=== PATIENT | female | born 1945 | race Caucasian/White ===

== ENCOUNTER → 2023-05-16 | Outpatient (REF) | payer MEDICARE, OTHER, SELFPAY | LOC: DHSLP | PROVIDERS: ATTENDING PHYSICIAN Internal Medicine Cardiovascular Disease; FAMILY PHYSICIAN Family Medicine | DX: G47.10 Hypersomnia, unspecified (principal); R06.83 Snoring | CPT/HCPCS: 95800 ==

== ENCOUNTER 2024-02-17 08:15 | Inpatient (IN) | payer MEDICARE, OTHER, SELFPAY ==
[2024-02-17] VITALS (11 sets, daily range): BP systolic 89–136; BP diastolic 57–93; BMI 17.5
--- NOTE | 2024-02-17 08:33 | W.PN.CARDCBS ---
Addendum entered and electronically signed by Pedro Diaz MD 02/17/24 12:05:
78-year-old woman admitted for dofetilide loading. Now with persistent atrial fibrillation, history of PVI with flutter ablation and SVT ablation in 2017 with PVI in November 2022
PMH: Inflammatory colitis December 2023, and urinary retention, peripheral neuropathy, hypothyroidism, GERD, hyponatremia, giant cell arteritis
Allergies: Multaq
Outpatient meds: Actemra, diltiazem CD, vitamin D3, Eliquis 5 twice daily, metoprolol 50 every 8, Remeron, potassium, prednisone 60 mg a day, Protonix, levothyroxine, gabapentin, Pepcid
ECG: Atrial fibrillation, rapid ventricular response, QTc is 427, RSR prime, right axis
Pulse 112, BP pending, afebrile, sats 98, some temporal wasting, frail, head neck exam otherwise unremarkable lungs clear tachycardic rate and rhythm, no obvious murmurs JVD okay, no significant edema abdomen benign
Assessment:
Symptomatic PAF, now more persistent
history of SVT/afib/flutter ablation 08/2016, repeat PVI 12/10/22
Admission for tikosyn load
Chronic OAC with eliquis
Relative hypotension
3 week admission to [place] for inflammatory colitis 01/05-01/27/24 s/p flex sigmoidoscopy with biopsy 01/13/24
Urinary retention with soto in place last 5 weeks
GCA flare, on high doses of prednisone and gabapentin
Peripheral neuropathy
Hypothyroidism
GERD
History of pulmonary nodules
Hyponatremia
Vitamin D deficiency
Plan:
Dofetilide load with plan on cardioversion on February 18
Original Note:
Today's Communication / Plan
-
transfer to hospitalist service
initiate tikosyn 250mcg Q12H
follow QTc
continue toprol. holding OP digoxin and cardizem
continue eliquis
PT
Impression / Plan
-
Primary Technology Solutions Architect: Dr. Dawson
Primary EP: Dr. Llanes
Assessment:
Symptomatic PAF, now more persistent
history of SVT/afib/flutter ablation 08/2016, repeat PVI 12/10/22
Admission for tikosyn load
Chronic OAC with eliquis
Relative hypotension
3 week admission to [place] for inflammatory colitis 01/05-01/27/24 s/p flex sigmoidoscopy with biopsy 01/13/24
Urinary retention with soto in place last 5 weeks
GCA flare, on high doses of prednisone and gabapentin
Peripheral neuropathy
Hypothyroidism
GERD
History of pulmonary nodules
Hyponatremia
Vitamin D deficiency
ECHO 12/2023 at [facility]: EF preserved
Plan:
-Patient presents for elective Tikosyn loading due to more recent persistent atrial fibrillation after an admission for inflammatory colitis 12/2023 at [facility].
-she reports diarrhea/abd pain largely improved however still at times requires medication for regulation of bowels
-Awaiting labs
-QTc stable. Is in A-fib with rapid response on arrival
-Will plan to initiate Tikosyn 250 mcg Q12H
-Held outpatient digoxin as of 02/14/2024 and held outpatient Cardizem as of 02/15/2024 as directed
-Called [facility] pharmacy and confirmed no missed doses of Eliquis over the last month. She did miss doses on 01/09 - 01/11 in preparation for her flex sig, however this was resumed as of 01/12 PM dose without missed doses since confirmed
by patient .
-continue OP toprol
-if remains in afib, will plan for CV 02/18
-She reportedly had echo during 12/2023 admission with preserved EF
-She has had a leg bag Soto for the last 5 weeks, and is asking about voiding trial
-Also on high doses of gabapentin and prednisone for a GCA flare and has been asking if these can be weaned
-Due to ongoing noncardiac issues, have asked hospitalist service to admit
-check TSH, patient's huband reports synthroid dosing recently adjusted as OP
-she is currently in [facility] for rehab. continue PT
-d/w nursing, hospitalist
Progress Note - Technology Solutions Architect
Subjective
Date of Service: February 17, 2024
Reports fatigue
Physical Exam
Physical Exam
GEN: No distress, awake, alert, oriented x3
HEENT: supple, anicteric, mmm, eomi
LUNGS: CTA B/L, no wheezes/rales
CV: Irreg irreg, S1/S2, no murmur
ABD: soft, BS+, NT/ND
EXT: No cyanosis, clubbing. 1+ edema of B/L LE
NEURO: Gross non-focal
SKIN: Warm, pink, dry. No rash
[2024-02-17 09:25] LABS: % Basophils 0.1 % (0-2); % Eosinophils 0.7 % (0-6); % Immature Granulocytes 1.1 % (0-0.5); % Lymphocytes 4.6 % (20.5-51.1); % Monocytes 6.9 % (1.7-9.3); % Neutrophils 86.6 % (42.2-75.2); Absolute Eosinophils 0.1 10^3/uL (0-0.7); Absolute Immature Granulocytes 0.2 10^3/uL (0-0.05); Absolute Lymphocytes 0.9 10^3/uL (1.2-3.4); Absolute Monocytes 1.3 10^3/uL (0.1-0.6); Absolute Neutrophils 16.7 10^3/uL (1.4-6.5); Hematocrit 33.4 % (37.0-47.0); Hemoglobin 10.6 g/dL (12.0-16.0); Mean Corp Hgb Conc. 31.7 g/dL (33.0-37.0); Mean Corpuscular Hgb 29.9 pg (27.0-31.0); Mean Corpuscular Volume 94.1 fL (81.0-99.0); Mean Platelet Volume 8.1 fL (7.4-10.4); Nucleated Red Blood Cells % 0 %; Platelet Count 501 10^3/uL (130-400); Red Blood Cell Count 3.55 10^6/uL (4.20-5.40); Red Cell Dist. Width 15.5 % (11.5-14.5); White Blood Cell Count 19.3 10^3/uL (4.8-10.8)
--- NOTE | 2024-02-17 09:54 | CM ---
Addendum entered by Cynthia Esposito 02/17/24 12:08:
Telephone call to [employer], ([phone]) to check if they have coverage for Dofetilide 250 mcg. Her co-pay would be $84.48 a month. She is in the coverage gap. If she uses a Good Rx. coupon at [facility] her co-pay would be $29.49 a month.
Original Note:
Reviewed chart. Met with and Mrs. Diaz to review discharge plans. She states prior to admission she resides with her spouse in a two story home with two steps to enter. She states she has a full flight of steps to get to bedroom/full
bathroom. She states she has a powder room on the first floor. She states prior to admission she was independent with ambulation and adls. She states she does not have any DME in the home. She states she has a prescription plan with [employer] and uses
[facility]. Will check with her prescription plan her co-pay for Dofetilide and check if her pharmacy has it in stock. She will need a three day script to go to [facility] for a supply of Dofetilide to go home with her. Medical work-up in
progress. The discharge plan is to return home with her spouse when medically stable.
[2024-02-17 10:05] LABS: ALT (SGPT) 49 U/L (0-35); AST (SGOT) 35 U/L (14-36); Alkaline Phosphatase 130 U/L (38-126); Blood Urea Nitrogen 55 mg/dl (7-17); Calcium 8.7 mg/dl (8.4-10.2); Carbon Dioxide 30 mmol/L (22-30); Chloride 96 mmol/L (98-107); Estimated Creatinine Clearance 66 ml/min; Glucose 90 mg/dl (70-99); Potassium 4.2 mmol/L (3.5-5.1); Sodium 137 mmol/L (135-145); Total Bilirubin 0.3 mg/dl (0.2-1.3); Total Protein 6.1 g/dl (6.3-8.2); eGFR > 60.00
--- NOTE | 2024-02-17 10:26 | W.CARD.TIKOS ---
Initiate Tikosyn
-
I verify that the patient has not taken any verapamil (Isoptin/Calan), ketoconazole (Nizoral), cimetidine (Tagamet), trimethoprim (Trimpex), trimethoprim/sulfamethoxazole (Bactrim), megesterol (Megace), prochlorperazine (Compazine),
hydrochlorothiazide (HCTZ), dolutegravir (Tivicay) or any Class I or Class III anti-arrhythmic within the last three days
AND
I verify that the patient has not taken amiodarone within the last THREE months, or that the patient's amiodarone plasma concentration is <0.3 mcg/mL.
Creatinine 0.4 mg/dL (0.6-1.0) L 02/17/24 09:06
Estimated Creat Clear 66 ml/min 02/17/24 09:06
Does patient have a Ventricular Conduction Abnormality: No
I have assessed the baseline QTc interval (using QT for heart rate less than 60 bpm) and deemed the patient is appropriate for Dofetilide therapy. I understand that Tikosyn is contraindicated if the QTc is >440msec (500msec in patients with
ventricular conduction abnormalities).
Baseline QTc (in msec): 427
QTc interval is greater than 440msec without conduction abnormality OR greater than 500msec with a conduction abnormality, but acceptable to proceed per Cardiology attending.
Ordering Physician: Pedro Diaz
[2024-02-17] MEDS: TIKOSYN 250 MCG PO ×2 (10:50→21:51)
[2024-02-17] MEDS: NEURONTIN 100 MG PO ×3 (11:22→21:54)
--- NOTE | 2024-02-17 11:23 | PTCARENOTE ---
Pt received as a direct admit for Tikosyn administration. Pt alert and oriented. Afib, rate in the 100's to 140's with ambulation. Pt ambulates to the bathroom with the walker with assist of 1. Gait slightly unsteady due to neuropathy of feet.
--- NOTE | 2024-02-17 13:50 | W.PN.UPDATE ---
Update Note
Progress Note Update
patient with HRs persistently in 120-140s on review of tele. will start IV cardizem gtt @5 and uptitrate as needed for improved HR control.
[2024-02-17] MEDS: CARDIZEM 125 IV (15:29)
--- NOTE | 2024-02-17 15:31 | CON.HOSP ---
Addendum entered and electronically signed by Kari Grace MD 02/17/24 19:38:
I personally performed a history and physical exam of the patient and discussed management with the resident. I reviewed the resident's note and agree with the documented findings and plan of care HPI/CC.
GENERAL: thin, frail appearing female in no apparent distress
HEENT: NC/AT
HEART: irreg irreg-- tachycardic
LUNGS : clear to auscultation bilaterally
ABDOM: soft, nontender, nondistended, + bowel sounds
EXT: no cyanosis, clubbing, or edema
NEUROLOGIC: grossly intact
: soto cath with clear urine
Persistent A-fib with RVR--allergic to Multaq (hives), cannot use amiodarone due to thyroid issues--admitted for Tikosyn loading--S/p cardiac ablation 2022--now also on cardizem drip- remains on eliquis without missed doses--apprec cards--Will
consider cardioversion in 2 days if no improvement
Hypothyroidism--TSH 13.7, Synthroid recently increased to 137 mcg 3 days ago so will not change dosing at this time--need to take levothyroxine alone in the AM on an empty stomach without other meds--if that fails, may need to consider BRAND
Synthroid-- pantoprazole can reduce absorption of Synthroid when taking together--recheck TSH and full TFTs in 4 weeks
Urinary retention--unclear cause--? oxycodone, constipation, hypothyroid---On Soto catheter for 5 weeks placed at [facility]--will not do voiding trial here, needs to go back to PCP or f/u with outpt urology--Starts Flomax 0.4 mg daily.
Giant cell arteritis--Continue high-dose corticosteroids--possibly related to thyroid issues and afib?--f/u with rheum as outpt for tapering of meds
Chronic constipation--could also be cause of urinary retention---cont bowel regimen--Hold with loose stool
Thrombocytosis---Due to inflammatory response--follow
Osteoporosis--Continue Prolia
GERD--Continue pantoprazole, usually given 1/2 hour prior to breakfast (take separate from synthroid)
DVT PPx=-Eliquis
CODE STATUS-full code
Thank you for allowing us to consult on your patient--will follow with you
Original Note:
Consultation
-
Date/Time Consultation Requested: 02/17/24 9:15
Date/Time Consultation Performed: 01/1924 15:30
Requesting Provider: Pedro Diaz MD
Performing Provider: Kari Grace MD
Reason for Consultation: Medical management
Family Physician
-
Family Physician: NO INTERVIEW UNKNOWN
Chief Complaint
-
Atrial fibrillation
History of Present Illness
78-year-old female with PMH of inflammatory colitis, urinary retention (on chronic Soto for 5 weeks), giant cell arteritis (on chronic steroid), peripheral neuropathy (with right foot drop), hypothyroidism, GERD, hyponatremia, paroxysmal
A-fib/A-flutter s/p PVI and concomitant A-flutter ablation 08/30/2016, subsequently underwent another ablation in 2022 who was admitted to the hospital for Tikosyn loading. Patient tried Multaq and was allergic with diffuse hives, amiodarone was not
prescribed due to her history of hypothyroidism. Patient reports that she is compliant with her Synthroid however she receives it with other medications including pantoprazole. Patient has been maintained on diltiazem and metoprolol with Eliquis.
Due to multiple medical problems, the hospitalist team has been consulted to manage chronic medical problems and to accept in our service.
Patient reports that she has been on Soto catheter for urinary retention for about 5 weeks and would like it removed during this admission. She however denies fever, chills, nausea, vomiting, chest pain, shortness of breath, nausea or vomiting.
Medical History
Past Medical History
Past Medical History: Reports Arrhythmia, GERD and Hypothyroidism
Past Surgical History: Reports None
Social History
Tobacco: Non-smoker
Alcohol: None
Drug: None
Personal:
Living: With Family
Employment: Retired
Family History
Family History: Other (Both parents of lung cancer from smoking)
Allergies / Home Medications
Allergies reflects when Allergies were last updated in [employer].
Home Medications with original date entered in [employer]
Allergy/Medication List:
Allergies
Multaq
Allergy/AdvReac Type Severity Reaction Status Date / Time
dronedarone [From [facility]] Allergy Rash Verified 12/10/22 16:06
Home Medications
apixaban 5 mg tablet (Eliquis) 5 mg PO BID 08/30/16
levothyroxine 100 mcg tablet 137 mcg PO DAILY 08/30/16
Actemra 1 dose IV Q4W 11/25/22
Calcium Citrate + D 1 cap PO DAILY 11/25/22
cholecalciferol (vitamin D3) 50 mcg (2,000 unit) capsule (Vitamin D3) 50 mcg PO DAILY 11/25/22
denosumab 60 mg/mL subcutaneous syringe (Prolia) 60 mg SC [id number] 11/25/22
famotidine 20 mg tablet (Pepcid) 20 mg PO QPM 11/25/22
metoprolol succinate 50 mg tablet,extended release 24 hr 50 mg PO Q8 11/25/22
prednisone 20 mg tablet 60 mg PO DAILY 11/25/22
potassium chloride 8 mEq tablet,extended release 8 meq PO DAILY 12/03/22
Cardizem Cd 120 mg PO DAILY 12/25/22
gabapentin 100 mg capsule 100 mg PO Q8H 02/17/24
gabapentin 300 mg capsule 300 mg PO HS 02/17/24
mirtazapine 15 mg tablet (Remeron) 7.5 mg PO HS 02/17/24
multivitamin,tx-minerals 1 tab PO DAILY 02/17/24
oxycodone 5 mg tablet 2.5 mg PO Q6H PRN pain 02/17/24
pantoprazole 40 mg tablet,delayed release (Protonix) 40 mg PO DAILY 02/17/24
sennosides 8.6 mg tablet (senna) 8.6 mg PO DAILY PRN constipation 02/17/24
urea 15 gram oral powder packet 1 packet PO BID 02/17/24
Review of Systems
-
History Source: Patient and Family
Constitutional: Denies Fever, Fatigue or Chills
EENT: Reports No Symptoms
Respiratory: Reports No Symptoms; Denies Cough
Cardiac: Reports No Symptoms; Denies Chest Pain or Palpitations
Abdomen/GI: Reports No Symptoms; Denies Abdominal Pain, Nausea or Vomiting
Musculoskeletal: Reports No Symptoms
Skin: Reports No Symptoms
Physical Exam
Vital Signs
Vital Signs
Temp Pulse Resp BP Pulse Ox
97.6 F 136 16 111/79 96
02/17/24 12:38 02/17/24 12:07 02/17/24 12:38 02/17/24 12:07 02/17/24 12:38
Physical Exam
General: No Apparent Distress and Comfortable
Respiratory: Clear and Non Labored Respirations; Negative Wheezes or Rales
Cardiac: S1/S2 and Irregular Rhythm
GI: Soft, Non Tender, Non Distended and Normal Bowel Sounds
Musculoskeletal: No Clubbing and No Cyanosis
Skin: Warm and Dry
Neuro: Awake, Alert, AO x 3 and Other (Right foot drop)
Hematologic/Lymphatic: No Lymphadenopathy
Psych: Calm
Laboratory Results
-
Laboratory Results
02/17/24 09:06
02/17/24 09:06
Total Bilirubin 0.3 mg/dl (0.2-1.3) 02/17/24 09:06
AST 35 U/L (14-36) 02/17/24 09:06
ALT 49 U/L (0-35) H 02/17/24 09:06
Alkaline Phosphatase 130 U/L (38-126) H 02/17/24 09:06
Data Reviewed
-
Lab Data: Labs Reviewed and Discussed with Physician
Old Records: Reviewed
Impression / Plan
-
IMPRESSION: 78-year-old female with PMH of paroxysmal A-fib (now persistent), A-flutter s/p multiple ablations 2016, and 2022�who was admitted for Tikosyn loading due to persistent A-fib. Patient has tried Multaq which was discontinued due to
diffuse hives, amiodarone not an option due to her history of hypothyroidism. Hospitalist team was consulted to manage other chronic medical problems.
Assessment/plan:
#Persistent A-fib with RVR
-S/p cardiac ablation 2016, 2022.
-Tikosyn loading with persistent heart rates in 120s to 140s.
-Cardizem gtt @5 and uptitrate as needed per cardiology.
-Cardiology following.
-Will consider cardioversion in 2 days if no improvement.
#Hypothyroidism
-TSH 13.7, Synthroid recently increased to 137 mcg 3 days ago, patient compliant.
-May contribute to her A-fib.
-Patient not on any CYP induces, however pantoprazole can reduce absorption of Synthroid when taking together.
-Advised patient to take Synthroid on empty stomach, 30 minutes to 1 hour before other medications.
-Continue Synthroid at 137 mcg and recheck in 6 weeks.
#Urinary retention
-On Soto catheter for 5 weeks placed at [facility].
-Starts Flomax 0.4 mg daily.
-Will give referral to outpatient urology for further management.
#Giant cell arteritis
-Continue high-dose corticosteroids.
-Defer to outpatient rheumatology for management.
#Chronic constipation
-Start Senokot 8.6 mg p.o. HS, MiraLAX 17 mg PO daily, Colace 100 mg PO BID.
-Hold with loose stool
#Thrombocytosis
-Due to inflammatory response.
-Will continue to monitor.
#Osteoporosis
-Continue Prolia
#GERD
-Continue pantoprazole
DVT PPx-Eliquis
CODE STATUS-full code
[2024-02-17] MEDS: TOPROL XL 50 MG PO (16:06)
[2024-02-17] MEDS: COLACE 100 MG PO (20:02)
[2024-02-17] MEDS: SENOKOT-S 1 TABLET PO (20:02)
[2024-02-17] MEDS: ELIQUIS 5 MG PO (20:02)
[2024-02-17] MEDS: URE-NA 15 GRAMS PO (20:13)
[2024-02-17] MEDS: ROXICODONE 2.5 MG PO (21:52)
[2024-02-17] MEDS: NEURONTIN 300 MG PO (21:53)
[2024-02-17] MEDS: REMERON 7.5 MG PO (21:53)
[2024-02-17] MEDS: SENOKOT PO (22:22)
[2024-02-18] VITALS (12 sets, daily range): BP systolic 87–110; BP diastolic 53–74; PULSE 88; BMI 17.1
[2024-02-18] MEDS: TOPROL XL 50 MG PO ×4 (00:03→23:12)
--- NOTE | 2024-02-18 01:02 | PTCARENOTE ---
Assumed care of the pt @ 1900. AAOx3 Afib on the monitor Cardizem gtt @ 10mg/HR titrating for HR 80-100. 2nd dose Tikosyn given and 2 hour f/u EKG QTc 454. soto maintained for retention.
[2024-02-18] MEDS: CARDIZEM 125 IV ×2 (03:52→16:06)
[2024-02-18 04:47] LABS: Hematocrit 28.2 % (37.0-47.0); Hemoglobin 8.9 g/dL (12.0-16.0); Mean Corp Hgb Conc. 31.6 g/dL (33.0-37.0); Mean Corpuscular Hgb 29.1 pg (27.0-31.0); Mean Corpuscular Volume 92.2 fL (81.0-99.0); Mean Platelet Volume 8.2 fL (7.4-10.4); Platelet Count 428 10^3/uL (130-400); Red Blood Cell Count 3.06 10^6/uL (4.20-5.40); Red Cell Dist. Width 15.8 % (11.5-14.5); White Blood Cell Count 16.9 10^3/uL (4.8-10.8)
[2024-02-18 05:11] LABS: Blood Urea Nitrogen 34 mg/dl (7-17); Calcium 8.2 mg/dl (8.4-10.2); Carbon Dioxide 30 mmol/L (22-30); Chloride 95 mmol/L (98-107); Estimated Creatinine Clearance 66 ml/min; Glucose 77 mg/dl (70-99); Potassium 4.6 mmol/L (3.5-5.1); Sodium 135 mmol/L (135-145); eGFR > 60.00
[2024-02-18] MEDS: SYNTHROID 137 MCG PO (05:46)
--- NOTE | 2024-02-18 07:58 | W.PN.CARDCBS ---
Addendum entered and electronically signed by Lorenzo Llanes MD 02/18/24 08:32:
Patient seen and examined
Agree with JUSTIN Javier's note and assessment
Agree with JUSTIN Javier's plan
Telemetry with modestly improved heart rate control in the low 100s
Examination:
Appears in no distress
BMI as noted
Cor irregularly irregular no murmur
Lungs clear to auscultation bilaterally
Abdomen soft nontender positive bowel sounds
No extremity edema
Alert and orient x 3
Assessment:
Symptomatic PAF, now more persistent
history of SVT/afib/flutter ablation 08/2016, repeat PVI 12/10/22
Admission for tikosyn load
Chronic OAC with eliquis
Relative hypotension
3 week admission to [place] for inflammatory colitis 01/05-01/27/24 s/p flex sigmoidoscopy with biopsy 01/13/24
Urinary retention with soto in place last 5 weeks
GCA flare, on high doses of prednisone and gabapentin
Peripheral neuropathy
Hypothyroidism
GERD
History of pulmonary nodules
Hyponatremia
Vitamin D deficiency
ECHO 12/2023 at [facility]: EF preserved
Plan:
-remains in afib overnight however HRs improved on IV cardizem gtt @5 and increased dose po toprol 50mg Q8H, continue
-QTc stable by review of EKGs. continue tikosyn 250mcg Q12H
-OP digoxin and cardizem were discontinued prior to admission given initiation of dofetilide therapy
-plan for CV in AM if remains in afib
-continue eliquis, no missed doses in last month
-of note, hgb down to 8.9. hemetest stools. follow hgb
-TSH elevated at 13. check free T4. on synthroid as OP
-she reports she has good appetite however continues to lose weight. agree with dietary consult. noted hypoalbuminemia
-appreciate hospitalist assistance with multiple ongoing medical issues
-she was in [facility] for rehab prior to admission. continue PT
-d/w nursing, hospitalist
-Discussed with patient that we will have an office meeting discussed whether we continue current antiarrhythmic drug therapy if it is efficacious versus consideration of another ablation procedure although given her recent prolonged hospital stay I
would want her to try to rehabilitate and increase strength and nutrition prior to any considered procedure
Original Note:
Today's Communication / Plan
-
continue tikosyn
QTc stable
CV in AM
follow hgb. continue eliquis
mgmt of multiple ongoing medical issues per hospitalist
Impression / Plan
-
Primary Stenotype Operator: Dr. Dawson
Primary EP: Dr. Llanes
Assessment:
Symptomatic PAF, now more persistent
history of SVT/afib/flutter ablation 08/2016, repeat PVI 12/10/22
Admission for tikosyn load
Chronic OAC with eliquis
Relative hypotension
3 week admission to [place] for inflammatory colitis 01/05-01/27/24 s/p flex sigmoidoscopy with biopsy 01/13/24
Urinary retention with soto in place last 5 weeks
GCA flare, on high doses of prednisone and gabapentin
Peripheral neuropathy
Hypothyroidism
GERD
History of pulmonary nodules
Hyponatremia
Vitamin D deficiency
ECHO 12/2023 at [facility]: EF preserved
Plan:
-remains in afib overnight however HRs improved on IV cardizem gtt @5 and increased dose po toprol 50mg Q8H, continue
-QTc stable by review of EKGs. continue tikosyn 250mcg Q12H
-OP digoxin and cardizem on hold as per EP recs
-plan for CV in AM if remains in afib
-continue eliquis, no missed doses in last month
-of note, hgb down to 8.9. hemetest stools. follow hgb
-TSH elevated at 13. check free T4. on synthroid as OP
-she reports she has good appetite however continues to lose weight. agree with dietary consult. noted hypoalbuminemia
-appreciate hospitalist assistance with multiple ongoing medical issues
-she was in [facility] for rehab prior to admission. continue PT
-d/w nursing, hospitalist
Progress Note - Stenotype Operator
Subjective
Date of Service: February 18, 2024
no CP, SOB, palpitations.
Objective
Labs:
02/18/24 04:11
02/18/24 04:11
Labs
Hgb 8.9 g/dL (12.0-16.0) L 02/18/24 04:11
Hct 28.2 % (37.0-47.0) L 02/18/24 04:11
Plt Count 428 10^3/uL (130-400) H 02/18/24 04:11
Sodium 135 mmol/L (135-145) 02/18/24 04:11
Potassium 4.6 mmol/L (3.5-5.1) 02/18/24 04:11
BUN 34 mg/dl (7-17) H 02/18/24 04:11
Creatinine 0.5 mg/dL (0.6-1.0) L 02/18/24 04:11
Glucose 77 mg/dl (70-99) 02/18/24 04:11
Vital Signs and I&O:
Vital Signs
Temp Pulse Resp BP Pulse Ox
98.3 F 96 18 101/66 96
02/18/24 07:13 02/18/24 04:31 02/18/24 07:13 02/18/24 04:31 02/18/24 07:13
Vital Signs
Temp Pulse Resp BP Pulse Ox
98.3 F 96 18 101/66 96
02/18/24 07:13 02/18/24 04:31 02/18/24 07:13 02/18/24 04:31 02/18/24 07:13
Intake & Output
02/15/24 02/16/24 02/17/24 02/18/24
07:59 07:59 07:59 07:59
Intake Total 120 / 120
Output Total 2099 / 2099
Balance -1979 / -1979
Physical Exam
Physical Exam
GEN: No distress, awake, alert, oriented x3. frail appearing woman
HEENT: supple, anicteric, mmm, eomi
LUNGS: CTA B/L, no wheezes/rales
CV: Irreg irreg, S1/S2, no murmur
ABD: soft, BS+, NT/ND
EXT: No cyanosis, clubbing. trace edema of B/L LE
NEURO: Gross non-focal
SKIN: Warm, pink, dry. No rash
[2024-02-18] MEDS: FLOMAX 0.4 MG PO (08:06)
[2024-02-18] MEDS: ELIQUIS 5 MG PO ×2 (08:06→20:15)
[2024-02-18] MEDS: MIRALAX 17 GRAMS PO (08:06)
[2024-02-18] MEDS: KCL 10 MEQ PO (08:07)
[2024-02-18] MEDS: NEURONTIN 100 MG PO ×3 (08:07→22:17)
[2024-02-18] MEDS: THERAGRAN 1 TABLET PO (08:07)
[2024-02-18] MEDS: COLACE 100 MG PO ×2 (08:07→20:15)
[2024-02-18] MEDS: DELTASONE 60 MG PO (08:08)
[2024-02-18] MEDS: OSCAL 500 + D 500 MG PO (08:08)
[2024-02-18] MEDS: PROTONIX 40 MG PO (08:09)
--- NOTE | 2024-02-18 08:09 | W.PN.HOSP.TC ---
Addendum entered and electronically signed by Kari Grace MD 02/18/24 19:37:
I saw and evaluated the patient independently. I reviewed the resident�s note and agree with findings and plan as documented by Dr. Orr.
GENERAL: thin, frail appearing female in no apparent distress
HEENT: NC/AT
HEART: irreg irreg--rate improved
LUNGS : clear to auscultation bilaterally
ABDOM: soft, nontender, nondistended, + bowel sounds
EXT: no cyanosis, clubbing, or edema
NEUROLOGIC: grossly intact
: soto cath with clear urine
Persistent A-fib with RVR--allergic to Multaq (hives), cannot use amiodarone due to thyroid issues--admitted for Tikosyn loading--S/p cardiac ablation 2022--cont Tikosyn, cardizem, and eliquis --apprec cards--likely cardioversion tomorrow
Hypothyroidism--TSH 13.7, Synthroid recently increased to 137 mcg 3 days ago so will not change dosing at this time--need to take levothyroxine alone in the AM on an empty stomach without other meds--if that fails, may need to consider BRAND
Synthroid-- pantoprazole can reduce absorption of Synthroid when taking together--recheck TSH and full TFTs in 4 weeks
Urinary retention--unclear cause--? oxycodone, constipation, hypothyroid---Soto catheter for 5 weeks placed at [facility]--will not do voiding trial here, needs to go back to PCP or f/u with outpt urology--Starts Flomax 0.4 mg daily.
Giant cell arteritis--Continue high-dose corticosteroids--possibly related to thyroid issues and afib?--f/u with rheum as outpt for tapering of meds
Chronic constipation--could also be cause of urinary retention---cont bowel regimen--Hold with loose stool
Thrombocytosis---Due to inflammatory response--follow
Osteoporosis--Continue Prolia
GERD--Continue pantoprazole, usually given 1/2 hour prior to breakfast (take separate from synthroid)
DVT PPx=-Eliquis
CODE STATUS-full code
Original Note:
Today's Communication/Plan
-
Continue Tikosyn loading with Cardizem and Toprol
Monitor CBC
Bowel regimen for constipation
Continue Synthroid
Continue Eliquis
PT/OT
Assessment / Plan
Assessment / Plan
IMPRESSION: 78-year-old female with PMH of paroxysmal A-fib (now persistent), A-flutter s/p multiple ablations 2016, and 2022�who was admitted for Tikosyn loading due to persistent A-fib. Patient has tried Multaq which was discontinued due to
diffuse hives, amiodarone not an option due to her history of hypothyroidism. Hospitalist team was consulted to manage other chronic medical problems.
Assessment/plan:
#Persistent A-fib with RVR
-S/p cardiac ablation 2016, 2022. On chronic anticoagulation with Eliquis.
-Admitted for Tikosyn loading with persistent heart rates in the 140s, heart rate improving on Cardizem gtt @5 and Toprol now at 50 mg Q8H.
-QTc improved from previous, outpatient digoxin and Cardizem discontinued.
-Cardioversion in a.m. if she remains in A-fib per cardiology.
-PT/OT
#Hypothyroidism
-TSH 13.7, Synthroid recently increased to 137 mcg 3 days ago, patient compliant.
-May contribute to her A-fib.
-Patient not on any CYP induces, however pantoprazole can reduce absorption of Synthroid when taking together.
-Advised patient to take Synthroid on empty stomach, 30 minutes to 1 hour before other medications.
-Advised to discontinue outpatient pantoprazole.
-Continue Synthroid at 137 mcg and recheck in 6 weeks.
#Chronic anemia
-Most likely anemia of chronic disease, rule out GI bleed.
-Hemoccult test.
-Follow Hb with CBC.
#Urinary retention
-On Soto catheter for 5 weeks placed at [facility].
-Starts Flomax 0.4 mg daily.
-Will not do voiding trials here, follow-up with PCP or outpatient urology, information provided to patient and family at request.
#Giant cell arteritis
-Continue high-dose corticosteroids.
-Defer to outpatient rheumatology for tapering.
#Chronic constipation
-Start Senokot 8.6 mg p.o. HS, MiraLAX 17 mg PO daily, Colace 100 mg PO BID.
-Hold with loose stools.
#Thrombocytosis
-Due to inflammatory response.
-Will continue to monitor.
#Osteoporosis
-Continue Prolia
#GERD
-Continue pantoprazole
DVT PPx-Eliquis
CODE STATUS-full code
Anticipated Discharge: > 48 hours
Subjective/Interval History
-
Date of Service: February 18, 2024
Patient was seen and examined today in the room with at bedside. Reports that her heart rate is better today and she feels okay. She also reported that she wants her Soto pulled while in the hospital, however we have discussed that she
should follow-up with outpatient urology and PCP since her Soto is being managed outside the hospital. I provided her with contacts for [place] [facility] to call and see if she can get an early appointment. She denies chest pain, shortness of
breath, abdominal pain, fever or chills.
Objective Data
-
Labs:
Laboratory Results
02/18/24
04:11
WBC 16.9 H
Hgb 8.9 L
Hct 28.2 L
Plt Count 428 H
Sodium 135
Potassium 4.6
Chloride 95 L
Carbon Dioxide 30
BUN 34 H
Creatinine 0.5 L
Glucose 77
Calcium 8.2 L
Vital Signs:
Vital Signs
Temp Pulse Resp BP Pulse Ox
98.3 F 89 18 102/63 96
02/18/24 07:13 02/18/24 07:45 02/18/24 07:13 02/18/24 07:17 02/18/24 07:13
I&O
02/17/24 02/18/24 02/19/24
06:59 06:59 06:59
Intake Total 120 / 120
Output Total 2099
Balance -1979 / -1979
Review of Systems
-
History Source: Patient and Family
All other systems: Not reviewed unless documented
Constitutional: Reports No Symptoms; Denies Fever or Chills
EENT: Reports No Symptoms Reported
Respiratory: Reports No Symptoms; Denies Cough or Wheezing
Cardiac: Reports No Symptoms; Denies Chest Pain or Palpitations
Abdomen/GI: Reports No Symptoms; Denies Abdominal Pain, Nausea or Vomiting
Genitourinary: Reports Other (Soto); Denies Bleeding
Musculoskeletal: Reports No Symptoms; Denies Joint Swelling or Edema
Neuro: Reports Other (Right foot drop)
Physical Exam
-
General: No Apparent Distress and Comfortable; Negative Pain or Chills
HEENT: Normocephalic, Atraumatic and Moist Mucous Membranes
Respiratory: Clear to Auscultation; Negative Wheezes, Rhonchi or Crackles
Cardiac: S1/S2 and Irregular Rhythm; Negative Murmur, Rub or Gallop
GI: Soft, Nontender, Nondistended and Normal Bowel Sounds; Negative Organomegaly
Rectal: Deferred by Provider
Genito-urinary: Soto
Musculoskeletal: No Clubbing, No Cyanosis and No Edema
Skin: Warm; Negative Rash
Neuro: Awake and AO x 3
Psych: Calm
Data Reviewed
-
Labs: Labs Reviewed by me and Discussed with Physician
Old Records: Reviewed
[2024-02-18] MEDS: TIKOSYN 250 MCG PO ×2 (09:58→20:14)
[2024-02-18] MEDS: URE-NA 15 GRAMS PO ×2 (09:58→20:15)
--- NOTE | 2024-02-18 10:15 | PTCARENOTE ---
Assumed care of pt from night RN. Pt received awake and alert, Ox3. VSS, CM shows AF 90-100's. Tikosyn dose #3 given as per MAR, will do EKG at 1210. Cardizem infusing at 10 mg/hr through RFA. Chronic soto intact as per MD order, draining
clear yellow urine.
--- NOTE | 2024-02-18 12:15 | CM ---
Reviewed chart. Met with and Mrs. Diaz to review discharge plans. We reviewed co-pay with his insurance regarding her Dofetilide. Also reviewed [employer] Coupon and how to use it. Prior to admission Mrs. Diaz was at [facility] for rehab.
They are agreeable to returning to [facility] for continue SNF/Rehab. stay. Telephone call to [facility] admission to make the referral. [facility] states they can accept back tomorrow or Friday if medically stable. Medically work-up in
progress. The discharge plan is to return to [facility] SNF/Rehab. when medically stable.
--- NOTE | 2024-02-18 12:26 | PN.CDI ---
CDI
- -
CDI:
Physician Documentation Request
Admit Date: 02/17/24 08:15
Dear Cardiology,
Clinical Indicators:
Height: 5 ft 8 in
Weight: 112 lbs 6.9 oz
BMI: 17.1
02/16 Cardiology PN, 'some temporal wasting'
02/16 RD note, 'Underweight...11.6% BW loss over 2 months'
02/17 Cardiology PN, 'she reports she has good appetite however continues to lose weight. agree with dietary
consult. noted hypoalbuminemia'
If possible, please provide an associated diagnosis related to the abnormal BMI (< or = to 19), such as:
Underweight
Cachectic
Weight Loss only
Other
Use of terms such as suspected, likely, concern for, or probable (associated with a specific diagnosis that is being evaluated, monitored, or treated as if it exists) are acceptable and can be coded in the inpatient setting, when documented at the
time of discharge.
Thank you,
Lilia Velázquez RN BSN
CDI Specialist
available via tiger text
Please use your independent medical judgment in providing your response.
[2024-02-18 14:15] LABS: Free T4 2.19 ng/dl (0.78-2.19)
[2024-02-18] MEDS: NEURONTIN 300 MG PO (22:17)
[2024-02-18] MEDS: ROXICODONE 2.5 MG PO (22:17)
[2024-02-18] MEDS: SENOKOT 8.6 MG PO (22:17)
[2024-02-18] MEDS: REMERON 7.5 MG PO (22:22)
[2024-02-19 00:38] VITALS: BMI 17.1
--- NOTE | 2024-02-19 00:45 | PTCARENOTE ---
2300 Pt converted to NSR with HR 65. CVPA made aware. Cardizem gtt off.
[2024-02-19 04:22] VITALS: BP 107/64
[2024-02-19] MEDS: SYNTHROID 137 MCG PO (04:31)
[2024-02-19 04:36] VITALS: BMI 17.1
[2024-02-19 05:25] LABS: Hematocrit 25.6 % (37.0-47.0); Hemoglobin 8.2 g/dL (12.0-16.0); Mean Corpuscular Hgb 29.6 pg (27.0-31.0); Mean Corpuscular Volume 92.4 fL (81.0-99.0); Mean Platelet Volume 8.5 fL (7.4-10.4); Platelet Count 402 10^3/uL (130-400); Red Blood Cell Count 2.77 10^6/uL (4.20-5.40); Red Cell Dist. Width 15.9 % (11.5-14.5); White Blood Cell Count 14.3 10^3/uL (4.8-10.8)
[2024-02-19 05:50] LABS: Blood Urea Nitrogen 37 mg/dl (7-17); Calcium 8.4 mg/dl (8.4-10.2); Carbon Dioxide 30 mmol/L (22-30); Chloride 97 mmol/L (98-107); Estimated Creatinine Clearance 64 ml/min; Glucose 93 mg/dl (70-99); Potassium 4.4 mmol/L (3.5-5.1); Sodium 134 mmol/L (135-145); eGFR > 60.00
--- NOTE | 2024-02-19 07:08 | W.PN.HOSP.TC ---
Addendum entered and electronically signed by Kari Grace MD 02/19/24 12:54:
I saw and evaluated the patient independently. I reviewed the resident�s note and agree with findings and plan as documented by Dr. Orr.
GENERAL: thin, frail appearing female in no apparent distress
HEENT: NC/AT
HEART: irreg irreg--rate improved
LUNGS : clear to auscultation bilaterally
ABDOM: soft, nontender, nondistended, + bowel sounds
EXT: no cyanosis, clubbing, or edema
NEUROLOGIC: grossly intact
: soto cath with clear urine
thank you for allowing us to follow, no objection to d/c from Medicine standpoint
Persistent A-fib with RVR--allergic to Multaq (hives), cannot use amiodarone due to thyroid issues--admitted for Tikosyn loading, spontaneously converted to sinus rhythm, no need for cardioversion--S/p cardiac ablation 2022
anemia--likely of chronic disease--HGB 10 on admission--some component of dilution with cardizem drip, and blood draws--no signs of active bleeding--HGB 8.2 on d/c--recheck CBC in 1 week
Hypothyroidism--TSH 13.7, Synthroid recently increased to 137 mcg 3 days ago so will not change dosing at this time--need to take levothyroxine alone in the AM on an empty stomach without other meds--if that fails, may need to consider BRAND
Synthroid-- pantoprazole can reduce absorption of Synthroid when taken together--recheck TSH and full TFTs in 4 weeks
Urinary retention--unclear cause--? oxycodone, constipation, hypothyroid---Soto catheter for 5 weeks placed at [facility]--will not do voiding trial here, needs to go back to PCP or f/u with outpt urology--Started Flomax 0.4 mg daily--would
d/c on flomax
Giant cell arteritis--Continue high-dose corticosteroids--possibly related to thyroid issues and afib?--f/u with rheum as outpt for tapering of meds
Chronic constipation--could also be cause of urinary retention---cont bowel regimen--Hold with loose stool
Thrombocytosis---Due to inflammatory response--follow
Osteoporosis--Continue Prolia
GERD--pantoprazole, usually given 1/2 hour prior to breakfast (take separate from synthroid)--stopping at d/c, likely was given at [facility] for stress ulcer prophylaxis and discharged from there on it
DVT PPx--Eliquis
CODE STATUS-full code
Original Note:
Today's Communication/Plan
-
Continue Cardizem and Tikosyn
D/c pantoprazole on discharge
Assessment / Plan
Assessment / Plan
IMPRESSION: 78-year-old female with PMH of paroxysmal A-fib (now persistent), A-flutter s/p multiple ablations 2016, and 2022�who was admitted for Tikosyn loading due to persistent A-fib. Patient has tried Multaq which was discontinued due to
diffuse hives, amiodarone not an option due to her history of hypothyroidism. Hospitalist team was consulted to manage other chronic medical problems.
Assessment/plan:
#Persistent A-fib with RVR-s/p SVT/A-fib/flutter ablation 2016, repeat PVI 2022.
-Converted to sinus rhythm, QTc stable, heart rate improved on IV Cardizem gtt, Toprol 50 mg Q8H.
-PT/OT
#Hypothyroidism
-TSH 13.7, Synthroid recently increased to 137 mcg 3 days ago, patient compliant.
-Patient taking medications inappropriately with other medications that may impair absorption.
-Advised patient to take Synthroid on empty stomach, 30 minutes to 1 hour before other medications moving forward.
-Advised to discontinue outpatient pantoprazole.
-Continue Synthroid at 137 mcg and recheck in 6 weeks.
#Chronic anemia
-Most likely anemia of chronic disease, rule out GI bleed.
-Hemoccult test.
-Follow Hb with CBC.
#Urinary retention
-On Soto catheter for 5 weeks placed at [facility].
-Starts Flomax 0.4 mg daily.
-Will not do voiding trials here, follow-up with PCP or outpatient urology, information provided to patient and family at request.
#Giant cell arteritis
-Continue high-dose corticosteroids.
-Defer to outpatient rheumatology for tapering.
#Chronic constipation
-Start Senokot 8.6 mg p.o. HS, MiraLAX 17 mg PO daily, Colace 100 mg PO BID.
-Hold with loose stools.
#Thrombocytosis
-Due to inflammatory response.
-Will continue to monitor.
#Osteoporosis
-Continue Prolia
#GERD
-Continue pantoprazole
DVT PPx-Eliquis
CODE STATUS-full code
Anticipated Discharge: 24 - 48 hours
Subjective/Interval History
-
Date of Service: February 19, 2024
I saw and examined patient. Patient converted to sinus rhythm overnight. Reports no chest pain or shortness of breath, abdominal pain, nausea or vomiting.
Objective Data
-
Labs:
Laboratory Results
02/19/24
04:30
WBC 14.3 H
Hgb 8.2 L
Hct 25.6 L
Plt Count 402 H
Sodium 134 L
Potassium 4.4
Chloride 97 L
Carbon Dioxide 30
BUN 37 H
Creatinine 0.4 L
Glucose 93
Calcium 8.4
Vital Signs:
Vital Signs
Temp Pulse Resp BP Pulse Ox
98.0 F 73 17 107/64 97
02/19/24 04:21 02/19/24 04:22 02/19/24 04:21 02/19/24 04:22 02/19/24 04:21
I&O
02/18/24 02/19/24 02/20/24
06:59 06:59 06:59
Intake Total 120 / 120 360 / 360
Output Total 2099 1400 / 1400
Balance -1979 / -1039 / -1040
Review of Systems
-
History Source: Patient and Family
All other systems: Not reviewed unless documented
Constitutional: Reports No Symptoms; Denies Fever or Chills
EENT: Reports No Symptoms Reported
Respiratory: Reports No Symptoms; Denies Cough or Wheezing
Cardiac: Reports No Symptoms; Denies Chest Pain or Palpitations
Abdomen/GI: Reports No Symptoms; Denies Abdominal Pain, Nausea or Vomiting
Genitourinary: Reports Other (Soto); Denies Bleeding
Musculoskeletal: Reports No Symptoms; Denies Joint Swelling or Edema
Neuro: Reports Other (Right foot drop)
Physical Exam
-
General: No Apparent Distress and Comfortable; Negative Pain or Chills
HEENT: Normocephalic, Atraumatic and Moist Mucous Membranes
Respiratory: Clear to Auscultation; Negative Wheezes, Rhonchi or Crackles
Cardiac: S1/S2 and Irregular Rhythm; Negative Murmur, Rub or Gallop
GI: Soft, Nontender, Nondistended and Normal Bowel Sounds; Negative Organomegaly
Rectal: Deferred by Provider
Genito-urinary: Soto
Musculoskeletal: No Clubbing, No Cyanosis and No Edema
Skin: Warm; Negative Rash
Neuro: Awake and AO x 3
Psych: Calm
Data Reviewed
-
Labs: Labs Reviewed by me and Discussed with Physician
Old Records: Reviewed
--- NOTE | 2024-02-19 07:43 | W.PN.CARDCBS ---
Addendum entered and electronically signed by Anya Javier PA-C 02/19/24 15:16:
[id number]
Addendum entered and electronically signed by Anya Javier PA-C 02/19/24 10:08:
add to below: underweight with BMI of 17.1
Addendum entered and electronically signed by Lorenzo Llanes MD 02/19/24 08:23:
Patient seen and examined
Agree with JUSTIN Javier's note and assessment
Agree with JUSTIN Javier's plan
Converted to sinus rhythm after third dose of dofetilide with stable QTc interval
She feels well
Exam deferred and as per JUSTIN note
Alert and orient x 3
Nonfocal neurologically
No acute distress
Assessment:
Symptomatic PAF, now more persistent
history of SVT/afib/flutter ablation 08/2016, repeat PVI 12/10/22
Admission for tikosyn load
Chronic OAC with eliquis
Relative hypotension
3 week admission to [place] for inflammatory colitis 01/05-01/27/24 s/p flex sigmoidoscopy with biopsy 01/13/24
Urinary retention with soto in place last 5 weeks
GCA flare, on high doses of prednisone and gabapentin
Peripheral neuropathy
Hypothyroidism
GERD
History of pulmonary nodules
Hyponatremia
Vitamin D deficiency
[facility] EF [facility]
Plan:
-she converted to SR ~2200 last evening on review of tele. remains in SR at this time. CV cancelled
-stop IV cardizem gtt. will decrease toprol dose back to 50mg BID upon DC. stopped OP digoxin and cardizem prior to admission
-continue tikosyn 250mcg Q12H. QTc stable.
-continue eliquis
-of note, hgb down to 8.2. hemetest stools. follow hgb. check iron studies. d/w hospitalist 02/18
-TSH elevated at 13 with compensated free T4. on synthroid as OP
-she reports she has good appetite however continues to lose weight. dietary consult. noted hypoalbuminemia
-appreciate hospitalist assistance with multiple ongoing medical issues
-she was in [place] for rehab prior to admission. continue PT
-ok for DC to home today from cardiac standpoint. await work up of anemia
-OP cardiac follow up with Dr. Dawson arranged. I can see her back if she has any further arrhythmia.
-d/w nursing
Original Note:
Today's Communication / Plan
-
continue tikosyn
toprol 50mg BID upon DC. no digoxin or cardizem
continue eliquis, but follow hgb trends. hemetest stools and check iron studies. hospitalist to address
OP cardiac follow up arranged
hopefully for DC today
Impression / Plan
-
Primary [facility]: Dr. Dawson
Primary EP: Dr. Llanes
Assessment:
Symptomatic PAF, now more persistent
history of SVT/afib/flutter ablation 08/2016, repeat PVI 12/10/22
Admission for tikosyn load
Chronic OAC with eliquis
Relative hypotension
3 week admission to [place] for inflammatory colitis 01/05-01/27/24 s/p flex sigmoidoscopy with biopsy 01/13/24
Urinary retention with soto in place last 5 weeks
GCA flare, on high doses of prednisone and gabapentin
Peripheral neuropathy
Hypothyroidism
GERD
History of pulmonary nodules
Hyponatremia
Vitamin D deficiency
[facility]23 [facility]: EF preserved
Plan:
-she converted to SR ~2200 last evening on review of tele. remains in SR at this time. CV cancelled
-stop IV cardizem gtt. will decrease toprol dose back to 50mg BID upon DC. stopped OP digoxin and cardizem prior to admission
-continue tikosyn 250mcg Q12H. QTc stable.
-continue eliquis
-of note, hgb down to 8.2. hemetest stools. follow hgb. check iron studies. d/w hospitalist 02/18
-TSH elevated at 13 with compensated free T4. on synthroid as OP
-she reports she has good appetite however continues to lose weight. dietary consult. noted hypoalbuminemia
-appreciate hospitalist assistance with multiple ongoing medical issues
-she was in [place] for rehab prior to admission. continue PT
-ok for DC to home today from cardiac standpoint. await work up of anemia
-OP cardiac follow up with Dr. Saimr rubio
-d/w nursing
Progress Note - [facility]
Subjective
Date of Service: February 19, 2024
No complaints overnight. Was happy to know she was back in sinus rhythm
Objective
Labs:
02/19/24 04:30
02/19/24 04:30
Labs
Hgb 8.2 g/dL (12.0-16.0) L 02/19/24 04:30
Hct 25.6 % (37.0-47.0) L 02/19/24 04:30
Plt Count 402 10^3/uL (130-400) H 02/19/24 04:30
Sodium 134 mmol/L (135-145) L 02/19/24 04:30
Potassium 4.4 mmol/L (3.5-5.1) 02/19/24 04:30
BUN 37 mg/dl (7-17) H 02/19/24 04:30
Creatinine 0.4 mg/dL (0.6-1.0) L 02/19/24 04:30
Glucose 93 mg/dl (70-99) 02/19/24 04:30
Vital Signs and I&O:
Vital Signs
Temp Pulse Resp BP Pulse Ox
98.0 F 73 17 107/64 97
02/19/24 04:21 02/19/24 04:22 02/19/24 04:21 02/19/24 04:22 02/19/24 04:21
Vital Signs
Temp Pulse Resp BP Pulse Ox
98.0 F 73 17 107/64 97
02/19/24 04:21 02/19/24 04:22 02/19/24 04:21 02/19/24 04:22 02/19/24 04:21
Intake & Output
02/16/24 02/17/24 02/18/24 02/19/24
07:59 07:59 07:59 07:59
Intake Total 120 / 120 360 / 360
Output Total 2100 / 2100 1400 / 1400
Balance -1979 / -1979 -1040 / -1040
Physical Exam
Physical Exam
GEN: No distress, awake, alert, oriented x3. frail appearing woman
HEENT: supple, anicteric, mmm, eomi
LUNGS: CTA B/L, no wheezes/rales
CV: Reg, S1/S2, no murmur
ABD: soft, BS+, NT/ND
EXT: No cyanosis, clubbing. trace edema of B/L LE
NEURO: Gross non-focal
SKIN: Warm, pink, dry. No rash
[2024-02-19 08:05] VITALS: BP 108/70
[2024-02-19] MEDS: TIKOSYN 250 MCG PO (08:20)
[2024-02-19] MEDS: OSCAL 500 + D 500 MG PO (08:20)
[2024-02-19] MEDS: ELIQUIS 5 MG PO (08:20)
[2024-02-19] MEDS: DELTASONE 60 MG PO (08:20)
[2024-02-19] MEDS: TOPROL XL 50 MG PO ×2 (08:21→15:51)
[2024-02-19] MEDS: NEURONTIN 100 MG PO ×2 (08:21→15:51)
[2024-02-19] MEDS: PROTONIX 40 MG PO (08:21)
[2024-02-19] MEDS: KCL 10 MEQ PO (08:21)
[2024-02-19] MEDS: FLOMAX 0.4 MG PO (08:21)
[2024-02-19] MEDS: COLACE 100 MG PO (08:22)
[2024-02-19] MEDS: URE-NA 15 GRAMS PO (08:22)
[2024-02-19] MEDS: THERAGRAN 1 TABLET PO (08:22)
[2024-02-19] MEDS: MIRALAX 17 GRAMS PO (08:22)
[2024-02-19 09:10] LABS: Iron 41 ug/dl (37-170)
[2024-02-19 09:20] LABS: Percent Saturation 20 % (20-50); Total Iron Binding Capacity 204 ug/dl (265-497)
--- NOTE | 2024-02-19 09:46 | PTCARENOTE ---
Rec'd pt this shift awake and alert in bed. Pt NSR on monitor. Pt on RA, lungs clear. AM meds given. Pt with no complaints of SOB or pain. See worklist for VS/I and O and assessments.
--- NOTE | 2024-02-19 10:50 | W.DS.TRANS ---
DC Summary - Neuropsychiatrist
-
Discharge Instructions:
Sleep Apnea Risk Low
Discharge Diagnosis/Procedures atrial fibrillation, tikosyn load
Diet As tolerated
Activity As tolerated
Driving Restrictions No driving for 24 hours
Bathing Restrictions None
Blood Work CBC in 1 week
Instructions:
Stand-Alone Forms:
Changes to Home Medications: Yes
Discharge Medications:
DC Medications w/original date entered in [facility]
apixaban 5 mg tablet (Eliquis) 5 mg PO BID Blood Clot Prevention/Tx 08/30/16
levothyroxine 100 mcg tablet 137 mcg PO DAILY Thyroid 08/30/16
Actemra 1 dose IV Q4W Autoimmune Disorder 11/25/22
Calcium Citrate + D 1 cap PO DAILY Supplement 11/25/22
cholecalciferol (vitamin D3) 50 mcg (2,000 unit) capsule (Vitamin D3) 50 mcg PO DAILY Supplement 11/25/22
denosumab 60 mg/mL subcutaneous syringe (Prolia) 60 mg SC [id number] Autoimmune Disorder 11/25/22
famotidine 20 mg tablet (Pepcid) 20 mg PO QPM Gastrointestinal Issue 11/25/22
prednisone 20 mg tablet 60 mg PO DAILY Anti-Inflammatory 11/25/22
potassium chloride 8 mEq tablet,extended release 8 meq PO DAILY Supplement 12/03/22
gabapentin 100 mg capsule 100 mg PO Q8H Neurological Condition 02/17/24
gabapentin 300 mg capsule 300 mg PO HS Neurological Condition 02/17/24
mirtazapine 15 mg tablet (Remeron) 7.5 mg PO HS Neurological Condition 02/17/24
multivitamin,tx-minerals 1 tab PO DAILY Supplement 02/17/24
oxycodone 5 mg tablet 2.5 mg PO Q6H PRN pain 02/17/24
pantoprazole 40 mg tablet,delayed release (Protonix) 40 mg PO DAILY Gastrointestinal Issue 02/17/24
sennosides 8.6 mg tablet (senna) 8.6 mg PO DAILY PRN constipation 02/17/24
urea 15 gram oral powder packet 1 packet PO BID Supplement 02/17/24
dofetilide 250 mcg capsule 250 mcg PO Q12H #60 caps 02/19/24
metoprolol succinate 50 mg tablet,extended release 24 hr 50 mg PO BID Blood Pressure #0 tabs 02/19/24
tamsulosin 0.4 mg capsule 0.4 mg PO DAILY #30 caps 02/19/24
Home Medication Changes
tikosyn and flomax are new
Pending Results: No
--- NOTE | 2024-02-19 11:47 | PTCARENOTE ---
Report called to [facility], spoke with ESTUARDO Woody.
[2024-02-19 12:21] VITALS: BP 102/62
--- NOTE | 2024-02-19 12:29 | CM ---
Reviewed chart.. Met with MrMarco and Mrs. Diaz. She is ready for transfer to [facility] today. Telephone call to [facility] admissions to confirm ability to accept. [facility] Admission confirms ability to accept her today. The fax number is
([phone]) and report ([phone]). Mr. Diaz called [facility] for payment. Wheelchair arrangements made with [facility] for 4:30 p.m. Updated [facility] Admissions with transfer date and time. Medical work-up in progress. The
discharge plan is to go to [facility] when medically stable.
--- NOTE | 2024-02-19 15:20 | W.DS.TRANS ---
DC Summary - Pharmacy Manager
-
Discharge Instructions:
Sleep Apnea Risk Low
Discharge Diagnosis/Procedures atrial fibrillation, tikosyn load
Diet As tolerated
Activity As tolerated
Driving Restrictions No driving for 24 hours
Bathing Restrictions None
Blood Work CBC in 1 week
Instructions:
Stand-Alone Forms:
Changes to Home Medications: Yes
Discharge Medications:
DC Medications w/original date entered in [employer]
apixaban 5 mg tablet (Eliquis) 5 mg PO BID Blood Clot Prevention/Tx 08/30/16
levothyroxine 100 mcg tablet 137 mcg PO DAILY Thyroid 08/30/16
Actemra 1 dose IV Q4W Autoimmune Disorder 11/25/22
Calcium Citrate + D 1 cap PO DAILY Supplement 11/25/22
cholecalciferol (vitamin D3) 50 mcg (2,000 unit) capsule (Vitamin D3) 50 mcg PO DAILY Supplement 11/25/22
denosumab 60 mg/mL subcutaneous syringe (Prolia) 60 mg SC [id number] Autoimmune Disorder 11/25/22
famotidine 20 mg tablet (Pepcid) 20 mg PO QPM Gastrointestinal Issue 11/25/22
prednisone 20 mg tablet 60 mg PO DAILY Anti-Inflammatory 11/25/22
potassium chloride 8 mEq tablet,extended release 8 meq PO DAILY Supplement 12/03/22
gabapentin 100 mg capsule 100 mg PO Q8H Neurological Condition 02/17/24
gabapentin 300 mg capsule 300 mg PO HS Neurological Condition 02/17/24
mirtazapine 15 mg tablet (Remeron) 7.5 mg PO HS Neurological Condition 02/17/24
multivitamin,tx-minerals 1 tab PO DAILY Supplement 02/17/24
oxycodone 5 mg tablet 2.5 mg PO Q6H PRN pain 02/17/24
sennosides 8.6 mg tablet (senna) 8.6 mg PO DAILY PRN constipation 02/17/24
urea 15 gram oral powder packet 1 packet PO BID Supplement 02/17/24
docusate sodium 100 mg capsule 100 mg PO BID #1 cap 02/19/24
dofetilide 250 mcg capsule 250 mcg PO Q12H #60 caps 02/19/24
metoprolol succinate 50 mg tablet,extended release 24 hr 50 mg PO BID Blood Pressure #0 tabs 02/19/24
polyethylene glycol 3350 17 gram oral powder packet 17 g PO DAILY #1 ea 02/19/24
tamsulosin 0.4 mg capsule 0.4 mg PO DAILY #30 caps 02/19/24
Home Medication Changes
tikosyn, flomax, colace, miralax are new
protonix, digoxin, cardizem were stopped
Pending Results: No
[2024-02-19 15:49] VITALS: BP 107/66
--- NOTE | 2024-02-19 17:54 | PTCARENOTE ---
Pt discharged to [facility] rehab via wheelchair van at 1645.
[2024-02-20 03:41] LABS: Hepatitis C Antibody Negative (Negative)
== END 2024-02-19 16:53 | DRG 309 ==
LOC: IVU 08:15
PROVIDERS: Internal Medicine Cardiovascular Disease; Physician Assistant; Student in an Organized Health Care Education/Training Program; ADMITTING PHYSICIAN Internal Medicine Cardiovascular Disease; CONSULT PHYSICIAN Internal Medicine
PROC: 3E033RZ Introduction of Antiarrhythmic into Peripheral Vein, Percutaneous Approach (ICD-10-PCS; 2024-02-17)
DX: I48.19 Other persistent atrial fibrillation (principal); Z68.1 Body mass index [BMI] 19.9 or less, adult; D63.8 Anemia in other chronic diseases classified elsewhere; E03.9 Hypothyroidism, unspecified; R33.9 Retention of urine, unspecified; K59.09 Other constipation; M31.6 Other giant cell arteritis; D75.839 Thrombocytosis, unspecified; M81.0 Age-related osteoporosis without current pathological fracture; K21.9 Gastro-esophageal reflux disease without esophagitis; I48.92 Unspecified atrial flutter; G62.9 Polyneuropathy, unspecified; Z79.52 Long term (current) use of systemic steroids; Z79.899 Other long term (current) drug therapy; Z80.1 Family history of malignant neoplasm of trachea, bronchus and lung; R63.6 Underweight; Z79.01 Long term (current) use of anticoagulants
CPT/HCPCS: 80048; 80053; 82728; 83540; 83550; 83735; 84439; 84443; 85025; 85027; 86803; 93005; 97116; 97161

== ENCOUNTER 2024-02-22 13:24 | Inpatient (IN) | payer MEDICARE, OTHER, SELFPAY ==
[2024-02-22] VITALS (12 sets, daily range): BP systolic 84–105; BP diastolic 51–72
[2024-02-22 11:48] LABS: Hematocrit 32.7 % (37.0-47.0); Hemoglobin 10.2 g/dL (12.0-16.0); Mean Corp Hgb Conc. 31.2 g/dL (33.0-37.0); Mean Corpuscular Hgb 29.1 pg (27.0-31.0); Mean Corpuscular Volume 93.2 fL (81.0-99.0); Mean Platelet Volume 8.1 fL (7.4-10.4); Platelet Count 397 10^3/uL (130-400); Red Blood Cell Count 3.51 10^6/uL (4.20-5.40); White Blood Cell Count 20.5 10^3/uL (4.8-10.8)
[2024-02-22] MEDS: CARDIZEM 5 MG IV (11:59)
[2024-02-22] MEDS: CARDIZEM 125 IV (12:01)
--- NOTE | 2024-02-22 12:03 | ED.GENMED ---
History of Present Illness
General
Chief Complaint: Heart Rate Problem
Source: patient and records
Exam Limitations: none
Time Seen by Provider: 02/22/24 11:29
Nursing documentation reviewed up to this point in time: agreed with
History of Present Illness
History of Present Illness:
78-year-old female PAF recently admitted for Tikosyn loading converted after Cardizem sees [facility] cardiology Dr. Llanes is her floor care specialist, she has had an ablation previously does take blood thinners which she has been compliant with no
chest pain or shortness of breath she did feel some dizziness which she stood up after receiving holy communion today just the host not wine no fever or chills, no nausea vomiting
Past History
Past History
ED Past Medical History: Arrthythmia
Social History
Tobacco: Non-smoker
Alcohol: None
Drug: None
Personal:
Living: assisted living
Employment: Retired
Review of Systems
Review of Systems
All Other Systems: Not applicable
Constitutional: Denies fever or fatigue
Cardiac: Reports palpitations; Denies chest pain or diaphoresis
ABD/GI: Reports no symptoms
: Reports no symptoms
Neurological: Reports dizzy
Phy Exam
Physical Exam
Physical Exam:
Physical Exam
General: no apparent distress, not acutely ill
Neck: No jaundice
Heart: Tacycardic
Lungs: no acute respiratory distress. clear bilaterally
Abdomen: Not tender
Neuro: alert and oriented. no focal neurological deficits
Skin: no rash
Psychiatric: well kept. interactive and cooperative
Extremities: no edema.
Course
Orders/Labs/Results
Orders:
Orders
02/22/24 11:16
EKG [Electrocardiogram (*1)] Urgent
Reason for Study: Tachycardia
EKG- Treatment ONCE
02/22/24 11:34
Complete Blood Count/No Diff Urgent
Comprehensive Metabolic Panel Urgent
Magnesium Urgent
02/22/24 11:36
Diltiazem 125 mg/125 ml Nss [Cardizem] 125 mg in 125 ml IV NOW
Initial dose in mg/hr, then titrate:: 5
Titrate to keep:: Heart rate 80-100 bpm
Titrate by mg/hr:: 5 mg/hr
Frequency of titrations (minutes):: 15
Maximum dose in mg/hr:: 15
Diltiazem HCl [Cardizem] 5 mg IV NOW STA
02/22/24 12:15
0.9% Sodium Chloride 1000 ml [Nss] 1,000 ml IV 125 mls/hr
02/22/24 12:29
CR Chest Portable - 1 View Urgent
Comment:
Reason For Exam: hr 140
Reason Study Needs to be Portable: Patient Unstable
Abnormal Lab Results
02/22/24
11:34
WBC 20.5 H 10^3/uL
(4.8-10.8)
RBC 3.51 L 10^6/uL
(4.20-5.40)
Hgb 10.2 L D g/dL
(12.0-16.0)
Hct 32.7 L %
(37.0-47.0)
MCHC 31.2 L g/dL
(33.0-37.0)
RDW 16.0 H %
(11.5-14.5)
Chloride 97 L mmol/L
(98-107)
BUN 48 H mg/dl
(7-17)
Creatinine 0.5 L mg/dL
(0.6-1.0)
Glucose 125 H mg/dl
(70-99)
ALT 39 H U/L
(0-35)
Total Protein 5.7 L g/dl
(6.3-8.2)
Albumin 2.8 L g/dl
(3.5-5.0)
02/22/24 11:34
02/22/24 11:34
Vital Signs
Initial and Last Documented VS:
Initial Vital Signs
BP
102/70
02/22/24 11:16
Last Documented Vital Signs
Temp Pulse Resp BP Pulse Ox
98.2 F 126 15 96/63 100
02/22/24 11:18 02/22/24 12:15 02/22/24 12:15 02/22/24 12:00 02/22/24 12:15
MDM/Problems Addressed
Differential Diagnosis Includes:
A-fib dehydration and anemia
MDM/Problems Addressed:
Fast heart rate
Chronic conditions affecting care: Arrhythmia
Acute Exacerbation and/or Progression of Chronic Illness: Arrhythmia
*Radiology
Radiology exam reviewed: preliminary read by ED provider
*Pulse Oximetry
Patient hypoxic: no
*EKG
Interpreted by ED Provider?: Yes
Interpretation: abnormal
Comparison EKG: changes noted
Heart Rate: 136
Rate: tachycardiac
Rhythm: a-fib
Ischemia: non-specific ST changes
*Pipe Changer Interpretation
Rate: tachycardiac
Interpretation: abnormal
Heart Rate: 136
Rhythm: a-fib
*Critical Care Note
Total Time (30-74mins, 75-104mins- exclusive of procedures): 30
Update Note
Update Note:
Labs are noted we will start saline hydration unclear if this is infection versus reactive hemoglobin is up leans more towards dehydration as his BUN hold on antibiotics at this time chest x-ray is pending
ED Attending Note
-
Portions of this chart may have been created with voice recognition software.� Occasional wrong word or��sound alike� substitutions may have occurred due to the inherent limitations of voice recognition software.
Discharge Plan
Departure
Patient Disposition: Admit
Date of Disposition: 02/22/24
Time of Disposition: 12:37
Admit to: Telemetry
Presentation/result/management discussed w/ accepting MD/DO: Hospitalist
Patient with high blood pressure during this ER visit?: No
Condition: Fair
Covid-19: Not Applicable
Discharge Problem:
Atrial fibrillation with RVR
Prescriptions:
No Action
levothyroxine 100 MCG tablet
137 mcg PO DAILY
Eliquis 5 MG tablet
5 mg PO BID
Actemra
1 dose IV Q4W
prednisone 20 mg Tablet
60 mg PO DAILY
famotidine [Pepcid] 20 mg Tablet
20 mg PO QPM
cholecalciferol (vitamin D3) [Vitamin D3] 50 mcg (2,000 unit) Capsule
50 mcg PO DAILY
Prolia 60 mg/mL Syringe
60 mg SC [id number]
Calcium Citrate + D
1 cap PO DAILY
Rx Instructions:
650 mg calcium- D3- 1000
potassium chloride 8 mEq Tablet Extended Release
8 meq PO DAILY
gabapentin 100 mg Capsule
100 mg PO Q8H
gabapentin 300 mg Capsule
300 mg PO HS
mirtazapine [Remeron] 15 mg Tablet
7.5 mg PO HS
oxycodone 5 mg Tablet
2.5 mg PO Q6H PRN (Reason: pain)
sennosides [senna] 8.6 mg Tablet
8.6 mg PO DAILY PRN (Reason: constipation)
multivitamin,tx-minerals Tablet
1 tab PO DAILY
urea 15 gram Powder In Packet
1 packet PO BID
dofetilide 250 mcg Capsule
250 mcg PO Q12H Qty: 60 5RF
tamsulosin 0.4 mg Capsule
0.4 mg PO DAILY Qty: 30 0RF
metoprolol succinate 50 mg Tablet Extended Release 24 Hr
50 mg PO BID Qty: 0 0RF
polyethylene glycol 3350 17 gram Powder In Packet
17 g PO DAILY Qty: 1 0RF
docusate sodium 100 mg Capsule
100 mg PO BID Qty: 1 0RF
Referrals:
Isha Sanchez NP [Family Provider] -
Interventions
Interventions:
*Risk Screen - Suicide Last Done: 02/22/24 11:18
*General Assessment Last Done: 02/22/24 11:18
*Neglect/Abuse Screening Last Done: 02/22/24 11:18
*ED COVID-19 Vaccine History Last Done: 02/22/24 11:18
ED- Cardiac Assessment Last Done: 02/22/24 12:08
ED- Pulmonary Assessment Last Done: 02/22/24 12:08
Discharge Date and Time
Print Language: SYRIAC
[2024-02-22 12:07] LABS: ALT (SGPT) 39 U/L (0-35); AST (SGOT) 20 U/L (14-36); Albumin 2.8 g/dl (3.5-5.0); Alkaline Phosphatase 87 U/L (38-126); Blood Urea Nitrogen 48 mg/dl (7-17); Calcium 8.7 mg/dl (8.4-10.2); Carbon Dioxide 30 mmol/L (22-30); Chloride 97 mmol/L (98-107); Glucose 125 mg/dl (70-99); Magnesium 2.1 mg/dl (1.6-2.3); Potassium 4.1 mmol/L (3.5-5.1); Sodium 137 mmol/L (135-145); Total Bilirubin 0.4 mg/dl (0.2-1.3); Total Protein 5.7 g/dl (6.3-8.2); eGFR > 60.00
[2024-02-22] MEDS: NSS 1000 IV ×2 (12:42→20:07)
--- NOTE | 2024-02-22 12:43 | CON.CAR ---
Addendum entered and electronically signed by Linwood Mayes, DO 02/22/24 15:32:
.
Check EKG 2 hrs after Tikosyn dose.
Addendum entered and electronically signed by Linwood Mayes, DO 02/22/24 15:30:
.
Resumed Toprol XL at 25 mg twice daily, half outpatient dosing given patient's on IV Cardizem.
Initiated increase in Tikosyn to 500 mcg twice a day after discussion with EP.
Check EKG 1 hour after Tikosyn dosing
Original Note:
Consultation
Consultation Request
Date/Time Consultation Requested: February 22, 2024
Date/Time Consultation Performed: February 22, 2024
Requesting Provider: Dr. Mcdonough
Performing Provider: Dr Mayes
Reason for Consultation: AFib
Medical History
-
Chief Complaint: Fatigue, near syncope
History of Present Illness:
She was just discharged February 19, 2024 following admission for Tikosyn loading. She spontaneously converted on her own and was discharged on 250 mcg twice a day. Her Digoxin was stopped. She was discharged Feb 19 2024. She was about to get
physical therapy while at [facility]] for rehab and felt lightheaded and near syncopal and comes in in atrial fibrillation with rapid rapid ventricular response. She has a history of A-fib/flutter ablation August 2016 with repeat PVI November 2022.
She feels poorly in atrial fibrillation she states. During her recent hospitalization she was anemic with hemoglobin down to 8.2 felt to be delusional with anemia of chronic disease. TSH was elevated at 13 with compensated free T4. She remains on
Synthroid. She has continued to lose weight despite good appetite she states. Dietary has been consulted. She was noted to have some hypoalbuminemia. She was also started on Flomax and seen by urology for indwelling Soto. She was also
recommended follow-up with rheumatology for steroid weaning with recent giant cell arteritis flare.
Outpatient prize fighter: Dr. Dawson
Outpatient engineering department chair: Dr. Llanes
Past medical history:
Symptomatic AFib
Hx of SVT/afib/flutter ablation 08/2016, repeat PVI 12/10/22
Recent Admission for tikosyn load
Chronic OAC with eliquis
Hx Relative hypotension
3 week admission to [place] for inflammatory colitis 01/05-01/27/24 s/p flex sigmoidoscopy with biopsy 01/13/24
Urinary retention with soto in place last 5 weeks
GCA flare, on high doses of prednisone and gabapentin
Peripheral neuropathy
Hypothyroidism
GERD
History of pulmonary nodules
Hyponatremia
Vitamin D deficiency
Social History
Tobacco: Non-Smoker
Alcohol: None
Personal:
Living: Assisted Living
Family History
Family History: Reviewed & Not Pertinent
Allergies / Home Medications
Allergy/AdvReac Type Severity Reaction Status Date / Time
dronedarone [From Multaq] Allergy Rash Verified 02/22/24 11:24
Sulfa (Sulfonamide Allergy Rash Verified 02/22/24 11:24
Antibiotics)
�Medication �Instructions �Recorded �Confirmed �Type
apixaban 5 mg tablet (Eliquis) 5 mg PO BID Blood Clot 08/30/16 02/17/24 History
Prevention/Tx
levothyroxine 100 mcg tablet 137 mcg PO DAILY Thyroid 08/30/16 02/17/24 History
Actemra 1 dose IV Q4W Autoimmune Disorder 11/25/22 02/17/24 History
Calcium Citrate + D 1 cap PO DAILY Supplement 11/25/22 02/17/24 History
cholecalciferol (vitamin D3) 50 50 mcg PO DAILY Supplement 11/25/22 12/25/22 History
mcg (2,000 unit) capsule (Vitamin
D3)
denosumab 60 mg/mL subcutaneous 60 mg SC [id number] Autoimmune 11/25/22 02/17/24 History
syringe (Prolia) Disorder
famotidine 20 mg tablet (Pepcid) 20 mg PO QPM Gastrointestinal Issue 11/25/22 12/25/22 History
prednisone 20 mg tablet 60 mg PO DAILY Anti-Inflammatory 11/25/22 02/17/24 History
potassium chloride 8 mEq 8 meq PO DAILY Supplement 12/03/22 02/17/24 History
tablet,extended release
gabapentin 100 mg capsule 100 mg PO Q8H Neurological 02/17/24 02/17/24 History
Condition
gabapentin 300 mg capsule 300 mg PO HS Neurological Condition 02/17/24 02/17/24 History
mirtazapine 15 mg tablet (Remeron) 7.5 mg PO HS Neurological Condition 02/17/24 02/17/24 History
multivitamin,tx-minerals 1 tab PO DAILY Supplement 02/17/24 02/17/24 History
oxycodone 5 mg tablet 2.5 mg PO Q6H PRN pain 02/17/24 02/17/24 History
sennosides 8.6 mg tablet (senna) 8.6 mg PO DAILY PRN constipation 02/17/24 02/17/24 History
urea 15 gram oral powder packet 1 packet PO BID Supplement 02/17/24 02/17/24 History
docusate sodium 100 mg capsule 100 mg PO BID #1 cap 02/19/24 Rx
dofetilide 250 mcg capsule 250 mcg PO Q12H #60 caps 02/19/24 Rx
metoprolol succinate 50 mg 50 mg PO BID Blood Pressure #0 tabs 02/19/24 02/17/24 Rx
tablet,extended release 24 hr
polyethylene glycol 3350 17 gram 17 g PO DAILY #1 ea 02/19/24 Rx
oral powder packet
tamsulosin 0.4 mg capsule 0.4 mg PO DAILY #30 caps 02/19/24 Rx
Review of Systems
-
History Source: Patient
All other systems: Negative unless noted
Constitutional: Fatigue
Cardiac: Other (Near syncope)
Physical Exam
Vital Signs
Temp Pulse Resp BP Pulse Ox
98.2 F 126 15 96/63 100
02/22/24 11:18 02/22/24 12:15 02/22/24 12:15 02/22/24 12:00 02/22/24 12:15
Physical examination
General: No acute distress, AAOX3, frail appearing
Neck: Negative JVD
Heart: Irregular regular, Negative S3 positive S1/S2, Negative S4, No murmur
Lungs: CTA b/l, negative wheezes/rales/rhonchi
Abd: Positive BS, NT/ND, neg rebound/rigidity/guarding
Ext: Negative cyanosis/clubbing/edema
Neuro: nonfocal
Lab Results
02/22/24 11:34
02/22/24 11:34
Impression / Plan
-
Primary Fretted String Instrument Repairer: Dr. Dawson
Primary EP: Dr. Llanes
Impression:
Recurrent, symptomatic AFib
Hx of SVT/afib/flutter ablation 08/2016, repeat PVI 12/10/22
Recent Admission for tikosyn load, discharged February 19, 2024
Chronic OAC with eliquis
Hx Relative hypotension
3 week admission to [place] for inflammatory colitis 01/05-01/27/24 s/p flex sigmoidoscopy with biopsy 01/13/24
Urinary retention with soto in place last 5 weeks
GCA flare, on high doses of prednisone and gabapentin
Peripheral neuropathy
Hypothyroidism
GERD
History of pulmonary nodules
Hyponatremia
Vitamin D deficiency
ECHO 12/2023 at [facility]: EF preserved
Plan:
She returns in atrial fibrillation with biventricular response now on IV Cardizem through the emergency room.
Continue IV Cardizem and will begin to wean next 24 hrs. Resume beta-bari.
Remain off digoxin
Discussed with the EP, increase Tikosyn to 500 mcg every 12. Monitor QTc after doses.
Continue Eliquis
Hemoglobin improved from recent discharge. Continue to monitor H/H
Continue PT
Continue to maximize nutrition given continued weight loss. Consider dietary reconsult
Eventual discharge back to rehab at [facility]3].
Outpatient cardiology follow-up with Dr. Dawson.
Data Reviewed
-
EKG: Tracing Personally Visualized and interpreted
Labs: Labs Reviewed by me
Old Records: Reviewed
--- NOTE | 2024-02-22 12:56 | HPS.HSE ---
Addendum entered and electronically signed by Jerry Mcdonough MD 02/22/24 13:34:
Wear indwelling F cath since Urine retention
Draining clear light yellow urine
Original Note:
Family Physician
-
Family Physician: Isha Sanchez NP
Chief Complaint
-
[facility] for fast HR 170s and Low BP 104/64 and felt like passing out
History of Present Illness
78F Res of [facility] HX PAF recently admitted for Tikosyn loading converted after Cardizem sees [facility] for fast HR 170s and Low BP 104/64
- felt like passing out while sitting
- Dr. Llanes is her pre certification specialist-
- she has had an ablation previously does take Eliquis which she has been compliant
ROS:
- no chest pain or shortness of breath she did feel some dizziness which she stood up after receiving holy communion - today just the host not wine
- no fever or chills, no nausea vomiting
Medical History
Past Medical History
Past Medical History: Reports Arrhythmia (Perm AF), GERD, Hypothyroidism and Other (Urine retention ); Denies HTN (with relative hypotension )
Additional Past Medical History:
Anemia of chr dz
GCA
Chr constipation
Osteoporosis
Past Surgical History: Reports Cardiac (HX -S/p cardiac ablation 2016, 2022)
Social History
Tobacco: Non-smoker
Alcohol: None
Personal:
Living: Assisted Living ([facility])
Family History
Family History: Not pertinent
Allergies / Home Medications
Allergies reflects when Allergies were last updated in [facility].
Home Medications with original date entered in [facility]
Allergy/Medication List:
Allergies
Allergy/AdvReac Type Severity Reaction Status Date / Time
dronedarone [From Multaq] Allergy Rash Verified 02/22/24 11:24
Sulfa (Sulfonamide Allergy Rash Verified 02/22/24 11:24
Antibiotics)
Home Medications
apixaban 5 mg tablet (Eliquis) 5 mg PO BID Blood Clot Prevention/Tx 08/30/16
levothyroxine 100 mcg tablet 137 mcg PO DAILY Thyroid 08/30/16
Actemra 1 dose IV Q4W Autoimmune Disorder 11/25/22
Calcium Citrate + D 1 cap PO DAILY Supplement 11/25/22
cholecalciferol (vitamin D3) 50 mcg (2,000 unit) capsule (Vitamin D3) 50 mcg PO DAILY Supplement 11/25/22
denosumab 60 mg/mL subcutaneous syringe (Prolia) 60 mg SC [id number] Autoimmune Disorder 11/25/22
famotidine 20 mg tablet (Pepcid) 20 mg PO QPM Gastrointestinal Issue 11/25/22
prednisone 20 mg tablet 60 mg PO DAILY Anti-Inflammatory 11/25/22
potassium chloride 8 mEq tablet,extended release 8 meq PO DAILY Supplement 12/03/22
gabapentin 100 mg capsule 100 mg PO Q8H Neurological Condition 02/17/24
gabapentin 300 mg capsule 300 mg PO HS Neurological Condition 02/17/24
mirtazapine 15 mg tablet (Remeron) 7.5 mg PO HS Neurological Condition 02/17/24
multivitamin,tx-minerals 1 tab PO DAILY Supplement 02/17/24
oxycodone 5 mg tablet 2.5 mg PO Q6H PRN pain 02/17/24
sennosides 8.6 mg tablet (senna) 8.6 mg PO DAILY PRN constipation 02/17/24
urea 15 gram oral powder packet 1 packet PO BID Supplement 02/17/24
docusate sodium 100 mg capsule 100 mg PO BID #1 cap 02/19/24
dofetilide 250 mcg capsule 250 mcg PO Q12H #60 caps 02/19/24
metoprolol succinate 50 mg tablet,extended release 24 hr 50 mg PO BID Blood Pressure #0 tabs 02/19/24
polyethylene glycol 3350 17 gram oral powder packet 17 g PO DAILY #1 ea 02/19/24
tamsulosin 0.4 mg capsule 0.4 mg PO DAILY #30 caps 02/19/24
Review of Systems
-
Constitutional: Reports No Symptoms
EENT: Reports No Symptoms
Respiratory: Reports No Symptoms
Cardiac: Reports See HPI; Denies Chest Pain or Palpitations
Abdomen/GI: Reports No Symptoms
: Reports No Symptoms
Musculoskeletal: Reports No Symptoms
Skin: Reports No Symptoms
Neurological: Reports No Symptoms
Endocrine: Reports No Symptoms
Hematologic/Lymphatic: Reports No Symptoms
Psych: Reports No Symptoms
Physical Exam
Vital Signs
Vital Signs
Temp Pulse Resp BP Pulse Ox
98.2 F 126 15 96/63 100
02/22/24 11:18 02/22/24 12:15 02/22/24 12:15 02/22/24 12:00 02/22/24 12:15
Physical Exam
General: Well Developed, Well Nourished and No Apparent Distress
HEENT: NormoCephalic, Moist mucous membranes and Atraumatic
Respiratory: Clear
Cardiac: S1/S2, Irregular Rhythm, Tachycardia and Other (hypotensive ); No Murmur or Rub
GI: Soft, Non Tender, Non Distended and Normal Bowel Sounds; No Organomegaly
Rectal: Deferred by Provider
Musculoskeletal: No Clubbing, No Cyanosis and No Edema
Skin: No Rash
Neuro: Nonfocal/grossly intact
Laboratory Results
-
02/22/24 11:34
02/22/24 11:34
Laboratory Results
Total Bilirubin 0.4 mg/dl (0.2-1.3) 02/22/24 11:34
AST 20 U/L (14-36) 02/22/24 11:34
ALT 39 U/L (0-35) H 02/22/24 11:34
Alkaline Phosphatase 87 U/L (38-126) 02/22/24 11:34
Data Reviewed
-
Medical Tests (Nuc Med, Echo, EKG etc): Report Reviewed by me
Lab Data: Labs Reviewed by me
Old Records: Reviewed
Impression/Plan
-
Vital signs
02/22/24
11:16 02/22/24
11:18 02/22/24
12:00
Pulse 153 132
Blood pressure 102/70 96/63
Laboratory Tests
02/18/24 02/19/24 02/22/24
04:11 04:30 11:34
WBC 20.5 H
Hgb 8.9 L 8.2 L 10.2 L D
Chloride 97 L
BUN 48 H
Creatinine 0.5 L
eGFR > 60.00
Albumin 2.8 L
CXR pending
Last admission to [facility] service
DATE OF ADMISSION: 02/17/2024 -DATE OF DISCHARGE: 02/19/2024
DISCHARGE DIAGNOSES:
1. Presentation with symptomatic paroxysmal atrial fibrillation,
now more persistent.
2. History of supraventricular tachycardia/atrial
fibrillation/atrial flutter ablation 08/2016 with repeat pulmonary
vein isolation 12/10/2022.
3. Admission for Tikosyn loading with chemical conversion to sinus
rhythm 02/19/2024.
4. Chronic anticoagulation with Eliquis.
5. Relative hypotension.
ASSESSMENT & PLAN
Presyncope wih RVR of FAF
Fast AF
Hypotensive - acute on chronic
Persistent A-fib
HX allergic to Multaq (hives)
HX thyroid issues and avoiding Amiodarone
HX -S/p cardiac ablation 2022
- c/w Eliquis
- Agree with Diltiazem gtt
- Hold Metoprolol to give room for Diltiazem gtt
- Hold flomax for now
- [facility] card consulted
Anemia--likely of chronic disease
no signs of active bleeding
- f/u Hgb
HX Hypothyroidism- last TSH 13.7
- Synthroid recently increased to 137 mcg
- recheck TSH and full TFTs in 4 - 6 weeks
HX Urinary retention of unclear cause--? oxycodone, constipation, hypothyroid
- Hold Flomax fur to current low BP
HX Giant cell arteritis
- on high-dose corticosteroids
OP f/u with rheum for tapering of meds
Chronic constipation-
-cont bowel regimen--Hold with loose stool
Osteoporosis
-Continue Prolia
DVT PPx--Eliquis
DNR per advanced directives and confirmed by patient and at bed side
IMU
--- NOTE | 2024-02-22 14:43 | CM ---
Chart reviewed. Patient here for persistent a-fib. She currently is at [facility] for STR. She is 1 assist with walker or wheelchair. Prior going to STR, she was living with her . They live in a home. 1+1 steps to enter. She has
active PCP and pharmacy. She is a retired [employer]. No +SDOHs.
ANTICIPATED DISCHARGE DISP: Return to [facility] in [place] when medically cleared.
--- NOTE | 2024-02-22 15:49 | PTCARENOTE ---
Assumed care of pt upon tsf from ED. Pt was D/C'd 02/18 after successful Tikosyn load. Pt arrives in room awake and oriented x3. VSS, CM shows AF 100's, POX 100% on RA. Cardizem infusing at 10 mg/hr through Right wrist as per MAY. Chronic soto
noted as per last admit. She denies any pain or discomfort at this time, at bedside. Will monitor closely.
[2024-02-22] MEDS: NEURONTIN 100 MG PO ×2 (16:32→23:32)
[2024-02-22] MEDS: TIKOSYN 500 MCG PO (20:05)
[2024-02-22] MEDS: ELIQUIS 5 MG PO (20:06)
[2024-02-22] MEDS: SENOKOT-S 1 TABLET PO (20:13)
[2024-02-22] MEDS: TOPROL XL PO (20:27)
[2024-02-22] MEDS: REMERON 7.5 MG PO (22:16)
[2024-02-22] MEDS: NEURONTIN 300 MG PO (22:16)
[2024-02-22] MEDS: ROXICODONE 2.5 MG PO (22:16)
--- NOTE | 2024-02-22 23:44 | PTCARENOTE ---
Received patient at change of shift. Afib on the monitor, HR in the 110s. BP 94/64, pm Toprol held, HARDWARE DESIGN ENGINEER Florence Merritt made aware. PRN Senokot administer per pt request. IV fluids running per order, see MAY. Pt complains of 6/10 shooting pain in her
feet, PRN pain medication administered as per MAY. Chronic Shanks noted as per last admit. DNR bracelet in place. Call gonzalez within reach.
[2024-02-23] VITALS (8 sets, daily range): BP systolic 96–119; BP diastolic 72–84
[2024-02-23 04:23] LABS: Hematocrit 26.7 % (37.0-47.0); Hemoglobin 8.5 g/dL (12.0-16.0); Mean Corp Hgb Conc. 31.8 g/dL (33.0-37.0); Mean Corpuscular Hgb 29.2 pg (27.0-31.0); Mean Corpuscular Volume 91.8 fL (81.0-99.0); Mean Platelet Volume 8.7 fL (7.4-10.4); Platelet Count 368 10^3/uL (130-400); Red Blood Cell Count 2.91 10^6/uL (4.20-5.40); White Blood Cell Count 14.5 10^3/uL (4.8-10.8)
[2024-02-23] MEDS: NSS 1000 IV (04:31)
[2024-02-23 04:49] LABS: Blood Urea Nitrogen 24 mg/dl (7-17); Calcium 7.9 mg/dl (8.4-10.2); Carbon Dioxide 29 mmol/L (22-30); Chloride 104 mmol/L (98-107); Glucose 85 mg/dl (70-99); Potassium 4.4 mmol/L (3.5-5.1); Sodium 136 mmol/L (135-145); eGFR > 60.00
[2024-02-23] MEDS: SYNTHROID 137 MCG PO (06:15)
--- NOTE | 2024-02-23 08:00 | PTCARENOTE ---
resumed patient from prev RN. resting in bed at time ofassessment. AAOx3. AFIB on monitor. HR 100-140. RA. +bs tolerating diet. soto from prev facility draining clear yellow with sediment. pulses palpable. trace edema. will continue to monitor.
[2024-02-23] MEDS: DELTASONE 60 MG PO (08:47)
[2024-02-23] MEDS: ELIQUIS 5 MG PO ×2 (08:47→20:18)
[2024-02-23] MEDS: MIRALAX 17 GRAMS PO (08:47)
[2024-02-23] MEDS: TIKOSYN 500 MCG PO ×2 (08:47→20:19)
[2024-02-23] MEDS: NEURONTIN 100 MG PO ×3 (08:48→23:08)
[2024-02-23] MEDS: TOPROL XL 25 MG PO ×2 (08:48→11:47)
--- NOTE | 2024-02-23 08:56 | W.PN.HOSP.TC ---
Today's Communication/Plan
-
Continue current care
Stop IV fluids
Assessment / Plan
Assessment / Plan
Gen-AAOx3, NAD
HEENT-NC, AT, anicteric, clear oral mm
Neck-supple
CV-reg, no M, +S1/S2
Lungs-clear B/L
Abd-soft, NT, ND
Ext-no edema
Musculoskeletal-no cyanosis, clubbing
Skin-warm and dry
Neuro-grossly non-focal
Psych-calm, cooperative
Symptomatic rapid paroxysmal atrial fibrillation -presentation with lightheadedness. Hypotension, near syncope.
Tikosyn dose doubled to 500 mg twice daily by cardiology. Continue Eliquis. Blood pressure improved. Discontinue further IV fluids.
Heart rate remains fast. Metoprolol XL resumed at half of home dose, 25 mg twice daily. Can increase to 50 mg twice daily if okay with cardiology.
Hypothyroidism -continue levothyroxine.
Giant cell arteritis -continue prednisone.
Chronic urinary retention -continue Shanks.
Chronic normocytic anemia -hemoglobin at baseline. Likely chronic inflammatory anemia.
Osteoporosis
GERD
Ambulatory dysfunction -continue PT.
DNR
Dispo -back to SNF when medically stable.
Anticipated Discharge: > 48 hours
Subjective/Interval History
-
Date of Service: February 23, 2024
Patient seen and examined. Complaining of weakness.
Objective Data
-
Labs:
Laboratory Results
02/23/24
03:40
WBC 14.5 H
Hgb 8.5 L
Hct 26.7 L
Plt Count 368
Sodium 136
Potassium 4.4
Chloride 104
Carbon Dioxide 29
BUN 24 H
Creatinine 0.4 L
Glucose 85
Calcium 7.9 L
Vital Signs:
Vital Signs
Temp Pulse Resp BP Pulse Ox
98.2 F 130 18 119/80 99
02/23/24 03:31 02/23/24 08:48 02/23/24 03:31 02/23/24 08:48 02/23/24 08:25
I&O
02/22/24 02/23/24 02/24/24
06:59 06:59 06:59
Output Total 1200 / 1200
Balance -1200 / -1200
Review of Systems
-
History Source: Patient
All other systems: Reviewed and negative
--- NOTE | 2024-02-23 09:56 | W.PN.CARDCBS ---
Addendum entered and electronically signed by Linwood Mayes DO 02/23/24 12:50:
I saw and examined the patient.
The Communication Equipment Mechanic's note was reviewed and I agree with the note.
Comment:
Plan:
Increase metoprolol succinate 50 mg BID back to outpt dosing
Tolerating Tikosyn at 500 mcg BID.
Cont QTc monitoring
Cont Eliquis
Potential cv next 24 hrs prior to d/c on higher dose Tikosyn
Original Note:
Today's Communication / Plan
-
Increase metoprolol succinate to 50 mg twice daily�I ordered
Continue Tikosyn 500 mcg twice daily with monitoring of QTc
Cardioversion tomorrow if she does not chemically convert on Tikosyn
Continue Eliquis
I ordered EKG for today following this mornings dose of Tikosyn.
Impression / Plan
-
Primary Jewelry Manager: Dr. Dawson
Primary EP: Dr. Llanes
Impression:
Recurrent, symptomatic AFib, represented to ER 02/22/2024
Hx of SVT/afib/flutter ablation 08/2016, repeat PVI 12/10/22
Recent Admission for tikosyn load, discharged February 19, 2024 on Tikosyn 250 mcg BID
Chronic OAC with eliquis
Hx Relative hypotension
3 week admission to [facility] for inflammatory colitis 01/05-01/27/24 s/p flex sigmoidoscopy with biopsy 01/13/24
Urinary retention with soto in place last 5 weeks
GCA flare, on high doses of prednisone and gabapentin
Peripheral neuropathy
Hypothyroidism
GERD
History of pulmonary nodules
Hyponatremia
Vitamin D deficiency
ECHO 12/2023 at [facility]: EF preserved
Plan:
She returns to 02/22/2024 in atrial fibrillation with rapid ventricular response, started on IV Cardizem through the emergency room, now weaned off
Resume home dose beta-bari, will increase Metoprolol succ to 50 mg bid (had decreased to 25 mg bid on admission due to low BPs after starting cardizem gtt).
Remain off digoxin
creat 0.4 02/23/2024
Case was discussed with the EP 04/23/2023, increased Tikosyn to 500 mcg every 12 hr. Monitor QTc after doses - Has rec'd 2 doses, 02/22/2024 @ 2004 and 02/23/2024 @ 0847
QTc 02/22/2024 @ 8: QTc 468msec
Continue Eliquis
Hemoglobin 8.5 -down from 10.2 02/22/24 but in range from previous admission, Hgb 8.2 on 02/19/2024. Continue to monitor H/H
Continue PT
Continue to maximize nutrition given continued weight loss. Consider dietary reconsult
Eventual discharge back to rehab at [facility].
Outpatient cardiology follow-up with Dr. Dawson.
Progress Note - Jewelry Manager
Subjective
Date of Service: February 23, 2024
remains in afib, HRs 130s-140s.
feels ok, denies palps, LH, SOB
-s/p increasing Tikosyn to 500 mcg BID yesterday
Objective
Labs:
02/23/24 03:40
02/23/24 03:40
Labs
Hgb 8.5 g/dL (12.0-16.0) L 02/23/24 03:40
Hct 26.7 % (37.0-47.0) L 02/23/24 03:40
Plt Count 368 10^3/uL (130-400) 02/23/24 03:40
Sodium 136 mmol/L (135-145) 02/23/24 03:40
Potassium 4.4 mmol/L (3.5-5.1) 02/23/24 03:40
BUN 24 mg/dl (7-17) H 02/23/24 03:40
Creatinine 0.4 mg/dL (0.6-1.0) L 02/23/24 03:40
Glucose 85 mg/dl (70-99) 02/23/24 03:40
Vital Signs and I&O:
Vital Signs
Temp Pulse Resp BP Pulse Ox
98.2 F 130 18 119/80 99
02/23/24 08:20 02/23/24 08:48 02/23/24 08:20 02/23/24 08:48 02/23/24 08:25
Vital Signs
Temp Pulse Resp BP Pulse Ox
98.2 F 130 18 119/80 99
02/23/24 08:20 02/23/24 08:48 02/23/24 08:20 02/23/24 08:48 02/23/24 08:25
Intake & Output
02/21/24 02/22/24 02/23/24 02/24/24
06:59 06:59 06:59 06:59
Output Total 1200 / 1200
Balance -1200 / -1200
Physical Exam
Physical Exam
GEN: No distress, awake, Ox3
HEENT: supple, anicteric, mmm
LUNGS: CTA, no wheezes/rales
CV: Tachy, irreg, S1/S2, no murmur
ABD: soft, BS+, NT/ND
EXT: No edema
NEURO: Gross non-focal
SKIN: No rash
--- NOTE | 2024-02-23 13:25 | CM ---
spoke to pt in room, she is agreeable to returning to [facility] when medically stable. referral faxed, call placed to [facility]. possibly ready for dc fri.
[2024-02-23] MEDS: SENOKOT-S 1 TABLET PO ×2 (15:28→21:36)
--- NOTE | 2024-02-23 17:33 | W.PN.UPDATE ---
Update Note
Progress Note Update
Patient remains in atrial fibrillation with rapid ventricular response. Continues Tikosyn load of 500 mcg BID dosing. Scheduled for cardioversion in a.m. N.p.o. after midnight. Patient and aware.
[2024-02-23] MEDS: TOPROL XL 50 MG PO (20:26)
[2024-02-23] MEDS: NEURONTIN 300 MG PO (21:36)
[2024-02-23] MEDS: REMERON 7.5 MG PO (21:36)
[2024-02-23] MEDS: ROXICODONE 2.5 MG PO (23:08)
--- NOTE | 2024-02-23 23:47 | PTCARENOTE ---
Received patient at change of shift. Afib on the monitor, HR in the 110-120s. VSS. Shanks from previous facility in place. Patient verbalizes understanding of NPO at midnight. Pt complains of 6/10 pain in both feet, PRN pain medications administered
as per MAY. Call gonzalez within reach.
[2024-02-24 04:36] VITALS: BP 114/86
[2024-02-24] MEDS: SYNTHROID 137 MCG PO (06:03)
[2024-02-24 08:19] VITALS: BP 97/76
--- NOTE | 2024-02-24 09:00 | PTCARENOTE ---
sent via stretcher for cardioversion. VSS> remains AFIB. has been npo since midnight.
[2024-02-24] MEDS: TIKOSYN 500 MCG PO (10:02)
[2024-02-24] MEDS: MIRALAX 17 GRAMS PO (10:02)
[2024-02-24] MEDS: DELTASONE 60 MG PO (10:03)
[2024-02-24 10:04] VITALS: BP 110/75
[2024-02-24] MEDS: NEURONTIN 100 MG PO (10:04)
[2024-02-24] MEDS: ELIQUIS 5 MG PO (10:04)
[2024-02-24] MEDS: TOPROL XL 50 MG PO (10:05)
[2024-02-24] MEDS: SENOKOT-S 1 TABLET PO (10:09)
--- NOTE | 2024-02-24 10:27 | W.PN.HOSP.TC ---
Addendum entered and electronically signed by Jamey Graham DO 02/24/24 14:55:
Atrial flutter is a valid diagnosis.
Paroxysmal atrial fibrillation
Original Note:
Today's Communication/Plan
-
PT/OT
Assessment / Plan
Assessment / Plan
Gen-AAOx3, NAD
HEENT-NC, AT, anicteric, clear oral mm
Neck-supple
CV-reg, no M, +S1/S2
Lungs-clear B/L
Abd-soft, NT, ND
Ext-no edema
Musculoskeletal-no cyanosis, clubbing
Skin-warm and dry
Neuro-grossly non-focal
Psych-calm, cooperative
Symptomatic rapid paroxysmal atrial fibrillation -presentation with lightheadedness. Hypotension, near syncope.
Tikosyn dose doubled to 500 mg twice daily by cardiology. Metoprolol dose doubled to 50 mg twice daily. Continue Eliquis. Blood pressure improved.
Underwent successful cardioversion 02/23 to sinus rhythm. Feels better today.
Hypothyroidism -continue levothyroxine.
Giant cell arteritis -continue prednisone.
Chronic urinary retention -continue Shanks. Follow-up with urology after discharge.
Chronic normocytic anemia -hemoglobin at baseline. Likely chronic inflammatory anemia.
Osteoporosis
GERD
Ambulatory dysfunction -consult PT/OT.
DNR
Dispo -back to SNF when medically stable. Await cardiology input.
Anticipated Discharge: Within 24 hours
Subjective/Interval History
-
Date of Service: February 24, 2024
Patient seen and examined. Feels better. No complaints.
Objective Data
-
Vital Signs:
Vital Signs
Temp Pulse Resp BP Pulse Ox
97.8 F 96 16 110/75 99
02/24/24 08:16 02/24/24 10:05 02/24/24 08:16 02/24/24 10:05 02/24/24 08:16
I&O
02/23/24 02/24/24 02/25/24
06:59 06:59 06:59
Output Total 1200 / 1200 2200 / 2200
Balance -1200 / -1200 -2200 / -2200
Review of Systems
-
History Source: Patient
All other systems: Reviewed and negative
--- NOTE | 2024-02-24 11:20 | W.PN.CARDCBS ---
Addendum entered and electronically signed by Germania Ochoa MD 02/24/24 12:12:
I saw and examined the patient.
The Bag Worker's note was reviewed and I agree with the note.
Comment: She is a little nervous today and feels a little foggy after sedation for cardioversion. Rhythm is stable with sinus rhythm. QT interval stable. Discussed with patient at length.
Exam is stable.
Telemetry reviewed. EKG reviewed.
Stable from a cardiology point of view to be discharged to [facility] facility. Discussed with patient. Discussed with primary service. Discussed with nursing. Discussed with case management.
Original Note:
Today's Communication / Plan
-
tikosyn 500mcg Q12H
back in SR s/p CV 02/23
continue toprol 50mg BID
continue eliquis 5mg BID
ok for DC
OP cardiac follow up with Dr. Dawson arranged
Impression / Plan
-
Primary Trimming Caser: Dr. Dawson
Primary EP: Dr. Llanes
Impression:
Recurrent, symptomatic AFib, represented to ER 02/22/2024
Hx of SVT/afib/flutter ablation 08/2016, repeat PVI 12/10/22
Recent Admission for tikosyn load, discharged February 19, 2024 on Tikosyn 250 mcg BID
Chronic OAC with eliquis
Hx Relative hypotension
3 week admission to [place] for inflammatory colitis 01/05-01/27/24 s/p flex sigmoidoscopy with biopsy 01/13/24
Urinary retention with soto in place last 5 weeks
GCA flare, on high doses of prednisone and gabapentin
Peripheral neuropathy
Hypothyroidism
GERD
History of pulmonary nodules
Hyponatremia
Vitamin D deficiency
ECHO 12/2023 at [facility]: EF preserved
Plan:
-she had recent admission for PAF and was loaded with tikosyn 250mcg Q12H. presented back with recurrence of afib with RVR
-she has received 4 doses of tikosyn 500mcg Q12H with stable QTc by EKG
-s/p successful CV 02/24/24
-continue toprol 50mg BID
-remains off cardizem and digoxin (had been on prior to initial tikosyn admission)
-continue eliquis
-Continue PT
-Continue to maximize nutrition given continued weight loss.
-ok for discharge back to rehab at [facility].
-Outpatient cardiology follow-up with Dr. Dawson arranged
-d/w hospitalist via TT. d/w nursing
Progress Note - Trimming Caser
Subjective
Date of Service: February 24, 2024
no issues
Objective
Labs:
02/23/24 03:40
02/23/24 03:40
Labs
Hgb 8.5 g/dL (12.0-16.0) L 02/23/24 03:40
Hct 26.7 % (37.0-47.0) L 02/23/24 03:40
Plt Count 368 10^3/uL (130-400) 02/23/24 03:40
Sodium 136 mmol/L (135-145) 02/23/24 03:40
Potassium 4.4 mmol/L (3.5-5.1) 02/23/24 03:40
BUN 24 mg/dl (7-17) H 02/23/24 03:40
Creatinine 0.4 mg/dL (0.6-1.0) L 02/23/24 03:40
Glucose 85 mg/dl (70-99) 02/23/24 03:40
Vital Signs and I&O:
Vital Signs
Temp Pulse Resp BP Pulse Ox
97.8 F 87 16 110/75 99
02/24/24 08:16 02/24/24 10:45 02/24/24 08:16 02/24/24 10:05 02/24/24 08:16
Vital Signs
Temp Pulse Resp BP Pulse Ox
97.8 F 87 16 110/75 99
02/24/24 08:16 02/24/24 10:45 02/24/24 08:16 02/24/24 10:05 02/24/24 08:16
Intake & Output
02/22/24 02/23/24 02/24/24 02/25/24
07:59 07:59 07:59 07:59
Output Total 1200 / 1200 2200 / 2200
Balance -1200 / -1200 -2200 / -2200
Physical Exam
Physical Exam
GEN: No distress, awake, alert, oriented x3. cachectic. sitting in chair
HEENT: supple, anicteric, mmm, eomi
LUNGS: CTA B/L, no wheezes/rales
CV: Reg, S1/S2, no murmur
ABD: soft, BS+, NT/ND
EXT: No cyanosis, clubbing, edema
NEURO: Gross non-focal
SKIN: Warm, pink, dry. No rash
[2024-02-24 11:29] VITALS: BP 115/72
[2024-02-24 12:06] VITALS: BP 116/63
[2024-02-24 12:18] VITALS: BP 115/72; BP 116/63; PULSE 86; O2SAT 100
[2024-02-24] MEDS: TYLENOL 650 MG PO (12:39)
--- NOTE | 2024-02-24 14:15 | PN.CDI ---
CDI
- -
CDI:
Physician Documentation Request
Admit Date: 02/22/24 13:24
Dear Doctor Santos,
Patient presented to ED after feeling some dizziness.
Patient found to be in afib. Recent admission for Tikosyn loading.
H&P states ' past medical history Reports Arrhythmia (Perm AF)...' Further down in same note atrial fib is referred to as persistent.
Hospitalist H&P states 'paroxysmal atrial fibrillation'
In an attempt to clarify potentially conflicting documentation, please clarify they type of afib:
Paroxysmal atrial fibrillation - terminates spontaneously or with intervention within 7 days of onset
Persistent atrial fibrillation - episodes of continuous AF that last more than 7 days and do not self-terminate
Permanent atrial fibrillation - when a decision has been made to accept the presence of AF and there is no further attempt to restore or maintain sinus rhythm
Other - please specify
Use of terms such as suspected, likely, concern for, or probable (associated with a specific diagnosis that is being evaluated, monitored, or treated as if it exists) are acceptable and can be coded in the inpatient setting, when documented at the
time of discharge.
Thank you,
Alicia Oseguera RN, BSN
CDI Specialist
tiger text
Please use your independent medical judgment in providing your response.
--- NOTE | 2024-02-24 14:19 | PN.CDI ---
CDI
- -
CDI:
Physician Documentation Request
Admit Date: 02/22/24 13:24
Dear Doctor Santos,
The diagnosis of atrial flutter was included in the signed EKG from 02/22.
Please indicate in your progress notes if you are in agreement that the above diagnosis is valid for this patient:
____ - atrial flutter is a valid diagnosis (Please include it in your progress notes)
____ - atrial flutter is not a valid diagnosis for this patient
____ - Other
Use of terms such as suspected, likely, concern for, or probable are acceptable for a diagnosis that is being evaluated, monitored or treated as if it exists and can be coded in the inpatient setting, when documented at the time of discharge.
Thank you,
Alicia Oseguera RN, BSN
CDI Specialist
tiger text
Please use your independent medical judgment in providing your response.
--- NOTE | 2024-02-24 14:41 | W.DS.TRANS ---
DC Summary - Computer Bookkeeper
-
Discharge Instructions:
Discharge Diagnosis/Procedures Rapid atrial fibrillation
Diet Regular
Activity With assistance,As tolerated
Driving Restrictions No driving
Bathing Restrictions None
Instructions:
Stand-Alone Forms:
Changes to Home Medications: No
Discharge Medications:
DC Medications w/original date entered in [facility]
apixaban 5 mg tablet (Eliquis) 5 mg PO BID Blood Clot Prevention/Tx 08/30/16
Actemra 1 dose IV Q4W Autoimmune Disorder 11/25/22
calcium 600 mg (as carbonate)-vitamin D3 10 mcg (400 unit) tablet (Calcium 600 + D(3)) 1 tab PO DAILY Supplement ##0 11/25/22
cholecalciferol (vitamin D3) 50 mcg (2,000 unit) capsule (Vitamin D3) 50 mcg PO DAILY Supplement 11/25/22
denosumab 60 mg/mL subcutaneous syringe (Prolia) 60 mg SC [id number] Autoimmune Disorder 11/25/22
famotidine 20 mg tablet (Pepcid) 20 mg PO HSPRN PRN gerd 11/25/22
prednisone 20 mg tablet 60 mg PO DAILY Anti-Inflammatory 11/25/22
potassium chloride 8 mEq tablet,extended release 8 meq PO DAILY Supplement 12/03/22
gabapentin 100 mg capsule 100 mg PO Q8H Neurological Condition 02/17/24
gabapentin 300 mg capsule 300 mg PO HS Neurological Condition 02/17/24
sennosides 8.6 mg tablet (senna) 8.6 mg PO DAILYPRN PRN constipation 02/17/24
urea 15 gram oral powder packet 1 packet PO BID Supplement 02/17/24
polyethylene glycol 3350 17 gram oral powder packet 17 g PO DAILY #1 ea 02/19/24
tamsulosin 0.4 mg capsule 0.4 mg PO DAILY #30 caps 02/19/24
levothyroxine 137 mcg tablet 137 mcg PO DAILY Thyroid 02/22/24
mirtazapine 7.5 mg tablet 7.5 mg PO HS Mental Health/Anxiety 02/22/24
therapeutic multivitamin 1 tab PO DAILY Supplement 02/22/24
docusate sodium 100 mg capsule 100 mg PO BID Constipation 02/23/24
dofetilide 500 mcg capsule 500 mcg PO Q12H #0 caps 02/24/24
metoprolol succinate 50 mg tablet,extended release 24 hr 50 mg PO BID #0 tabs 02/24/24
oxycodone 5 mg tablet 2.5 mg (1/2 x 5 mg) PO Q6H PRN MOD -SEVERE pain #5 tabs 02/24/24
Home Medication Changes
Pending Results: No
--- NOTE | 2024-02-24 16:52 | CM ---
pt transfered back to [facility] via [facility].
== END 2024-02-24 15:35 | DRG 310 ==
LOC: IVU 13:24
PROVIDERS: Student in an Organized Health Care Education/Training Program; ADMITTING PHYSICIAN Internal Medicine; ATTENDING PHYSICIAN Hospitalist; CONSULT PHYSICIAN Nuclear Medicine Nuclear Cardiology; EMERGENCY PHYSICIAN Emergency Medicine; FAMILY PHYSICIAN Nurse Practitioner Family
PROC: 5A2204Z Restoration of Cardiac Rhythm, Single (ICD-10-PCS; 2024-02-24)
DX: I48.0 Paroxysmal atrial fibrillation (principal); I48.92 Unspecified atrial flutter; D63.8 Anemia in other chronic diseases classified elsewhere; E03.9 Hypothyroidism, unspecified; Z66 Do not resuscitate; E88.09 Other disorders of plasma-protein metabolism, not elsewhere classified; R33.8 Other retention of urine; G62.9 Polyneuropathy, unspecified; E55.9 Vitamin D deficiency, unspecified; I95.89 Other hypotension; K59.09 Other constipation; M81.0 Age-related osteoporosis without current pathological fracture; M31.6 Other giant cell arteritis; K21.9 Gastro-esophageal reflux disease without esophagitis; Z96.0 Presence of urogenital implants; Z88.2 Allergy status to sulfonamides; Z79.01 Long term (current) use of anticoagulants; Z79.890 Hormone replacement therapy; Z79.899 Other long term (current) drug therapy
CPT/HCPCS: 71045; 80048; 80053; 83735; 85027; 92960; 93005; 96374; 97163; 99291

== ENCOUNTER 2024-02-25 17:01 | Inpatient (IN) | payer MEDICARE, OTHER, SELFPAY ==
[2024-02-25] VITALS (20 sets, daily range): BP systolic 95–124; BP diastolic 50–87; BMI 18.0
[2024-02-25 11:34] LABS: % Basophils 0.2 % (0-2); % Eosinophils 0.3 % (0-6); % Lymphocytes 2.3 % (20.5-51.1); % Monocytes 5.7 % (1.7-9.3); % Neutrophils 90.5 % (42.2-75.2); Absolute Eosinophils 0.1 10^3/uL (0-0.7); Absolute Immature Granulocytes 0.2 10^3/uL (0-0.05); Absolute Lymphocytes 0.5 10^3/uL (1.2-3.4); Absolute Monocytes 1.2 10^3/uL (0.1-0.6); Absolute Neutrophils 19.6 10^3/uL (1.4-6.5); Hematocrit 32.9 % (37.0-47.0); Hemoglobin 10.3 g/dL (12.0-16.0); Mean Corp Hgb Conc. 31.3 g/dL (33.0-37.0); Mean Corpuscular Hgb 29.1 pg (27.0-31.0); Mean Corpuscular Volume 92.9 fL (81.0-99.0); Mean Platelet Volume 8.4 fL (7.4-10.4); Nucleated Red Blood Cells % 0 %; Platelet Count 379 10^3/uL (130-400); Red Blood Cell Count 3.54 10^6/uL (4.20-5.40); White Blood Cell Count 21.6 10^3/uL (4.8-10.8)
[2024-02-25 11:49] LABS: ALT (SGPT) 35 U/L (0-35); AST (SGOT) 29 U/L (14-36); Albumin 2.9 g/dl (3.5-5.0); Alkaline Phosphatase 72 U/L (38-126); Blood Urea Nitrogen 45 mg/dl (7-17); Calcium 8.9 mg/dl (8.4-10.2); Carbon Dioxide 26 mmol/L (22-30); Chloride 99 mmol/L (98-107); Glucose 133 mg/dl (70-99); Potassium 4.3 mmol/L (3.5-5.1); Sodium 135 mmol/L (135-145); Total Bilirubin 0.5 mg/dl (0.2-1.3); Total Protein 5.7 g/dl (6.3-8.2); eGFR > 60.00
[2024-02-25] MEDS: CARDIZEM 125 IV ×2 (12:08→22:06)
[2024-02-25] MEDS: CARDIZEM 5 MG IV (12:08)
--- NOTE | 2024-02-25 12:24 | ED.GENMED ---
History of Present Illness
General
Chief Complaint: Heart Rate Problem
Source: patient
Exam Limitations: none
Time Seen by Provider: 02/25/24 11:26
Nursing documentation reviewed up to this point in time: agreed with
History of Present Illness
History of Present Illness:
78-year-old female with a past medical history of hypertension, GCA, hyperlipidemia, diabetes, A-fib on Eliquis presents emergency department today with concerns of high heart rate. Patient comes from [facility] and they noted on her
routine vitals check that her heart rate was in the 140s. Patient states that she does not feel palpitations but states that the A-fib does make her fatigued and lightheaded. Patient denies any chest pain or shortness of breath. Patient denies
any syncopal episodes, lightheadedness. Of note, patient was just discharged from the hospital yesterday for persistent A-fib. She had a cardioversion yesterday and her cheeks and this was recently increased to 500. Her metoprolol dose was also
doubled during this admission. She has also had ablations in the past.
Past History
Past History
ED Past Medical History: Arrthythmia
Social History
Tobacco: Non-smoker
Alcohol: None
Drug: None
Personal:
Living: assisted living
Employment: Retired
Review of Systems
Review of Systems
All Other Systems: ROS reviewed and negative except as documented in HPI and ROS
Phy Exam
Physical Exam
Physical Exam:
General: Patient is well appearing and in no acute distress; non-toxic
Skin: Warm and dry, no rashes or lesions
Head: Normocephalic, atraumatic
Eyes: Sclera non-icteric. EOMs intact.
Cardiac: Regular rate and rhythm, no murmurs
Peripheral Vascular: No lower extremity swelling or edema
Pulm: Normal respiratory effort, no wheezes, rales, rhonchi
Abdomen: No abdominal tenderness
Musculoskeletal:
Neuro: CN II-XII intact, no focal neurologic deficits.
Psychiatric: Appropriate mood and affect.
Course
Orders/Labs/Results
Orders:
Orders
02/25/24 11:17
Electrocardiogram (*1) Urgent
Reason for Study: Tachycardia
EKG- Treatment ONCE
02/25/24 11:18
Complete Blood Count/With Diff Urgent
Comprehensive Metabolic Panel Urgent
Magnesium Urgent
02/25/24 11:59
Diltiazem HCl [Cardizem] 5 mg IV NOW STA
02/25/24 12:00
Diltiazem 125 mg/125 ml Nss [Cardizem] 125 mg in 125 ml IV PER PROTOCOL
Initial dose in mg/hr, then titrate:: 5
Titrate to keep:: Heart rate 80-100 bpm
Titrate by mg/hr:: 5 mg/hr
Frequency of titrations (minutes):: 15
Maximum dose in mg/hr:: 15
02/25/24 12:01
Add On- LAB Urgent
Tests Added?: magnesium
02/25/24 13:39
CARDIOLOGY CONSULT Urgent
Consulting Provider: Pedro Diaz
Was physician already notified: Yes
02/25/24 16:32
Admit/Transfer Patient As Directed
Co-Sign Provider:
Level of Care: Inpatient admission
Assign to:: IVU
Physician / Group: Jericho Foster
Diagnosis: recurrent afib/rvr, chronic urinary retention
Reason for Hospitalization: recurrent afib/rvr, chronic urinary retention
Expected length of stay greater than two midnights?: Yes
ELOS- Estimated Length of Stay in days: 2
I certify the patient meets the requirements for IP care: Yes
PRN Pain Medication Management As Directed
May give lesser potent ordered pain med per pt: Yes
preference::
Protocol:: Medication orders for pain may be administered in a
manner that supports deferring to patient preference
when the pt is:
- Requesting an ordered lesser potent pain medication.
Least to most potent pain medications are defined
as: acetaminophen < NSAID < tramadol < opioids
(morphine, oxycodone, hydromorphone).
- Requesting a lesser dose of the same medication IF
ORDERED.
- Requesting a less intrusive route of administration
if both routes are prescribed by the provider (PO <
IV).
02/25/24 16:35
Code Status As Directed
Resuscitation Status: Full Code
Abnormal Lab Results
02/25/24
11:18
WBC 21.6 H 10^3/uL
(4.8-10.8)
RBC 3.54 L 10^6/uL
(4.20-5.40)
Hgb 10.3 L D g/dL
(12.0-16.0)
Hct 32.9 L %
(37.0-47.0)
MCHC 31.3 L g/dL
(33.0-37.0)
RDW 16.0 H %
(11.5-14.5)
Abs Immat Gran (auto) 0.2 H 10^3/uL
(0-0.05)
Absolute Neuts (auto) 19.6 H 10^3/uL
(1.4-6.5)
Absolute Lymphs (auto) 0.5 L 10^3/uL
(1.2-3.4)
Absolute Monos (auto) 1.2 H 10^3/uL
(0.1-0.6)
Immature Gran % 1.0 H %
(0-0.5)
Neutrophils % 90.5 H %
(42.2-75.2)
Lymphocytes % 2.3 L %
(20.5-51.1)
BUN 45 H mg/dl
(7-17)
Creatinine 0.5 L mg/dL
(0.6-1.0)
Glucose 133 H mg/dl
(70-99)
Total Protein 5.7 L g/dl
(6.3-8.2)
Albumin 2.9 L g/dl
(3.5-5.0)
02/25/24 11:18
02/25/24 11:18
Vital Signs
Initial and Last Documented VS:
Initial Vital Signs
Temp Pulse Resp BP Pulse Ox
98.5 F 132 20 124/77 98
02/25/24 11:19 02/25/24 11:19 02/25/24 11:19 02/25/24 11:19 02/25/24 11:19
Last Documented Vital Signs
Temp Pulse Resp BP Pulse Ox
98.5 F 124 20 102/76 97
02/25/24 11:19 02/25/24 18:15 02/25/24 18:00 02/25/24 18:00 02/25/24 18:15
MDM/Problems Addressed
Differential Diagnosis Includes:
ddx include atrial fibrillation, sinus tachycardia, atrial flutter
MDM/Problems Addressed:
78-year-old female with a past medical history of hypertension, GCA, hyperlipidemia, diabetes, A-fib on Eliquis presents emergency department today with concerns of high heart rate. Patient comes from [facility] and they noted on her
routine vitals check that her heart rate was in the 140s. Patient has been hospitalized multiple times for A-fib within the past few months. She just was discharged from the hospital yesterday and had a cardioversion. Patient placed on diltiazem
drip and cardiology consulted. Patient saw patient and we will plan to admit to hospitalist for further care and medication management and optimization. Patient accepted by hospitalist for admission.
White blood cell count is elevated however patient is on chronic steroids for GCA. Do not suspect he infectious etiology.
*Critical Care Note
Total Time (30-74mins, 75-104mins- exclusive of procedures): Not Applicable
ED Attending Note
-
Portions of this chart may have been created with voice recognition software.� Occasional wrong word or��sound alike� substitutions may have occurred due to the inherent limitations of voice recognition software.
Discharge Plan
Departure
Patient Disposition: Admit
Date of Disposition: 02/25/24
Time of Disposition: 16:12
Admit to: Telemetry
Presentation/result/management discussed w/ accepting MD/DO: Hospitalist
Patient with high blood pressure during this ER visit?: No
Condition: Good
Discharge Problem:
Atrial fibrillation with RVR
Interventions
Interventions:
*Risk Screen - Suicide Last Done: 02/25/24 11:19
*General Assessment Last Done: 02/25/24 11:19
*Neglect/Abuse Screening Last Done: 02/25/24 11:19
*ED COVID-19 Vaccine History Last Done: 02/25/24 11:19
ED- Cardiac Assessment Last Done: 02/25/24 11:24
ED- Pulmonary Assessment Last Done: 02/25/24 11:24
[2024-02-25 12:27] LABS: Magnesium 1.8 mg/dl (1.6-2.3)
--- NOTE | 2024-02-25 14:28 | W.PN.CARDCBS ---
Addendum entered and electronically signed by Lorenzo Llanes MD 02/25/24 16:58:
Patient seen and examined
I had a long discussion with patient, , and son in the emergency department
Agree with JUSTIN Hernadez's notes and assessment
Agree with JUSTIN hernadez's plan
We discussed in the setting of GCA flare, daily prednisone of 60 mg until recently, prolonged hospitalization stay for many weeks, chronic Shanks for many weeks, deconditioning, leukocytosis and anemia that rhythm control at this time was likely a
losing lopez. She recently failed cardioversion onto 50 mcg twice daily dofetilide and 500 mcg twice daily dofetilide. We are also in some ways prisoner to onset of atrial fibrillation with modestly elevated rates and symptoms of fatigue which
she is then immediately sent to the emergency room from rehab. We discussed in broad terms acceptance of rate control at this time and also acceptance of periodic elevations in heart rate as well as some symptomatology including dyspnea on exertion
and fatigue. I also have communicated this with Dr. Dawson as well as I do not feel she would be safe for cardiac ablation at this time.
We discussed the plan of stopping dofetilide today. Continue metoprolol 50 mg twice daily, bridging with IV Cardizem in the short-term and we will add amiodarone 200 mg 3 times daily tomorrow as an adjunct rate control and could even consider
cardioversion in the next 3 to 4 weeks. If we cannot medically rate control her we could consider pacemaker and AVJ ablation although she is extremely cachectic and is on high-dose chronic steroid therapy including daily 60 mg daily which I do
believe would affect wound healing. We could consider a Micra implant although she again would be at higher risk for vascular complications and cardiac perforation given her steroid use and all this was discussed. Family and patient are in
agreement to switch to rate control and a toleration of some symptoms and we will have to adjust her heart rate parameters at the rehab so that she is not immediately sent back to the emergency room at the onset of an elevated heart rate above the
parameter. Ideally she would be on a discharge regimen of metoprolol 50 mg twice daily, amiodarone 200 mg twice daily for 1 month, and perhaps some low-dose Cardizem if she is able to tolerate from a blood pressure perspective. I also wonder in
the background if she is having some adrenal insufficiency given her chronic steroid use and modestly reduced blood pressures. I do not believe her elevated heart rates are a significant contributor to hypotension.
Exam:
Cachectic
Ecchymotic
Thin skin
JVP 6
Cor irregular irregular with a 2 out of 6 systolic ejection murmur
Lungs diminished but clear
Abdomen soft nontender
Trace extremity edema
Alert and x 3
Impression:
Presents 02/25/2024 with tachycardia and palpitations
Recurrent, symptomatic AFib w/ RVR
Recent Admission 02/17/2024 to 02/19/2024 for load of Tikosyn 250 mcg BID
Readmitted 02/22/2024 to 02/24/2024 with symptomatic Afib w/ RVR and increase in Tikosyn 500 mcg BID, s/p successful CV 02/24/2024
Readmitted with symptomatic Afib RVR 02/25/2024 despite max dose TikosynHx of SVT/afib/flutter ablation 08/2016, repeat PVI 12/10/22
Chronic OAC with eliquis
Hx of Relative hypotension
3 week admission to [facility] for inflammatory colitis 01/05-01/27/24 s/p flex sigmoidoscopy with biopsy 01/13/24
Urinary retention with indwelling Shanks since December 2023
Giant cell arteritis, on high doses of prednisone and gabapentin
Peripheral neuropathy
Hypothyroidism
GERD
History of pulmonary nodules
Hyponatremia
Vitamin D deficiency
ECHO 12/2023 at [facility]: EF preserved
Echo 05/17/2022: EF 60%, mild biatrial enlargement. Mild tricuspid regurgitation
Plan:
-[facility] after she was found to have tachycardia and elevated heart rates in the 140s on routine vital check. Patient was recently admitted 02/17/2024 to 02/19/2024 for Tikosyn load. Unfortunately she
was readmitted on 02/22/2024 with recurrent symptomatic atrial fibrillation with rapid ventricular response and Tikosyn dose was increased to 500 mcg bid. She underwent successful cardioversion on 02/24/2024 and was discharged back to [facility].
Unfortunately she was found to have elevated heart rates on routine vital check at [facility] rehab. EKG confirms that patient is back in atrial fibrillation with rapid ventricular response despite max dose Tikosyn.
-Unfortunately patient has failed rhythm control with max dose Tikosyn.
-After reviewing with EP will stop Tikosyn and switch to medical rate control. Start IV diltiazem gtt and uptitrate for heart rate control.
-After Tikosyn washout will start amiodarone 200 mg 3 times daily as long as QTc is stable in an effort for rate control and I would be okay with this starting on 02/26/2024. It is likely she will have a prolonged hospital stay to achieve good rate
control and I would also like her to see physical therapy and work on her strength while she is hospitalized
-Could consider repeating cardioversion once patient has been loaded with sufficiently amiodarone and this would be in 4 to 6 weeks
-Of note TSH 02/18/2024 pre amiodarone load 13.7 with free T4 2.19. Will need to be followed
-continue Toprol 50mg BID
-Previously patient was on Cardizem and digoxin which was discontinued with initiation of Tikosyn.
-continue Eliquis 5 mg twice daily; hemoglobin stable 10.3
-If unable to obtain adequate rate/rhythm control with amiodarone could consider eventual pacemaker implant and AV node ablation. However this does have increased risk given patient is on chronic high-dose steroids steroids and is not ideal
situation.
-Patient following closely with rheumatology for GCA. She has been maintained on prednisone 60 mg recently. However today instrumentation instructor, Dr. Harika Dominguez, was agreeable for patient to reduce prednisone to 40 mg. Discussed with patient
and family high-dose steroids likely contributing to poor heart rate control.
-Patient has had indwelling Shanks catheter since hospitalization in mid December at [facility]. Would consider urology consult to see if Shanks can be removed.
-Continue to maximize nutrition given continued weight loss, total protein 5.7, albumin 2.9
Original Note:
Today's Communication / Plan
-
Stop Tikosyn
If QTc stable start amiodarone 200 mg 3 times daily 02/26/2024
Reduce outpatient dosing of steroids to 40 mg per discussion with outpatient instrumentation instructor
Consider urology consultation for indwelling Shanks with hopes of removal
Continue Eliquis
Continue Toprol 50 mg twice daily for rate control
Impression / Plan
-
Primary Legal Activity Adjudicator: Dr. Dawson
Primary EP: Dr. Llanes
Impression:
Presents 02/25/2024 with tachycardia and palpitations
Recurrent, symptomatic AFib w/ RVR
Recent Admission 02/17/2024 to 02/19/2024 for load of Tikosyn 250 mcg BID
Readmitted 02/22/2024 to 02/24/2024 with symptomatic Afib w/ RVR and increase in Tikosyn 500 mcg BID, s/p successful CV 02/24/2024
Readmitted with symptomatic Afib RVR 02/25/2024 despite max dose Tikosyn
Hx of SVT/afib/flutter ablation 08/2016, repeat PVI 12/10/22
Chronic OAC with eliquis
Hx of Relative hypotension
3 week admission to [facility] for inflammatory colitis 01/05-01/27/24 s/p flex sigmoidoscopy with biopsy 01/13/24
Urinary retention with indwelling Shanks since December 2023
Giant cell arteritis, on high doses of prednisone and gabapentin
Peripheral neuropathy
Hypothyroidism
GERD
History of pulmonary nodules
Hyponatremia
Vitamin D deficiency
ECHO 12/2023 at [facility]: EF preserved
Echo 05/17/2022: EF 60%, mild biatrial enlargement. Mild tricuspid regurgitation
Plan:
-Patient [facility] after she was found to have tachycardia and elevated heart rates in the 140s on routine vital check. Patient was recently admitted 02/17/2024 to 02/19/2024 for Tikosyn load. Unfortunately she
was readmitted on 02/22/2024 with recurrent symptomatic atrial fibrillation with rapid ventricular response and Tikosyn dose was increased to 500 mcg bid. She underwent successful cardioversion on 02/24/2024 and was discharged back to [facility].
Unfortunately she was found to have elevated heart rates on routine vital check at [facility]. EKG confirms that patient is back in atrial fibrillation with rapid ventricular response despite max dose Tikosyn.
-Unfortunately patient has failed rhythm control with max dose Tikosyn.
-After reviewing with EP will stop Tikosyn and switch to medical rate control. Start IV diltiazem gtt and uptitrate for heart rate control.
-After Tikosyn washout will start amiodarone 200 mg 3 times daily as long as QTc is stable in an effort for rate control
-Could consider repeating cardioversion once patient has been loaded with sufficiently amiodarone
-Of note TSH 02/18/2024 pre amiodarone load 13.7 with free T4 2.19. Will need to be followed
-continue Toprol 50mg BID
-Previously patient was on Cardizem and digoxin which was discontinued with initiation of Tikosyn.
-continue Eliquis 5 mg twice daily; hemoglobin stable 10.3
-If unable to obtain adequate rate/rhythm control with amiodarone could consider eventual pacemaker implant and AV node ablation. However this does have increased risk given patient is on chronic high-dose steroids steroids and is not ideal
situation.
-Patient following closely with rheumatology for GCA. She has been maintained on prednisone 60 mg recently. However today instrumentation instructor, Dr. Harika Dominguez, was agreeable for patient to reduce prednisone to 40 mg. Discussed with patient
and family high-dose steroids likely contributing to poor heart rate control.
-Patient has had indwelling Shanks catheter since hospitalization in mid December at [facility]. Would consider urology consult to see if Shanks can be removed.
-Continue to maximize nutrition given continued weight loss, total protein 5.7, albumin 2.9
Progress Note - Legal Activity Adjudicator
Subjective
Date of Service: February 25, 2024
Patient seen and examined. Patient's and son at bedside. Patient reports she woke up feeling tired this morning but was unaware she was in A-fib. Her heart rates were noted to be high on routine vital checks and again when PT assessed
her. Currently patient denies chest pain, shortness of breath, dizziness.
Objective
Labs:
02/25/24 11:18
02/25/24 11:18
Labs
Hgb 10.3 g/dL (12.0-16.0) L D 02/25/24 11:18
Hct 32.9 % (37.0-47.0) L 02/25/24 11:18
Plt Count 379 10^3/uL (130-400) 02/25/24 11:18
Sodium 135 mmol/L (135-145) 02/25/24 11:18
Potassium 4.3 mmol/L (3.5-5.1) 02/25/24 11:18
BUN 45 mg/dl (7-17) H 02/25/24 11:18
Creatinine 0.5 mg/dL (0.6-1.0) L 02/25/24 11:18
Glucose 133 mg/dl (70-99) H 02/25/24 11:18
Vital Signs and I&O:
Vital Signs
Temp Pulse Resp BP Pulse Ox
98.5 F 118 14 99/74 96
02/25/24 11:19 02/25/24 14:00 02/25/24 14:00 02/25/24 14:00 02/25/24 14:00
Vital Signs
Temp Pulse Resp BP Pulse Ox
98.5 F 118 14 99/74 96
02/25/24 11:19 02/25/24 14:00 02/25/24 14:00 02/25/24 14:00 02/25/24 14:00
Physical Exam
Physical Exam
GEN: No distress, awake, Ox3
HEENT: supple, anicteric, mmm
LUNGS: CTA bilaterally, no wheezes/rales
CV: Irregularly irregular, tachycardic, S1/S2, 1/6 syst LSB, no murmur
ABD: soft, BS+, NT/ND
EXT: No edema, clubbing or cyanosis
NEURO: Gross non-focal
SKIN: No rash, warm, dry, pink
--- NOTE | 2024-02-25 17:04 | HPS.HSE ---
Family Physician
-
Family Physician: NOT KNOW UNKNOWN - PT DOES
Chief Complaint
-
dizziness
History of Present Illness
Patient is a 78-year-old female with past medical history of recurrent paroxysmal A-fib, hyponatremia, peripheral neuropathy, GERD, hypothyroidism, history of SVT/flutter, with ablation/PVI in the past, history of pulmonary nodule, urinary retention
with indwelling Soto catheter for last 6 weeks came to ER from rehab after having repeat episode of palpitations/dizziness. Patient was just discharged from hospitalization from 02/21-02/23 for A-fib management. Patient was started on Tikosyn and
underwent successful cardioversion on 02/23. Patient was in rehab when patient was noticed to having again very high rate in 140-150 range and patient was having apparently lethargy/lightheadedness from it. No reported chest pain/shortness of
breath/syncope.
Patient denies any other GI/ issues.
Of note patient have Soto catheter placed last month during one of the prolonged hospitalization and still has a Soto in. Patient interested in Soto removal.
Medical History
Past Medical History
Past Medical History: Reports Other
Additional Past Medical History:
recurrent paroxysmal A-fib, hyponatremia, peripheral neuropathy, GERD, hypothyroidism, history of SVT/flutter, with ablation/PVI in the past, history of pulmonary nodule, urinary retention with indwelling Soto catheter
Past Surgical History: Reports Other
Social History
Tobacco: Non-smoker
Alcohol: None
Personal:
Living: With Family
Family History
Family History: Not pertinent
Allergies / Home Medications
Allergies reflects when Allergies were last updated in [facility].
Home Medications with original date entered in [facility]
Allergy/Medication List:
Allergies
Allergy/AdvReac Type Severity Reaction Status Date / Time
dronedarone [From Multaq] Allergy Rash Verified 02/22/24 11:24
Sulfa (Sulfonamide Allergy Rash Verified 02/22/24 11:24
Antibiotics)
Home Medications
apixaban 5 mg tablet (Eliquis) 5 mg PO BID Blood Clot Prevention/Tx 08/30/16
Actemra 1 dose IV Q4W Autoimmune Disorder 11/25/22
calcium 600 mg (as carbonate)-vitamin D3 10 mcg (400 unit) tablet (Calcium 600 + D(3)) 1 tab PO DAILY Supplement ##0 11/25/22
cholecalciferol (vitamin D3) 50 mcg (2,000 unit) capsule (Vitamin D3) 50 mcg PO DAILY Supplement 11/25/22
denosumab 60 mg/mL subcutaneous syringe (Prolia) 60 mg SC [id number] osteoporosis 11/25/22
famotidine 20 mg tablet (Pepcid) 20 mg PO HSPRN PRN gerd 11/25/22
prednisone 20 mg tablet 60 mg PO DAILY Anti-Inflammatory 11/25/22
potassium chloride 8 mEq tablet,extended release 8 meq PO DAILY Supplement 12/03/22
sennosides 8.6 mg tablet (senna) 8.6 mg PO DAILYPRN PRN constipation 02/17/24
urea 15 gram oral powder packet 1 packet PO BID Supplement 02/17/24
levothyroxine 137 mcg tablet 137 mcg PO DAILY Thyroid 02/22/24
mirtazapine 7.5 mg tablet 7.5 mg PO HS depression/sleep 02/22/24
therapeutic multivitamin 1 tab PO DAILY Supplement 02/22/24
docusate sodium 100 mg capsule 100 mg PO BID Constipation 02/23/24
dofetilide 500 mcg capsule 500 mcg PO Q12H Arrhythmia 02/25/24
gabapentin 100 mg capsule 100 mg PO Q8H Pain 02/25/24
gabapentin 300 mg capsule 300 mg PO HS Pain 02/25/24
metoprolol tartrate 50 mg tablet 50 mg PO BID Heart Disease/BP 02/25/24
oxycodone 5 mg tablet 2.5 mg PO Q6H PRN moderate-severe pain 02/25/24
polyethylene glycol 3350 17 gram oral powder packet 17 g PO DAILY Constipation 02/25/24
tamsulosin 0.4 mg capsule 0.4 mg PO DAILY Urinary Issue 02/25/24
Review of Systems
-
A 12 point ROS was completed and negative except as noted: Yes
Physical Exam
Vital Signs
Vital Signs
Temp Pulse Resp BP Pulse Ox
98.5 F 123 15 107/80 97
02/25/24 11:19 02/25/24 15:45 02/25/24 14:30 02/25/24 15:30 02/25/24 15:45
Physical Exam
General: Well Developed, Well Nourished and No Apparent Distress
HEENT: NormoCephalic, Moist mucous membranes and Atraumatic
Respiratory: Clear
Cardiac: S1/S2, Regular Rhythm and Tachycardia; No Murmur or Rub
GI: Soft, Non Tender, Non Distended and Normal Bowel Sounds; No Organomegaly
Rectal: Deferred by Provider
Genito-urinary: Soto
Musculoskeletal: No Clubbing, No Cyanosis and No Edema
Skin: No Rash
Neuro: Nonfocal/grossly intact
Laboratory Results
-
02/25/24 11:18
02/25/24 11:18
Laboratory Results
Total Bilirubin 0.5 mg/dl (0.2-1.3) 02/25/24 11:18
AST 29 U/L (14-36) 02/25/24 11:18
ALT 35 U/L (0-35) 02/25/24 11:18
Alkaline Phosphatase 72 U/L (38-126) 02/25/24 11:18
Impression/Plan
-
1. Recurrent A-fib/RVR
History of PVI/ablation
history of SVT/flutter
-Patient have recurrent symptomatic atrial fibrillation/RVR
-Was just discharged yesterday after successful cardioversion and Tikosyn loading
-Sent back to ER for having dizziness/lightheadedness with heart rate in 140s in rehab today
-Patient has been started on Cardizem drip in ER, to be cannot
-Cardiology evaluated patient and ER and planning to start patient on amiodarone as well
-Maintain patient on home dose of Eliquis therapy
2. Subacute urinary retention
-Soto catheter placed approximately 6 weeks back
-Initially required from prolonged hospitalization
-Patient interested in Soto removal, will do voiding trial tomorrow
-I have discussed with patient/family that patient if fails voiding trial will require reinsertion of soto
3. Giant cell arteritis
Chronic leukocytosis
-Patient have persistent leukocytosis likely with need of steroid for GCA
-Initial GCA diagnosis due to jaw pain/thigh pain. [employer] and [employer]
-Dose of oral prednisone decreased to 40 mg daily per patient discussion with rheumatology
-Patient also on Actemra monthly infusion
4. h/o of Hyponatremia
-On urea pills, continue
-continue monitoring
Peripheral neuropathy
Chronic normocytic anemia
GERD
Hypothyroidism
History of pulmonary nodule
DVT PPX - eliquis
Full code
Total time spent : 77 mins
I personally saw and examined the patient.
I have reviewed all diagnostic interpretations and treatment plans as written.
Time includes patient management by me, time spent at the patients bedside, time to review lab and imaging results, discussing patient care, documentation in the medical record, and time spent with the family or caregiver and discussing care plan
with RN/Consultants.
[2024-02-25] MEDS: REMERON 7.5 MG PO (20:56)
[2024-02-25] MEDS: COLACE 100 MG PO (20:56)
[2024-02-25] MEDS: ELIQUIS 5 MG PO (20:56)
[2024-02-25] MEDS: NEURONTIN 100 MG PO (20:56)
[2024-02-25] MEDS: NEURONTIN 300 MG PO (21:01)
[2024-02-25] MEDS: URE-NA 15 GRAMS PO (21:02)
[2024-02-25] MEDS: TYLENOL 650 MG PO (22:04)
[2024-02-25] MEDS: ROXICODONE 2.5 MG PO (22:04)
[2024-02-26] VITALS (13 sets, daily range): BP systolic 87–122; BP diastolic 45–96
--- NOTE | 2024-02-26 00:03 | PTCARENOTE ---
Received patient from ED. Stable vitals. AAOx3. Cardizem infusing at 10ml/hr. On tele, Afib in 100-110s. 1assist with Rolling walker for ambulation. Patient has chronic Shanks cath. POC reviewed with patient and family.
[2024-02-26 04:11] LABS: Hematocrit 27.6 % (37.0-47.0); Hemoglobin 9.2 g/dL (12.0-16.0); Mean Corp Hgb Conc. 33.3 g/dL (33.0-37.0); Mean Corpuscular Hgb 29.9 pg (27.0-31.0); Mean Corpuscular Volume 89.6 fL (81.0-99.0); Mean Platelet Volume 8.5 fL (7.4-10.4); Platelet Count 346 10^3/uL (130-400); Red Blood Cell Count 3.08 10^6/uL (4.20-5.40); Red Cell Dist. Width 16.2 % (11.5-14.5); White Blood Cell Count 15.2 10^3/uL (4.8-10.8)
[2024-02-26 04:50] LABS: Blood Urea Nitrogen 41 mg/dl (7-17); Calcium 8.3 mg/dl (8.4-10.2); Carbon Dioxide 29 mmol/L (22-30); Chloride 100 mmol/L (98-107); Estimated Creatinine Clearance 64 ml/min; Glucose 76 mg/dl (70-99); Potassium 4.2 mmol/L (3.5-5.1); Sodium 136 mmol/L (135-145); eGFR > 60.00
[2024-02-26] MEDS: SYNTHROID 137 MCG PO (05:40)
--- NOTE | 2024-02-26 05:45 | PTCARENOTE ---
Patient refused to take Gabapentin 0600am dose now and would like to take with morning Meds.
[2024-02-26] MEDS: OSCAL 500 + D 500 MG PO (09:09)
[2024-02-26] MEDS: DELTASONE 40 MG PO (09:09)
[2024-02-26] MEDS: COLACE 100 MG PO ×2 (09:09→19:54)
[2024-02-26] MEDS: URE-NA 15 GRAMS PO ×2 (09:09→19:54)
[2024-02-26] MEDS: ELIQUIS 5 MG PO ×2 (09:09→19:54)
[2024-02-26] MEDS: FLUSH (NSS) 1 FLUSH IV (09:10)
[2024-02-26] MEDS: MIRALAX 17 GRAMS PO (09:10)
[2024-02-26] MEDS: NEURONTIN 100 MG PO ×3 (09:13→22:09)
[2024-02-26] MEDS: FLOMAX 0.4 MG PO (09:14)
--- NOTE | 2024-02-26 09:16 | PTCARENOTE ---
The patient is aaox3, vss, 98% on RA. Rapi Afib with a HR of 107 is noted on the monitor. No complaints of pain or SOB. Shanks draining clear yellow urine. Call gonzalez within reach.
--- NOTE | 2024-02-26 10:13 | PTCARENOTE ---
Increased the patient's Diltazem gtt to 15mg/hr for a HR of 130. The patient is asymptomatic.
--- NOTE | 2024-02-26 10:24 | PTCARENOTE ---
Removed the patient's Shanks catheter. Patient due to void by 1600.
[2024-02-26] MEDS: CARDIZEM 125 IV ×2 (10:36→18:07)
--- NOTE | 2024-02-26 12:33 | W.PN.CARDCBS ---
Today's Communication / Plan
-
Start amiodarone in a.m.
Continue IV diltiazem
IV digoxin x 2 doses, total 0.375 mg
Possible cardioversion Friday
Impression / Plan
-
Primary Radon Inspector: Dr. Dawson
Primary EP: Dr. Llanes
Impression:
Presents 02/25/2024 with tachycardia and palpitations
Recurrent, symptomatic AFib w/ RVR
Recent Admission 02/17/2024 to 02/19/2024 for load of Tikosyn 250 mcg BID
Readmitted 02/22/2024 to 02/24/2024 with symptomatic Afib w/ RVR and increase in Tikosyn 500 mcg BID, s/p successful CV 02/24/2024
Readmitted with symptomatic Afib RVR 02/25/2024 despite max dose Tikosyn
Hx of SVT/afib/flutter ablation 08/2016, repeat PVI 12/10/22
Chronic OAC with eliquis
Hx of Relative hypotension
3 week admission to [place] for inflammatory colitis 01/05-01/27/24 s/p flex sigmoidoscopy with biopsy 01/13/24
Urinary retention with indwelling Shanks since December 2023
Giant cell arteritis, on high doses of prednisone and gabapentin
Peripheral neuropathy
Hypothyroidism
GERD
History of pulmonary nodules
Hyponatremia
Vitamin D deficiency
ECHO 12/2023 at [facility]: EF preserved
Echo 05/17/2022: EF 60%, mild biatrial enlargement. Mild tricuspid regurgitation
Plan:
She remains in atrial fibrillation with a rapid ventricular response.
Dofetilide is now washing out. Last dose of dofetilide was 02/24 AM
Start amiodarone 200 mg 3 times daily tomorrow.
Continue IV diltiazem
IV digoxin x 2 doses today to assist in rate control, 0.25 mg and 0.125 mg
Cardioversion next week
Progress Note - Radon Inspector
Subjective
Date of Service: February 26, 2024:
She feels about the same, no major complaints but fatigue, malaise
Readmitted after breakthrough of atrial fibrillation on dofetilide 500 mcg twice daily, just started
PMH: Giant cell arteritis with flare, prednisone, nonspecific colitis, recurrent atrial fibrillation, history of PVI in 2016 and November 2022, urinary retention, peripheral neuropathy, hypothyroidism, GERD, history of pulmonary embolus, history of
hyponatremia
Allergies: Dronedarone, sulfa,
Current meds diltiazem IV, tamsulosin, apixaban 5 mg twice daily, gabapentin, Remeron, calcium, Colace, MiraLAX, levothyroxine 137 mcg, prednisone 40 mg a day, to start amiodarone
114/65, pulse 122, respirate 18, afebrile, frail, laying on her side in Laura chair, family at bedside, head neck exam unremarkable, lungs clear, tachycardic, abdomen benign, extremities without much edema
EKG yesterday atrial fibrillation, RSR prime, possible anteroseptal OK, nonspecific ST and T changes, QTc mildly prolonged
White count 15.2, hemoglobin 9.2, BUN/creatinine 41 and 0.4
Objective
Labs:
02/26/24 03:45
02/26/24 03:45
Labs
Hgb 9.2 g/dL (12.0-16.0) L 02/26/24 03:45
Hct 27.6 % (37.0-47.0) L 02/26/24 03:45
Plt Count 346 10^3/uL (130-400) 02/26/24 03:45
Sodium 136 mmol/L (135-145) 02/26/24 03:45
Potassium 4.2 mmol/L (3.5-5.1) 02/26/24 03:45
BUN 41 mg/dl (7-17) H 02/26/24 03:45
Creatinine 0.4 mg/dL (0.6-1.0) L 02/26/24 03:45
Glucose 76 mg/dl (70-99) 02/26/24 03:45
Vital Signs and I&O:
Vital Signs
Temp Pulse Resp BP Pulse Ox
37.2 C 122 18 114/65 98
02/26/24 07:40 02/26/24 10:16 02/26/24 07:40 02/26/24 10:16 02/26/24 07:40
Vital Signs
Temp Pulse Resp BP Pulse Ox
37.2 C 122 18 114/65 98
02/26/24 07:40 02/26/24 10:16 02/26/24 07:40 02/26/24 10:16 02/26/24 07:40
Intake & Output
02/24/24 02/25/24 02/26/24 02/27/24
07:59 07:59 07:59 07:59
Intake Total 480 / 480 360 / 360
Output Total 650 / 650 300 / 300
Balance -170 / -170 60 / 60
Physical Exam
Physical Exam
See above
--- NOTE | 2024-02-26 12:35 | W.PN.HOSP.TC ---
Today's Communication/Plan
-
see note
Assessment / Plan
Assessment / Plan
1. Recurrent A-fib/RVR
History of PVI/ablation
history of SVT/flutter
-Patient have recurrent symptomatic atrial fibrillation/RVR
-Was just discharged yesterday after successful cardioversion and Tikosyn loading
-Sent back to ER for having dizziness/lightheadedness with heart rate in 140s in rehab
-Patient has been started on Cardizem drip in ER,
-Cardiology evaluated patient and ER and planning to start patient on amiodarone as well after Tikosyn washout/QTc accpetable range
-Maintain patient on home dose of Eliquis therapy
2. Subacute urinary retention
-Soto catheter placed approximately 6 weeks back
-Initially required from prolonged hospitalization
-Soto to be removed and do voiding trial with bladder scan/straight cath
-If fails TOV, will need soto to be replaced, patient agreeable to this.
3. Giant cell arteritis
Chronic leukocytosis
-Patient have persistent leukocytosis likely with need of steroid for GCA
-Initial GCA diagnosis due to jaw pain/thigh pain. Clark Driver and delma Ag
-Dose of oral prednisone decreased to 40 mg daily per patient discussion with rheumatology
-Patient also on Actemra monthly infusion
4. h/o of Hyponatremia
-On urea pills, continue
-continue monitoring
5. Chronic normocytic anemia
-Hbg 9.2 today, monitor
-has been fluctuating between 8-10
Peripheral neuropathy
GERD
Hypothyroidism
History of pulmonary nodule
DVT PPX - eliquis
Full code
Anticipated Discharge: > 48 hours
Subjective/Interval History
-
Date of Service: February 26, 2024
no dizziness/palpitation overnight
afebrile
no other issues
Objective Data
-
Labs:
Laboratory Results
02/26/24
03:45
WBC 15.2 H
Hgb 9.2 L
Hct 27.6 L
Plt Count 346
Sodium 136
Potassium 4.2
Chloride 100
Carbon Dioxide 29
BUN 41 H
Creatinine 0.4 L
Glucose 76
Calcium 8.3 L
Vital Signs:
Vital Signs
Temp Pulse Resp BP Pulse Ox
98.9 F 122 18 114/65 98
02/26/24 07:40 02/26/24 10:16 02/26/24 07:40 02/26/24 10:16 02/26/24 07:40
I&O
02/25/24 02/26/24 02/27/24
06:59 06:59 06:59
Intake Total 480 / 480 360 / 360
Output Total 650 / 650 300 / 300
Balance -170 / -170 60 / 60
Review of Systems
-
Respiratory: Reports No Symptoms
Cardiac: Reports No Symptoms
Abdomen/GI: Reports No Symptoms
Physical Exam
-
General: No Apparent Distress and Comfortable
HEENT: Negative Oxygen
Respiratory: Clear to Auscultation
Cardiac: S1/S2 and Irregular Rhythm; Negative Murmur or Rub
GI: Soft, Nontender and Nondistended
Genito-urinary: Soto
Musculoskeletal: No Edema
Neuro: Awake, Alert, Oriented, No Motor Deficits and Nonfocal/Grossly Intact
Psych: Calm
[2024-02-26] MEDS: LANOXIN 250 MCG IV (13:29)
[2024-02-26] MEDS: TYLENOL 650 MG PO ×2 (14:19→22:10)
--- NOTE | 2024-02-26 15:05 | PTCARENOTE ---
The patient stated that she like to try and urinate. I asked her if she had the urge to go. She stated that she didn't but would like to try anyway. She did urinate however she missed the hat for measurement. She also had a BM.
--- NOTE | 2024-02-26 16:11 | PTCARENOTE ---
The patient complained of pain at her left forearm IV site were the diltiazem gtt was running. The site was red and warm to the touch. I removed the IV site and placed a #20 in her fight forearm. A warm compress was applied to her left forearm site.
Her diltiazem gtt continues to run at 15mg/hr. Her HR is 106.
--- NOTE | 2024-02-26 18:51 | PTCARENOTE ---
The patient voided 300ml of clear yellow urine.
[2024-02-26] MEDS: LANOXIN 125 MCG IV (19:54)
--- NOTE | 2024-02-26 20:00 | PTCARENOTE ---
Report received AT 1900 from ESTUARDO Jack. Walking rounds done. Pt sitting in chair, awake, alert, oriented x 4. at bedside. Speech clear. Pt on room air.Sats 97-98%. Pt in AF, rate 100-110's.Cardizem gtt at 15 mg/hr.Digoxin 125 mcg IV given
per order. Audible heart tones. Normotensive. SBP 90-100's.No c/o dizziness, lightheadedness. Cool compress applied to former L arm IV site. Belly soft, nontender.Normoactive bowwel sounds x 4.Pt reports BM today. Has yet to void.Ongoing plan of
care.
[2024-02-26] MEDS: SENOKOT-S 1 TABLET PO (20:01)
[2024-02-26] MEDS: NEURONTIN 300 MG PO (22:09)
[2024-02-26] MEDS: REMERON 7.5 MG PO (22:10)
[2024-02-26] MEDS: ROXICODONE 2.5 MG PO (22:11)
--- NOTE | 2024-02-26 22:15 | PTCARENOTE ---
Pt helped up to BR with 1 RN assist. Voided 200 mls clear, yellow urine. Pt helped back to bed. Tylenol 650 mg and Oxycodone 2.5 mg po for chronic shooting foot pain 07/08. Pt remains in AF. Cardizem gtt remains at 15 mg/hr.
[2024-02-27] VITALS (8 sets, daily range): BP systolic 100–133; BP diastolic 50–76; PULSE 114; O2SAT 97; BMI 18.4
[2024-02-27] MEDS: CARDIZEM 125 IV ×3 (03:06→22:09)
[2024-02-27 04:11] LABS: Hematocrit 28.9 % (37.0-47.0); Hemoglobin 9.3 g/dL (12.0-16.0); Mean Corp Hgb Conc. 32.2 g/dL (33.0-37.0); Mean Platelet Volume 8.3 fL (7.4-10.4); Platelet Count 340 10^3/uL (130-400); Red Blood Cell Count 3.21 10^6/uL (4.20-5.40); Red Cell Dist. Width 16.1 % (11.5-14.5); White Blood Cell Count 14.7 10^3/uL (4.8-10.8)
--- NOTE | 2024-02-27 04:18 | PTCARENOTE ---
VS done. Labs drawn and sent. Pt helped to BR with 1 RN assist and rolling walker. Voided 400 mls clear, yellow urine. Pt weighed on standing scale and helped back to bed. Remains in AF. When resting, rate 80's (68-80's when asleep). With activity,
rate up to 120 bpm. Denies dizziness, lightheadedness. Denies pain. Ongoing plan of care.
[2024-02-27 04:27] LABS: Blood Urea Nitrogen 40 mg/dl (7-17); Calcium 8.6 mg/dl (8.4-10.2); Carbon Dioxide 28 mmol/L (22-30); Chloride 102 mmol/L (98-107); Estimated Creatinine Clearance 65 ml/min; Glucose 106 mg/dl (70-99); Potassium 4.3 mmol/L (3.5-5.1); Sodium 139 mmol/L (135-145); eGFR > 60.00
[2024-02-27] MEDS: SYNTHROID 137 MCG PO (06:35)
--- NOTE | 2024-02-27 08:00 | PTCARENOTE ---
Assumed care of pt from prev RN. Pt resting in bed at time of assessment. AFIB HR 80-90s. Cardizem gtt currently at 15mg/hr. VSS. RA. drop foot noted to R foot. uses walker to and from bathroom. no light headedness or dizziness reported. will
continue to monitor.
[2024-02-27] MEDS: NEURONTIN 100 MG PO ×3 (09:03→22:01)
[2024-02-27] MEDS: FLOMAX 0.4 MG PO (09:12)
[2024-02-27] MEDS: URE-NA 15 GRAMS PO ×2 (09:12→19:45)
[2024-02-27] MEDS: OSCAL 500 + D 500 MG PO (09:12)
[2024-02-27] MEDS: MIRALAX 17 GRAMS PO (09:16)
[2024-02-27] MEDS: PACERONE 200 MG PO ×3 (09:16→22:01)
[2024-02-27] MEDS: ELIQUIS 5 MG PO ×2 (09:16→19:43)
[2024-02-27] MEDS: COLACE 100 MG PO ×2 (09:16→19:43)
[2024-02-27] MEDS: DELTASONE 40 MG PO (09:16)
--- NOTE | 2024-02-27 09:17 | W.PN.CARDCBS ---
Addendum entered and electronically signed by Lorenzo Llanes MD 02/27/24 10:02:
Patient seen and examined
Agree with JUSTIN Hernadez's note and assessment
Agree with JUSTIN Hernadez's plan
Exam:
As per JUSTIN Hernadez's note
Cor irregularly irregular
Appears in less distress today
Telemetry reviewed 80s to 90s
Alert and oriented x 3
Nonfocal neurologically
Impression:
Presents 02/25/2024 with tachycardia and palpitations
Recurrent, symptomatic AFib w/ RVR
Recent Admission 02/17/2024 to 02/19/2024 for load of Tikosyn 250 mcg BID
Readmitted 02/22/2024 to 02/24/2024 with symptomatic Afib w/ RVR and increase in Tikosyn 500 mcg BID, s/p successful CV 02/24/2024
Readmitted with symptomatic Afib RVR 02/25/2024 despite max dose TikosynHx of SVT/afib/flutter ablation 08/2016, repeat PVI 12/10/22
Chronic OAC with eliquis
Hx of Relative hypotension
3 week admission to [facility] for inflammatory colitis 01/05-01/27/24 s/p flex sigmoidoscopy with biopsy 01/13/24
Urinary retention with indwelling Shanks since December 2023
Giant cell arteritis, on high doses of prednisone and gabapentin
Peripheral neuropathy
Hypothyroidism
GERD
History of pulmonary nodules
Hyponatremia
Vitamin D deficiency
ECHO 12/2023 at [facility]: EF preserved
Echo 05/17/2022: EF 60%, mild biatrial enlargement. Mild tricuspid regurgitation
Plan:
She remains in atrial fibrillation. Patient has completed dofetilide washout (last dose 02/25/2024). She was provided 2 doses of IV digoxin 02/26/24 with improvement of heart rate. She continues on IV diltiazem drip @ 15.
Amiodarone started 200 mg 3 times daily 02/27/2024.
Will attempt to wean Cardizem drip over the next 24 hours and transition her to oral Cardizem with amiodarone on 02/27. Now off Toprol and we will try to add back 25 mg twice daily.
Continue to monitor QTc closely with daily EKGs
Of note TSH 02/18/2024 pre amiodarone load 13.7 with free T4 2.19. Will need to be followed. She is on Synthroid and that may need to be adjusted by her outpatient physicians
Eventual cardioversion but would like her adequately amiodarone loaded and would perform cardioversion after outpatient loading. EP recommending 4 weeks on amiodarone prior to proceeding with cardioversion
Continue Eliquis 5 mg twice daily; hemoglobin stable 9.3
Patient following closely with rheumatology for GCA. She has been maintained on prednisone 60 mg recently. However today geophysical drafter, Dr. Harika Dominguez, was agreeable for patient to reduce prednisone to 40 mg. Discussed with patient
and family high-dose steroids likely contributing to poor heart rate control.
Original Note:
Today's Communication / Plan
-
Start amiodarone 200 mg 3 times daily
Monitor QTc with daily EKGs
Continue Eliquis
Will attempt to wean off Cardizem drip and transition to oral Cardizem
Impression / Plan
-
Primary Commission Broker: Dr. Dawson
Primary EP: Dr. Llanes
Impression:
Presents 02/25/2024 with tachycardia and palpitations
Recurrent, symptomatic AFib w/ RVR
Recent Admission 02/17/2024 to 02/19/2024 for load of Tikosyn 250 mcg BID
Readmitted 02/22/2024 to 02/24/2024 with symptomatic Afib w/ RVR and increase in Tikosyn 500 mcg BID, s/p successful CV 02/24/2024
Readmitted with symptomatic Afib RVR 02/25/2024 despite max dose Tikosyn
Hx of SVT/afib/flutter ablation 08/2016, repeat PVI 12/10/22
Chronic OAC with eliquis
Hx of Relative hypotension
3 week admission to [facility] for inflammatory colitis 01/05-01/27/24 s/p flex sigmoidoscopy with biopsy 01/13/24
Urinary retention with indwelling Shanks since December 2023
Giant cell arteritis, on high doses of prednisone and gabapentin
Peripheral neuropathy
Hypothyroidism
GERD
History of pulmonary nodules
Hyponatremia
Vitamin D deficiency
ECHO 12/2023 at [facility]: EF preserved
Echo 05/17/2022: EF 60%, mild biatrial enlargement. Mild tricuspid regurgitation
Plan:
She remains in atrial fibrillation. Patient has completed dofetilide washout (last dose 02/25/2024). She was provided 2 doses of IV digoxin 02/26/24 with improvement of heart rate. She continues on IV diltiazem drip @ 15.
Amiodarone started 200 mg 3 times daily 02/27/2024.
Will attempt to wean Cardizem drip over the next 24 hours and transition her to oral Cardizem with amiodarone. Now off Toprol.
Continue to monitor QTc closely with daily EKGs
Of note TSH 02/18/2024 pre amiodarone load 13.7 with free T4 2.19. Will need to be followed
Eventual cardioversion. EP recommending 4 weeks on amiodarone prior to proceeding with cardioversion
Continue Eliquis 5 mg twice daily; hemoglobin stable 9.3
Patient following closely with rheumatology for GCA. She has been maintained on prednisone 60 mg recently. However today geophysical drafter, Dr. Harika Dominguez, was agreeable for patient to reduce prednisone to 40 mg. Discussed with patient
and family high-dose steroids likely contributing to poor heart rate control.
HPI:
[facility] she was found to have tachycardia and elevated heart rates in the 140s on routine vital check. Patient was recently admitted 02/17/2024 to 02/19/2024 for Tikosyn load. Unfortunately she
was readmitted on 02/22/2024 with recurrent symptomatic atrial fibrillation with rapid ventricular response and Tikosyn dose was increased to 500 mcg bid. She underwent successful cardioversion on 02/24/2024 and was discharged back to [facility].
Unfortunately she was found to have elevated heart rates on routine vital check at [facility] rehab. EKG confirms that patient is back in atrial fibrillation with rapid ventricular response despite max dose Tikosyn.
-Unfortunately patient has failed rhythm control with max dose Tikosyn.
Progress Note - Commission Broker
Subjective
Date of Service: February 27, 2024
Patient seen and examined. Patient sitting comfortably in bed eating breakfast. Patient currently denies chest pain, shortness of breath, dizziness, lightheadedness or palpitations
Objective
Labs:
02/27/24 03:56
02/27/24 03:56
Labs
Hgb 9.3 g/dL (12.0-16.0) L 02/27/24 03:56
Hct 28.9 % (37.0-47.0) L 02/27/24 03:56
Plt Count 340 10^3/uL (130-400) 02/27/24 03:56
Sodium 139 mmol/L (135-145) 02/27/24 03:56
Potassium 4.3 mmol/L (3.5-5.1) 02/27/24 03:56
BUN 40 mg/dl (7-17) H 02/27/24 03:56
Creatinine 0.5 mg/dL (0.6-1.0) L 02/27/24 03:56
Glucose 106 mg/dl (70-99) H 02/27/24 03:56
Vital Signs and I&O:
Vital Signs
Temp Pulse Resp BP Pulse Ox
97.9 F 81 16 102/50 97
02/27/24 03:34 02/27/24 09:00 02/27/24 03:34 02/27/24 03:34 02/27/24 05:44
Vital Signs
Temp Pulse Resp BP Pulse Ox
97.9 F 81 16 102/50 97
02/27/24 03:34 02/27/24 09:00 02/27/24 03:34 02/27/24 03:34 02/27/24 05:44
Intake & Output
02/25/24 02/26/24 02/27/24 02/28/24
06:59 06:59 06:59 06:59
Intake Total 480 / 480 495 / 495
Output Total 650 / 650 1200 / 1200
Balance -170 / -170 -705 / -705
Physical Exam
Physical Exam
GEN: No distress, awake, Ox3
HEENT: supple, anicteric, mmm
LUNGS: CTA bilaterally, no wheezes/rales
CV: Irregularly irregular, S1/S2, 2/6 syst murmur
ABD: soft, BS+, NT/ND
EXT: No edema, clubbing or cyanosis
NEURO: Gross non-focal
SKIN: No rash, warm, dry, pink
--- NOTE | 2024-02-27 11:16 | W.PN.HOSP.TC ---
Today's Communication/Plan
-
see note
Assessment / Plan
Assessment / Plan
1. Recurrent A-fib/RVR
History of PVI/ablation
history of SVT/flutter
-Patient have recurrent symptomatic atrial fibrillation/RVR
-Was just discharged yesterday after successful cardioversion and Tikosyn loading
-Sent back to ER for having dizziness/lightheadedness with heart rate in 140s in rehab
-Maintain patient on home dose of Eliquis therapy
-Cardiology planning to transition to oral Cardizem today
-Also planning to be started on oral amiodarone from tomorrow
2. Subacute urinary retention
-Shanks catheter placed approximately 6 weeks back
-Initially required from prolonged hospitalization
-Shanks catheter has been removed on 02/25.
-Continue monitoring for increased PVR
3. Giant cell arteritis
Chronic leukocytosis
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
-Patient have persistent leukocytosis likely with need of steroid for GCA
-Initial GCA diagnosis due to jaw pain/thigh pain. Fitting Room Associate and delma Ag
-Dose of oral prednisone decreased to 40 mg daily per patient discussion with rheumatology
-Patient also on Actemra monthly infusion
4. h/o of Hyponatremia
-On urea pills, continue
-continue monitoring
5. Chronic normocytic anemia
-Hbg 9.2 today, monitor
-has been fluctuating between 8-10
Underweight
Peripheral neuropathy
GERD
Hypothyroidism
History of pulmonary nodule
DVT PPX - eliquis
Full code
Anticipated Discharge: 24 - 48 hours
Subjective/Interval History
-
Date of Service: February 27, 2024
Able to void without any difficulty, continue bladder scanning
Denies of any episodes of lightheadedness/
Objective Data
-
Labs:
Laboratory Results
02/27/24
03:56
WBC 14.7 H
Hgb 9.3 L
Hct 28.9 L
Plt Count 340
Sodium 139
Potassium 4.3
Chloride 102
Carbon Dioxide 28
BUN 40 H
Creatinine 0.5 L
Glucose 106 H
Calcium 8.6
Vital Signs:
Vital Signs
Temp Pulse Resp BP Pulse Ox
98.0 F 81 16 102/50 96
02/27/24 08:00 02/27/24 09:00 02/27/24 03:34 02/27/24 03:34 02/27/24 08:00
I&O
02/26/24 02/27/24 02/28/24
06:59 06:59 06:59
Intake Total 480 / 480 495 / 495 255 / 255
Output Total 650 / 650 1200 / 1200
Balance -170 / -170 -705 / -705 255 / 255
Review of Systems
-
Respiratory: Reports No Symptoms
Cardiac: Reports No Symptoms
Abdomen/GI: Reports No Symptoms
Physical Exam
-
General: No Apparent Distress and Comfortable
HEENT: Negative Oxygen
Respiratory: Clear to Auscultation
Cardiac: S1/S2 and Irregular Rhythm; Negative Murmur or Rub
GI: Soft, Nontender and Nondistended
Genito-urinary: Shanks
Musculoskeletal: No Edema
Neuro: Awake, Alert, Oriented, No Motor Deficits and Nonfocal/Grossly Intact
Psych: Calm
[2024-02-27] MEDS: TOPROL XL PO ×2 (11:43→19:50)
[2024-02-27] MEDS: TYLENOL 650 MG PO ×2 (12:24→21:59)
--- NOTE | 2024-02-27 12:43 | PN.CDI ---
CDI
- -
CDI:
Physician Documentation Request
Admit Date: 02/25/24 17:01
Dear Doctor Critsian,
Please review the following and provide your response in the progress notes.
Clinical Indicators:
- 02/24 H&P 'Giant cell arteritis'
- 'Patient have persistent leukocytosis likely with need of steroid for GCA'
- 'Patient also on Actemra monthly infusion'
Laboratory Tests
02/25/24 02/26/24 02/27/24
11:18 03:45 03:56
WBC 21.6 H 15.2 H 14.7 H
Please clarify the diagnosis with the above findings
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
Not immunocompromised
Other
Use of terms such as suspected, likely, concern for, or probable (associated with a specific diagnosis that is being evaluated, monitored, or treated as if it exists) are acceptable and can be coded in the inpatient setting, when documented at the
time of discharge.
Thank you,
Kirt Ramirez RN
CDI Specialist
Please use your independent medical judgment in providing your response.
--- NOTE | 2024-02-27 12:52 | PN.CDI ---
CDI
- -
CDI:
Physician Documentation Request
Admit Date: 02/25/24 17:01
Dear Doctor Cristian,
Please review the following and provide your response in the progress notes.
Clinical Indicators:
Height: 5'6
Weight: 113lbs
BMI: 18.4
Other Clinical Notes: [id number] Programmer note 'She states that she lost 20 lbs over the past 3 months...15.1 BW loss'
If possible, please provide an associated diagnosis related to the abnormal BMI, such as:
Underweight
Cachctic
Other (please specify)
Use of terms such as suspected, likely, concern for, or probable (associated with a specific diagnosis that is being evaluated, monitored, or treated as if it exists) are acceptable and can be coded in the inpatient setting, when documented at the
time of discharge.
Thank you,
Kirt Ramirez RN
CDI Specialist
Please use your independent medical judgment in providing your response.
--- NOTE | 2024-02-27 13:05 | PTCARENOTE ---
Assumed care of pt at 1100. Pt sitting in chair. Cardizem gtt currently at 10mg/hr, new bag hung. BP low at 100/56, Toprol dose held. Pt given tylenol for tenderness in chest from 'ablation'. Pt instructed to ring for assistance.
--- NOTE | 2024-02-27 14:19 | PTCARENOTE ---
Pt voided 200ml in hat in bathroom. Bladder scanned for 284 ml post void.
--- NOTE | 2024-02-27 14:29 | CM ---
CM following for DC planning needs.
Pt. recently hospitalized at [facility], DC'ed to SNF on 02/23 @ [facility].
Pt. has had 2 hospitalizations in past month; 02/16-02/18 + 02/22-02/23. Prior to these hospitalizations, patient was residing w/ spouse in a private 2 story home. Functionally @ baseline, patient requires no assisted device to ambulate.
Patient has been at [facility] for short term rehab since 02/18. She reports that there is no discharge date at present and she expects to return. She informs me that she is privately paying for a bed hold.
Pt. has been ambulating @ rehab with use of a RW.
Plan to return to [facility] once medically stable.
I initiated referral back to [facility] today.
I attempted to place call to [facility] but no response. Will need to follow up on Friday, 03/01 to coordinate return, if medically stable.
[2024-02-27] MEDS: SENOKOT-S 1 TABLET PO (16:07)
--- NOTE | 2024-02-27 16:25 | PTCARENOTE ---
Pt heart rate steady in the 130's. Cardizem drip increased to 15mg/hr. Pt walked around room with and HR went to 160. Pt now in chair. BP 133/73. HR now 135.
[2024-02-27] MEDS: ROXICODONE 2.5 MG PO (22:00)
[2024-02-27] MEDS: REMERON 7.5 MG PO (22:01)
[2024-02-27] MEDS: NEURONTIN 300 MG PO (22:01)
--- NOTE | 2024-02-27 23:16 | PTCARENOTE ---
Pt received start of shift, HR afib. Cardizem infusing at 15mg/hr. Educated pt and on purpose of amiodarone. Pt and pt's very focused on pt's bowel movements. Discussed PRN meds to help facilitate BMs. PRN Tylenol and Diamond
administered for b/l feet pain - see MAY. Pt voided in bathroom, PVR 4mL on bladder scan. Pt denies any lightheadedness/dizziness.
[2024-02-28] VITALS (18 sets, daily range): BP systolic 91–134; BP diastolic 52–99
[2024-02-28] MEDS: SYNTHROID 137 MCG PO (05:27)
[2024-02-28 05:42] LABS: Hematocrit 27.4 % (37.0-47.0); Hemoglobin 8.8 g/dL (12.0-16.0); Mean Corp Hgb Conc. 32.1 g/dL (33.0-37.0); Mean Corpuscular Hgb 28.9 pg (27.0-31.0); Mean Corpuscular Volume 89.8 fL (81.0-99.0); Mean Platelet Volume 8.5 fL (7.4-10.4); Platelet Count 326 10^3/uL (130-400); Red Blood Cell Count 3.05 10^6/uL (4.20-5.40); Red Cell Dist. Width 16.1 % (11.5-14.5); White Blood Cell Count 11.7 10^3/uL (4.8-10.8)
[2024-02-28] MEDS: SENOKOT-S 1 TABLET PO ×2 (06:07→20:28)
[2024-02-28] MEDS: NEURONTIN 100 MG PO ×3 (06:07→22:04)
[2024-02-28] MEDS: CARDIZEM 125 IV (06:07)
[2024-02-28 06:11] LABS: Blood Urea Nitrogen 33 mg/dl (7-17); Calcium 8.4 mg/dl (8.4-10.2); Carbon Dioxide 29 mmol/L (22-30); Chloride 101 mmol/L (98-107); Estimated Creatinine Clearance 65 ml/min; Glucose 79 mg/dl (70-99); Potassium 4.2 mmol/L (3.5-5.1); Sodium 137 mmol/L (135-145); eGFR > 60.00
--- NOTE | 2024-02-28 08:00 | PTCARENOTE ---
Assumed care of pt from emergency department aide RN. AAOx3. Afib on traffic monitor specialist. HRs 70s-90s. Continues on Cardizem gtt at 10 mg/hr for goal HR 80-100. VSS. Plan to transition to oral Cardizem and wean of Cardizem gtt today. Pt resting in bed, call gonzalez in
reach. Assessment documented.
[2024-02-28] MEDS: MIRALAX 17 GRAMS PO (08:21)
[2024-02-28] MEDS: OSCAL 500 + D 500 MG PO (08:22)
[2024-02-28] MEDS: URE-NA 15 GRAMS PO ×2 (08:22→20:28)
[2024-02-28] MEDS: PACERONE 200 MG PO ×3 (08:22→22:05)
[2024-02-28] MEDS: COLACE 100 MG PO ×2 (08:22→19:34)
[2024-02-28] MEDS: FLOMAX 0.4 MG PO (08:22)
[2024-02-28] MEDS: ELIQUIS 5 MG PO ×2 (08:23→19:33)
[2024-02-28] MEDS: DELTASONE 40 MG PO (08:23)
--- NOTE | 2024-02-28 08:40 | W.PN.CARDCBS ---
Addendum entered and electronically signed by Elizabeth Lin DO 02/28/24 16:38:
I saw and examined the patient.
The Tank Washer's note was reviewed and I agree with the note.
Comment: Patient seen and examined�occasional palpitations but mostly feels better. No shortness of breath or chest pain.
GEN: No distress, awake, Ox3
HEENT: supple, anicteric, mmm
LUNGS: CTA bilaterally, no wheezes/rales
CV: Irregularly irregular, S1/S2, 2/6 syst murmur
ABD: soft, BS+, NT/ND
EXT: No edema
Plan:
She remains in atrial fibrillation With rapid rates
-Patient has completed dofetilide washout (last dose 02/25/2024). She was provided 2 doses of IV digoxin 02/26/24 with improvement of heart rate.
-Continue to wean off Cardizem drip currently on 5 mg/hr. Start oral Cardizem 120 mg and uptitrate as BP allows
-Amiodarone started 200 mg 3 times daily 02/27/2024.
-ECG 02/28/2024 atrial fibrillation with stable QTc of 438 ms
-Of note TSH 02/18/2024 pre amiodarone load 13.7 with free T4 2.19. Will need to be followed
-Eventual cardioversion. EP recommending 4 weeks on amiodarone prior to proceeding with cardioversion
-Continue Eliquis 5 mg twice daily; hemoglobin stable 8.8
Patient following closely with rheumatology for GCA. She has been maintained on prednisone 60 mg recently. However today trauma director, Dr. Harika Dominguez, was agreeable for patient to reduce prednisone to 40 mg. Discussed with patient
and family high-dose steroids likely contributing to poor heart rate control.
Original Note:
Today's Communication / Plan
-
Continue amiodarone load and Toprol
Wean off diltiazem drip
Transition to oral Cardizem
Continue to monitor on telemetry
Daily EKG for QTc monitor
Impression / Plan
-
Primary Housing Specialist: Dr. Dawson
Primary EP: Dr. Llanes
Impression:
Presents 02/25/2024 with tachycardia and palpitations
Recurrent, symptomatic AFib w/ RVR
Recent Admission 02/17/2024 to 02/19/2024 for load of Tikosyn 250 mcg BID
Readmitted 02/22/2024 to 02/24/2024 with symptomatic Afib w/ RVR and increase in Tikosyn 500 mcg BID, s/p successful CV 02/24/2024
Readmitted with symptomatic Afib RVR 02/25/2024 despite max dose Tikosyn
Hx of SVT/afib/flutter ablation 08/2016, repeat PVI 12/10/22
Chronic OAC with eliquis
Hx of Relative hypotension
3 week admission to [place] for inflammatory colitis 01/05-01/27/24 s/p flex sigmoidoscopy with biopsy 01/13/24
Urinary retention with indwelling Shanks since December 2023
Giant cell arteritis, on high doses of prednisone and gabapentin
Peripheral neuropathy
Hypothyroidism
GERD
History of pulmonary nodules
Hyponatremia
Vitamin D deficiency
ECHO 12/2023 at [facility]: EF preserved
Echo 05/17/2022: EF 60%, mild biatrial enlargement. Mild tricuspid regurgitation
Plan:
She remains in atrial fibrillation. Patient has completed dofetilide washout (last dose 02/25/2024). She was provided 2 doses of IV digoxin 02/26/24 with improvement of heart rate.
Continue to wean off Cardizem drip currently on 5 mg/hr. Start oral Cardizem 120 mg and uptitrate as BP allows
Amiodarone started 200 mg 3 times daily 02/27/2024.
Heart rates reasonably controlled at rest but still elevate with activity or when patient is ambulating
ECG 02/28/2024 atrial fibrillation with stable QTc of 438 ms
Of note TSH 02/18/2024 pre amiodarone load 13.7 with free T4 2.19. Will need to be followed
Eventual cardioversion. EP recommending 4 weeks on amiodarone prior to proceeding with cardioversion
Continue Eliquis 5 mg twice daily; hemoglobin stable 8.8
Patient following closely with rheumatology for GCA. She has been maintained on prednisone 60 mg recently. However today trauma director, Dr. Harika Dominguez, was agreeable for patient to reduce prednisone to 40 mg. Discussed with patient
and family high-dose steroids likely contributing to poor heart rate control.
HPI:
Patient presents 02/25/2024 from [facility] rehab facility after she was found to have tachycardia and elevated heart rates in the 140s on routine vital check. Patient was recently admitted 02/17/2024 to 02/19/2024 for Tikosyn load. Unfortunately she
was readmitted on 02/22/2024 with recurrent symptomatic atrial fibrillation with rapid ventricular response and Tikosyn dose was increased to 500 mcg bid. She underwent successful cardioversion on 02/24/2024 and was discharged back to [facility].
Unfortunately she was found to have [facility] confirms that patient is back in atrial fibrillation with rapid ventricular response despite max dose Tikosyn.
-Unfortunately patient has failed rhythm control with max dose Tikosyn.
Progress Note - Housing Specialist
Subjective
Date of Service: February 28, 2024
Patient seen and examined. Patient resting comfortably in bed. Patient reports occasional palpitations however denies chest pain, shortness of breath, dizziness or lightheadedness. Heart rates reasonably controlled at rest but still elevate with
activity or when patient is ambulating
Objective
Labs:
02/28/24 05:12
02/28/24 05:12
Labs
Hgb 8.8 g/dL (12.0-16.0) L 02/28/24 05:12
Hct 27.4 % (37.0-47.0) L 02/28/24 05:12
Plt Count 326 10^3/uL (130-400) 02/28/24 05:12
Sodium 137 mmol/L (135-145) 02/28/24 05:12
Potassium 4.2 mmol/L (3.5-5.1) 02/28/24 05:12
BUN 33 mg/dl (7-17) H 02/28/24 05:12
Creatinine 0.5 mg/dL (0.6-1.0) L 02/28/24 05:12
Glucose 79 mg/dl (70-99) 02/28/24 05:12
Vital Signs and I&O:
Vital Signs
Temp Pulse Resp BP Pulse Ox
97.4 F 86 16 101/57 97
02/28/24 07:47 02/28/24 08:22 02/28/24 07:47 02/28/24 08:22 02/28/24 07:47
Vital Signs
Temp Pulse Resp BP Pulse Ox
97.4 F 86 16 101/57 97
02/28/24 07:47 02/28/24 08:22 02/28/24 07:47 02/28/24 08:22 02/28/24 07:47
Intake & Output
02/26/24 02/27/24 02/28/24 02/29/24
06:59 06:59 06:59 06:59
Intake Total 480 / 480 495 / 495 855 / 855 135 / 135
Output Total 650 / 650 1200 / 1200 1850 / 1850
Balance -170 / -170 -705 / -705 -995 / -995 135 / 135
Physical Exam
Physical Exam
GEN: No distress, awake, Ox3
HEENT: supple, anicteric, mmm
LUNGS: CTA bilaterally, no wheezes/rales
CV: Irregularly irregular, S1/S2, 2/6 syst murmur
ABD: soft, BS+, NT/ND
EXT: No edema, clubbing or cyanosis
NEURO: Gross non-focal
SKIN: No rash, warm, dry, pink
[2024-02-28] MEDS: TOPROL XL 25 MG PO ×2 (09:08→19:33)
[2024-02-28] MEDS: CARDIZEM CD 120 MG PO (10:24)
--- NOTE | 2024-02-28 12:00 | PTCARENOTE ---
Cardizem gtt weaned off. Pt started on PO Cardizem 120mg daily. Pt remains in Afib with HRs 100s-120s at this time.
--- NOTE | 2024-02-28 13:52 | W.PN.HOSP.TC ---
Today's Communication/Plan
-
continue monitoring for signs of urinary retention
afib mx per cardio
Assessment / Plan
Assessment / Plan
1. Recurrent A-fib/RVR
History of PVI/ablation
history of SVT/flutter
-Patient have recurrent symptomatic atrial fibrillation/RVR
-Was just discharged yesterday after successful cardioversion and Tikosyn loading
-Sent back to ER for having dizziness/lightheadedness with heart rate in 140s in rehab
-Maintain patient on home dose of Eliquis therapy
-Cardiology managing beta-bari/amiodarone therapy. Being attempted to be weaned off of Cardizem drip
2. Subacute urinary retention
-Shanks catheter placed approximately 6 weeks back
-Initially required from prolonged hospitalization
-Shanks catheter has been removed on 02/25.
-Continue monitoring for increased PVR
3. Giant cell arteritis
Chronic leukocytosis
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
-Patient have persistent leukocytosis likely with need of steroid for GCA
-Initial GCA diagnosis due to jaw pain/thigh pain. [employer] and delma Ag
-Dose of oral prednisone decreased to 40 mg daily per patient discussion with rheumatology
-Patient also on Actemra monthly infusion
4. h/o of Hyponatremia
-On urea pills, continue
-continue monitoring
5. Chronic normocytic anemia
-Hbg 9.2 today, monitor
-has been fluctuating between 8-10
Underweight
Peripheral neuropathy
GERD
Hypothyroidism
History of pulmonary nodule
DVT PPX - eliquis
Full code
Anticipated Discharge: 24 - 48 hours
Subjective/Interval History
-
Date of Service: February 28, 2024
Denies chest pain/palpitation/dizziness
No other reported problems
Objective Data
-
Labs:
Laboratory Results
02/28/24
05:12
WBC 11.7 H
Hgb 8.8 L
Hct 27.4 L
Plt Count 326
Sodium 137
Potassium 4.2
Chloride 101
Carbon Dioxide 29
BUN 33 H
Creatinine 0.5 L
Glucose 79
Calcium 8.4
Vital Signs:
Vital Signs
Temp Pulse Resp BP Pulse Ox
97.9 F 107 18 117/71 100
02/28/24 11:39 02/28/24 10:24 02/28/24 11:39 02/28/24 10:24 02/28/24 11:39
I&O
02/27/24 02/28/24 02/29/24
06:59 06:59 06:59
Intake Total 495 / 495 855 / 855 385 / 385
Output Total 1200 / 1200 1850 / 1850 1000 / 1000
Balance -705 / -705 -995 / -995 -615 / -615
Review of Systems
-
Respiratory: Reports No Symptoms
Cardiac: Reports No Symptoms
Abdomen/GI: Reports No Symptoms
Physical Exam
-
General: No Apparent Distress and Comfortable
HEENT: Negative Oxygen
Respiratory: Clear to Auscultation
Cardiac: S1/S2 and Irregular Rhythm; Negative Murmur or Rub
GI: Soft, Nontender and Nondistended
Genito-urinary: Shanks
Musculoskeletal: No Edema
Neuro: Awake, Alert, Oriented, No Motor Deficits and Nonfocal/Grossly Intact
Psych: Calm
--- NOTE | 2024-02-28 18:20 | PTCARENOTE ---
Pt remians in Afib with HRs up to 130s at rest. Cardizem gtt restarted for goal HR 80-100bpm.
[2024-02-28] MEDS: REMERON 7.5 MG PO (22:03)
[2024-02-28] MEDS: ROXICODONE 2.5 MG PO (22:04)
[2024-02-28] MEDS: NEURONTIN 300 MG PO (22:04)
[2024-02-28] MEDS: TYLENOL 650 MG PO (22:05)
--- NOTE | 2024-02-28 23:30 | PTCARENOTE ---
Rec'd pt at change of shift. PT AAO*3, on TELE monitor in AFib (HR in the 110-120's). Pt reported mild feeling of pins and needles in lower extremities. Pain medication given as ordered. Pt on Cardizem gtt infusing at 10/mg per hour. Pt denies
any chest palpitations or discomfort. Pt ambulating to bathroom with staff assistance and rolling walker. Pt updated on plane of care. Pt resting with call gonzalez in reach.
[2024-02-29] VITALS (10 sets, daily range): BP systolic 94–119; BP diastolic 59–85; BMI 18.1
[2024-02-29 06:19] LABS: Blood Urea Nitrogen 40 mg/dl (7-17); Calcium 8.6 mg/dl (8.4-10.2); Carbon Dioxide 31 mmol/L (22-30); Chloride 100 mmol/L (98-107); Estimated Creatinine Clearance 65 ml/min; Glucose 79 mg/dl (70-99); Potassium 4.2 mmol/L (3.5-5.1); Sodium 135 mmol/L (135-145); eGFR > 60.00
[2024-02-29] MEDS: CARDIZEM 125 IV (06:42)
[2024-02-29] MEDS: SYNTHROID 137 MCG PO (06:43)
[2024-02-29] MEDS: CARDIZEM CD 120 MG PO (07:43)
[2024-02-29] MEDS: NEURONTIN 100 MG PO ×3 (07:43→22:34)
[2024-02-29] MEDS: FLOMAX 0.4 MG PO (07:43)
[2024-02-29] MEDS: TOPROL XL PO (07:44)
[2024-02-29] MEDS: OSCAL 500 + D 500 MG PO (07:44)
[2024-02-29] MEDS: PACERONE 200 MG PO ×3 (07:44→22:34)
[2024-02-29] MEDS: COLACE 100 MG PO ×2 (07:44→19:32)
[2024-02-29] MEDS: ELIQUIS 5 MG PO ×2 (07:44→19:32)
[2024-02-29] MEDS: URE-NA 15 GRAMS PO ×2 (07:45→19:33)
[2024-02-29] MEDS: MIRALAX 17 GRAMS PO (07:45)
[2024-02-29] MEDS: DELTASONE 40 MG PO (09:12)
--- NOTE | 2024-02-29 09:48 | PTCARENOTE ---
Cardizem gtt infusing at 5 ml/hr. Tele- afib. HR 80-100s. Assessment completed as documented. Pt has no complaints at this time. Currently in bed; call lisa w/in reach.
[2024-02-29] MEDS: TYLENOL 650 MG PO ×2 (11:09→22:38)
--- NOTE | 2024-02-29 11:11 | PTCARENOTE ---
Cardizem gtt d/c per order. See MAR.
--- NOTE | 2024-02-29 14:31 | W.PN.HOSP.TC ---
Today's Communication/Plan
-
rate control per cards
continue pt/ot
Assessment / Plan
Assessment / Plan
1. Recurrent A-fib/RVR
History of PVI/ablation
history of SVT/flutter
-Patient have recurrent symptomatic atrial fibrillation/RVR
-Was just discharged yesterday after successful cardioversion and Tikosyn loading
-Sent back to ER for having dizziness/lightheadedness with heart rate in 140s in rehab
-Maintain patient on home dose of Eliquis therapy
-Cardiology managing beta-bari/amiodarone therapy. Being attempted to be weaned off of Cardizem drip, getting increasing dose of oral cardizem
2. Subacute urinary retention - resolved
-Shanks catheter placed approximately 6 weeks back
-Initially required from prolonged hospitalization
-Shanks catheter has been removed on 02/25.
-Continue monitoring for increased PVR
3. Giant cell arteritis
Chronic leukocytosis
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
-Patient have persistent leukocytosis likely with need of steroid for GCA
-Initial GCA diagnosis due to jaw pain/thigh pain. Facility Planner and delma Ag
-Dose of oral prednisone decreased to 40 mg daily per patient discussion with rheumatology
-Patient also on Actemra monthly infusion
4. h/o of Hyponatremia
-On urea pills, continue
-continue monitoring
5. Chronic normocytic anemia
-Hbg 9.2 today, monitor
-has been fluctuating between 8-10
Underweight
Peripheral neuropathy
GERD
Hypothyroidism
History of pulmonary nodule
DVT PPX - eliquis
Full code
Anticipated Discharge: 24 - 48 hours
Subjective/Interval History
-
Date of Service: February 29, 2024
Denies of any problems
Continues to have some tachycardia with afib
Objective Data
-
Labs:
Laboratory Results
02/29/24
04:01
Sodium 135
Potassium 4.2
Chloride 100
Carbon Dioxide 31 H
BUN 40 H
Creatinine 0.5 L
Glucose 79
Calcium 8.6
Vital Signs:
Vital Signs
Temp Pulse Resp BP Pulse Ox
98.8 F 91 20 99/65 97
02/29/24 11:35 02/29/24 09:00 02/29/24 11:35 02/29/24 07:44 02/29/24 11:35
I&O
02/28/24 02/29/24 03/01/24
06:59 06:59 06:59
Intake Total 855 / 855 1105 / 1105 400 / 400
Output Total 1850 / 1850 2750 / 2750 300 / 300
Balance -995 / -995 -1645 / -1645 100 / 100
Review of Systems
-
Respiratory: Reports No Symptoms
Cardiac: Reports No Symptoms
Abdomen/GI: Reports No Symptoms
Physical Exam
-
General: No Apparent Distress and Comfortable
HEENT: Negative Oxygen
Respiratory: Clear to Auscultation
Cardiac: S1/S2 and Irregular Rhythm; Negative Murmur or Rub
GI: Soft, Nontender and Nondistended
Genito-urinary: Shanks
Musculoskeletal: No Edema
Neuro: Awake, Alert, Oriented, No Motor Deficits and Nonfocal/Grossly Intact
Psych: Calm
[2024-02-29] MEDS: NSS 500 IV (17:38)
[2024-02-29] MEDS: CARDIZEM 30 MG PO (18:16)
--- NOTE | 2024-02-29 18:20 | PTCARENOTE ---
Pt remains in afib. HR 120-140s at rest. BP 99/63. Asymptomatic. Elizabeth Lin MD made aware and orders placed. 500ml NSS bolus ordered and administered for soft BP. Repeat BP 119/84. PO Cardizem 30 mg ordered and administered. See MAY.
--- NOTE | 2024-02-29 18:39 | W.PN.CARDCBS ---
Today's Communication / Plan
-
Continue rate control efforts for permanent atrial fibrillation
Anticipate discharge in the next 24-48 hours
Impression / Plan
-
Primary Special Education Coordinator: Dr. Dawson
Primary EP: Dr. Llanes
Impression:
Presents 02/25/2024 with tachycardia and palpitations
Recurrent, symptomatic AFib w/ RVR
Recent Admission 02/17/2024 to 02/19/2024 for load of Tikosyn 250 mcg BID
Readmitted 02/22/2024 to 02/24/2024 with symptomatic Afib w/ RVR and increase in Tikosyn 500 mcg BID, s/p successful CV 02/24/2024
Readmitted with symptomatic Afib RVR 02/25/2024 despite max dose Tikosyn
Hx of SVT/afib/flutter ablation 08/2016, repeat PVI 12/10/22
Chronic OAC with eliquis
Hx of Relative hypotension
3 week admission to [place] for inflammatory colitis 01/05-01/27/24 s/p flex sigmoidoscopy with biopsy 01/13/24
Urinary retention with indwelling Shanks since December 2023
Giant cell arteritis, on high doses of prednisone and gabapentin
Peripheral neuropathy
Hypothyroidism
GERD
History of pulmonary nodules
Hyponatremia
Vitamin D deficiency
[facility]: EF preserved
Echo 05/17/2022: EF 60%, mild biatrial enlargement. Mild tricuspid regurgitation
Plan:
She remains in atrial fibrillation with better rate control today now off IV Cardizem
-Patient has completed dofetilide washout (last dose 02/25/2024). She was provided 2 doses of IV digoxin 02/26/24 with improvement of heart rate.
-Amiodarone started 200 mg TID 02/27/2024. QTc stable, 431ms on EKG February 29, 2024
-IV Cardizem drip discontinued and Cardizem CD 120 mg daily initiated
-Will continue to monitor heart rate trends; may need to adjust Cardizem dose however blood pressures are borderline
-Heart rates were mostly under 100 at rest however after ambulation to the restroom they were in the 1 teens but mostly under 120.
-May need to tolerate ambulatory tachycardia under 120 bpm if asymptomatic
-Of note TSH 02/18/2024 pre-amiodarone load 13.7 with free T4 2.19. Will need to be followed
-Patient is well-known to EP service, Dr. Llanes with plan for 4 weeks amiodarone prior to proceeding with repeat cardioversion
-Continue Eliquis 5 mg twice daily; hemoglobin stable 8.8
Patient following closely with rheumatology for GCA. She has been maintained on prednisone 60 mg recently. However today shake sawyer, Dr. Harika Dominguez, was agreeable for patient to reduce prednisone to 40 mg.
HPI:
Patient presents 02/25/2024 from [facility] rehab facility after she was found to have tachycardia and elevated heart rates in the 140s on routine vital check. Patient was recently admitted 02/17/2024 to 02/19/2024 for Tikosyn load. Unfortunately she
was readmitted on 02/22/2024 with recurrent symptomatic atrial fibrillation with rapid ventricular response and Tikosyn dose was increased to 500 mcg bid. She underwent successful cardioversion on 02/24/2024 and was discharged back to [facility].
Unfortunately [facility] to [facility] confirms that patient is back in atrial fibrillation with rapid ventricular response despite max dose Tikosyn.
-Unfortunately patient has failed rhythm control with max dose Tikosyn.
Progress Note - Special Education Coordinator
Subjective
Date of Service: February 29, 2024
Patient seen and examined sitting out of bed to chair. She states that she was tired today and has bed most of the morning in bed. Denies any specific complaints. Denies palpitations, dizziness or chest pain. No shortness of breath. Voiding
well.
Objective
Labs:
02/28/24 05:12
02/29/24 04:01
Labs
Hgb 8.8 g/dL (12.0-16.0) L 02/28/24 05:12
Hct 27.4 % (37.0-47.0) L 02/28/24 05:12
Plt Count 326 10^3/uL (130-400) 02/28/24 05:12
Sodium 135 mmol/L (135-145) 02/29/24 04:01
Potassium 4.2 mmol/L (3.5-5.1) 02/29/24 04:01
BUN 40 mg/dl (7-17) H 02/29/24 04:01
Creatinine 0.5 mg/dL (0.6-1.0) L 02/29/24 04:01
Glucose 79 mg/dl (70-99) 02/29/24 04:01
Vital Signs and I&O:
Vital Signs
Temp Pulse Resp BP Pulse Ox
98.6 F 128 20 119/84 96
02/29/24 15:33 02/29/24 18:16 02/29/24 15:33 02/29/24 18:16 02/29/24 15:33
Vital Signs
Temp Pulse Resp BP Pulse Ox
98.6 F 128 20 119/84 96
02/29/24 15:33 02/29/24 18:16 02/29/24 15:33 02/29/24 18:16 02/29/24 15:33
Intake & Output
02/27/24 02/28/24 02/29/24 03/01/24
06:59 06:59 06:59 06:59
Intake Total 495 / 495 855 / 855 1105 / 1105 800 / 800
Output Total 1200 / 1200 1850 / 1850 2750 / 2750 700 / 700
Balance -705 / -705 -995 / -995 -1645 / -1645 100 / 100
Physical Exam
Physical Exam
GEN: No distress, awake, Ox3
HEENT: supple, anicteric, mmm
LUNGS: CTA bilaterally, no wheezes/rales
CV: Irregularly irregular, S1/S2, 2/6 syst murmur
ABD: soft, BS+, NT/ND
EXT: No edema
[2024-02-29] MEDS: TOPROL XL 25 MG PO (19:32)
[2024-02-29] MEDS: SENOKOT-S 1 TABLET PO (19:32)
[2024-02-29] MEDS: NEURONTIN 300 MG PO (22:34)
[2024-02-29] MEDS: REMERON 7.5 MG PO (22:34)
[2024-02-29] MEDS: ROXICODONE 2.5 MG PO (22:38)
--- NOTE | 2024-02-29 23:46 | PTCARENOTE ---
Rec'd pt at change of shift. Pt AAO*3, VSS, and in Afib on TELE monitor (Hr in the 90-110's). Pt denies any pain or discomfort. Pt updated on plan of care and declines any questions or clarifications. Pt reported pain and pain medication given
per order. See flowchart and MAR for full assessment and patient care. Pt currently resting in bed with call gonzalez in reach. Plan of care ongoing.
[2024-03-01] VITALS (14 sets, daily range): BP systolic 87–130; BP diastolic 65–109; PULSE 127–145; O2SAT 97; BMI 17.9
[2024-03-01 06:07] LABS: Blood Urea Nitrogen 39 mg/dl (7-17); Calcium 8.7 mg/dl (8.4-10.2); Chloride 102 mmol/L (98-107); Estimated Creatinine Clearance 64 ml/min; Glucose 79 mg/dl (70-99); Potassium 4.3 mmol/L (3.5-5.1); Sodium 138 mmol/L (135-145); eGFR > 60.00
[2024-03-01 06:34] LABS: Carbon Dioxide 30 mmol/L (22-30)
[2024-03-01] MEDS: SYNTHROID 137 MCG PO (06:43)
[2024-03-01] MEDS: CARDIZEM CD 120 MG PO (09:08)
--- NOTE | 2024-03-01 09:08 | W.PN.CARDCBS ---
Today's Communication / Plan
-
She remains in atrial fibrillation with better rate control remains off IV Cardizem
Cont Amiodarone load, started 200 mg TID Feb 26. QTc stable.
- TSH 02/18/2024 pre-amiodarone load 13.7 with free T4 2.19; will need to be followed
Cont Cardizem CD 120 mg daily. Off IV Cardizem.
May need further titration of Cardizem pending HR response
Cont Eliquis, tolerating.
Patient is well-known to EP service, Dr. Llanes with plan for 4 weeks amiodarone prior to proceeding with repeat cardioversion
Patient following closely with rheumatology for GCA. She had been maintained on prednisone 60 mg recently. Assurance Services Manager Health Care, Dr. Harika Dominguez, was agreeable for patient to reduce prednisone to 40 mg.
Impression / Plan
-
Primary Data Specialist: Dr. Dawson
Primary EP: Dr. Llanes
Impression:
Presents 02/25/2024 with tachycardia and palpitations
Recurrent, symptomatic AFib w/ RVR
Recent Admission 02/17/2024 to 02/19/2024 for load of Tikosyn 250 mcg BID
Readmitted 02/22/2024 to 02/24/2024 with symptomatic Afib w/ RVR and increase in Tikosyn 500 mcg BID, s/p successful CV 02/24/2024
Readmitted with symptomatic Afib RVR 02/25/2024 despite max dose Tikosyn
Hx of SVT/afib/flutter ablation 08/2016, repeat PVI 12/10/22
Chronic OAC with eliquis
Hx of Relative hypotension
3 week admission to [place] for inflammatory colitis 01/05-01/27/24 s/p flex sigmoidoscopy with biopsy 01/13/24
Urinary retention with indwelling Shanks since December 2023
Giant cell arteritis, on high doses of prednisone and gabapentin
Peripheral neuropathy
Hypothyroidism
GERD
History of pulmonary nodules
Hyponatremia
Vitamin D deficiency
ECHO 12/2023 at [facility]: EF preserved
Echo 05/17/2022: EF 60%, mild biatrial enlargement. Mild tricuspid regurgitation
Plan:
-Patient has completed dofetilide washout (last dose 02/25/2024). She received 2 doses of IV Digoxin 02/26/24 with improvement of heart rate.
She remains in atrial fibrillation with better rate control remains off IV Cardizem
Cont Amiodarone load, started 200 mg TID Feb 26. QTc stable.
- TSH 02/18/2024 pre-amiodarone load 13.7 with free T4 2.19; will need to be followed
Cont Cardizem CD 120 mg daily. Off IV Cardizem.
May need further titration of Cardizem pending HR response
Cont Eliquis, tolerating.
Patient is well-known to EP service, Dr. Llanes with plan for 4 weeks amiodarone prior to proceeding with repeat cardioversion
Patient following closely with rheumatology for GCA. She had been maintained on prednisone 60 mg recently. Assurance Services Manager Health Care, Dr. Harika Dominguez, was agreeable for patient to reduce prednisone to 40 mg.
HPI:
Patient presents 02/25/2024 from [facility] rehab facility after she was found to have tachycardia and elevated heart rates in the 140s on routine vital check. Patient was recently admitted 02/17/2024 to 02/19/2024 for Tikosyn load. Unfortunately she
was readmitted on 02/22/2024 with recurrent symptomatic atrial fibrillation with rapid ventricular response and Tikosyn dose was increased to 500 mcg bid. She underwent successful cardioversion on 02/24/2024 and was discharged back to [facility]
Unfortunately she was found to have elevated heart rates on routine vital check at [facility] rehab. EKG confirms that patient is back in atrial fibrillation with rapid ventricular response despite max dose Tikosyn.
-Unfortunately patient has failed rhythm control with max dose Tikosyn.
Progress Note - Data Specialist
Subjective
Date of Service: March 01, 2024
Pt seen and examined. No complaints. No chest pain or shortness of breath.
Objective
Labs:
02/28/24 05:12
03/01/24 05:39
Labs
Hgb 8.8 g/dL (12.0-16.0) L 02/28/24 05:12
Hct 27.4 % (37.0-47.0) L 02/28/24 05:12
Plt Count 326 10^3/uL (130-400) 02/28/24 05:12
Sodium 138 mmol/L (135-145) 03/01/24 05:39
Potassium 4.3 mmol/L (3.5-5.1) 03/01/24 05:39
BUN 39 mg/dl (7-17) H 03/01/24 05:39
Creatinine 0.5 mg/dL (0.6-1.0) L 03/01/24 05:39
Glucose 79 mg/dl (70-99) 03/01/24 05:39
Vital Signs and I&O:
Vital Signs
Temp Pulse Resp BP Pulse Ox
97.7 F 102 20 109/86 98
03/01/24 07:26 03/01/24 05:34 03/01/24 07:26 03/01/24 05:34 03/01/24 07:26
Vital Signs
Temp Pulse Resp BP Pulse Ox
97.7 F 102 20 109/86 98
03/01/24 07:26 03/01/24 05:34 03/01/24 07:26 03/01/24 05:34 03/01/24 07:26
Intake & Output
02/28/24 02/29/24 03/01/24 03/02/24
06:59 06:59 06:59 06:59
Intake Total 855 / 855 1105 / 1105 1520 / 1520
Output Total 1850 / 1850 2750 / 2750 2300 / 2300
Balance -995 / -995 -1645 / -1645 -780 / -780
Physical Exam
Physical Exam
General: No acute distress, AAOX3
Neck: Negative JVD
Heart: Irregularly irregular, Negative S3 positive S1/S2, Negative S4, No murmur
Lungs: CTA b/l, negative wheezes/rales/rhonchi
Abd: Positive BS, NT/ND, neg rebound/rigidity/guarding
Ext: Negative cyanosis/clubbing/edema
Neuro: nonfocal
[2024-03-01] MEDS: TOPROL XL 25 MG PO ×2 (09:09→21:06)
[2024-03-01] MEDS: ELIQUIS 5 MG PO ×2 (09:10→20:00)
[2024-03-01] MEDS: FLOMAX 0.4 MG PO (09:10)
[2024-03-01] MEDS: PACERONE 200 MG PO ×3 (09:10→22:18)
[2024-03-01] MEDS: OSCAL 500 + D 500 MG PO (09:10)
[2024-03-01] MEDS: COLACE 100 MG PO ×2 (09:10→20:03)
[2024-03-01] MEDS: NEURONTIN 100 MG PO ×3 (09:11→22:18)
[2024-03-01] MEDS: DELTASONE 40 MG PO (09:11)
[2024-03-01] MEDS: MIRALAX 17 GRAMS PO (09:12)
[2024-03-01] MEDS: URE-NA 15 GRAMS PO ×2 (09:12→20:04)
--- NOTE | 2024-03-01 17:29 | W.PN.HOSP.TC ---
Addendum entered and electronically signed by Mahamed Foster MD 03/02/24 14:42:
reccurent afib with rvr
-amio tid
-bb
-ccb
-ac
-stop dofetilide as on halfway high dose predisone
-monitor on tele
-cards following
-pt to assess
GCA on pred taper follows with Rheum at [facility]
Chronic hyponatremia
-continue Urea tabs
Original Note:
Today's Communication/Plan
-
Continue Amio 200 3 times daily, continue Toprol 25 twice daily, continue Cardizem 120 p.o.
Continue telemonitoring
Assessment / Plan
Assessment / Plan
78-year-old female with past medical history of paroxysmal A-fib s/p ablation in 2017 on Eliquis, who presented on 02/24 with lightheadedness, increased heart rate and fatigue. She is from [facility] rehab and was found to have heart rate in the 140s.
She was discharged the day before current admission after successful cardioversion. Also, her Tikosyn and metoprolol were doubled in previous admission (500 BID and 50 BID, respectively).
# Recurrent A-fib with RVR
-Appreciate cardiology-given her history of GCA on prednisone, prolonged hospitalization in the previous month, and persistent anemia/leukocytosis, rate control is preferred over rhythm control. Also, cardiac ablation or cardioversion is not safe
at this time.
-Tikosyn stopped on 02/24 and bridged with Cardizem drip
-Started amiodarone 200 TID on 02/26
-Was able to wean off Cardizem drip on 02/28 and switch to oral Cardizem 120 daily
-Continue Toprol 25 twice daily
-Continue Eliquis 5 twice daily
#Urinary retention
-Resolved
-Shanks catheter placed approximately 6 weeks back d/t prolonged hospitalization
-Was removed here on 02/25
-Bladder scans PRN for any retention
# Giant cell arteritis/ Leukocytosis in the setting of GCA
-Export Freight Specialist is Dr. Harika Dominguez at [facility]
-Dose of oral prednisone decreased from 60 to 40 mg daily per rheumatology
-Actemra monthly infusion as OP
# Hx of Hyponatremia
-Cont urea pills
-Check daily BMP
# Chronic normocytic anemia
-Stable, at baseline
-Continue to monitor H&H
-Transfuse if needed to keep hemoglobin more than 7
# GERD
-famotidine
#Hypothyroidism
- Cont home levothyroxine
#DVT prophylaxis
-Eliquis
CODE STATUS: Full code
Anticipated Discharge: 24 - 48 hours
Subjective/Interval History
-
Date of Service: March 01, 2024
Patient denies chest pain, shortness of breath. Patient denies feeling strong or rapid heartbeats. Was able to tolerate breakfast and has good appetite. Denies any lightheadedness/dizziness.
Objective Data
-
Labs:
Laboratory Results
03/01/24
05:39
Sodium 138
Potassium 4.3
Chloride 102
Carbon Dioxide 30
BUN 39 H
Creatinine 0.5 L
Glucose 79
Calcium 8.7
Vital Signs:
Vital Signs
Temp Pulse Resp BP Pulse Ox
98 F 124 20 103/73 97
03/01/24 15:27 03/01/24 16:18 03/01/24 15:27 03/01/24 16:18 03/01/24 15:27
I&O
02/29/24 03/01/24 03/02/24
06:59 06:59 06:59
Intake Total 1105 / 1105 1520 / 1520 960 / 960
Output Total 2750 / 2750 2300 / 2300 925 / 925
Balance -1645 / -1645 -780 / -780 35 / 35
Review of Systems
-
History Source: Patient
All other systems: Reviewed and negative
Physical Exam
-
General: Well Developed and No Apparent Distress
HEENT: Normocephalic, Moist Mucous Membranes and Anicteric
Respiratory: Clear to Auscultation
Cardiac: Irregular Rhythm, Murmur (2/6 systolic murmur) and Tachycardic
GI: Soft, Nontender, Nondistended and Normal Bowel Sounds
Musculoskeletal: No Clubbing, No Cyanosis and Other (Trace bilateral edema)
Skin: Warm and Dry
Neuro: Awake, Alert, Oriented and AO x 3
Psych: Calm
--- NOTE | 2024-03-01 17:42 | CM ---
dc plans remain to go to [facility] rehab when medically stable.
--- NOTE | 2024-03-01 20:15 | PTCARENOTE ---
Rec'd pt at change of shift PT AAO*3, in Afib on TELE monitor (with HR in the 110's), and VSS. Pt denies any pain or discomfort. Pt updated on plan of care and denies any questions or concern. Pt currently resting in bed with call gonzalez in reach.
See flowchart and MAR for full patient care record.
[2024-03-01] MEDS: REMERON 7.5 MG PO (22:17)
[2024-03-01] MEDS: NEURONTIN 300 MG PO (22:18)
[2024-03-01] MEDS: TYLENOL 650 MG PO (22:18)
[2024-03-01] MEDS: ROXICODONE 2.5 MG PO (22:19)
--- NOTE | 2024-03-01 23:45 | PTCARENOTE ---
Pt complained of numbness and tingling in feet. Pt requested PRN pain medication and rated pain at a 7/10. Pain medication given and patient now resting in bed with call gonzalez in reach. TELE monitoring continues. Pt sitting in bed with call gonzalez
in reach.
[2024-03-02] VITALS (10 sets, daily range): BP systolic 86–113; BP diastolic 61–82; PULSE 97–110; O2SAT 99; BMI 18.0
[2024-03-02 04:41] LABS: Hematocrit 28.7 % (37.0-47.0); Hemoglobin 9.4 g/dL (12.0-16.0); Mean Corp Hgb Conc. 32.8 g/dL (33.0-37.0); Mean Corpuscular Hgb 29.2 pg (27.0-31.0); Mean Corpuscular Volume 89.1 fL (81.0-99.0); Mean Platelet Volume 8.4 fL (7.4-10.4); Platelet Count 302 10^3/uL (130-400); Red Blood Cell Count 3.22 10^6/uL (4.20-5.40); Red Cell Dist. Width 16.4 % (11.5-14.5); White Blood Cell Count 12.4 10^3/uL (4.8-10.8)
[2024-03-02 05:05] LABS: Blood Urea Nitrogen 45 mg/dl (7-17); Calcium 8.8 mg/dl (8.4-10.2); Carbon Dioxide 30 mmol/L (22-30); Chloride 101 mmol/L (98-107); Estimated Creatinine Clearance 64 ml/min; Glucose 83 mg/dl (70-99); Potassium 4.1 mmol/L (3.5-5.1); Sodium 136 mmol/L (135-145); eGFR > 60.00
[2024-03-02] MEDS: SYNTHROID 137 MCG PO (06:31)
--- NOTE | 2024-03-02 08:14 | W.PN.CARDCBS ---
Today's Communication / Plan
-
She remains in atrial fibrillation with better rate control on oral Cardizem
Cont Amiodarone load, started 200 mg TID Feb 26. QTc stable.
- TSH 02/18/2024 pre-amiodarone load 13.7 with free T4 2.19; will need to be followed
Cont Cardizem CD 120 mg daily.
May need further titration of Cardizem pending HR response to PT.
If stable HR response to PT, potential for d/c next 24 hrs.
Cont Eliquis which she is tolerating.
Patient is well-known to EP service, Dr. Llanes with plan for 4 weeks amiodarone prior to proceeding with repeat cardioversion
Will arrange outpt cardiac follow up.
Impression / Plan
-
.
Primary Aircraft Steel Fabricator: Dr. Dawson
Primary EP: Dr. Llanes
Impression:
Presents 02/25/2024 with tachycardia and palpitations
Recurrent, symptomatic AFib w/ RVR
Recent Admission 02/17/2024 to 02/19/2024 for load of Tikosyn 250 mcg BID
Readmitted 02/22/2024 to 02/24/2024 with symptomatic Afib w/ RVR and increase in Tikosyn 500 mcg BID, s/p successful CV 02/24/2024
Readmitted with symptomatic Afib RVR 02/25/2024 despite max dose Tikosyn
Hx of SVT/afib/flutter ablation 08/2016, repeat PVI 12/10/22
Chronic OAC with eliquis
Hx of Relative hypotension
3 week admission to [place] for inflammatory colitis 01/05-01/27/24 s/p flex sigmoidoscopy with biopsy 01/13/24
Urinary retention with indwelling Shanks since December 2023
Giant cell arteritis, on high doses of prednisone and gabapentin
Peripheral neuropathy
Hypothyroidism
GERD
History of pulmonary nodules
Hyponatremia
Vitamin D deficiency
ECHO 12/2023 at [facility]: EF preserved
Echo 05/17/2022: EF 60%, mild biatrial enlargement. Mild tricuspid regurgitation
Plan:
-Patient has completed dofetilide washout (last dose 02/25/2024). She received 2 doses of IV Digoxin 02/26/24 with improvement of heart rate.
She remains in atrial fibrillation with better rate control on oral Cardizem
Cont Amiodarone load, started 200 mg TID Feb 26. QTc stable.
- TSH 02/18/2024 pre-amiodarone load 13.7 with free T4 2.19; will need to be followed
Cont Cardizem CD 120 mg daily.
May need further titration of Cardizem pending HR response to PT.
If stable HR response to PT, potential for d/c next 24 hrs.
Cont Eliquis which she is tolerating.
Patient is well-known to EP service, Dr. Llanes with plan for 4 weeks amiodarone prior to proceeding with repeat cardioversion
Patient following closely with rheumatology for GCA. She had been maintained on prednisone 60 mg recently. Imagery Intelligence, Dr. Harika Dominguez, was agreeable for patient to reduce prednisone to 40 mg.
Will arrange outpt cardiac follow up.
HPI:
Patient presents 02/25/2024 from [facility] rehab facility after she was found to have tachycardia and elevated heart rates in the 140s on routine vital check. Patient was recently admitted 02/17/2024 to 02/19/2024 for Tikosyn load. Unfortunately she
was readmitted on 02/22/2024 with recurrent symptomatic atrial fibrillation with rapid ventricular response and Tikosyn dose was increased to 500 mcg bid. She underwent successful cardioversion on 02/24/2024 and was discharged back to [facility].
Unfortunately she was found to have elevated heart rates [facility]. EKG confirms that patient is back in atrial fibrillation with rapid ventricular response despite max dose Tikosyn.
-Unfortunately patient has failed rhythm control with max dose Tikosyn.
Progress Note - Aircraft Steel Fabricator
Subjective
Date of Service: March 02, 2024
Pt seen and examined. No cp or dyspnea.
Objective
Labs:
03/02/24 03:49
03/02/24 03:49
Labs
Hgb 9.4 g/dL (12.0-16.0) L 03/02/24 03:49
Hct 28.7 % (37.0-47.0) L 03/02/24 03:49
Plt Count 302 10^3/uL (130-400) 03/02/24 03:49
Sodium 136 mmol/L (135-145) 03/02/24 03:49
Potassium 4.1 mmol/L (3.5-5.1) 03/02/24 03:49
BUN 45 mg/dl (7-17) H 03/02/24 03:49
Creatinine 0.6 mg/dL (0.6-1.0) 03/02/24 03:49
Glucose 83 mg/dl (70-99) 03/02/24 03:49
Vital Signs and I&O:
Vital Signs
Temp Pulse Resp BP Pulse Ox
97.7 F 102 16 113/82 96
03/02/24 03:42 03/02/24 03:42 03/02/24 03:42 03/02/24 03:42 03/02/24 03:42
Vital Signs
Temp Pulse Resp BP Pulse Ox
97.7 F 102 16 113/82 96
03/02/24 03:42 03/02/24 03:42 03/02/24 03:42 03/02/24 03:42 03/02/24 03:42
Intake & Output
02/29/24 03/01/24 03/02/24 03/03/24
06:59 06:59 06:59 06:59
Intake Total 1105 / 1105 1520 / 1520 1440 / 1440
Output Total 2750 / 2750 2300 / 2300 2625 / 2625
Balance -1645 / -1645 -780 / -780 -1185 / -1185
Physical Exam
Physical Exam
General: No acute distress, AAOX3
Neck: Negative JVD
Heart: Irregularly iregular, Negative S3 positive S1/S2, Negative S4, No murmur
Lungs: CTA b/l, negative wheezes/rales/rhonchi
Abd: Positive BS, NT/ND, neg rebound/rigidity/guarding
Ext: Negative cyanosis/clubbing/edema
Neuro: nonfocal
[2024-03-02] MEDS: COLACE 100 MG PO ×2 (08:54→19:51)
[2024-03-02] MEDS: NEURONTIN 100 MG PO ×3 (08:54→22:11)
[2024-03-02] MEDS: FLOMAX 0.4 MG PO (08:55)
[2024-03-02] MEDS: CARDIZEM CD 120 MG PO (08:55)
[2024-03-02] MEDS: PACERONE 200 MG PO ×3 (08:56→22:12)
[2024-03-02] MEDS: ELIQUIS 5 MG PO ×2 (08:56→19:51)
[2024-03-02] MEDS: TOPROL XL 25 MG PO (08:56)
[2024-03-02] MEDS: OSCAL 500 + D 500 MG PO (08:56)
[2024-03-02] MEDS: MIRALAX 17 GRAMS PO (08:57)
[2024-03-02] MEDS: URE-NA 15 GRAMS PO ×2 (08:57→19:51)
[2024-03-02] MEDS: DELTASONE 40 MG PO (08:57)
--- NOTE | 2024-03-02 09:14 | PTCARENOTE ---
Assumed care of pt from night RN. Pt received awake and alert, Ox3. VSs, CM shows AF 90's, POX 98% on RA. Pt denies any pain or discomfort, vdg qs, ambulating in room with walker.
[2024-03-02 12:26] LABS: Glucose - Point of Care 132 mg/dl (70-99)
--- NOTE | 2024-03-02 12:46 | W.PN.HOSP.TC ---
Addendum entered and electronically signed by Mahamed Foster MD 03/02/24 14:42:
reccurent afib with rvr
-amio tid
-bb
-ccb
-ac
-stop dofetilide as on penitentiary high dose predisone
-monitor on tele
-cards following
-pt to assess
GCA on pred taper follows with Rheum at [facility]
Chronic hyponatremia
-continue Urea tabs
Original Note:
Today's Communication/Plan
-
Continue Toprol 25 twice daily, Amio 200 3 times daily and Cardizem 120
Continue Eliquis
PT OT
Assessment / Plan
Assessment / Plan
78-year-old female with past medical history of paroxysmal A-fib s/p ablation in 2017 on Eliquis, who presented on 02/24 with lightheadedness, increased heart rate and fatigue. [facility] is [facility] and was found to have heart rate in the 140s.
She was discharged the day before current admission after successful cardioversion. Also, her Tikosyn and metoprolol were doubled in previous admission (500 BID and 50 BID, respectively).
# Recurrent A-fib with RVR
-Appreciate cardiology-given her history of GCA on prednisone, prolonged hospitalization in the previous month, and persistent anemia/leukocytosis, rate control is preferred over rhythm control. Also, cardiac ablation or cardioversion is not safe
at this time.
-Tikosyn stopped on 02/24 and bridged with Cardizem drip
-Started amiodarone 200 TID on 02/26-continue current dose
-Was able to wean off Cardizem drip on 02/28 and switch to oral Cardizem 120 daily-continue Cardizem 120 p.o.
-Continue Toprol 25 twice daily
-Continue Eliquis 5 twice daily
#Urinary retention
-Resolved
-Shanks catheter placed approximately 6 weeks back d/t prolonged hospitalization
-Was removed here on 02/25
-Bladder scans PRN for any retention
-Continue Flomax
# Giant cell arteritis/ Leukocytosis in the setting of GCA
-Computer Systems Security Analyst is Dr. Harika Dominguez at [facility]
-Dose of oral prednisone decreased from 60 to 40 mg daily per rheumatology
-Actemra monthly infusion as OP
# Hx of Hyponatremia
-Cont urea pills
-Check daily BMP
# Chronic normocytic anemia
-Stable, at baseline
-Continue to monitor H&H
-Transfuse if needed to keep hemoglobin more than 7
# GERD
-famotidine
#Hypothyroidism
- Cont home levothyroxine
#DVT prophylaxis
-Eliquis
CODE STATUS: Full code
Anticipated Discharge: 24 - 48 hours
Subjective/Interval History
-
Date of Service: March 02, 2024
Patient denies chest pain/feeling palpitations. Does not report any shortness of breath. Denies urinary retention and is able to go to the bathroom frequently to urinate.
Objective Data
-
Labs:
Laboratory Results
03/02/24
03:49
WBC 12.4 H
Hgb 9.4 L
Hct 28.7 L
Plt Count 302
Sodium 136
Potassium 4.1
Chloride 101
Carbon Dioxide 30
BUN 45 H
Creatinine 0.6
Glucose 83
Calcium 8.8
Vital Signs:
Vital Signs
Temp Pulse Resp BP Pulse Ox
97.6 F 98 18 94/72 98
03/02/24 11:49 03/02/24 12:00 03/02/24 11:49 03/02/24 11:50 03/02/24 11:49
I&O
12/02/24 12/03/24 12/04/24
06:59 06:59 06:59
Intake Total 1520 / 1520 1440 / 1440
Output Total 2300 / 2300 2625 / 2625
Balance -780 / -780 -1185 / -1185
Review of Systems
-
History Source: Patient
All other systems: Reviewed and negative
Physical Exam
-
General: Well Developed and No Apparent Distress
HEENT: Normocephalic, Moist Mucous Membranes and Anicteric
Respiratory: Clear to Auscultation
Cardiac: Irregular Rhythm, Murmur (2/6 systolic murmur) and Tachycardic
GI: Soft, Nontender, Nondistended and Normal Bowel Sounds
Musculoskeletal: No Clubbing, No Cyanosis and Other (Trace bilateral edema)
Skin: Warm and Dry
Neuro: Awake, Alert, Oriented and AO x 3
Psych: Calm
[2024-03-02] MEDS: TOPROL XL PO (19:51)
[2024-03-02] MEDS: ROXICODONE 2.5 MG PO (22:10)
[2024-03-02] MEDS: NEURONTIN 300 MG PO (22:11)
[2024-03-02] MEDS: REMERON 7.5 MG PO (22:12)
[2024-03-02] MEDS: TYLENOL 650 MG PO (22:12)
--- NOTE | 2024-03-02 23:48 | PTCARENOTE ---
Received patient at change of shift. Afib on the monitor, HR in the 100s. VSS. Pt complains of 4/10 pain in both feet, PRN pain medication administered as per MAY. Call gonzalez within reach.
[2024-03-03 04:41] VITALS: BP 104/63
[2024-03-03] MEDS: SYNTHROID 137 MCG PO (05:08)
[2024-03-03 05:17] VITALS: BMI 17.7
[2024-03-03 05:44] LABS: Hematocrit 28.9 % (37.0-47.0); Hemoglobin 9.6 g/dL (12.0-16.0); Mean Corp Hgb Conc. 33.2 g/dL (33.0-37.0); Mean Corpuscular Hgb 29.9 pg (27.0-31.0); Platelet Count 301 10^3/uL (130-400); Red Blood Cell Count 3.21 10^6/uL (4.20-5.40); Red Cell Dist. Width 16.7 % (11.5-14.5); White Blood Cell Count 11.9 10^3/uL (4.8-10.8)
[2024-03-03 06:14] LABS: Blood Urea Nitrogen 42 mg/dl (7-17); Calcium 8.6 mg/dl (8.4-10.2); Carbon Dioxide 31 mmol/L (22-30); Chloride 101 mmol/L (98-107); Estimated Creatinine Clearance 63 ml/min; Glucose 72 mg/dl (70-99); Potassium 4.1 mmol/L (3.5-5.1); Sodium 139 mmol/L (135-145); eGFR > 60.00
--- NOTE | 2024-03-03 08:35 | W.PN.CARDCBS ---
Addendum entered and electronically signed by Clarence Franklin MD 03/03/24 10:07:
I saw and examined the patient.
The SCRIPT WORKER or PA's note was reviewed and I agree with the note.
Comment: General: Well developed, well nourished in NAD.
Neck: Supple, no JVD, HJR, carotids +2 B/L, no bruits bilaterally.
Heart: Non displaced PMI, irregular, no murmurs, No S3, S4, no rubs.
Lungs: Clear to auscultation bilaterally, no wheeze, rhonchi, rubs bilaterally,
normal expiratory phase.
Extremities: No clubbing, cyanosis or edema bilaterally.
Neuro: Grossly nonfocal, awake, alert and oriented x3.
Remains in A-fib with reasonable rate control. Stable cardiology status for discharge to rehab. Could consider cardioversion as an outpatient if remains in A-fib.
Original Note:
Today's Communication / Plan
-
eliquis 5mg BID
amiodarone 200mg BID
toprol 25mg BID
cardizem cd 180mg daily
consider repeat CV at OP follow up if remains in afib
will arrange OP cardiac follow up
ok for DC to SNF today from cardiac standpoint
Impression / Plan
-
.
Primary Sales Representatives: Dr. Dawson
Primary EP: Dr. Llanes
Impression:
Presents 02/25/2024 with tachycardia and palpitations
Recurrent, symptomatic AFib w/ RVR
Recent Admission 02/17/2024 to 02/19/2024 for load of Tikosyn 250 mcg BID
Readmitted 02/22/2024 to 02/24/2024 with symptomatic Afib w/ RVR and increase in Tikosyn 500 mcg BID, s/p successful CV 02/24/2024
Readmitted with symptomatic Afib RVR 02/25/2024 despite max dose Tikosyn
Hx of SVT/afib/flutter ablation 08/2016, repeat PVI 12/10/22
Chronic OAC with eliquis
Hx of Relative hypotension
3 week admission to [place] for inflammatory colitis 01/05-01/27/24 s/p flex sigmoidoscopy with biopsy 01/13/24
Urinary retention with indwelling Shanks since December 2023
Giant cell arteritis, on high doses of prednisone and gabapentin
Peripheral neuropathy
Hypothyroidism
GERD
History of pulmonary nodules
Hyponatremia
Vitamin D deficiency
ECHO 12/2023 at [facility]: EF preserved
Echo 05/17/2022: EF 60%, mild biatrial enlargement. Mild tricuspid regurgitation
Plan:
-She has had several recent admissions to [facility] for atrial fibrillation control. She was initiated on Tikosyn, then returned with recurrence and dose was uptitrated. Then returned with recurrence and Tikosyn was washed out and she
was started on amiodarone.
-She has received greater than 3 g load of amiodarone this admission. Currently on 200 mg 3 times daily. Would plan for discharge on Amio 200 mg twice daily for 4 weeks then can decrease to 200 mg daily (will review with EP prior to DC)
-She can be considered for outpatient cardioversion if remains in A-fib at follow-up
-TSH 01/2024 pre amiodarone load was 13.7 with free T4 compensated at 2.19. Will need to be followed as an outpatient
-Continues on Toprol 25 mg twice daily. Cardizem CD was uptitrated to 180 mg daily this admission. Heart rates presently well-controlled. Her heart rate will increase with ambulation/activity. Unless heart rates are elevated and sustained, she
is okay to continue to work with physical therapy at rehab.
-continue eliquis 5mg BID
-Patient following closely with rheumatology for GCA. She had been maintained on prednisone 60 mg recently. Wood Tile Installation Helper, Dr. Harika Dominguez, was agreeable for patient to reduce prednisone to 40 mg.
-OP cardiac follow up arranged
-ok for DC today from cardiac standpoint
HPI:
[facility] after she was found to have tachycardia and elevated heart rates in the 140s on routine vital check. Patient was recently admitted 02/17/2024 to 02/19/2024 for Tikosyn load. Unfortunately she
was readmitted on 02/22/2024 with recurrent symptomatic atrial fibrillation with rapid ventricular response and Tikosyn dose was increased to 500 mcg bid. She underwent successful cardioversion on 02/24/2024 and was discharged back to [facility].
Unfortunately she was found to have elevated heart rates on routine vital check at [facility]. EKG confirms that patient is back in atrial fibrillation with rapid ventricular response despite max dose Tikosyn.
-Unfortunately patient has failed rhythm control with max dose Tikosyn.
Progress Note - Sales Representatives
Subjective
Date of Service: March 03, 2024
Feeling well. No issues overnight
Objective
Labs:
03/03/24 04:49
03/03/24 04:49
Labs
Hgb 9.6 g/dL (12.0-16.0) L 03/03/24 04:49
Hct 28.9 % (37.0-47.0) L 03/03/24 04:49
Plt Count 301 10^3/uL (130-400) 03/03/24 04:49
Sodium 139 mmol/L (135-145) 03/03/24 04:49
Potassium 4.1 mmol/L (3.5-5.1) 03/03/24 04:49
BUN 42 mg/dl (7-17) H 03/03/24 04:49
Creatinine 0.6 mg/dL (0.6-1.0) 03/03/24 04:49
Glucose 72 mg/dl (70-99) 03/03/24 04:49
Vital Signs and I&O:
Vital Signs
Temp Pulse Resp BP Pulse Ox
98.3 F 106 18 104/63 96
03/03/24 04:30 03/03/24 05:00 03/03/24 04:30 03/03/24 04:41 03/03/24 04:30
Vital Signs
Temp Pulse Resp BP Pulse Ox
98.3 F 106 18 104/63 96
03/03/24 04:30 03/03/24 05:00 03/03/24 04:30 03/03/24 04:41 03/03/24 04:30
Intake & Output
03/01/24 03/02/24 03/03/24 03/04/24
07:59 07:59 07:59 07:59
Intake Total 1520 / 1520 1440 / 1440 880 / 880
Output Total 2300 / 2300 2625 / 2625 2410 / 2410
Balance -780 / -780 -1185 / -1185 -1530 / -1530
Physical Exam
Physical Exam
GEN: No distress, awake, alert, oriented x3
HEENT: supple, anicteric, mmm, eomi
LUNGS: CTA B/L, no wheezes
CV: Irreg, S1/S2, no murmur
ABD: soft, BS+, NT/ND
EXT: No cyanosis, clubbing, edema
NEURO: Gross non-focal
SKIN: Warm, pink, dry. No rash
[2024-03-03 08:52] VITALS: BP 106/84
[2024-03-03] MEDS: PACERONE 200 MG PO (08:52)
[2024-03-03] MEDS: URE-NA 15 GRAMS PO (08:53)
[2024-03-03] MEDS: COLACE 100 MG PO (08:53)
[2024-03-03] MEDS: DELTASONE 40 MG PO (08:53)
[2024-03-03] MEDS: TOPROL XL PO (08:53)
[2024-03-03] MEDS: MIRALAX 17 GRAMS PO (08:53)
[2024-03-03] MEDS: CARDIZEM CD 180 MG PO (08:53)
[2024-03-03] MEDS: OSCAL 500 + D 500 MG PO (08:53)
[2024-03-03] MEDS: FLOMAX 0.4 MG PO (08:53)
[2024-03-03] MEDS: NEURONTIN 100 MG PO (08:54)
[2024-03-03] MEDS: ELIQUIS 5 MG PO (08:59)
[2024-03-03 10:45] VITALS: BP 120/71
--- NOTE | 2024-03-03 12:17 | W.PN.HOSP.TC ---
Today's Communication/Plan
-
Discharge
Assessment / Plan
Assessment / Plan
78-year-old female with past medical history of paroxysmal A-fib s/p ablation in 2017 on Eliquis, who presented on 02/24 with lightheadedness, increased heart rate and fatigue. [facility] and was found to have heart rate in the 140s.
She was discharged the day before current admission after successful cardioversion. Also, her Tikosyn and metoprolol were doubled in previous admission (500 BID and 50 BID, respectively).
# Recurrent A-fib with RVR
-Appreciate cardiology-given her history of GCA on prednisone, prolonged hospitalization in the previous month, and persistent anemia/leukocytosis, rate control is preferred over rhythm control. Also, cardiac ablation or cardioversion is not safe
at this time.
-Tikosyn stopped on 02/24 and bridged with Cardizem drip
-Started amiodarone 200 TID on 02/26-to be discharged on 200 BID for 4 weeks per cardiology, then 200 daily
-Was able to wean off Cardizem drip on 02/28 and switch to oral Cardizem 120 daily-discharge with Cardizem 180 po.
-Continue Toprol 25 twice daily
-Continue Eliquis 5 twice daily
#Urinary retention
-Resolved
-Shanks catheter placed approximately 6 weeks back d/t prolonged hospitalization
-Was removed here on 02/25
-Bladder scans PRN for any retention
-Continue Flomax
# Giant cell arteritis/ Leukocytosis in the setting of GCA
-College Intern is Dr. Harika Dominguez at [facility]- advised to follow-up after discharge
-Dose of oral prednisone decreased from 60 to 40 mg daily per rheumatology
-Actemra monthly infusion as OP
# Hx of Hyponatremia
-Cont urea pills
-Check daily BMP
# Chronic normocytic anemia
-Stable, at baseline
-Continue to monitor H&H
-Transfuse if needed to keep hemoglobin more than 7
# GERD
-famotidine
#Hypothyroidism
- Cont home levothyroxine
#DVT prophylaxis
-Eliquis
CODE STATUS: Full code
Anticipated Discharge: Today
Subjective/Interval History
-
Date of Service: March 03, 2024
Patient had pain in his feet overnight which responded to Tylenol. Mentions it was her usual neuropathy pain. Denies chest pain, sensing palpitations, shortness of breath.
Objective Data
-
Labs:
Laboratory Results
03/03/24
04:49
WBC 11.9 H
Hgb 9.6 L
Hct 28.9 L
Plt Count 301
Sodium 139
Potassium 4.1
Chloride 101
Carbon Dioxide 31 H
BUN 42 H
Creatinine 0.6
Glucose 72
Calcium 8.6
Vital Signs:
Vital Signs
Temp Pulse Resp BP Pulse Ox
97.8 F 111 18 120/71 98
03/03/24 10:47 03/03/24 12:00 03/03/24 10:47 03/03/24 10:45 03/03/24 10:47
I&O
03/02/24 03/03/24 03/04/24
06:59 06:59 06:59
Intake Total 1440 / 1440 880 / 880
Output Total 2625 / 2625 2410 / 2410
Balance -1185 / -1185 -1530 / -1530
Review of Systems
-
History Source: Patient
All other systems: Reviewed and negative
Physical Exam
-
General: Well Developed and No Apparent Distress
HEENT: Normocephalic, Moist Mucous Membranes and Anicteric
Respiratory: Clear to Auscultation
Cardiac: Irregular Rhythm, Murmur (2/6 systolic murmur) and Tachycardic
GI: Soft, Nontender, Nondistended and Normal Bowel Sounds
Musculoskeletal: No Clubbing, No Cyanosis and Other (Trace bilateral edema)
Skin: Warm and Dry
Neuro: Awake, Alert, Oriented and AO x 3
Psych: Calm
--- NOTE | 2024-03-03 13:02 | PTCARENOTE ---
[facility]
--- NOTE | 2024-03-03 13:43 | W.DCSUMMARY ---
Discharge Summary
Discharge Data
Date of Admission: 02/25/24
Date of Discharge: 03/03/24
-
Pending Results: No
Hospital Course
Patient is a 78-year-old female with past medical history of paroxysmal A-fib s/p ablation in 2017 on Eliquis, chronic hyponatremia, giant cell arthritis, peripheral neuropathy, GERD, hypothyroidism, history of SVT/flutter, chronic indwelling
catheter d/t retention who presented on 02/24 to ED with lightheadedness, increased heart rate and fatigue. She came from [facility] and was found to have heart rate in the 140-150s. She was discharged from the day before current admission
after successful cardioversion and adjustment of Tikosyn and metoprolol dosage (500 BID and 50 BID, respectively). Patient was admitted to IVU for management of recurrent atrial fibrillation. Per cardiology, given her history of GCA on prednisone,
prolonged hospitalization in the past month, and persistent anemia/leukocytosis, rate control was preferred over rhythm control at this time. Also, cardiac ablation or cardioversion were deemed to not be safe at this time per cardiology. Patient's
Tikosyn was stopped on admission (02/24) and was bridged with Cardizem drip. Metoprolol 25 BID and Eliquis 5 were continued during stay. Amiodarone 200 TID was started on 02/26 and Cardizem drip was switched to oral Cardizem 120mg/d on 02/28.
Also, per discussion with Dr. Justino Dominguez, patient's blood donor recruiter supervisor, prednisone dose was decreased from 60 to 40 daily. Patient was maintained on urea pills for hyponatremia and home levothyroxine for management of hypothyroidism. Indwelling Shanks
catheter was successfully removed on 02/25 w/o any evidence of subsequent retention. PT OT visited patient daily.
Today patient remains in A-fib but with reasonable rate control. Patient is medically stable for discharge to SNF. instructions regarding change of medications were given. Patient was advised to stop taking Tikosyn and to take metoprolol 25 twice
daily, amiodarone 200 twice daily for 4 weeks and daily thereafter, as well as Cardizem 180. Patient was advised to follow-up with blood donor recruiter supervisor and PCP within 2 weeks. Also, patient has been given an appointment to follow-up with EP plant clerk
(Dr. Llanes) in 4 weeks for possible cardioversion/ablation.
Discharge Plan
-
Patient Disposition: Prison/SNF
Discharge Diagnosis/Procedures: Atrial fibrillation
Condition: Good
Diet: Regular
Activity: As tolerated
Driving Restrictions: As prior to admission
Bathing Restrictions: None
Activity Restrictions/Additional Instructions:
Unless heart rate is sustained greater than 160 bpm, patient okay to work with physical therapy at rehab.
Instructions: Atrial Fibrillation (DC), Medicines for atrial fibrillation
Referrals:
[facility] Long-Term facility [Other]
Lorenzo Llanes MD [Active] - 05/25/24 10:00 am (You have an EP follow-up appointment at the [place] office. Please call with questions)
Eliseo Dawson MD [Active] - 03/25/24 8:40 am
UNKNOWN - PT DOES,NOT KNOW [Family Provider] -
Additional Discharge Medication Instructions: STOP tikosyn as you are now on amiodarone! continue amiodarone 200mg twice daily for 4 weeks then decrease to 200mg daily!
Follow up with your primary care in 2 weeks.
Follow up with your blood donor recruiter supervisor within 2 weeks.
Prescriptions:
New
diltiazem HCl 180 mg Capsule,Extended Release 24hr
180 mg PO DAILY Qty: 30 0RF
prednisone 20 mg Tablet
40 mg PO DAILY Qty: 30 0RF
metoprolol succinate 25 mg Tablet Extended Release 24 Hr
25 mg PO BID Qty: 60 0RF
amiodarone 200 mg tablet
200 mg PO BID 60 Days Qty: 90 0RF
Rx Instructions:
Take 200mg twice daily until 03/31/24, then
take 200mg once a day.
Continued
Eliquis 5 MG tablet
5 mg PO BID
Actemra
1 dose IV Q4W
famotidine [Pepcid] 20 mg Tablet
20 mg PO HSPRN PRN (Reason: gerd)
calcium carbonate-vitamin D3 [Calcium 600 + D(3)] 600 mg-10 mcg (400 unit) Tablet
1 tab PO DAILY Qty: 0
cholecalciferol (vitamin D3) [Vitamin D3] 50 mcg (2,000 unit) Capsule
50 mcg PO DAILY
Prolia 60 mg/mL Syringe
60 mg SC [id number]
sennosides [senna] 8.6 mg Tablet
8.6 mg PO DAILYPRN PRN (Reason: constipation)
urea 15 gram Powder In Packet
1 packet PO BID
levothyroxine 137 mcg Tablet
137 mcg PO DAILY
therapeutic multivitamin Tablet
1 tab PO DAILY
mirtazapine 7.5 mg Tablet
7.5 mg PO HS
docusate sodium 100 mg capsule
100 mg PO BID
gabapentin 300 mg capsule
300 mg PO HS
gabapentin 100 mg capsule
100 mg PO Q8H
polyethylene glycol 3350 17 gram powder in packet
17 g PO DAILY
tamsulosin 0.4 mg capsule
0.4 mg PO DAILY
oxycodone 5 mg tablet
2.5 mg PO Q6H PRN (Reason: moderate-severe pain )
Rx Instructions:
02/25/24: filled #5 tablets/2 day supply on 02/24/24 - [facility] Rx
Discontinued
prednisone 20 mg Tablet
60 mg PO DAILY
potassium chloride 8 mEq Tablet Extended Release
8 meq PO DAILY
dofetilide 500 mcg capsule
500 mcg PO Q12H
metoprolol succinate 50 mg Tablet Extended Release 24 Hr
50 mg PO BID
Discharge Orders:
Discharge Patient (As Directed); Ordered 03/03/24
Ordered By: Becca Stephen
Care Plan Goals
Care Plan Goals:
Problem: Readiness for enhanced knowledge related to diagnosis and treatment plan
Goal: Understand your diagnosis and treatment plan needs, including medications if applicable.
Instructions: Know your diagnosis, underlying causes and treatment plan options, including medications if applicable. Consult with your health care team to learn about your diagnosis and treatment plan, including medications if applicable.
Discharge Date and Time
Discharge Date/Time: 03/03/24 13:15
Print Language: LAO
--- NOTE | 2024-03-03 15:21 | CM ---
CM following for DC planning needs.
Pt. medically stable for DC today per MD.
Call to admissions @ [facility]/ Kari Hernandez. Bed available for re-admission today. Sent updated clinical info. as requested.
Plan: Transfer to [facility] via wheelchair van. (Spouse agreeable to pay cost of wheelchair van; provided number for payment).
== END 2024-03-03 13:15 | DRG 309 ==
LOC: IVU 17:01
PROVIDERS: Student in an Organized Health Care Education/Training Program; ADMITTING PHYSICIAN Hospitalist; ATTENDING PHYSICIAN Hospitalist; EMERGENCY PHYSICIAN Emergency Medicine
DX: I48.0 Paroxysmal atrial fibrillation (principal); D84.821 Immunodeficiency due to drugs; E87.1 Hypo-osmolality and hyponatremia; Z68.1 Body mass index [BMI] 19.9 or less, adult; I10 Essential (primary) hypertension; K21.9 Gastro-esophageal reflux disease without esophagitis; R33.8 Other retention of urine; D64.9 Anemia, unspecified; G62.9 Polyneuropathy, unspecified; E03.9 Hypothyroidism, unspecified; M31.6 Other giant cell arteritis; T38.0X5A Adverse effect of glucocorticoids and synthetic analogues, initial encounter; E78.5 Hyperlipidemia, unspecified; R63.6 Underweight; Z88.2 Allergy status to sulfonamides; Z79.01 Long term (current) use of anticoagulants; Z79.890 Hormone replacement therapy; Z79.899 Other long term (current) drug therapy; Z79.69 Long term (current) use of other immunomodulators and immunosuppressants
CPT/HCPCS: 80048; 80053; 82962; 83735; 85025; 85027; 93005; 96374; 96375; 97110; 97116; 97163; 97530; 99285; J1160

== ENCOUNTER 2024-04-10 10:31 | Emergency (ER) | payer MEDICARE, OTHER, SELFPAY ==
[2024-04-10 10:50] VITALS: BP 117/60
--- NOTE | 2024-04-10 10:53 | ED.GENMED ---
ED Provider Triage
-
Patient seen by provider in Triage?: Seen in Triage
Attestation: A medical screening examination has been initiated by a qualified medical provider. Based on the assessment performed at this time, it has been determined that an emergent medical condition may exist and the patient has been informed
that further medical evaluation and possible additional diagnostic testing may be needed.
HPI: 78-year-old female presenting to the ER for evaluation of 3 weeks of cough, initially on Tessalon Perles but states not having any improvement. Notes the cough has been worsening and now more productive of a yellowish phlegm. Patient has not
had any fevers. who is also with the patient has had a similar cough. They did test for COVID yesterday which was negative. Patient does have a pulse ox currently of around 89 to 94% on room air. COVID, flu and chest x-ray ordered.
Patient is otherwise in no acute respiratory distress.
GENERAL: Alert , in no apparent distress
EYE: No visual abnormalities.
NECK: Trachea midline
ENT: No visible abnormalities.
LUNGS: No acute respiratory distress
NEUROLOGICAL: Alert and oriented
SKIN: Skin intact. No visible changes.
MUSCULOSKELETAL: Moving extremities normally
PSYCH: Normal and appropriate interaction.
This is a medical evaluation conducted in person to initiate diagnostic evaluation and provide initial therapeutics. Please see further documentation by the treating clinician.
History of Present Illness
General
Chief Complaint: Cough
Source: patient
Time Seen by Provider: 04/10/24 13:55
History of Present Illness
History of Present Illness:
78-year-old female with past medical history of atrial fibrillation presenting to the emergency department for evaluation of cough that has been ongoing for 2 to 3 weeks, gradually worse and accompanied by some mild shortness of breath and coughing
spell this morning prompting her to come to the ER for further evaluation. Primary care initially put the patient on Tessalon Perles but she has not had much relief. is home sick with similar upper respiratory like symptoms however not as
severe. No documented fevers. No known history of lung pathology. Denies smoking. No recent travel. No lower extremity edema.
Past History
Past History
ED Past Medical History: Arrthythmia and Hypothyroidism
ED Past Surgical History: Other
Social History
Tobacco: Non-smoker
Alcohol: None
Drug: None
Personal:
Living: assisted living
Employment: Retired
Review of Systems
Review of Systems
All Other Systems: ROS reviewed and negative except as documented in HPI and ROS
Phy Exam
Physical Exam
Physical Exam:
GENERAL: Alert , in no apparent distress
EYE: conjunctiva clear
NECK: Supple
ENT: o/p clr, mmm.
CARDIAC: Regular rate and rhythm
LUNGS: Mildly diminished right upper lung posterior lung field, no acute respiratory distress, no wheezes/rales/rhonchi
NEUROLOGICAL: Alert and oriented
SKIN: Warm and dry, skin intact.
MUSCULOSKELETAL: well perfused.
PSYCH: Normal and appropriate interaction.
Scores
Heart Failure Risk
Heart Failure Risk Score: Not Applicable
Heart Score for Chest Pain Patients
STEMI patient?: Not applicable
Withdrawal Assessment of Alcohol
Withdrawal Assessment Completed?: Not applicable
Course
Orders/Labs/Results
Orders:
Orders
04/10/24 10:52
CR Chest - 2 Views Urgent
Comment:
Reason For Exam: cough x 3 weeks
04/10/24 11:01
COVID-19 Antigen Urgent
Source: Nasal Swab
Influenza A+B Rapid Molecular Urgent
LEONOR Source: Nasal Swab
Specimen Description:
Vital Signs
Initial and Last Documented VS:
Initial Vital Signs
Temp Pulse Resp BP Pulse Ox
98.5 F 79 16 117/60 94
04/10/24 10:50 04/10/24 10:50 04/10/24 10:50 04/10/24 10:50 04/10/24 10:50
Last Documented Vital Signs
Temp Pulse Resp BP Pulse Ox
98.5 F 75 20 110/64 95
04/10/24 10:50 04/10/24 13:34 04/10/24 13:34 04/10/24 13:34 04/10/24 13:34
MDM/Problems Addressed
Differential Diagnosis Includes:
COVID, flu, pneumonia, other viral etiology, PE considered however patient is on Eliquis daily and reports good compliance with this making this diagnosis much less likely
MDM/Problems Addressed:
78-year-old female presenting to the ER for evaluation of persisting cough without any fever, over the last 24 hours has gotten a little more short of breath with an increased cough despite medications. She is afebrile in no acute respiratory
distress. COVID, flu and chest x-ray ordered. Chest x-ray does show right upper lung opacity suspicious for pneumonia. Given the longstanding symptoms combined with continued cough we will cover for pneumonia with doxycycline and Omnicef.
Inhaler ordered for symptomatic relief. Encourage patient to follow-up with primary care provider. Aware of return precautions to the ER
*Radiology
Radiology exam reviewed: preliminary read by ED provider (Right upper lobe pneumonia)
*Pulse Oximetry
Patient hypoxic: no
*Critical Care Note
Total Time (30-74mins, 75-104mins- exclusive of procedures): Not Applicable
ED Attending Note
-
Portions of this chart may have been created with voice recognition software.� Occasional wrong word or��sound alike� substitutions may have occurred due to the inherent limitations of voice recognition software.
Discharge Plan
Departure
Patient Disposition: Home (Routine Discharge)
Date of Disposition: 04/10/24
Time of Disposition: 13:56
Patient with high blood pressure during this ER visit?: No
Discharge Problem:
Pneumonia
Instructions: Pneumonia, Adult (DC)
Prescriptions:
New
cefdinir 300 mg capsule
300 mg PO BID 7 Days Qty: 14 0RF
doxycycline hyclate 100 mg tablet
100 mg PO BID 7 Days Qty: 14 0RF
albuterol sulfate 90 mcg/actuation HFA aerosol inhaler
2 puff inhalation Q6H PRN (Reason: shortness of breath or wheezing) Qty: 6.7 0RF
No Action
Eliquis 5 MG tablet
5 mg PO BID
Actemra
1 dose IV Q4W
famotidine [Pepcid] 20 mg Tablet
20 mg PO HSPRN PRN (Reason: gerd)
calcium carbonate-vitamin D3 [Calcium 600 + D(3)] 600 mg-10 mcg (400 unit) Tablet
1 tab PO DAILY Qty: 0
cholecalciferol (vitamin D3) [Vitamin D3] 50 mcg (2,000 unit) Capsule
50 mcg PO DAILY
Prolia 60 mg/mL Syringe
60 mg SC [id number]
sennosides [senna] 8.6 mg Tablet
8.6 mg PO DAILYPRN PRN (Reason: constipation)
urea 15 gram Powder In Packet
1 packet PO BID
levothyroxine 137 mcg Tablet
137 mcg PO DAILY
therapeutic multivitamin Tablet
1 tab PO DAILY
mirtazapine 7.5 mg Tablet
7.5 mg PO HS
docusate sodium 100 mg capsule
100 mg PO BID
gabapentin 300 mg capsule
300 mg PO HS
gabapentin 100 mg capsule
100 mg PO Q8H
polyethylene glycol 3350 17 gram powder in packet
17 g PO DAILY
tamsulosin 0.4 mg capsule
0.4 mg PO DAILY
oxycodone 5 mg tablet
2.5 mg PO Q6H PRN (Reason: moderate-severe pain )
Rx Instructions:
02/25/24: filled #5 tablets/2 day supply on 02/24/24 - [facility] Rx
diltiazem HCl 180 mg Capsule,Extended Release 24hr
180 mg PO DAILY Qty: 30 0RF
prednisone 20 mg Tablet
40 mg PO DAILY Qty: 30 0RF
metoprolol succinate 25 mg Tablet Extended Release 24 Hr
25 mg PO BID Qty: 60 0RF
amiodarone 200 mg tablet
200 mg PO BID 60 Days Qty: 90 0RF
Rx Instructions:
Take 200mg twice daily until 03/31/24, then
take 200mg once a day.
Interventions
Interventions:
*Risk Screen - Suicide Last Done: 04/10/24 10:50
*Neglect/Abuse Screening Last Done: 04/10/24 10:50
*Nursing Disposition Last Done: 04/10/24 14:18
Discharge Date and Time
Discharge Date/Time: 04/10/24 14:19
Print Language: WOLOF
[2024-04-10 11:53] LABS: COVID-19 Antigen Negative (Negative)
[2024-04-10 13:34] VITALS: BP 110/64
== END 2024-04-10 14:19 | disposition home or self-care (01) ==
LOC: EMR 10:31
PROVIDERS: Physician Assistant Medical; EMERGENCY PHYSICIAN Emergency Medicine
DX: J18.9 Pneumonia, unspecified organism (principal); Z11.52 Encounter for screening for COVID-19; E03.9 Hypothyroidism, unspecified; I48.91 Unspecified atrial fibrillation; Z88.2 Allergy status to sulfonamides; Z88.8 Allergy status to other drugs, medicaments and biological substances; Z79.01 Long term (current) use of anticoagulants
CPT/HCPCS: 99283; 71046; 87502; 87811

== ENCOUNTER 2024-04-14 12:06 | Inpatient (IN) | payer MEDICARE, OTHER, SELFPAY ==
[2024-04-14] VITALS (20 sets, daily range): BP systolic 101–140; BP diastolic 52–79; BMI 19.1
--- NOTE | 2024-04-14 06:56 | ED.GENMED ---
History of Present Illness
General
Chief Complaint: Breathing Problem
Time Seen by Provider: 04/14/24 06:50
History of Present Illness
History of Present Illness:
TIME OF INITIAL ENCOUNTER: 7 AM
HPI: The patient was seen here 4 days ago. At that time she complained of persistent cough and some more shortness of breath. She was placed on doxycycline and cefdinir for suspicion of pneumonia and was also placed on an inhaler. Over the last
couple of days her symptoms worsened and now she was found to have sats of 70%'s at home and came in here for reevaluation.
EXAM:
GENERAL: Well appearing in no significant distress
HEENT: Moist oral mucosa
CARDIOVASCULAR: No murmurs, normal heart rate, regular rhythm, No chest wall tenderness
PULMONARY: No respiratory distress, breath sounds are slightly diminished with wheeze more so on the right side, but is found to have a room air sats of 84%
ABDOMEN: Soft with no peritoneal signs, no tenderness
NEUROLOGIC: Good strength all extremities, no coordination deficits, foot drop brace noted at the right ankle
PSYCHIATRIC: Appropriate mental status, normal insight and judgement
EXTREMITIES: Nontender, no edema, moves all extremities equally
SKIN: No rash, no lesions
NUMBER AND COMPLEXITY OF PROBLEMS ADDRESSED AT THE ENCOUNTER
� Chronic conditions affecting care: A-fib on Eliquis, chronic hyponatremia, giant cell arteritis, chronic indwelling catheter due to retention
� Acute Exacerbation and/or Progression of Chronic Illness: This is an acute problem
� Differential Diagnosis includes: Pneumonia worsening, bronchitis, doubt PE as patient is already anticoagulated on Eliquis, pneumothorax unlikely, low suspicion for ACS
AMOUNT AND/OR COMPLEXITY OF DATA TO BE REVIEWED AND ANALYZED
� I performed an independent evaluation of and my interpretation is:
EKG: Sinus 88, baseline artifact
CT:
X-rays: I personally reviewed chest x-ray which does show some small densities more prominent than 4 days ago
Laboratory Studies: White count 12.6�slightly higher than prior, hemoglobin normal, chemistries relatively unremarkable, BNP 630
Other:
� Review of other/old records: I reviewed records, the patient was here with A-fib and RVR 1 month ago
� Clinical information was obtained by an independent historian: I spoke to at bedside
� Prescriptions/Medications Considered but not given: See below
� Further testing considered but not performed:
RISK OF COMPLICATIONS AND/OR MORBIDITY OR MORTALITY OF PATIENT MANAGEMENT
� Social determinants of health affecting care: Lives at home
� Discussion with other providers: Hospitalist for admission
� Escalation of care including admission/observation vs risk of discharge considered: The patient is hypoxic and does have some wheeze�will give DuoNeb. The patient is more hypoxic than last visit with room air sats now at 84%.
She was placed on nasal cannula oxygen with improvement of sats. Chest x-ray now shows addition of right lower lobe pneumonia�will plan admission to the hospital. Placed on Rocephin. Considered azithromycin however the patient is on amiodarone
and already has a slightly prolonged QTc.
ANY OTHER UPDATES:
Past History
Past History
ED Past Medical History: Arrthythmia and Hypothyroidism
ED Past Surgical History: Other
Social History
Tobacco: Non-smoker
Alcohol: None
Drug: None
Personal:
Living: assisted living
Employment: Retired
Phy Exam
Physical Exam
Physical Exam:
See HPI
Scores
Heart Failure Risk
Heart Failure Risk Score: Not Applicable
Course
Orders/Labs/Results
Orders:
Orders
04/14/24 06:35
ECG [Electrocardiogram (*1)] Urgent
Reason for Study: Shortness of Breath
04/14/24 06:36
EKG- Treatment ONCE
04/14/24 06:50
CR Chest Portable - 1 View Urgent
Comment:
Reason For Exam: hypoxia
Reason Study Needs to be Portable: Patient Unstable
04/14/24 07:08
Ipratropium/Albuterol Sulfate [Duoneb] 3 ml INH R NOW STA
04/14/24 07:10
CMP [Comprehensive Metabolic Panel] Urgent
Complete Blood Count/With Diff Urgent
Pro-BNP [NT-proBNP] Urgent
Ipratropium/Albuterol Sulfate [Duoneb] 3 ml INH R NOW STA
04/14/24 09:06
CefTRIAXone [Rocephin] 1,000 mg IV NOW STA
Abnormal Lab Results
04/14/24
07:10
WBC 12.6 H 10^3/uL
(4.8-10.8)
RBC 4.00 L 10^6/uL
(4.20-5.40)
Hct 35.4 L %
(37.0-47.0)
RDW 18.5 H %
(11.5-14.5)
Abs Immat Gran (auto) 0.1 H 10^3/uL
(0-0.05)
Absolute Neuts (auto) 10.7 H 10^3/uL
(1.4-6.5)
Absolute Lymphs (auto) 0.6 L 10^3/uL
(1.2-3.4)
Absolute Monos (auto) 1.0 H 10^3/uL
(0.1-0.6)
Immature Gran % 1.0 H %
(0-0.5)
Neutrophils % 85.3 H %
(42.2-75.2)
Lymphocytes % 4.9 L %
(20.5-51.1)
Sodium 130 L mmol/L
(135-145)
Chloride 93 L mmol/L
(98-107)
Total Protein 6.1 L g/dl
(6.3-8.2)
Albumin 3.3 L g/dl
(3.5-5.0)
04/14/24 07:10
04/14/24 07:10
Vital Signs
Initial and Last Documented VS:
Initial Vital Signs
Temp Pulse Resp BP Pulse Ox
36.9 C 92 26 130/76 84
04/14/24 06:30 04/14/24 06:30 04/14/24 06:30 04/14/24 06:30 04/14/24 06:30
Last Documented Vital Signs
Temp Pulse Resp BP Pulse Ox
36.9 C 87 20 133/72 97
04/14/24 07:24 04/14/24 08:45 04/14/24 07:24 04/14/24 08:00 04/14/24 08:45
*Critical Care Note
Total Time (30-74mins, 75-104mins- exclusive of procedures): Not Applicable
ED Attending Note
-
Portions of this chart may have been created with voice recognition software.� Occasional wrong word or��sound alike� substitutions may have occurred due to the inherent limitations of voice recognition software.
Discharge Plan
Departure
Patient Disposition: Admit
Date of Disposition: 04/14/24
Time of Disposition: 09:03
Presentation/result/management discussed w/ accepting MD/DO: Hospitalist
Patient with high blood pressure during this ER visit?: Yes
Discharge Problem:
Pneumonia
Prescriptions:
No Action
Eliquis 5 MG tablet
5 mg PO BID
calcium carbonate-vitamin D3 [Calcium 600 + D(3)] 600 mg-10 mcg (400 unit) Tablet
1 tab PO DAILY Qty: 0
cholecalciferol (vitamin D3) [Vitamin D3] 50 mcg (2,000 unit) Capsule
50 mcg PO DAILY
Actemra 80 mg/4 mL (20 mg/mL) Solution
240 mg IV Q4W Qty: 0
Prolia 60 mg/mL Syringe
60 mg SC [id number]
urea 15 gram Powder In Packet
1 packet PO MOWEFR
therapeutic multivitamin Tablet
1 tab PO DAILY
docusate sodium 100 mg capsule
100 mg PO QPM
polyethylene glycol 3350 17 gram powder in packet
17 g PO DAILY
diltiazem HCl 180 mg Capsule,Extended Release 24hr
180 mg PO DAILY Qty: 30 0RF
prednisone 20 mg Tablet
40 mg PO DAILY Qty: 30 0RF
metoprolol succinate 25 mg Tablet Extended Release 24 Hr
25 mg PO BID Qty: 60 0RF
cefdinir 300 mg capsule
300 mg PO BID 7 Days Qty: 14 0RF
doxycycline hyclate 100 mg tablet
100 mg PO BID 7 Days Qty: 14 0RF
nystatin 100,000 unit/mL Suspension
5 ml PO Q6H
amiodarone 200 mg tablet
200 mg PO DAILY
albuterol sulfate 90 mcg/actuation HFA aerosol inhaler
2 puff inhalation R Q6HPRN PRN (Reason: shortness of breath or wheezing)
levothyroxine [Synthroid] 150 mcg Tablet
150 mcg PO DAILY@0600
Rx Instructions:
BRAND NAME ONLY
Referrals:
Brady Doyle MD [Family Provider] -
Interventions
Interventions:
*Risk Screen - Suicide Last Done: 04/14/24 06:29
*General Assessment Last Done: 04/14/24 07:24
*Neglect/Abuse Screening Last Done: 04/14/24 06:29
ED- Fall Risk Assessment Last Done: 04/14/24 07:24
*ED COVID-19 Vaccine History Last Done: 04/14/24 07:24
ED- Cardiac Assessment Last Done: 04/14/24 07:24
ED- Pulmonary Assessment Last Done: 04/14/24 07:24
Discharge Date and Time
Print Language: CROATIAN
--- NOTE | 2024-04-14 07:30 | EDRN ---
the pt was received from triage via w/c, the pt was in the 80's on RA, this RN placed the pt on 3L NC and Sp02 came up to 98%, the pt has c/o SOB, no c/o chest pain, PIV placed and labs obtained and sent, will continue to monitor the pt closely
[2024-04-14 07:32] LABS: % Basophils 0.3 % (0-2); % Eosinophils 0.6 % (0-6); % Lymphocytes 4.9 % (20.5-51.1); % Monocytes 7.9 % (1.7-9.3); % Neutrophils 85.3 % (42.2-75.2); Absolute Eosinophils 0.1 10^3/uL (0-0.7); Absolute Immature Granulocytes 0.1 10^3/uL (0-0.05); Absolute Lymphocytes 0.6 10^3/uL (1.2-3.4); Absolute Neutrophils 10.7 10^3/uL (1.4-6.5); Hematocrit 35.4 % (37.0-47.0); Mean Corp Hgb Conc. 33.9 g/dL (33.0-37.0); Mean Corpuscular Volume 88.5 fL (81.0-99.0); Mean Platelet Volume 8.6 fL (7.4-10.4); Nucleated Red Blood Cells % 0 %; Platelet Count 222 10^3/uL (130-400); Red Cell Dist. Width 18.5 % (11.5-14.5); White Blood Cell Count 12.6 10^3/uL (4.8-10.8)
[2024-04-14 07:46] LABS: ALT (SGPT) 21 U/L (0-35); AST (SGOT) 30 U/L (14-36); Albumin 3.3 g/dl (3.5-5.0); Alkaline Phosphatase 63 U/L (38-126); Blood Urea Nitrogen 10 mg/dl (7-17); Calcium 8.9 mg/dl (8.4-10.2); Carbon Dioxide 28 mmol/L (22-30); Chloride 93 mmol/L (98-107); Estimated Creatinine Clearance 67 ml/min; Glucose 99 mg/dl (70-99); Potassium 3.9 mmol/L (3.5-5.1); Sodium 130 mmol/L (135-145); Total Bilirubin 0.8 mg/dl (0.2-1.3); Total Protein 6.1 g/dl (6.3-8.2); eGFR > 60.00
[2024-04-14 07:53] LABS: NT-proBNP 630 pg/ml
[2024-04-14] MEDS: DUONEB 3 ML INH ×4 (08:14→19:12)
--- NOTE | 2024-04-14 08:15 | EDRN ---
breathing treatment administered to the pt, this RN titrated the pts 02 from 3L to 2L NC and the pts Sp02 remains at 97%, awaiting for Dr. Martínez to come to the pts bedside to update the pt and the pts on the pts plan of care, will
continue to monitor the pt closely
--- NOTE | 2024-04-14 09:00 | EDRN ---
the pts Sp02 dipped to 91% on 2L NC, this RN notified the provider and this RN titrated the pts 02 back up to 3L NC and sp02 came up to 96%, will continue to monitor the pt closely
--- NOTE | 2024-04-14 09:07 | EDRN ---
Dr. Martínez currently at the pts bedside updating the pt and the pts on admission and plan of care
[2024-04-14] MEDS: ROCEPHIN 1000 MG IV (09:32)
--- NOTE | 2024-04-14 11:25 | EDRN ---
Dr. Lorenzana currently at the pts bedside
--- NOTE | 2024-04-14 12:12 | EDRN ---
the pt is resting in stretcher in the lowest position, side rails up x2, call gonzalez within reach, HOB elevated, VS WNL, the pt is currently still on 3L NC, Sp02 remains 94-98%, the pt stated that she was hungry and this RN processed the pts diet
order and provided the pt with her room phone and a menu, labs and swabs obtained and sent, will continue to monitor the pt closely
[2024-04-14 12:26] LABS: COVID-19 Antigen Negative (Negative)
[2024-04-14 12:29] LABS: Lactic Acid 1.5 mmol/L (0.7-2.0)
[2024-04-14 12:47] LABS: Procalcitonin 0.16 ng/ml (0.0-0.25)
--- NOTE | 2024-04-14 13:35 | EDRN ---
this RN processed the pts orders and this RN notified pharmacy
[2024-04-14] MEDS: DUONEB INH (13:54)
--- NOTE | 2024-04-14 13:55 | EDRN ---
urine collected and sent
--- NOTE | 2024-04-14 14:34 | HPS.HSE ---
Family Physician
-
Family Physician: Brady Doyle
Chief Complaint
-
Shortness of breath, hypoxia
History of Present Illness
78-year-old female with past medical history of recurrent paroxysmal A-fib, hyponatremia on urea, peripheral neuropathy, GERD, hypothyroidism, history of SVT/flutter, with ablation/PVI in the past, history of pulmonary nodule now presents for
persistent cough, shortness of breath and notable hypoxia. Patient was seen in the ED 4 days ago and found to have mild right upper lobe pneumonia. Was discharged at that time with cefdinir and doxycycline. Patient symptoms initially got better
and then eventually got worse, notable oxygen saturations in the high 80s. Patient had persistent cough and hypoxia prompting hospital evaluation. O2 improved greatly with 3 L of oxygen saturating 98%. Respirate noted to be 20, blood pressure
131/70, pulse 92 max. White count persistently elevated at 12.6, hemoglobin 12 although baseline approximately 9, suspect hemoconcentration, sodium 130. SARS-CoV-2, flu, Legionella and strep pneumo negative. Imaging revealing of mild right upper
lobe and new mild right lower lobe pneumonia. No history of aspiration. Stable bilateral upper lobe pulmonary fibrosis.
Medical History
Past Medical History
Past Medical History: Reports Other
Additional Past Medical History:
recurrent paroxysmal A-fib, hyponatremia, peripheral neuropathy, GERD, hypothyroidism, history of SVT/flutter, with ablation/PVI in the past, history of pulmonary nodule, urinary retention with indwelling Shanks catheter
Past Surgical History: Reports Other
Social History
Tobacco: Non-smoker
Alcohol: None
Personal:
Living: With Family
Family History
Family History: Not pertinent
Allergies / Home Medications
Allergies reflects when Allergies were last updated in [employer].
Home Medications with original date entered in [employer]
Allergy/Medication List:
Allergies
Allergy/AdvReac Type Severity Reaction Status Date / Time
dronedarone [From Multaq] Allergy Rash Verified 04/14/24 06:31
Sulfa (Sulfonamide Allergy Rash Verified 04/14/24 06:31
Antibiotics)
Home Medications
apixaban 5 mg tablet (Eliquis) 5 mg PO BID Blood Clot Prevention/Tx 08/30/16
calcium 600 mg (as carbonate)-vitamin D3 10 mcg (400 unit) tablet (Calcium 600 + D(3)) 1 tab PO DAILY Supplement ##0 11/25/22
cholecalciferol (vitamin D3) 50 mcg (2,000 unit) capsule (Vitamin D3) 50 mcg PO DAILY Supplement 11/25/22
denosumab 60 mg/mL subcutaneous syringe (Prolia) 60 mg SC [id number] osteoporosis 11/25/22
tocilizumab 80 mg/4 mL (20 mg/mL) intravenous solution (Actemra) 240 mg IV Q4W Autoimmune Disorder ##0 11/25/22
urea 15 gram oral powder packet 1 packet PO MOWEFR Supplement 02/17/24
therapeutic multivitamin 1 tab PO DAILY Supplement 02/22/24
docusate sodium 100 mg capsule 100 mg PO QPM Constipation 02/23/24
polyethylene glycol 3350 17 gram oral powder packet 17 g PO DAILY Constipation 02/25/24
diltiazem HCl 180 mg capsule,extended release 24 hr 180 mg PO DAILY #30 caps 03/03/24
metoprolol succinate 25 mg tablet,extended release 24 hr 25 mg PO BID #60 tabs 03/03/24
prednisone 20 mg tablet 40 mg (2 x 20 mg) PO DAILY #30 tabs 03/03/24
cefdinir 300 mg capsule 300 mg PO BID 7 days #14 caps 04/10/24
doxycycline hyclate 100 mg tablet 100 mg PO BID 7 days #14 tabs 04/10/24
albuterol sulfate 90 mcg/actuation aerosol inhaler 2 puff inhalation R Q6HPRN PRN shortness of breath or wheezing 04/14/24
amiodarone 200 mg tablet 200 mg PO DAILY Arrhythmia 04/14/24
levothyroxine 150 mcg tablet (Synthroid) 150 mcg PO DAILY@0600 04/14/24
nystatin 100,000 unit/mL oral suspension 5 ml PO Q6H 04/14/24
Review of Systems
-
History Source: Patient
A 12 point ROS was completed and negative except as noted: Yes
Physical Exam
Vital Signs
Vital Signs
Temp Pulse Resp BP Pulse Ox
98.1 F 87 20 110/67 94
04/14/24 12:08 04/14/24 12:08 04/14/24 12:08 04/14/24 12:08 04/14/24 12:08
Physical Exam
General: Well Developed
HEENT: NormoCephalic
Respiratory: Other (breath sounds are slightly diminished with wheeze more so on the right side)
Cardiac: S1/S2 and Regular Rhythm
GI: Soft and Non Tender
Musculoskeletal: No Clubbing
Skin: Warm
Neuro: Awake, Alert, Oriented and AO x 3
Hematologic/Lymphatic: No Lymphadenopathy
Psych: Calm
Laboratory Results
-
04/14/24 07:10
04/14/24 07:10
Laboratory Results
Lactic Acid 1.5 mmol/L (0.7-2.0) 04/14/24 12:00
Total Bilirubin 0.8 mg/dl (0.2-1.3) 04/14/24 07:10
AST 30 U/L (14-36) 04/14/24 07:10
ALT 21 U/L (0-35) 04/14/24 07:10
Alkaline Phosphatase 63 U/L (38-126) 04/14/24 07:10
Data Reviewed
-
Diagnostic Radiology: Image Personally Visualized and interpreted and Report Reviewed by me
Lab Data: Labs Reviewed by me
Impression/Plan
-
IMPRESSION:
78-year-old female with past medical history of recurrent paroxysmal A-fib, hyponatremia on urea, peripheral neuropathy, GERD, hypothyroidism, history of SVT/flutter, with ablation/PVI in the past, history of pulmonary nodule now presents for
persistent cough, shortness of breath and notable hypoxia admitted for sepsis secondary to pneumonia.
PLAN:
#Acute hypoxic respiratory failure
� Secondary to pneumonia
� MRSA, flu, COVID, Legionella, strep pneumo negative
� Continue ceftriaxone, azithromycin, follow sputum cultures if expectorating
� Wean O2 as tolerated
� Incentive spirometry, Acapella
#Sepsis
� Secondary pneumonia
� See plan above for antibiotics
� Follow-up cultures
#Hyponatremia
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
� Continue urea
� Has history of chronic hyponatremia
� Free water restriction
#Atrial fibrillation
� Continue amiodarone, Toprol
� Continue Eliquis
#Giant cell arteritis
#Chronic leukocytosis
� Continue steroid dosing, currently on this dosing for over 1 month
#Chronic normocytic anemia
-Monitor hemoglobin
� No obvious acute blood loss anemia
# GERD
-famotidine
#Hypothyroidism
- Cont home levothyroxine
#DVT prophylaxis
-Eliquis
[2024-04-14] MEDS: URE-NA PO (16:12)
--- NOTE | 2024-04-14 16:22 | EDRN ---
this RN called the receiving unit and notified them that paper report was going to be tubed up
[2024-04-14] MEDS: MYCOSTATIN ORAL SUSPENSION PO ×2 (18:35→23:58)
[2024-04-14] MEDS: COLACE PO (18:35)
[2024-04-14] MEDS: ZITHROMAX INFUSION 250 IV (18:39)
[2024-04-14] MEDS: URE-NA 15 GRAMS PO (18:39)
[2024-04-14] MEDS: TOPROL XL 25 MG PO (19:56)
[2024-04-14] MEDS: ELIQUIS 5 MG PO (19:56)
[2024-04-15] VITALS (8 sets, daily range): BP systolic 96–158; BP diastolic 58–84; PULSE 87; O2SAT 94–95
[2024-04-15] MEDS: DUONEB 3 ML INH ×5 (01:31→19:40)
[2024-04-15] MEDS: SYNTHROID 150 MCG PO (06:18)
[2024-04-15] MEDS: MYCOSTATIN ORAL SUSPENSION PO ×4 (06:23→23:36)
[2024-04-15 06:44] LABS: Hematocrit 30.6 % (37.0-47.0); Hemoglobin 10.7 g/dL (12.0-16.0); Mean Corpuscular Hgb 30.7 pg (27.0-31.0); Mean Corpuscular Volume 87.7 fL (81.0-99.0); Mean Platelet Volume 8.4 fL (7.4-10.4); Platelet Count 212 10^3/uL (130-400); Red Blood Cell Count 3.49 10^6/uL (4.20-5.40); Red Cell Dist. Width 18.4 % (11.5-14.5); White Blood Cell Count 12.6 10^3/uL (4.8-10.8)
[2024-04-15 07:51] LABS: ALT (SGPT) 17 U/L (0-35); AST (SGOT) 27 U/L (14-36); Albumin 2.9 g/dl (3.5-5.0); Alkaline Phosphatase 59 U/L (38-126); Blood Urea Nitrogen 16 mg/dl (7-17); Calcium 8.3 mg/dl (8.4-10.2); Carbon Dioxide 29 mmol/L (22-30); Chloride 95 mmol/L (98-107); Estimated Creatinine Clearance 67 ml/min; Glucose 104 mg/dl (70-99); Potassium 3.8 mmol/L (3.5-5.1); Sodium 131 mmol/L (135-145); Total Bilirubin 0.8 mg/dl (0.2-1.3); Total Protein 5.5 g/dl (6.3-8.2); eGFR > 60.00
[2024-04-15] MEDS: CARDIZEM CD 180 MG PO (08:02)
[2024-04-15] MEDS: MIRALAX 17 GRAMS PO (08:03)
[2024-04-15] MEDS: TOPROL XL 25 MG PO ×2 (08:03→20:51)
[2024-04-15] MEDS: ELIQUIS 5 MG PO ×2 (08:03→20:52)
[2024-04-15] MEDS: THERAGRAN 1 TABLET PO (08:03)
[2024-04-15] MEDS: OSCAL 500 + D 500 MG PO (08:03)
[2024-04-15] MEDS: DELTASONE PO (08:03)
[2024-04-15] MEDS: PACERONE 200 MG PO (08:03)
[2024-04-15] MEDS: VITAMIN D3 (cholecalciferol) 50 MCG PO (08:03)
[2024-04-15] MEDS: DELTASONE 20 MG PO (08:29)
[2024-04-15] MEDS: STERILE WATER FOR INJECTION 10 ML IV (09:55)
[2024-04-15] MEDS: ROCEPHIN 1000 MG IV (09:55)
--- NOTE | 2024-04-15 12:33 | CM ---
Cm met with patient in room. Patient confirmed demographics. patient lives in a two story home. Patient has a history of [facility] and patient stated that she would be agreeable to referral. Patient has been to [facility] and would
be agreeable to return if needed on discharge. Patient uses a rolling walker and relies on a stair lift to negotiate stairs. Patient preference would be return home with home care, but she understands she may needs skilled. Patient is active with
her PCP. Patient uses [facility] for medication services.
--- NOTE | 2024-04-15 13:31 | W.PN.HOSP.TC ---
Today's Communication/Plan
-
Continue antibiotics
Wean O2
Incentive spirometry, Acapella
Assessment / Plan
Assessment / Plan
Physical Exam
General: Well Developed
HEENT: NormoCephalic
Respiratory: Other (breath sounds are slightly diminished with wheeze more so on the right side)
Cardiac: S1/S2 and Regular Rhythm
GI: Soft and Non Tender
Musculoskeletal: No Clubbing
Skin: Warm
Neuro: Awake, Alert, Oriented and AO x 3
Hematologic/Lymphatic: No Lymphadenopathy
Psych: Calm
78-year-old female with past medical history of recurrent paroxysmal A-fib, hyponatremia on urea, peripheral neuropathy, GERD, hypothyroidism, history of SVT/flutter, with ablation/PVI in the past, history of pulmonary nodule now presents for
persistent cough, shortness of breath and notable hypoxia admitted for sepsis secondary to pneumonia.
PLAN:
#Acute hypoxic respiratory failure
� Secondary to pneumonia
� MRSA, flu, COVID, Legionella, strep pneumo negative
� Continue ceftriaxone, azithromycin, follow sputum cultures if expectorating
� Wean O2 as tolerated
� Incentive spirometry, Acapella
#Sepsis
� Secondary pneumonia
� See plan above for antibiotics
� Follow-up cultures
#Hyponatremia
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
� Continue urea
� Has history of chronic hyponatremia
� Free water restriction
#Atrial fibrillation
� Continue amiodarone, Toprol
� Continue Eliquis
#Giant cell arteritis
#Chronic leukocytosis
� Continue steroid dosing, currently on this dosing for over 1 month
#Chronic normocytic anemia
-Monitor hemoglobin
� No obvious acute blood loss anemia
# GERD
-famotidine
#Hypothyroidism
- Cont home levothyroxine
#DVT prophylaxis
-Eliquis
Anticipated Discharge: 24 - 48 hours
Subjective/Interval History
-
Date of Service: April 15, 2024
requiring 4L o2 today
Objective Data
-
Labs:
Laboratory Results
04/15/24
06:28
WBC 12.6 H
Hgb 10.7 L
Hct 30.6 L
Plt Count 212
Sodium 131 L
Potassium 3.8
Chloride 95 L
Carbon Dioxide 29
BUN 16
Creatinine 0.5 L
Glucose 104 H
Calcium 8.3 L
Total Bilirubin 0.8
AST 27
ALT 17
Alkaline Phosphatase 59
Vital Signs:
Vital Signs
Temp Pulse Resp BP Pulse Ox
98.6 F 90 22 116/60 92
04/15/24 11:20 04/15/24 11:51 04/15/24 11:51 04/15/24 11:20 04/15/24 11:51
Review of Systems
-
History Source: Patient
All other systems: Not reviewed unless documented
Physical Exam
-
General: Well Developed and No Apparent Distress
HEENT: Normocephalic, Moist Mucous Membranes and Anicteric
Respiratory: Clear to Auscultation
Cardiac: Irregular Rhythm, Murmur (2/6 systolic murmur) and Tachycardic
GI: Soft, Nontender, Nondistended and Normal Bowel Sounds
Musculoskeletal: No Clubbing and No Cyanosis
Skin: Warm and Dry
Neuro: Awake, Alert, Oriented and AO x 3
Psych: Calm
Data Reviewed
-
Diagnostic Radiology: Image personally visualized and interpreted and Report Reviewed by me
Labs: Labs Reviewed by me
Old Records: Reviewed
[2024-04-15] MEDS: ZITHROMAX INFUSION 250 IV (16:07)
[2024-04-15] MEDS: COLACE PO (16:51)
[2024-04-15] MEDS: REMERON 7.5 MG PO (20:53)
[2024-04-15] MEDS: TYLENOL 650 MG PO (23:55)
[2024-04-16] VITALS (8 sets, daily range): BP systolic 98–141; BP diastolic 51–74
--- NOTE | 2024-04-16 00:25 | PTCARENOTE ---
Updated OMARI Chaudhry with temp- 100.9/ oxygen to 6L from 4 sat- 91-94. Patient is sleeping with no complaints. Tylenol given for temp.
[2024-04-16] MEDS: SYNTHROID 150 MCG PO (04:08)
[2024-04-16] MEDS: MYCOSTATIN ORAL SUSPENSION PO ×4 (04:13→21:35)
[2024-04-16] MEDS: DUONEB 3 ML INH ×4 (07:09→19:31)
[2024-04-16 08:08] LABS: Hematocrit 33.2 % (37.0-47.0); Hemoglobin 11.4 g/dL (12.0-16.0); Mean Corp Hgb Conc. 34.3 g/dL (33.0-37.0); Mean Corpuscular Hgb 30.6 pg (27.0-31.0); Mean Corpuscular Volume 89.2 fL (81.0-99.0); Mean Platelet Volume 8.4 fL (7.4-10.4); Platelet Count 225 10^3/uL (130-400); Red Blood Cell Count 3.72 10^6/uL (4.20-5.40); Red Cell Dist. Width 18.4 % (11.5-14.5); White Blood Cell Count 13.4 10^3/uL (4.8-10.8)
[2024-04-16 08:45] LABS: ALT (SGPT) 18 U/L (0-35); AST (SGOT) 40 U/L (14-36); Albumin 2.9 g/dl (3.5-5.0); Alkaline Phosphatase 80 U/L (38-126); Blood Urea Nitrogen 8 mg/dl (7-17); Calcium 8.5 mg/dl (8.4-10.2); Carbon Dioxide 29 mmol/L (22-30); Chloride 96 mmol/L (98-107); Estimated Creatinine Clearance 67 ml/min; Glucose 105 mg/dl (70-99); Potassium 3.9 mmol/L (3.5-5.1); Sodium 132 mmol/L (135-145); Total Bilirubin 0.9 mg/dl (0.2-1.3); Total Protein 5.6 g/dl (6.3-8.2); eGFR > 60.00
--- NOTE | 2024-04-16 08:50 | PTCARENOTE ---
Received pt anxious and tachypneic, sating 80% on 5L, placed on 100% NRB lowly improved to 94%, eventually transitioned to 12L midflow. RT previously at bedside to give DuoNeb treatment. LS w/ scattered rhonchi. Dr Lorenzana and RT notified. Chest CT
and new ABX ordered. BCx sent.
[2024-04-16] MEDS: DELTASONE PO (08:56)
[2024-04-16] MEDS: ELIQUIS 5 MG PO ×2 (08:56→20:16)
[2024-04-16] MEDS: PACERONE 200 MG PO (08:56)
[2024-04-16] MEDS: TOPROL XL 25 MG PO ×2 (08:57→20:16)
[2024-04-16] MEDS: CARDIZEM CD 180 MG PO (08:57)
[2024-04-16] MEDS: TYLENOL 650 MG PO (09:01)
[2024-04-16] MEDS: THERAGRAN 1 TABLET PO (10:07)
[2024-04-16] MEDS: DELTASONE 40 MG PO (10:07)
[2024-04-16] MEDS: OSCAL 500 + D 500 MG PO (10:07)
[2024-04-16] MEDS: VITAMIN D3 (cholecalciferol) 50 MCG PO (10:07)
[2024-04-16] MEDS: MAXIPIME 2000 MG IV ×2 (10:11→17:31)
[2024-04-16] MEDS: MIRALAX PO (10:11)
[2024-04-16] MEDS: STERILE WATER FOR INJECTION 10 ML IV ×2 (10:11→17:31)
[2024-04-16] MEDS: STERILE WATER FOR INJECTION IV (10:18)
[2024-04-16] MEDS: URE-NA PO (10:19)
--- NOTE | 2024-04-16 11:00 | PTCARENOTE ---
CT completed. Dr Lorenzana at bedside to assess pt. On 12L Midflow RR 20-30, dyspneic w/ any activity or coughing, desats to 85-88%. Purewick placed. Plan to move to IMU, respite coordinator aware. Continuos pulse ox maintained at bedside. 91-94% at
rest on 12L midflow.
--- NOTE | 2024-04-16 13:39 | PTCARENOTE ---
at bedside. Plan of care updated. VSS. Maintained on Midflow 12L sating 91-94% w/ continuous pulse ox. RR 26. Pt comfortable at rest.
--- NOTE | 2024-04-16 13:41 | W.PN.HOSP.TC ---
Today's Communication/Plan
-
Upgrade to IMU
Pulmonary, cardiology consulted
Start Solu-Medrol
Serum eosinophils, ESR, CRP, ILSA levels
Stop amiodarone in the interim
Assessment / Plan
Assessment / Plan
Physical Exam
General: Well Developed
HEENT: NormoCephalic
Respiratory: Other (breath sounds are slightly diminished with wheeze more so on the right side)
Cardiac: S1/S2 and Regular Rhythm
GI: Soft and Non Tender
Musculoskeletal: No Clubbing
Skin: Warm
Neuro: Awake, Alert, Oriented and AO x 3
Hematologic/Lymphatic: No Lymphadenopathy
Psych: Calm
78-year-old female with past medical history of recurrent paroxysmal A-fib, hyponatremia on urea, peripheral neuropathy, GERD, hypothyroidism, history of SVT/flutter, with ablation/PVI in the past, history of pulmonary nodule now presents for
persistent cough, shortness of breath and notable hypoxia admitted for sepsis secondary to pneumonia.
PLAN:
#Acute hypoxic respiratory failure
� Secondary to atypical pneumonia although after imaging +/- hypersensitivity pneumonitis, diffuse alveolar damage
� MRSA, flu, COVID, Legionella, strep pneumo negative
� Advance to cefepime, continue azithromycin
� Wean O2 as tolerated, goal O2 greater than 92%
� Stop prednisone, advance to Solu-Medrol 60 mg every 6 hours
� Stop amiodarone, consult cardiology
� Follow-up ESR, CRP, ILSA levels, serum eosinophils
� Incentive spirometry, Acapella
�Pulmonary consulted
#Sepsis
� Secondary pneumonia
� See plan above for antibiotics
� Follow-up cultures
#Hyponatremia
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
� Continue urea
� Has history of chronic hyponatremia
� Free water restriction
#Atrial fibrillation
� Continue Toprol
� Continue Eliquis
� Stop amiodarone, follow cardiology recommendations
#Giant cell arteritis
#Chronic leukocytosis
� Continue steroid dosing, currently on this dosing for over 1 month
#Chronic normocytic anemia
-Monitor hemoglobin
� No obvious acute blood loss anemia
# GERD
-famotidine
#Hypothyroidism
- Cont home levothyroxine
#DVT prophylaxis
-Eliquis
Total time spent on today's encounter was 53 minutes which included time spent in counseling the patient/family regarding diagnosis and treatment plan as listed above, goals of care, and symptom management. Case was discussed with nursing staff,
specialists, and care coordinators/case management. All labs and imaging personally reviewed by me. Remainder the time spent in detailed review of previous records, lab data, imaging, and other medical provider documentation.
Anticipated Discharge: > 48 hours
Subjective/Interval History
-
Date of Service: April 16, 2024
requiring midflow
Objective Data
-
Labs:
Laboratory Results
04/16/24
07:48
WBC 13.4 H
Hgb 11.4 L
Hct 33.2 L
Plt Count 225
Sodium 132 L
Potassium 3.9
Chloride 96 L
Carbon Dioxide 29
BUN 8
Creatinine 0.5 L
Glucose 105 H
Calcium 8.5
Total Bilirubin 0.9
AST 40 H
ALT 18
Alkaline Phosphatase 80
Vital Signs:
Vital Signs
Temp Pulse Resp BP Pulse Ox
98.1 F 86 24 98/58 92
04/16/24 11:10 04/16/24 11:44 04/16/24 11:44 04/16/24 11:10 04/16/24 11:44
I&O
04/15/24 04/16/24 04/17/24
06:59 06:59 06:59
Intake Total 720 / 920 200 / 200
Balance 720 / 920 200 / 200
Review of Systems
-
History Source: Patient
All other systems: Not reviewed unless documented
Physical Exam
-
General: Well Developed and No Apparent Distress
HEENT: Normocephalic, Moist Mucous Membranes and Anicteric
Respiratory: Rhonchi (expiratory)
Cardiac: Irregular Rhythm, Murmur (2/6 systolic murmur) and Tachycardic
GI: Soft, Nontender, Nondistended and Normal Bowel Sounds
Musculoskeletal: No Clubbing and No Cyanosis
Skin: Warm and Dry
Neuro: Awake, Alert, Oriented and AO x 3
Psych: Calm
Data Reviewed
-
CT Scan: Image personally visualized and interpreted and Report Reviewed by me
Labs: Labs Reviewed by me
[2024-04-16] MEDS: URE-NA 15 GRAMS PO (14:38)
[2024-04-16 15:15] LABS: % Basophils 0.2 % (0-2); % Eosinophils 1.1 % (0-6); % Immature Granulocytes 0.9 % (0-0.5); % Lymphocytes 4.5 % (20.5-51.1); % Neutrophils 90.3 % (42.2-75.2); Absolute Eosinophils 0.2 10^3/uL (0-0.7); Absolute Immature Granulocytes 0.1 10^3/uL (0-0.05); Absolute Lymphocytes 0.6 10^3/uL (1.2-3.4); Absolute Monocytes 0.4 10^3/uL (0.1-0.6); Absolute Neutrophils 12.3 10^3/uL (1.4-6.5); Nucleated Red Blood Cells % 0 %
[2024-04-16 15:25] LABS: Erythrocyte Sed Rate 80 mm/hour (0-20)
--- NOTE | 2024-04-16 15:34 | CON.CAR ---
Addendum entered and electronically signed by Senthil Brantley MD 04/16/24 17:17:
I saw and examined the patient.
The Senior [address] Office Assistant's note was reviewed and I agree with the note.
Comment: Briefly, 78-year-old woman past medical history of persistent atrial fibrillation with prior ablation as well as breakthrough on Tikosyn who presents with cough and dyspnea found to be hypoxic requiring 12 L of supplemental oxygen. Chest
x-ray and CT chest suggestive of multifocal pneumonia. With concern for amiodarone lung toxicity cardiology has been consulted.
Discussed with patient and at bedside, they tell me that since starting amiodarone she has done very well from a cardiac standpoint and has not had any recurrence of her atrial fibrillation
Unfortunately, with suggestion of possible lung toxicity plan to hold amiodarone for now
Monitor on telemetry
If atrial fibrillation recurs repeat ablation is likely next best option as discussed with electrophysiologists
Continue Eliquis for cardioembolic prophylaxis
Rest per Anya Javier
Original Note:
Consultation
Consultation Request
Date/Time Consultation Performed: 04/16/24
Requesting Provider: Dr. Lorenzana
Performing Provider: Anya Javier PA-C for Dr. Brantley
Reason for Consultation: SOB
Medical History
-
Chief Complaint: cough, SOB
History of Present Illness:
Patient is a 78-year-old female with past medical history of symptomatic paroxysmal atrial fibrillation. She was initially admitted 02/16 - 02/19/2024 and started on Tikosyn 250 mcg every 12 hours. She then recurred shortly thereafter and
presented back to [facility] 02/21 her Tikosyn was uptitrated to 500 mcg every 12 hours however she continued to have breakthrough and Tikosyn was stopped and after washout was started on amiodarone therapy. This has been successful for
patient and maintaining sinus rhythm. She reports she has had no feelings of palpitations. Recently she states she developed cough. She was seen in the ER 04/10/2024 and diagnosed with pneumonia and started on treatment. She reports her symptoms
persisted with worsening cough and shortness of breath and she returned to the ER on 04/14/2024. COVID, flu, Legionella negative. Currently requiring 12 L mid flow oxygen. She underwent chest CT today which showed extensive diffuse bilateral
pulmonary parenchymal groundglass opacities and there is concern for Amio pulmonary toxicity therefore her amiodarone has been stopped. Pulmonary to evaluate patient. Cardiology consulted for assistance with A-fib management in the setting of
this. She is in sinus rhythm at this time.
Past medical history:
Paroxysmal afib
Hx of SVT/afib/flutter ablation 08/2016
repeat PVI 12/10/22
breakthrough on tikosyn
amiodarone therapy started 02/2024
Chronic OAC with eliquis
Hx Relative hypotension
3 week admission to [place] for inflammatory colitis 01/05-01/27/24 s/p flex sigmoidoscopy with biopsy 01/13/24
Hx urinary retention
GCA
Peripheral neuropathy
Hypothyroidism
GERD
History of pulmonary nodules
Hyponatremia
Vitamin D deficiency
Past Medical History
Past Medical History: Other (in HPI)
Social History
Tobacco: Non-Smoker
Alcohol: None
Personal:
Living: Assisted Living
Family History
Family History: Reviewed & Not Pertinent
Allergies / Home Medications
Allergy/AdvReac Type Severity Reaction Status Date / Time
dronedarone [From Multaq] Allergy Rash Verified 04/14/24 06:31
Sulfa (Sulfonamide Allergy Rash Verified 04/14/24 06:31
Antibiotics)
�Medication �Instructions �Recorded �Confirmed �Type
apixaban 5 mg tablet (Eliquis) 5 mg PO BID Blood Clot 08/30/16 04/14/24 History
Prevention/Tx
calcium 600 mg (as 1 tab PO DAILY Supplement ##0 11/25/22 04/14/24 History
carbonate)-vitamin D3 10 mcg (400
unit) tablet (Calcium 600 + D(3))
cholecalciferol (vitamin D3) 50 50 mcg PO DAILY Supplement 11/25/22 04/14/24 History
mcg (2,000 unit) capsule (Vitamin
D3)
denosumab 60 mg/mL subcutaneous 60 mg SC [id number] osteoporosis 11/25/22 04/14/24 History
syringe (Prolia)
tocilizumab 80 mg/4 mL (20 mg/mL) 240 mg IV Q4W Autoimmune Disorder 11/25/22 04/14/24 History
intravenous solution (Actemra) ##0
urea 15 gram oral powder packet 1 packet PO MOWEFR Supplement 02/17/24 04/14/24 History
therapeutic multivitamin 1 tab PO DAILY Supplement 02/22/24 04/14/24 History
docusate sodium 100 mg capsule 100 mg PO QPM Constipation 02/23/24 04/14/24 History
polyethylene glycol 3350 17 gram 17 g PO DAILY Constipation 02/25/24 04/14/24 History
oral powder packet
diltiazem HCl 180 mg 180 mg PO DAILY #30 caps 03/03/24 04/14/24 Rx
capsule,extended release 24 hr
metoprolol succinate 25 mg 25 mg PO BID #60 tabs 03/03/24 04/14/24 Rx
tablet,extended release 24 hr
prednisone 20 mg tablet 40 mg (2 x 20 mg) PO DAILY #30 tabs 03/03/24 04/14/24 Rx
cefdinir 300 mg capsule 300 mg PO BID 7 days #14 caps 04/10/24 04/14/24 Rx
doxycycline hyclate 100 mg tablet 100 mg PO BID 7 days #14 tabs 04/10/24 04/14/24 Rx
albuterol sulfate 90 mcg/actuation 2 puff inhalation R Q6HPRN PRN 04/14/24 04/14/24 History
aerosol inhaler shortness of breath or wheezing
amiodarone 200 mg tablet 200 mg PO DAILY Arrhythmia 04/14/24 04/14/24 History
levothyroxine 150 mcg tablet 150 mcg PO DAILY@0600 04/14/24 04/14/24 History
(Synthroid)
nystatin 100,000 unit/mL oral 5 ml PO Q6H 04/14/24 04/14/24 History
suspension
mirtazapine 15 mg tablet (Remeron) 7.5 mg PO HS PRN insomnia 04/15/24 04/15/24 History
Review of Systems
-
History Source: Patient and Family
All other systems: Negative unless noted
Physical Exam
Vital Signs
Temp Pulse Resp BP Pulse Ox
98.1 F 82 18 98/58 93
04/16/24 11:10 04/16/24 15:31 04/16/24 15:31 04/16/24 11:10 04/16/24 15:31
Lab Results
04/16/24 07:48
04/16/24 07:48
Efj-[id number] Pept 630 pg/ml 04/14/24 07:10
Physical Exam
General: No Apparent Distress, Comfortable and Other (on midflow O2. frail appearing)
HEENT: Normocephalic, Anicteric and Moist Mucous Membranes
Respiratory: Rhonchi
Cardiac: S1/S2 and Regular Rhythm
GI: Soft, Non Tender, Non Distended and Normal Bowel Sounds
Musculoskeletal: No Clubbing, No Cyanosis and No Edema
Skin: Warm and Dry
Neuro: AO x 3
Impression / Plan
-
Primary Oil Recovery Operator: Dr. Dawson
Primary EP: Dr. Llanes
Assessment:
Presentation with cough, SOB
Acute hypoxic respiratory failure
Concern for PNA
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
Hyponatremia
Paroxysmal afib
Hx of SVT/afib/flutter ablation 08/2016
repeat PVI 12/10/22
breakthrough on tikosyn
amiodarone therapy started 02/2024
Chronic OAC with eliquis
Hx Relative hypotension
3 week admission to [place] for inflammatory colitis 01/05-01/27/24 s/p flex sigmoidoscopy with biopsy 01/13/24
Hx urinary retention
GCA
Peripheral neuropathy
Hypothyroidism
GERD
History of pulmonary nodules
Hyponatremia
Vitamin D deficiency
Echo 05/17/2022: EF 60%, mild biatrial enlargement. Mild tricuspid regurgitation
Plan:
-Patient with history of symptomatic paroxysmal atrial fibrillation, maintaining sinus rhythm on amiodarone presented to [facility] with cough and shortness of breath and is being treated for pneumonia. Chest CT obtained today shows
evidence of diffuse groundglass opacities and is currently requiring 12 L mid flow oxygen and there is concern for amiodarone pulmonary toxicity.
-Amiodarone has been stopped. Appreciate pulmonary input
-wean supp O2 as able
-Continue rate control with Toprol and Cardizem. Blood pressure currently prohibits uptitration
-d/w EP. Could consider for sotalol after washout. Could also consider for repeat ablation
-Discussed with patient and at bedside. They are disappointed, but understand
-d/w nursing
Data Reviewed
-
EKG: Tracing Personally Visualized and interpreted
CT Scan: Report Reviewed by me
Medical Tests (Nuc Med, Echo etc): Report Reviewed by me
Labs: Labs Reviewed by me
Old Records: Reviewed
[2024-04-16] MEDS: ZITHROMAX INFUSION 250 IV (15:49)
[2024-04-16] MEDS: SOLU-MEDROL PF 60 MG IV ×2 (15:49→21:27)
--- NOTE | 2024-04-16 16:50 | CON.PUL ---
Consultation
Consultation Request
Date/Time Consultation Requested: 04/16/2024 - 1449
Date/Time Consultation Performed: 04/16/2024 - 1600
Requesting Provider: Dr. Lorenzana
Performing Provider: Dr. Gomes
Reason for Consultation: SOB/Hypoxia
Medical History
-
Chief Complaint: SOB
History of Present Illness:
78-year-old F with PMHx of giant cell arteritis on chronic prednisone at 20 mg daily, recurrent A-fib on amiodarone and Eliquis, hyponatremia, peripheral neuropathy, GERD, history of SVT, pulmonary nodule and chronic Shanks due to urinary retention
who presents with shortness of breath and low oxygen at home and with SpO2 in the 80s. She was recently in the ER on 04/10/2024 with a dry cough that started 2 weeks prior and said her oxygen was 89% at home. CXR on 04/10/2024 showed diffuse
opacification concerning for groundglass opacification with a hazy RLL opacification and biapical scarring. Of note she did have a preablation CT chest in July 2016 which showed biapical scarring with diffuse subpleural reticular opacities (worse in
upper lung foreman) with a rounded opacity in the superior right lower lobe, atelectasis in the posterior right middle lobe and a 5 mm nodule in the right lower lobe. Repeat CXR 04/14/2024 showed diffuse patchy groundglass opacification. CT chest on
04/16/2024 showed a 5.7 cm long pneumatosis in the right lung apex with extensive diffuse bilateral patchy and confluent groundglass opacities with bronchial wall thickening and traction bronchiectasis in the posterior upper lobes and mild hilar
adenopathy. Per the , she was sick in December with dehydration, diarrhea and told that she has colitis. She has a history of A-fib from 2017 and had required cardioversion. Also history of ablation. Patient says she has been on amiodarone
for about 6 weeks. Initially in the ER she was afebrile, hemodynamically stable but saturating 84% on room air which increased to 98% with 3 L/min. She was initially started on her home dose of prednisone and given antibiotics due to possible
atypical pneumonia. Infectious workup was negative. She continued to have worsening hypoxia, and amiodarone was stopped and steroids were raised to Solu-Medrol 60 mg IV q6hr, and she was transferred to the IMU for further care. Pulmonary service
now consulted for additional management/recommendations.
When I saw the patient she was in bed with her , Liborio, at bedside. She currently feels good but still short of breath and denies cough. Heart rate 86, saturating 93% on 10 L/min via mid flow nasal cannula, and BP 119/68. She currently
denies chest pain, COWART, abdominal pain, nausea, fevers or chills.
PMHx: History of giant cell arteritis on chronic prednisone (20 mg daily) recurrent A-fib on amiodarone + Eliquis, hyponatremia, peripheral neuropathy, GERD, hypothyroidism, history of SVT/flutter, history of ablation/PVI, pulmonary nodule, urinary
retention with Shanks catheter
PSHx: PVI cryoablation (August 2016), PVI (2022), cataract surgery
Past Medical History
Past Medical History: Other (Above as per HPI)
Past Surgical History: Other (Above as per HPI)
Social History
Tobacco: Non-smoker
Alcohol: None
Drug: None
Personal:
Living: With Family
Family History
Family History: Reviewed & Not Pertinent
Allergies / Home Medications
Allergies
Allergy/AdvReac Type Severity Reaction Status Date / Time
dronedarone [From Multaq] Allergy Rash Verified 04/14/24 06:31
Sulfa (Sulfonamide Allergy Rash Verified 04/14/24 06:31
Antibiotics)
Home Medications
�Medication �Instructions �Recorded �Confirmed �Last Taken �Type
apixaban 5 mg tablet (Eliquis) 5 mg PO BID Blood Clot 08/30/16 04/14/24 04/14/24 History
Prevention/Tx
calcium 600 mg (as 1 tab PO DAILY Supplement ##0 11/25/22 04/14/24 02/25/24 History
carbonate)-vitamin D3 10 mcg (400
unit) tablet (Calcium 600 + D(3))
cholecalciferol (vitamin D3) 50 50 mcg PO DAILY Supplement 11/25/22 04/14/24 02/25/24 History
mcg (2,000 unit) capsule (Vitamin
D3)
denosumab 60 mg/mL subcutaneous 60 mg SC [id number] osteoporosis 11/25/22 04/14/24 11/26/23 History
syringe (Prolia)
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
intravenous solution (Actemra) ##0 ~03/15/24
urea 15 gram oral powder packet 1 packet PO MOWEFR Supplement 02/17/24 04/14/24 04/12/24 History
therapeutic multivitamin 1 tab PO DAILY Supplement 02/22/24 04/14/24 02/25/24 History
docusate sodium 100 mg capsule 100 mg PO QPM Constipation 02/23/24 04/14/24 02/25/24 History
polyethylene glycol 3350 17 gram 17 g PO DAILY Constipation 02/25/24 04/14/24 02/25/24 History
oral powder packet
diltiazem HCl 180 mg 180 mg PO DAILY #30 caps 03/03/24 04/14/24 04/14/24 Rx
capsule,extended release 24 hr
metoprolol succinate 25 mg 25 mg PO BID #60 tabs 03/03/24 04/14/24 04/14/24 Rx
tablet,extended release 24 hr
prednisone 20 mg tablet 40 mg (2 x 20 mg) PO DAILY #30 tabs 03/03/24 04/14/24 04/14/24 Rx
cefdinir 300 mg capsule 300 mg PO BID 7 days #14 caps 04/10/24 04/14/24 04/14/24 Rx
doxycycline hyclate 100 mg tablet 100 mg PO BID 7 days #14 tabs 04/10/24 04/14/24 04/14/24 Rx
albuterol sulfate 90 mcg/actuation 2 puff inhalation R Q6HPRN PRN 04/14/24 04/14/24 Unknown History
aerosol inhaler shortness of breath or wheezing
amiodarone 200 mg tablet 200 mg PO DAILY Arrhythmia 04/14/24 04/14/24 04/14/24 History
levothyroxine 150 mcg tablet 150 mcg PO DAILY@0600 04/14/24 04/14/24 04/14/24 History
(Synthroid)
nystatin 100,000 unit/mL oral 5 ml PO Q6H 04/14/24 04/14/24 04/13/24 History
suspension
mirtazapine 15 mg tablet (Remeron) 7.5 mg PO HS PRN insomnia 04/15/24 04/15/24 Unknown History
Review of Systems
-
History Source: Patient
All other systems: Negative unless noted
Vitals / Labs / Diagnostic Testing
Vital Signs
Temp Pulse Resp BP Pulse Ox
97.6 F 86 34 120/69 94
04/16/24 23:44 04/16/24 22:00 04/16/24 22:00 04/16/24 22:00 04/16/24 22:33
Lab Data
04/16/24 07:48
04/16/24 07:48
Microbiology
04/14/24 21:21 Blood/Venous Blood Culture - Preliminary
No Growth in 48 hours- Final report to follow
04/14/24 11:59 Sputum Respiratory Culture - Final
Usual Respiratory Opal
04/14/24 11:59 Sputum Gram Stain - Final
04/14/24 11:59 Sputum Gram Stain - Preliminary
04/14/24 12:00 Urine Legionella Urinary Antigen - Final
Negative for Legionella pneumophila Serogroup 1 antigen.
A negative result does not rule out the possiblity of
Legionella infection due to other serogroups or species of
Legionella. Clinical correlation is recommended.
04/14/24 12:00 Urine Streptococcus pneumoniae Antigen (M - Final
Negative for Streptococcus pneumoniae antigen.
A negative result does not exclude infection with
Streptococcus pneumoniae. Clinical correlation is
recommended.
04/14/24 11:59 Nose Nasal Screen MRSA (PCR) - Final
MRSA not detected - performed by PCR methodology.
04/14/24 11:59 Nasal Swab Influenza Types A & B (LENI) - Final
Negative for Influenza A & B, NAAT
Negative results must be combined with clinical observations
and patient history.
Nucleic Acid Amplification test (NAAT)performed on the
[employer]gent[employer] platform.
Diagnostic Testing:
Physical Exam
-
HEENT: Normocephalic and Anicteric
Cardiovascular: S1/S2, Rub (negative) and Peripheral Edema (negative)
Respiratory: Wheeze (negative), Rales (Bilateral), Rhonchi (negative) and Non-Labored Respirations
GI: Soft, Non Distended, Non Tender and Normal Bowel Sounds
Neurology: AO x 3 and Tremors (negative)
Skin: Warm and Dry
General: Respiratory Distress (negative), Comfortable, Chills (negative) and Sweats (negative)
Assessment
-
Assessment: 78-year-old F with PMHx of giant cell arteritis on chronic prednisone at 20 mg daily, recurrent A-fib on amiodarone and Eliquis, hyponatremia, peripheral neuropathy, GERD, history of SVT, pulmonary nodule and chronic Shanks due to
urinary retention who presents with shortness of breath and low oxygen at home and with SpO2 in the 80s. She was recently in the ER on 04/10/2024 with a dry cough that started 2 weeks prior and said her oxygen was 89% at home. CXR on 04/10/2024
showed diffuse opacification concerning for groundglass opacification with a hazy RLL opacification and biapical scarring. Of note she did have a preablation CT chest in July 2016 which showed biapical scarring with diffuse subpleural reticular
opacities (worse in upper lung foreman) with a rounded opacity in the superior right lower lobe, atelectasis in the posterior right middle lobe and a 5 mm nodule in the right lower lobe. Repeat CXR 04/14/2024 showed diffuse patchy groundglass
opacification. CT chest on 04/16/2024 showed a 5.7 cm long pneumatosis in the right lung apex with extensive diffuse bilateral patchy and confluent groundglass opacities with bronchial wall thickening and traction bronchiectasis in the posterior
upper lobes and mild hilar adenopathy. Per the , she was sick in December with dehydration, diarrhea and told that she has colitis. She has a history of A-fib from 2016 and had required cardioversion. Also history of ablation. Patient says
she has been on amiodarone for about 6 weeks. Initially in the ER she was afebrile, hemodynamically stable but saturating 84% on room air which increased to 98% with 3 L/min. She was initially started on her home dose of prednisone and given
antibiotics due to possible atypical pneumonia. Infectious workup was negative. She continued to have worsening hypoxia, and amiodarone was stopped and steroids were raised to Solu-Medrol 60 mg IV q6hr, and she was transferred to the IMU for
further care. Pulmonary service now consulted for additional management/recommendations.
Chronic conditions [employer]: History of giant cell arteritis on chronic prednisone (20 mg daily) recurrent A-fib on amiodarone + Eliquis, hyponatremia, peripheral neuropathy, GERD, hypothyroidism, history of SVT/flutter, history of ablation/PVI,
pulmonary nodule, urinary retention with Shanks catheter
Impression:
#Acute respiratory failure with hypoxia due to ILD
#Interstitial lung disease with chronic diffuse subpleural reticular opacities without honeycombing, now with diffuse groundglass opacities suspicious for an acute process overlying chronic ILD
-Differential includes NSIP, hypersensitivity pneumonitis, amiodarone toxicity (less likely given only been off for 6 weeks) acute eosinophilic pneumonia, organizing pneumonia (less likely), & sarcoidosis; less likely infection and less likely PAP
(no crazy paving)
#5.7 cm long pneumatosis in the right lung apex seen on CT chest from 04/16/2024
#Leukocytosis likely reactive as well as steroid induced
#Anemia
#Hyponatremia
#Hypoalbuminemia
#History of recurrent A-fib on chronic amiodarone (load started on 02/27/2024) + Eliquis, previously on Tikosyn (last cardioversion on 02/24/2024)
#History of lung nodule (rounded opacity in the superior right lower lobe and 5 mm nodule in the right lower lobe seen on prior CT chest from July 2016)
#Urinary tension with chronic Shanks
#GERD
#Hypothyroidism
#History of hyponatremia
#History of giant cell arteritis on chronic prednisone 20 mg daily
Plan:
- Regardless of the etiology of her ILD, there is diffuse groundglass opacification and she should be steroid responsive
- Given that she was on amiodarone, would hold this for now given possible toxicity (although less likely given she has only been on it for about 6 weeks)
- Ideally would check a broad rheumatological panel but now that she is on systemic steroids this is likely going to be falsely negative
- CRP levels were very high (207.2), indicating that an inflammatory pneumonitis is happening and not a bacterial pneumonia; this is further supported by procalcitonin of 0.16 (04/14/2024)
- Given her high oxygen requirements I feel it is appropriate to cover empirically with antibiotics (currently on cefepime/Zithromax) but if she remains afebrile with negative cultures by 48 hours then would stop antibiotics at that time
- Continue with Solu-Medrol at 60 mg IV q6hr
- Will need to wean steroids slowly
- She will need repeat imaging in about 6-8 weeks
- Ideally we can check a rheumatological panel as an outpatient once she is fully off steroids and if interstitial changes progress then she will need a biopsy, likely starting with bronchoscopy for transbronchial biopsy, but depending on her
symptoms and repeat imaging, may consider surgical biopsy
- Maintain SpO2 >90-94% with supplemental O2 and wean as tolerated
- Continue Duonebs QID with prn nebulized bronchodilators
- Although the amiodarone has been keeping her in NSR, given her acute hypoxia with possible amiodarone induced toxicity, need to hold amiodarone at this time
-She previously was on Tikosyn but had symptomatic A-fib with RVR despite being on max dose of Tikosyn hence this was stopped and she was transitioned to amiodarone with load started on 02/27/2024
- Continue with Eliquis and monitor for recurrence of A-fib as she is currently in NSR
- Cardiology on board and recommendations appreciated
- Incentive spirometer q1hr while awake
- Replete electrolytes with K>4, Mg>2
- Maintain euglycemia with goal BG >100 and <180
- transfuse if needed to keep Hb>7, plt>20k
- DVT ppx: Eliquis
Pulmonary service will continue to follow along. We will arrange for outpatient pulmonary office follow-up once discharged.
Data:
CT chest with IV contrast 04/16/2024:
Extensive diffuse bilateral pulmonary parenchymal groundglass opacity.
Associated mild adenopathy, likely reactive. No pleural effusion.
There is a broad differential, which may include infection (usually atypical), interstitial edema, diffuse alveolar damage, hypersensitivity pneumonitis, and acute eosinophilic pneumonia. Other possible considerations may include aspiration or
hemorrhage. In the chronic setting, consider nonspecific interstitial pneumonia, desquamative interstitial pneumonia/respiratory bronchiolitis, sarcoidosis, or alveolar proteinosis.
Patient seen and evaluated on 04/16/2024
Total time spent today was 76 minutes for this encounter. Time includes reviewing laboratory test/imaging results, reviewing pertinent medical records, obtaining and reviewing medical history, performing an appropriate exam, ordering medications,
tests and procedures. Time also includes documentation of this encounter, coordinating patient care and communicating with other healthcare professionals. Total time does not include separately billed tests performed on this date of service.
--- NOTE | 2024-04-16 17:12 | PTCARENOTE ---
1645: Patient arrived to IMU. Patient on 12L midflow with SpO2 greater than 92%. Patient has dyspnea when turning in bed. NSR with first degree on monitor. Purewick in place due to stress incontinence. Patients at bedside. Call gonzalez within
reach, bed in lowest position, and bed of wheels locked.
[2024-04-16] MEDS: COLACE 100 MG PO (17:31)
[2024-04-16] MEDS: OCEAN, SALINE MIST 1 SPRAYS NASAL (21:31)
[2024-04-16] MEDS: REMERON 7.5 MG PO (21:52)
[2024-04-17] VITALS (13 sets, daily range): BP systolic 95–145; BP diastolic 60–88; BMI 18.8
--- NOTE | 2024-04-17 00:32 | PTCARENOTE ---
pt on 15LMF & desating to 73% with movement in the bed, recovery with NRB to keep >92%. When NRB taken off pt desating back down to 88-89%. Respiratory called. HFNC applied to keep pt >92% and comfortable.
[2024-04-17] MEDS: MAXIPIME 2000 MG IV ×3 (02:12→17:04)
[2024-04-17] MEDS: STERILE WATER FOR INJECTION 10 ML IV ×3 (02:13→17:04)
[2024-04-17] MEDS: MYCOSTATIN ORAL SUSPENSION PO ×4 (04:35→20:43)
[2024-04-17] MEDS: SOLU-MEDROL PF 60 MG IV ×4 (04:57→20:39)
[2024-04-17] MEDS: SYNTHROID 150 MCG PO (04:58)
[2024-04-17 05:40] LABS: Hematocrit 32.9 % (37.0-47.0); Hemoglobin 11.1 g/dL (12.0-16.0); Mean Corp Hgb Conc. 33.7 g/dL (33.0-37.0); Mean Corpuscular Hgb 30.6 pg (27.0-31.0); Mean Corpuscular Volume 90.6 fL (81.0-99.0); Mean Platelet Volume 8.4 fL (7.4-10.4); Platelet Count 228 10^3/uL (130-400); Red Blood Cell Count 3.63 10^6/uL (4.20-5.40); Red Cell Dist. Width 17.9 % (11.5-14.5); White Blood Cell Count 15.1 10^3/uL (4.8-10.8)
[2024-04-17 06:08] LABS: ALT (SGPT) 17 U/L (0-35); AST (SGOT) 30 U/L (14-36); Albumin 2.8 g/dl (3.5-5.0); Alkaline Phosphatase 88 U/L (38-126); Blood Urea Nitrogen 18 mg/dl (7-17); Carbon Dioxide 29 mmol/L (22-30); Chloride 98 mmol/L (98-107); Estimated Creatinine Clearance 67 ml/min; Glucose 153 mg/dl (70-99); Potassium 4.4 mmol/L (3.5-5.1); Sodium 132 mmol/L (135-145); Total Bilirubin 0.4 mg/dl (0.2-1.3); Total Protein 5.7 g/dl (6.3-8.2); eGFR > 60.00
[2024-04-17] MEDS: DUONEB 3 ML INH ×4 (07:19→21:19)
[2024-04-17] MEDS: OSCAL 500 + D 500 MG PO (07:40)
[2024-04-17] MEDS: MIRALAX 17 GRAMS PO (07:40)
[2024-04-17] MEDS: ELIQUIS 5 MG PO ×2 (07:41→20:39)
[2024-04-17] MEDS: THERAGRAN 1 TABLET PO (07:41)
[2024-04-17] MEDS: VITAMIN D3 (cholecalciferol) 50 MCG PO (07:41)
[2024-04-17] MEDS: CARDIZEM CD 180 MG PO (07:41)
[2024-04-17] MEDS: TOPROL XL 25 MG PO ×2 (07:41→20:39)
--- NOTE | 2024-04-17 08:44 | W.PN.CARDCBS ---
Today's Communication / Plan
-
Agree with holding amiodarone and then reassessing need for rhythm control
Impression / Plan
-
Primary Sheet Metal Former: Dr. Dawson
Primary EP: Dr. Llanes
Patient is a 78-year-old female with past medical history of symptomatic paroxysmal atrial fibrillation. She was initially admitted 02/16 - 02/19/2024 and started on Tikosyn 250 mcg every 12 hours. She then recurred shortly thereafter and
presented back to [facility] 02/21 her Tikosyn was uptitrated to 500 mcg every 12 hours however she continued to have breakthrough and Tikosyn was stopped and after washout was started on amiodarone therapy. This has been successful for
patient and maintaining sinus rhythm. She reports she has had no feelings of palpitations. Recently she states she developed cough. She was seen in the ER 04/10/2024 and diagnosed with pneumonia and started on treatment. She reports her symptoms
persisted with worsening cough and shortness of breath and she returned to the ER on 04/14/2024. COVID, flu, Legionella negative. Currently requiring 12 L mid flow oxygen. She underwent chest CT which showed extensive diffuse bilateral pulmonary
parenchymal groundglass opacities and there is concern for Amio pulmonary toxicity therefore her amiodarone has been stopped. Pulmonary to evaluate patient. Cardiology consulted for assistance with A-fib management in the setting of this. She is
in sinus rhythm at this time.
Assessment:
Presentation with cough, SOB
Acute hypoxic respiratory failure
Concern for PNA
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
Hyponatremia
Paroxysmal afib
Hx of SVT/afib/flutter ablation 08/2016
repeat PVI 12/10/22
breakthrough on tikosyn
amiodarone therapy started 02/2024
Chronic OAC with eliquis
Hx Relative hypotension
3 week admission to [place] for inflammatory colitis 01/05-01/27/24 s/p flex sigmoidoscopy with biopsy 10/15/24
Hx urinary retention
GCA
Peripheral neuropathy
Hypothyroidism
GERD
History of pulmonary nodules
Hyponatremia
Vitamin D deficiency
Echo 05/17/2022: EF 60%, mild biatrial enlargement. Mild tricuspid regurgitation
Echo 04/16/2024: EF 55-60% mild MR and mild TR estimated pulmonary artery pressure of 25 mmHg
Plan:
Patient with history of symptomatic paroxysmal atrial fibrillation, maintaining sinus rhythm on amiodarone presented to [facility] with cough and shortness of breath and is being treated for pneumonia. Chest CT obtained today shows
evidence of diffuse groundglass opacities and is currently requiring 12 L mid flow oxygen and there is concern for amiodarone pulmonary toxicity.
There is concern for secondary to atypical pneumonia although after imaging +/- hypersensitivity pneumonitis, diffuse alveolar damage
MRSA, flu, COVID, Legionella, strep pneumo negative
Currently on antibiotic treatment with cefepime and azithromycin
There is concern that amiodarone may be playing a role but she is only been on amiodarone for the past 6 weeks.
-Amiodarone has been stopped. Remains in sinus rhythm. Could take up to 10 days for Amio cardiac effect to wear off
(Of note, has only been on amiodarone for approximately 6 weeks)
-If there is recurrence of atrial fibrillation we would then consider sotalol or repeat ablation
-Continue rate control with Toprol and Cardizem. Blood pressure currently prohibits uptitration
-Maintain Eliquis for atrial fibrillation related thromboembolic risk reduction
Discussed with patient and all of her questions have been answered. She understands we are trialing her off of amiodarone and that should she recur with atrial arrhythmias we could consider either alternative antiarrhythmic drug options or repeat
ablation once she is clinically fully recovered from her pneumonia/pneumonitis
Total time 52 minutes
Progress Note - Sheet Metal Former
Subjective
Date of Service: April 17, 2024
She tells me that that she is breathing easier with the assistance of oxygen. No chest pain no palpitations
Objective
Labs:
04/17/24 05:05
04/17/24 05:05
Labs
Hgb 11.1 g/dL (12.0-16.0) L 04/17/24 05:05
Hct 32.9 % (37.0-47.0) L 04/17/24 05:05
Plt Count 228 10^3/uL (130-400) 04/17/24 05:05
Sodium 132 mmol/L (135-145) L 04/17/24 05:05
Potassium 4.4 mmol/L (3.5-5.1) 04/17/24 05:05
BUN 18 mg/dl (7-17) H 04/17/24 05:05
Creatinine 0.5 mg/dL (0.6-1.0) L 04/17/24 05:05
Glucose 153 mg/dl (70-99) H 04/17/24 05:05
Vital Signs and I&O:
Vital Signs
Temp Pulse Resp BP Pulse Ox
97.7 F 84 18 104/60 99
04/17/24 07:05 04/17/24 07:41 04/17/24 07:23 04/17/24 07:41 04/17/24 07:23
Vital Signs
Temp Pulse Resp BP Pulse Ox
97.7 F 84 18 104/60 99
04/17/24 07:05 04/17/24 07:41 04/17/24 07:23 04/17/24 07:41 04/17/24 07:23
Intake & Output
04/15/24 04/16/24 04/17/24 04/18/24
06:59 06:59 06:59 06:59
Intake Total 720 / 920 800 / 800
Output Total 500 / 500
Balance 720 / 920 300 / 300
Physical Exam
Physical Exam
Elderly woman wearing high flow oxygen nasal cannula currently in no distress. Able to speak full sentences.
Regular rate and rhythm with normal S1 and S2, no S3 no S4 is grade 1/6 apical holosystolic murmur no rubs
Lungs with reduced breath sounds but otherwise clear and no wheezing.
Abdomen soft nontender nondistended with normal active bowel sounds.
Extremities without clubbing or cyanosis, there is trace pretibial edema bilaterally
--- NOTE | 2024-04-17 09:41 | W.PN.PUL3 ---
Today's Communication / Plan
-
Continue high flow nasal cannula
Titrate down high flow FiO2 as tolerated while keeping SpO2 >90%
She wants oxycodone 2.5mg with sleep as this helps her breathing
Offered prn morphine but she is not interested
Up OOB as tolerated
Pulmonary service will continue to follow along
Assessment
-
Assessment: 78-year-old F with PMHx of giant cell arteritis on chronic prednisone at 20 mg daily, recurrent A-fib on amiodarone and Eliquis, hyponatremia, peripheral neuropathy, GERD, history of SVT, pulmonary nodule and chronic Shanks due to
urinary retention who presents with shortness of breath and low oxygen at home and with SpO2 in the 80s. She was recently in the ER on 04/10/2024 with a dry cough that started 2 weeks prior and said her oxygen was 89% at home. CXR on 04/10/2024
showed diffuse opacification concerning for groundglass opacification with a hazy RLL opacification and biapical scarring. Of note she did have a preablation CT chest in July 2016 which showed biapical scarring with diffuse subpleural reticular
opacities (worse in upper lung foreman) with a rounded opacity in the superior right lower lobe, atelectasis in the posterior right middle lobe and a 5 mm nodule in the right lower lobe. Repeat CXR 04/14/2024 showed diffuse patchy groundglass
opacification. CT chest on 04/16/2024 showed a 5.7 cm long pneumatosis in the right lung apex with extensive diffuse bilateral patchy and confluent groundglass opacities with bronchial wall thickening and traction bronchiectasis in the posterior
upper lobes and mild hilar adenopathy. Per the , she was sick in December with dehydration, diarrhea and told that she has colitis. She has a history of A-fib from 2016 and had required cardioversion. Also history of ablation. Patient says
she has been on amiodarone for about 6 weeks. Initially in the ER she was afebrile, hemodynamically stable but saturating 84% on room air which increased to 98% with 3 L/min. She was initially started on her home dose of prednisone and given
antibiotics due to possible atypical pneumonia. Infectious workup was negative. She continued to have worsening hypoxia, and amiodarone was stopped and steroids were raised to Solu-Medrol 60 mg IV q6hr, and she was transferred to the IMU for
further care. Pulmonary service now consulted for additional management/recommendations.
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
pulmonary nodule, urinary retention with Shanks catheter
Impression:
#Acute respiratory failure with hypoxia due to ILD
#Interstitial lung disease with chronic diffuse subpleural reticular opacities without honeycombing, now with diffuse groundglass opacities suspicious for an acute process overlying chronic ILD
-Differential includes NSIP, hypersensitivity pneumonitis, amiodarone toxicity (less likely given only been off for 6 weeks) acute eosinophilic pneumonia, organizing pneumonia (less likely), & sarcoidosis; less likely infection and less likely PAP
(no crazy paving)
#5.7 cm pneumatosis in the right lung apex seen on CT chest from 04/16/2024
#Leukocytosis likely reactive as well as steroid induced
#Anemia
#Hyponatremia
#Hypoalbuminemia
#History of recurrent A-fib on chronic amiodarone (load started on 02/27/2024) + Eliquis, previously on Tikosyn (last cardioversion on 02/24/2024)
#History of lung nodule (rounded opacity in the superior right lower lobe and 5 mm nodule in the right lower lobe seen on prior CT chest from July 2016)
#Urinary tension with chronic Shanks
#GERD
#Hypothyroidism
#History of hyponatremia
#History of giant cell arteritis on chronic prednisone 20 mg daily
Plan:
- Regardless of the etiology of her ILD, there is diffuse groundglass opacification and she should be steroid responsive
- Given that she was on amiodarone, would hold this for now given possible toxicity (although less likely given she has only been on it for about 7 weeks)
- Ideally would check a broad rheumatological panel but now that she is on systemic steroids this is likely going to be falsely negative
- CRP levels were very high (207.2 -04/16/2024), indicating that an inflammatory pneumonitis is happening and not a bacterial pneumonia; this is further supported by procalcitonin of 0.16 (04/14/2024)
- Given her high oxygen requirements I feel it is appropriate to cover empirically with antibiotics (currently on cefepime/Zithromax) but if she remains afebrile with negative cultures by 48 hours then would stop antibiotics at that time
- Continue with Solu-Medrol at 60 mg IV q6hr
- Will need to wean steroids slowly
- She will need repeat imaging in about 6-8 weeks
- Ideally we can check a rheumatological panel as an outpatient once she is fully off steroids and if interstitial changes progress then she will need a biopsy, likely starting with bronchoscopy for transbronchial biopsy, but depending on her
symptoms and repeat imaging, may consider surgical biopsy
- Maintain SpO2 >90-94% with supplemental O2 and wean as tolerated
- Continue Duonebs QID with prn nebulized bronchodilators
- Although the amiodarone has been keeping her in NSR, given her acute hypoxia with possible amiodarone induced toxicity, need to hold amiodarone at this time
- She previously was on Tikosyn but had symptomatic A-fib with RVR despite being on max dose of Tikosyn hence this was stopped and she was transitioned to amiodarone with load started on 02/27/2024
- Continue with Eliquis and monitor for recurrence of A-fib as she is currently in NSR
- Cardiology on board and recommendations appreciated
- Incentive spirometer q1hr while awake
- Replete electrolytes with K>4, Mg>2
- Maintain euglycemia with goal BG >100 and <180
- transfuse if needed to keep Hb>7, plt>20k
- DVT ppx: Eliquis
Pulmonary service will continue to follow along. We will arrange for outpatient pulmonary office follow-up once discharged.
Data:
CT chest with IV contrast 04/16/2024:
Extensive diffuse bilateral pulmonary parenchymal groundglass opacity.
Associated mild adenopathy, likely reactive. No pleural effusion.
There is a broad differential, which may include infection (usually atypical), interstitial edema, diffuse alveolar damage, hypersensitivity pneumonitis, and acute eosinophilic pneumonia. Other possible considerations may include aspiration or
hemorrhage. In the chronic setting, consider nonspecific interstitial pneumonia, desquamative interstitial pneumonia/respiratory bronchiolitis, sarcoidosis, or alveolar proteinosis.
Total time spent today was 52 minutes for this encounter. Time includes reviewing laboratory test/imaging results, reviewing pertinent medical records, obtaining and reviewing medical history, performing an appropriate exam, ordering medications,
tests and procedures. Time also includes documentation of this encounter, coordinating patient care and communicating with other healthcare professionals. Total time does not include separately billed tests performed on this date of service.
Subjective Data
-
Date of Service:
Date of Service: April 17, 2024
Chief Complaint: Pulmonary Follow Up
Subjective:
Patient seen earlier today � late note entry. Patient seen and evaluated today at bedside. She is resting in the chair on high flow nasal cannula at 70% FiO2, 40 L/min. at bedside. All questions were answered. Currently saturating 95%
with heart rate 98 and BP 143/76. She says she still feels like she is working to get a breath in. Denies chest pain, COWART, nausea, fevers or chills. Afebrile overnight.
Review of Systems
General: Other (Negative unless mentioned above)
Objective Data
Data Reviewed
Vital Signs / I&O / Oxygen:
Vital Signs
Temp Pulse Resp BP Pulse Ox
98.3 F 96 25 117/67 93
04/17/24 15:18 04/17/24 16:00 04/17/24 16:00 04/17/24 16:00 04/17/24 16:00
Intake and Output
04/16/24 04/17/24 04/18/24
06:59 06:59 06:59
Intake Total 720 / 920 800 / 800 480 / 480
Output Total 500 / 500
Balance 720 / 920 300 / 300 480 / 480
SaO2 93
Nasal Cannula flow liters per 40
minute
Physical Exam
General: Respiratory Distress (negative), Comfortable, Chills (negative) and Sweats (negative)
HEENT: Normocephalic and Anicteric
Cardiovascular: S1-S2, Rub (negative) and Peripheral Edema (negative)
Respiratory: Wheeze (negative), Crackles (Bibasilar), Rhonchi (Bibasilar) and Non-Labored Respirations
GI: Soft, Non Distended, Non Tender and Normal Bowel Sounds
Neurology: AO x 3 and Tremors (negative)
Skin: Warm, Dry, Cyanosis (negative) and Jaundice (negative)
Labs/Micro/Reports
Lab Data
04/17/24 05:05
04/17/24 05:05
Microbiology
04/14/24 11:59 Sputum Gram Stain - Preliminary
04/16/24 08:48 Blood/Venous Blood Culture - Preliminary
No Growth in 24 hours- Final report to follow
04/14/24 21:21 Blood/Venous Blood Culture - Preliminary
No Growth in 48 hours- Final report to follow
04/14/24 11:59 Sputum Respiratory Culture - Final
Usual Respiratory Opal
04/14/24 11:59 Sputum Gram Stain - Final
04/14/24 12:00 Urine Legionella Urinary Antigen - Final
Negative for Legionella pneumophila Serogroup 1 antigen.
A negative result does not rule out the possiblity of
Legionella infection due to other serogroups or species of
Legionella. Clinical correlation is recommended.
04/14/24 12:00 Urine Streptococcus pneumoniae Antigen (M - Final
Negative for Streptococcus pneumoniae antigen.
A negative result does not exclude infection with
Streptococcus pneumoniae. Clinical correlation is
recommended.
04/14/24 11:59 Nose Nasal Screen MRSA (PCR) - Final
MRSA not detected - performed by PCR methodology.
[2024-04-17] MEDS: STERILE WATER FOR INJECTION IV (10:06)
--- NOTE | 2024-04-17 13:55 | W.PN.HOSP.TC ---
Today's Communication/Plan
-
Continue Solu-Medrol at current dosing
Wean O2 as tolerated, 90 to 92%
Can continue empiric antibiotics but can consider discontinuation if afebrile for 48 hours
Incentive spirometry, Acapella
DuoNebs 4 times daily and as needed
Assessment / Plan
Assessment / Plan
Physical Exam
General: Well Developed
HEENT: NormoCephalic
Respiratory: Other (breath sounds are slightly diminished with wheeze more so on the right side)
Cardiac: S1/S2 and Regular Rhythm
GI: Soft and Non Tender
Musculoskeletal: No Clubbing
Skin: Warm
Neuro: Awake, Alert, Oriented and AO x 3
Hematologic/Lymphatic: No Lymphadenopathy
Psych: Calm
78-year-old female with past medical history of recurrent paroxysmal A-fib, hyponatremia on urea, peripheral neuropathy, GERD, hypothyroidism, history of SVT/flutter, with ablation/PVI in the past, history of pulmonary nodule now presents for
persistent cough, shortness of breath and notable hypoxia admitted for sepsis secondary to pneumonia.
PLAN:
#Acute hypoxic respiratory failure
� Secondary to atypical pneumonia although after imaging +/- hypersensitivity pneumonitis
� MRSA, flu, COVID, Legionella, strep pneumo negative
� cefepime, continue azithromycin�can continue for 5 days total although low suspicion for bacterial infection in setting of low procalcitonin and elevated CRP
� Wean O2 as tolerated, goal O2 greater than 92%
� DuoNebs
� Stop prednisone, advance to Solu-Medrol 60 mg every 6 hours
� Stop amiodarone�even though started in February 2024, with pulmonary pathology and risk of lung toxicity benefits outweigh risks of holding. Cardiology consulted
� ESR, CRP elevated; eosinophils within normal limits. ILSA vitals pending
� Incentive spirometry, Acapella
�Pulmonary consulted
#Sepsis
� Secondary to above
� See plan above for antibiotics - can complete 5 day course if no obvious source of bacterial infection found
� Follow-up cultures
#Hyponatremia
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
� Continue urea
� Has history of chronic hyponatremia
� Free water restriction
#Atrial fibrillation
� Continue Toprol
� Continue Eliquis
� Stop amiodarone, follow cardiology recommendations
#5.7 cm focal lung pneumatosis in the right lung apex
� Continue to monitor
#Giant cell arteritis
#Chronic leukocytosis
� Continue steroid dosing, currently on this dosing for over 1 month
#Chronic normocytic anemia
-Monitor hemoglobin
� No obvious acute blood loss anemia
# GERD
-famotidine
#Hypothyroidism
- Cont home levothyroxine
#DVT prophylaxis
-Eliquis
Total time spent on today's encounter was 52 minutes which included time spent in counseling the patient/family regarding diagnosis and treatment plan as listed above, goals of care, and symptom management. Case was discussed with nursing staff,
specialists, and care coordinators/case management. All labs and imaging personally reviewed by me. Remainder the time spent in detailed review of previous records, lab data, imaging, and other medical provider documentation.
Anticipated Discharge: > 48 hours
Subjective/Interval History
-
Date of Service: April 17, 2024
On high flow, 30 L, 85%
Objective Data
-
Labs:
Laboratory Results
04/17/24
05:05
WBC 15.1 H
Hgb 11.1 L
Hct 32.9 L
Plt Count 228
Sodium 132 L
Potassium 4.4
Chloride 98
Carbon Dioxide 29
BUN 18 H
Creatinine 0.5 L
Glucose 153 H
Calcium 9.0
Total Bilirubin 0.4
AST 30
ALT 17
Alkaline Phosphatase 88
Vital Signs:
Vital Signs
Temp Pulse Resp BP Pulse Ox
98.2 F 94 23 115/64 89
04/17/24 11:05 04/17/24 12:28 04/17/24 12:28 04/17/24 12:28 04/17/24 12:00
I&O
04/16/24 04/17/24 04/18/24
06:59 06:59 06:59
Intake Total 720 / 920 800 / 800 480 / 480
Output Total 500 / 500
Balance 720 / 920 300 / 300 480 / 480
Review of Systems
-
History Source: Patient
All other systems: Not reviewed unless documented
Physical Exam
-
General: Well Developed and No Apparent Distress
HEENT: Normocephalic, Moist Mucous Membranes and Anicteric
Respiratory: Rhonchi (expiratory; high flow in place)
Cardiac: Irregular Rhythm, Murmur (2/6 systolic murmur) and Tachycardic
GI: Soft, Nontender, Nondistended and Normal Bowel Sounds
Musculoskeletal: No Clubbing and No Cyanosis
Skin: Warm and Dry
Neuro: Awake, Alert, Oriented and AO x 3
Psych: Calm
Data Reviewed
-
CT Scan: Report Reviewed by me
Labs: Labs Reviewed by me
--- NOTE | 2024-04-17 15:07 | CHAP ---
Visited Kari Baker at 10:45am. She shared her feelings of frustration and discouragement. She is grateful for her supportive , and for the med staff, who have provided excellent care. She asked for prayer, and very much appreciated it.
Emotional and spiritual support provided, along with assurance of our on-going availability.
--- NOTE | 2024-04-17 16:38 | PTCARENOTE ---
Patient AOX3. Patient is anxious. Patient on high flow throughout shift and titrated as needed by RT. Patient has MCBRIDE. OOB assist x1 to chair. NSR with first degree on monitor. Purewick in place. Patients at bedside. Call gonzalez within reach,
bed in lowest position, and bed of wheels locked.
[2024-04-17] MEDS: COLACE 100 MG PO (17:04)
[2024-04-17] MEDS: ZITHROMAX 500 MG PO (17:04)
[2024-04-17] MEDS: REMERON 7.5 MG PO (22:03)
--- NOTE | 2024-04-17 22:30 | PTCARENOTE ---
Patient is AOX3 with at bedside. HFNC 40L 85% with prn non rebreather. NSR on monitor with 1st degree block. Purewick in place draining yellow urine due to stress incontinence. Patient is anxious and requests sleeping medication, see MAR.
Assessment and VS as documented. Patient now resting in bed with call gonzalez in reach, care ongoing.
[2024-04-18] VITALS (14 sets, daily range): BP systolic 95–135; BP diastolic 67–102; BMI 18.9
[2024-04-18] MEDS: SOLU-MEDROL PF 60 MG IV ×4 (03:20→22:19)
[2024-04-18] MEDS: MAXIPIME 2000 MG IV ×3 (03:20→17:41)
[2024-04-18] MEDS: STERILE WATER FOR INJECTION 10 ML IV ×3 (03:20→17:40)
[2024-04-18] MEDS: SYNTHROID 150 MCG PO (03:40)
[2024-04-18] MEDS: MYCOSTATIN ORAL SUSPENSION PO ×4 (03:40→20:13)
[2024-04-18 03:55] LABS: Hematocrit 30.7 % (37.0-47.0); Hemoglobin 10.4 g/dL (12.0-16.0); Mean Corp Hgb Conc. 33.9 g/dL (33.0-37.0); Mean Corpuscular Hgb 30.1 pg (27.0-31.0); Mean Corpuscular Volume 88.7 fL (81.0-99.0); Mean Platelet Volume 8.3 fL (7.4-10.4); Platelet Count 218 10^3/uL (130-400); Red Blood Cell Count 3.46 10^6/uL (4.20-5.40); Red Cell Dist. Width 17.7 % (11.5-14.5); White Blood Cell Count 17.8 10^3/uL (4.8-10.8)
[2024-04-18 04:09] LABS: ALT (SGPT) 17 U/L (0-35); AST (SGOT) 24 U/L (14-36); Albumin 2.8 g/dl (3.5-5.0); Alkaline Phosphatase 82 U/L (38-126); Blood Urea Nitrogen 22 mg/dl (7-17); Calcium 8.8 mg/dl (8.4-10.2); Carbon Dioxide 27 mmol/L (22-30); Chloride 102 mmol/L (98-107); Estimated Creatinine Clearance 67 ml/min; Glucose 169 mg/dl (70-99); Magnesium 2.2 mg/dl (1.6-2.3); Phosphorus 3.4 mg/dl (2.5-4.5); Potassium 4.3 mmol/L (3.5-5.1); Sodium 134 mmol/L (135-145); Total Bilirubin 0.4 mg/dl (0.2-1.3); Total Protein 5.6 g/dl (6.3-8.2); eGFR > 60.00
[2024-04-18] MEDS: DUONEB 3 ML INH ×2 (07:13→11:07)
[2024-04-18] MEDS: MIRALAX 17 GRAMS PO (08:04)
[2024-04-18] MEDS: VITAMIN D3 (cholecalciferol) 50 MCG PO (08:05)
[2024-04-18] MEDS: ELIQUIS 5 MG PO ×2 (08:05→20:13)
[2024-04-18] MEDS: THERAGRAN 1 TABLET PO (08:05)
[2024-04-18] MEDS: TOPROL XL 25 MG PO ×2 (08:05→20:13)
[2024-04-18] MEDS: CARDIZEM CD 180 MG PO (08:05)
[2024-04-18] MEDS: OSCAL 500 + D 500 MG PO (08:05)
--- NOTE | 2024-04-18 08:11 | PTCARENOTE ---
Patient turned in bed d/t being saturated in urine. Patient oxygen saturation after turn in mid 80's on high flow. NRB placed on patient. RT to bedside and maxed high flow. Oxygen saturation now 95-98%. Patient continues to be in a fib with rate in
110's-120's. Patient c/o being 'very SOB'. Dr. Lorenzana made aware.
[2024-04-18 09:00] LABS: HCO3 27.4 mmol/L (21-28); O2 Saturation % 98.1 % (94-98); PCO2 36 mmHg (32-35); PO2 86 mmHg (83-108); pH 7.49 (7.35-7.45)
--- NOTE | 2024-04-18 09:22 | W.PN.PUL3 ---
Today's Communication / Plan
-
Continue high flow nasal cannula
Titrate down high flow FiO2 as tolerated while keeping SpO2 >90%
Ordered oxycodone 2.5mg with sleep as this helps her breathing
Offered prn morphine but she is not interested
Up OOB as tolerated
Change DuoNebs to Xopenex and atrovent
Further rate control deferred to cardiology
Pulmonary service will continue to follow along
Assessment
-
Assessment: 78-year-old F with PMHx of giant cell arteritis on chronic prednisone at 20 mg daily, recurrent A-fib on amiodarone and Eliquis, hyponatremia, peripheral neuropathy, GERD, history of SVT, pulmonary nodule and chronic Shanks due to
urinary retention who presents with shortness of breath and low oxygen at home and with SpO2 in the 80s. She was recently in the ER on 04/10/2024 with a dry cough that started 2 weeks prior and said her oxygen was 89% at home. CXR on 04/10/2024
showed diffuse opacification concerning for groundglass opacification with a hazy RLL opacification and biapical scarring. Of note she did have a preablation CT chest in July 2016 which showed biapical scarring with diffuse subpleural reticular
opacities (worse in upper lung foreman) with a rounded opacity in the superior right lower lobe, atelectasis in the posterior right middle lobe and a 5 mm nodule in the right lower lobe. Repeat CXR 04/14/2024 showed diffuse patchy groundglass
opacification. CT chest on 04/16/2024 showed a 5.7 cm long pneumatosis in the right lung apex with extensive diffuse bilateral patchy and confluent groundglass opacities with bronchial wall thickening and traction bronchiectasis in the posterior
upper lobes and mild hilar adenopathy. Per the , she was sick in December with dehydration, diarrhea and told that she has colitis. She has a history of A-fib from 2017 and had required cardioversion. Also history of ablation. Patient says
she has been on amiodarone for about 6 weeks. Initially in the ER she was afebrile, hemodynamically stable but saturating 84% on room air which increased to 98% with 3 L/min. She was initially started on her home dose of prednisone and given
antibiotics due to possible atypical pneumonia. Infectious workup was negative. She continued to have worsening hypoxia, and amiodarone was stopped and steroids were raised to Solu-Medrol 60 mg IV q6hr, and she was transferred to the IMU for
further care. Pulmonary service now consulted for additional management/recommendations.
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
pulmonary nodule, urinary retention with Shanks catheter
Impression:
#Acute respiratory failure with hypoxia due to ILD
#Interstitial lung disease with chronic diffuse subpleural reticular opacities without honeycombing, now with diffuse groundglass opacities suspicious for an acute process overlying chronic ILD
- Differential includes NSIP, hypersensitivity pneumonitis, amiodarone toxicity (less likely given only been off for 6 weeks) acute eosinophilic pneumonia, organizing pneumonia (less likely), & sarcoidosis; less likely infection and less likely PAP
(no crazy paving)
#5.7 cm pneumatosis in the right lung apex seen on CT chest from 04/16/2024
#Leukocytosis likely reactive as well as steroid induced
#Anemia
#Hyponatremia
#Hypoalbuminemia
#History of recurrent A-fib on chronic amiodarone (load started on 02/27/2024) + Eliquis, previously on Tikosyn (last cardioversion on 02/24/2024)
#History of lung nodule (rounded opacity in the superior right lower lobe and 5 mm nodule in the right lower lobe seen on prior CT chest from July 2016)
#Urinary tension with chronic Shanks
#GERD
#Hypothyroidism
#History of hyponatremia
#History of giant cell arteritis on chronic prednisone 20 mg daily
Plan:
- Regardless of the etiology of her ILD, there is diffuse groundglass opacification and she should be steroid responsive
- Given that she was on amiodarone, would hold this for now given possible toxicity (although less likely given she has only been on it for about 7 weeks)
- Ideally would check a broad rheumatological panel but now that she is on systemic steroids this is likely going to be falsely negative
- CRP levels were very high (207.2 -04/16/2024), indicating that an inflammatory pneumonitis is happening and not a bacterial pneumonia; this is further supported by procalcitonin of 0.16 (04/14/2024)
- Given her high oxygen requirements I feel it is appropriate to cover empirically with antibiotics (currently on cefepime/Zithromax) but if she remains afebrile with negative cultures by 48 hours then would stop antibiotics at that time
- Continue with Solu-Medrol at 60 mg IV q6hr
- Will need to wean steroids slowly
- She will need repeat imaging in about 6-8 weeks
- Ideally we can check a rheumatological panel as an outpatient once she is fully off steroids and if interstitial changes progress then she will need a biopsy, likely starting with bronchoscopy for transbronchial biopsy, but depending on her
symptoms and repeat imaging, may consider surgical biopsy
- Maintain SpO2 >90-94% with supplemental O2 and wean as tolerated
- Given that she went into rapid A-fib earlier this morning, change DuoNebs to Xopenex + Atrovent TID
- Although the amiodarone has been keeping her in NSR, given her acute hypoxia with possible amiodarone induced toxicity, need to hold amiodarone at this time
- She previously was on Tikosyn but had symptomatic A-fib with RVR despite being on max dose of Tikosyn hence this was stopped and she was transitioned to amiodarone with load started on 02/27/2024
- Continue with Eliquis and monitor for recurrence of A-fib as she is currently in NSR
- Cardiology on board and recommendations appreciated
- Incentive spirometer q1hr while awake
- Replete electrolytes with K>4, Mg>2
- Maintain euglycemia with goal BG >100 and <180
- transfuse if needed to keep Hb>7, plt>20k
- DVT ppx: Eliquis
Pulmonary service will continue to follow along. We will arrange for outpatient pulmonary office follow-up once discharged.
Data:
CT chest with IV contrast 04/16/2024:
Extensive diffuse bilateral pulmonary parenchymal groundglass opacity.
Associated mild adenopathy, likely reactive. No pleural effusion.
There is a broad differential, which may include infection (usually atypical), interstitial edema, diffuse alveolar damage, hypersensitivity pneumonitis, and acute eosinophilic pneumonia. Other possible considerations may include aspiration or
hemorrhage. In the chronic setting, consider nonspecific interstitial pneumonia, desquamative interstitial pneumonia/respiratory bronchiolitis, sarcoidosis, or alveolar proteinosis.
Total time spent today was 56 minutes for this encounter. Time includes reviewing laboratory test/imaging results, reviewing pertinent medical records, obtaining and reviewing medical history, performing an appropriate exam, ordering medications,
tests and procedures. Time also includes documentation of this encounter, coordinating patient care and communicating with other healthcare professionals. Total time does not include separately billed tests performed on this date of service.
Subjective Data
-
Date of Service:
Date of Service: April 18, 2024
Chief Complaint: Pulmonary Follow Up
Subjective:
Patient seen and evaluated this morning. More hypoxic this morning, requiring high flow nasal cannula. When I saw the patient she was on HFNC at 100% FiO2, 40 L/min. She was saturating 98% with heart rate 118. She went into A-fib with RVR
overnight. She feels better now. Heart rate is labile between 110�130s. She still feels short of breath, similar to yesterday. She denies COWART, abdominal pain, nausea, fevers or chills.
Review of Systems
General: Other (Negative unless mentioned above)
Objective Data
Data Reviewed
Vital Signs / I&O / Oxygen:
Vital Signs
Temp Pulse Resp BP Pulse Ox
98.6 F 121 26 116/80 96
04/18/24 03:07 04/18/24 08:05 04/18/24 08:04 04/18/24 08:05 04/18/24 08:15
Intake and Output
04/17/24 04/18/24 04/19/24
06:59 06:59 06:59
Intake Total 800 / 800 480 / 480
Output Total 500 / 500 500 / 500
Balance 300 / 300 -20 / -20
SaO2 96
Nasal Cannula flow liters per 40
minute
Physical Exam
General: Respiratory Distress (mild), Comfortable, Chills (negative) and Sweats (negative)
HEENT: Normocephalic and Anicteric
Cardiovascular: S1-S2, Rub (negative) and Peripheral Edema (negative)
Respiratory: Wheeze (negative), Crackles (Bibasilar), Rhonchi (Bibasilar) and Accessory Resp Muscle Use (mild)
GI: Soft, Non Distended, Non Tender and Normal Bowel Sounds
Neurology: AO x 3 and Tremors (negative)
Skin: Warm, Dry, Cyanosis (negative) and Jaundice (negative)
Labs/Micro/Reports
Lab Data
04/18/24 03:36
04/18/24 03:36
Laboratory Results
04/18/24
08:53
pH 7.49 H
pCO2 36 H
pO2 86
HCO3 27.4
O2 Delivery Level
Microbiology
04/16/24 08:48 Blood/Venous Blood Culture - Preliminary
No Growth in 48 hours- Final report to follow
04/14/24 21:21 Blood/Venous Blood Culture - Preliminary
No Growth in 72 hours- Final report to follow
04/14/24 11:59 Sputum Gram Stain - Preliminary
04/14/24 11:59 Sputum Respiratory Culture - Final
Usual Respiratory Opal
04/14/24 11:59 Sputum Gram Stain - Final
[2024-04-18] MEDS: STERILE WATER FOR INJECTION IV (09:57)
[2024-04-18] MEDS: CARDIZEM 10 MG IV (12:47)
[2024-04-18] MEDS: XOPENEX 1.25 MG INHALANT SOLUTION INH ×2 (13:10→21:26)
[2024-04-18] MEDS: ATROVENT NEBULES INH (13:10)
--- NOTE | 2024-04-18 13:40 | W.PN.HOSP.TC ---
Today's Communication/Plan
-
Continue Solu-Medrol at current dosing
Wean O2 as tolerated, 90 to 92%, bipap if worsening resp distress
Can continue empiric antibiotics x 5 days
Incentive spirometry, Acapella
DuoNebs 4 times daily and as needed
Assessment / Plan
Assessment / Plan
Physical Exam
General: Well Developed
HEENT: NormoCephalic
Respiratory: Other (breath sounds are slightly diminished with wheeze more so on the right side)
Cardiac: S1/S2 and Regular Rhythm
GI: Soft and Non Tender
Musculoskeletal: No Clubbing
Skin: Warm
Neuro: Awake, Alert, Oriented and AO x 3
Hematologic/Lymphatic: No Lymphadenopathy
Psych: Calm
78-year-old female with past medical history of recurrent paroxysmal A-fib, hyponatremia on urea, peripheral neuropathy, GERD, hypothyroidism, history of SVT/flutter, with ablation/PVI in the past, history of pulmonary nodule now presents for
persistent cough, shortness of breath and notable hypoxia admitted for sepsis secondary to pneumonia.
PLAN:
#Acute hypoxic respiratory failure
� Secondary to atypical pneumonia although after imaging +/- hypersensitivity pneumonitis
� MRSA, flu, COVID, Legionella, strep pneumo negative
� cefepime, continue azithromycin�can continue for 5 days total although low suspicion for bacterial infection in setting of low procalcitonin and elevated CRP
� Wean O2 as tolerated, goal O2 greater than 92%
� DuoNebs
� Cont Solu-Medrol 60 mg every 6 hours
� Stop amiodarone�even though started in February 2024, with pulmonary pathology and risk of lung toxicity benefits outweigh risks of holding. Cardiology consulted
� ESR, CRP elevated; eosinophils within normal limits. ILSA vitals pending
� Incentive spirometry, Acapella
�Pulmonary consulted
#Sepsis
� Secondary to above
� See plan above for antibiotics - can complete 5 day course if no obvious source of bacterial infection found
� Follow-up cultures
#Hyponatremia
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
� Continue urea
� Has history of chronic hyponatremia
� Free water restriction
#Atrial fibrillation
� Continue Toprol
� Continue Eliquis
� Stop amiodarone, follow cardiology recommendations
#5.7 cm focal lung pneumatosis in the right lung apex
� Continue to monitor
#Giant cell arteritis
#Chronic leukocytosis
� Continue steroid dosing, currently on this dosing for over 1 month
#Chronic normocytic anemia
-Monitor hemoglobin
� No obvious acute blood loss anemia
# GERD
-famotidine
#Hypothyroidism
- Cont home levothyroxine
#DVT prophylaxis
-Eliquis
Total time spent on today's encounter was 51 minutes which included time spent in counseling the patient/family regarding diagnosis and treatment plan as listed above, goals of care, and symptom management. Case was discussed with nursing staff,
specialists, and care coordinators/case management. All labs and imaging personally reviewed by me. Remainder the time spent in detailed review of previous records, lab data, imaging, and other medical provider documentation.
Anticipated Discharge: Today
Subjective/Interval History
-
Date of Service: April 18, 2024
feels more shortness of breath today
Objective Data
-
Labs:
Laboratory Results
04/18/24 04/18/24
03:36 08:53
WBC 17.8 H
Hgb 10.4 L
Hct 30.7 L
Plt Count 218
HCO3 27.4
Sodium 134 L
Potassium 4.3
Chloride 102
Carbon Dioxide 27
BUN 22 H
Creatinine 0.5 L
Glucose 169 H
Calcium 8.8
Total Bilirubin 0.4
AST 24
ALT 17
Alkaline Phosphatase 82
Vital Signs:
Vital Signs
Temp Pulse Resp BP Pulse Ox
97.8 F 123 16 113/83 96
04/18/24 07:00 04/18/24 12:47 04/18/24 11:09 04/18/24 12:47 04/18/24 11:09
I&O
04/17/24 04/18/24 04/19/24
06:59 06:59 06:59
Intake Total 800 / 800 480 / 480
Output Total 500 / 500 500 / 500
Balance 300 / 300 -20 / -20
Review of Systems
-
History Source: Patient
All other systems: Not reviewed unless documented
Physical Exam
-
General: Well Developed and No Apparent Distress
HEENT: Normocephalic, Moist Mucous Membranes and Anicteric
Respiratory: Rhonchi (expiratory; high flow in place)
Cardiac: Irregular Rhythm, Murmur (2/6 systolic murmur) and Tachycardic
GI: Soft, Nontender, Nondistended and Normal Bowel Sounds
Musculoskeletal: No Clubbing and No Cyanosis
Skin: Warm and Dry
Neuro: Awake, Alert, Oriented and AO x 3
Psych: Calm
Data Reviewed
-
CT Scan: Report Reviewed by me
Labs: Labs Reviewed by me
--- NOTE | 2024-04-18 16:45 | W.PN.UPDATE ---
Addendum entered and electronically signed by Tao Ochoa MD 04/19/24 09:57:
error, thats dilt drip not dig drip
Original Note:
Update Note
Progress Note Update
she has recured with AF/AT now with rapid rates.
Unable to use amio
BP OK on oral metoprolol and oral diltiazem
Will start digoxin drip
Discussed with nursing
--- NOTE | 2024-04-18 16:50 | PTCARENOTE ---
Patient AOX3. Patient is anxious. Patient maxed high flow throughout shift and uses NRB after ambulation. Patient has MCBRIDE. OOB assist x1 to chair. A fib on monitor with periods of NSR with rate in 110's-120's. Purewick in place. Patients at
bedside. Call gonzalez within reach, bed in lowest position, and bed of wheels locked.
[2024-04-18] MEDS: ZITHROMAX 500 MG PO (17:40)
[2024-04-18] MEDS: COLACE 100 MG PO (17:40)
[2024-04-18] MEDS: CARDIZEM 125 IV (18:05)
[2024-04-18] MEDS: ATROVENT NEBULES 0.5 MG INH (21:26)
[2024-04-18] MEDS: REMERON 7.5 MG PO (22:50)
[2024-04-19] VITALS (14 sets, daily range): BP systolic 90–129; BP diastolic 63–90; BMI 18.9
--- NOTE | 2024-04-19 | PTCARENOTE ---
Caring for patient overnight. Remains on HFNC 40L 100%. MCBRIDE, NRB PRN. Remains on cardizem gtt, weaned to 10ml/hr. Seems to be converting back and forth between SR & afib. aaox3, anxious. OOB to chair for a couples hours, tolerated well. NO edema.
Denies pain. Purewick for frequent stress incontinence. Call gonzalez in reach, will monitor.
[2024-04-19] MEDS: MAXIPIME 2000 MG IV (01:52)
[2024-04-19] MEDS: STERILE WATER FOR INJECTION 10 ML IV (01:52)
[2024-04-19] MEDS: MYCOSTATIN ORAL SUSPENSION PO ×3 (04:46→17:38)
[2024-04-19] MEDS: SOLU-MEDROL PF 60 MG IV ×2 (05:31→10:43)
[2024-04-19] MEDS: CARDIZEM 125 IV ×2 (05:31→14:02)
[2024-04-19] MEDS: SYNTHROID 150 MCG PO (05:33)
[2024-04-19 05:54] LABS: Hematocrit 32.4 % (37.0-47.0); Hemoglobin 10.6 g/dL (12.0-16.0); Mean Corp Hgb Conc. 32.7 g/dL (33.0-37.0); Mean Corpuscular Volume 91.8 fL (81.0-99.0); Platelet Count 178 10^3/uL (130-400); Red Blood Cell Count 3.53 10^6/uL (4.20-5.40); Red Cell Dist. Width 17.8 % (11.5-14.5); White Blood Cell Count 17.4 10^3/uL (4.8-10.8)
[2024-04-19 07:08] LABS: ALT (SGPT) 19 U/L (0-35); AST (SGOT) 25 U/L (14-36); Albumin 2.8 g/dl (3.5-5.0); Alkaline Phosphatase 79 U/L (38-126); Blood Urea Nitrogen 31 mg/dl (7-17); Calcium 9.1 mg/dl (8.4-10.2); Carbon Dioxide 25 mmol/L (22-30); Chloride 103 mmol/L (98-107); Estimated Creatinine Clearance 67 ml/min; Glucose 147 mg/dl (70-99); Potassium 4.6 mmol/L (3.5-5.1); Sodium 136 mmol/L (135-145); Total Bilirubin 0.3 mg/dl (0.2-1.3); Total Protein 5.6 g/dl (6.3-8.2); eGFR > 60.00
[2024-04-19] MEDS: ATROVENT NEBULES 0.5 MG INH ×3 (07:19→18:52)
[2024-04-19] MEDS: XOPENEX 1.25 MG INHALANT SOLUTION INH ×3 (07:20→18:51)
[2024-04-19 08:05] LABS: Angiotensin-1-converting Enzym 22 U/L (16-85)
--- NOTE | 2024-04-19 08:25 | W.PN.HOSP.TC ---
Today's Communication/Plan
-
Increase Cardizem drip
Stop antibiotics
Assessment / Plan
Assessment / Plan
Gen-AAOx3, NAD
HEENT-NC, AT, anicteric, clear oral mm
Neck-supple
CV-reg, no M, +S1/S2
Lungs-diminished breath sounds bilaterally
Abd-soft, NT, ND
Ext-no edema
Musculoskeletal-no cyanosis, clubbing
Skin-warm and dry
Neuro-grossly non-focal
Psych-calm, cooperative
Acute hypoxic respiratory failure -still on high flow nasal cannula oxygen, 40 L, 60% FiO2. Oxygen saturation 94%. Etiology suspected to be due to pneumonitis, possible hypersensitivity pneumonitis. Doubt pneumonia. Discontinue further
antibiotics. Received 5 days of empiric antibiotics.
� MRSA, flu, COVID, Legionella, strep pneumo negative. Blood cultures negative.
� Wean O2 as tolerated, goal O2 greater than 92%
� DuoNebs
� Cont Solu-Medrol 60 mg every 6 hours
� Stop amiodarone�even though started in February 2024, with pulmonary pathology and risk of lung toxicity benefits outweigh risks of holding. Cardiology consulted
� ESR, CRP elevated; eosinophils within normal limits. ILSA vitals pending
� Incentive spirometry, Acapella
�Pulmonary following
Sepsis -resolved.
Hyponatremia -sodium improved to 136.
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
� Continue urea
� Has history of chronic hyponatremia
� Free water restriction
Paroxysmal atrial fibrillation -with RVR
� Continue Toprol, Cardizem drip currently at 5 mg an hour. Rates are still fast. Will increase rate to 10 mg/h.
� Continue Eliquis
� Stop amiodarone, follow cardiology recommendations
5.7 cm focal lung pneumatosis in the right lung apex
� Continue to monitor
Giant cell arteritis
Chronic leukocytosis
� Continue steroid dosing, currently on this dosing for over 1 month
Chronic normocytic anemia
-Monitor hemoglobin
� No obvious acute blood loss anemia
GERD
-famotidine
Hypothyroidism
- Cont home levothyroxine
DVT prophylaxis
-Eliquis
Full code
PT/OT
Anticipated Discharge: > 48 hours
Subjective/Interval History
-
Date of Service: April 19, 2024
Patient seen and examined. No complaints.
Objective Data
-
Labs:
Laboratory Results
04/19/24
05:38
WBC 17.4 H
Hgb 10.6 L
Hct 32.4 L
Plt Count 178
Sodium 136
Potassium 4.6
Chloride 103
Carbon Dioxide 25
BUN 31 H
Creatinine 0.6
Glucose 147 H
Calcium 9.1
Total Bilirubin 0.3
AST 25
ALT 19
Alkaline Phosphatase 79
Vital Signs:
Vital Signs
Temp Pulse Resp BP Pulse Ox
97.5 F 121 20 115/68 93
04/19/24 03:10 04/19/24 08:00 04/19/24 08:00 04/19/24 06:00 04/19/24 08:00
I&O
04/18/24 04/19/24 04/20/24
06:59 06:59 06:59
Intake Total 480 / 480 480 / 480
Output Total 500 / 500 500 / 500
Balance -20 / -20 -20 / -20
Review of Systems
-
History Source: Patient
All other systems: Reviewed and negative
--- NOTE | 2024-04-19 08:46 | W.PN.PUL3 ---
Today's Communication / Plan
-
Remains on HFNC, wean as tolerated
IS effort poor (>500), atelectasis and remaining in bed likely contributing to lack of progress
Wean IV steroids today
Stop abx
Encouraged OOB to chair everyday, PT eval
Assessment
-
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
low O2 at home (SpO2 in the 80s). She was recently in the ER on 04/10/2024 with a dry cough x 2 weeks/oxygen was 89% at home/CXR showed diffuse opacification concerning for GGO/hazy RLL opacification/biapical scarring. Of note, she had a
preablation CT chest 07/2016 which showed biapical scarring with diffuse subpleural reticular opacities (worse in upper lung foreman) with a rounded opacity in the superior right lower lobe, atelectasis in the posterior right middle lobe and a 5 mm
nodule in the right lower lobe. Repeat CXR 04/14/2024 showed diffuse patchy groundglass opacification. CT chest on 04/16/2024 showed a 5.7 cm long pneumatosis in the right lung apex with extensive diffuse bilateral patchy and confluent groundglass
opacities with bronchial wall thickening and traction bronchiectasis in the posterior upper lobes and mild hilar adenopathy. Initially in the ER she was afebrile, hemodynamically stable but saturating 84% on room air which increased to 98% with 3
L/min. She was initially started on her home dose of prednisone and given antibiotics due to possible atypical pneumonia. Infectious workup was negative. She continued to have worsening hypoxia, and amiodarone was stopped and steroids were raised
to Solu-Medrol 60 mg IV q6hr, and she was transferred to the IMU for further care. Pulmonary service now consulted for additional management/recommendations.
Impression:
#Acute respiratory failure with hypoxia due to ILD
#Interstitial lung disease with chronic diffuse subpleural reticular opacities without honeycombing, now with diffuse groundglass opacities suspicious for an acute process overlying chronic ILD
- Differential includes NSIP, hypersensitivity pneumonitis, amiodarone toxicity (less likely given only been off for 6 weeks) acute eosinophilic pneumonia, organizing pneumonia (less likely), & sarcoidosis; less likely infection and less likely PAP
(no crazy paving)
#5.7 cm pneumatosis in the right lung apex seen on CT chest from 04/16/2024
#Leukocytosis likely reactive as well as steroid induced
#Anemia
#Hyponatremia
#Hypoalbuminemia
#History of recurrent A-fib on chronic amiodarone (load started on 02/27/2024) + Eliquis, previously on Tikosyn (last cardioversion on 02/24/2024)
#History of lung nodule (rounded opacity in the superior right lower lobe and 5 mm nodule in the right lower lobe seen on prior CT chest from July 2016)
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
History of giant cell arteritis on chronic prednisone (20 mg daily)
Recurrent A-fib on amiodarone + Eliquis
Chronic hyponatremia
Peripheral neuropathy
GERD
Hypothyroidism
History of SVT/flutter
History of ablation/PVI
Pulmonary nodule
Urinary retention with Shanks catheter
Plan
Currently on HFNC 60%, 40LPM--wean as tolerated
She has poor effort on IS, not getting OOB--reviewed this with her at bedside
Imaging reviewed which may be subacute/chronic
Regardless of the etiology of her ILD, there is diffuse groundglass opacification and she should be steroid responsive
Given that she was on amiodarone, would hold this for now given possible toxicity (although less likely given she has only been on it for about 7 weeks)
Ideally would check a broad rheumatological panel but now that she is on systemic steroids this is likely going to be falsely negative
CRP levels were very high (207.2 -04/16/2024), indicating that an inflammatory pneumonitis is happening and not a bacterial pneumonia
Procalcitonin of 0.16 (04/14/2024)
Initially covered empirically with antibiotics (currently on cefepime/Zithromax) but if she remains afebrile with negative cultures by 48 hours then would stop antibiotics at that time
Sputum culture neg 04/14, blood culture neg x 2
Flu neg, MRSA neg, PCT neg
Can stop abx
Empiric steroids -- Solu-Medrol at 60 mg IV q6hr
Will need to wean steroids today
She will need repeat imaging in about 6-8 weeks
Consideration for further outpatient w/u including biopsy, likely starting with bronchoscopy for transbronchial biopsy vs surgical biopsy
Maintain SpO2 >90-94% with supplemental O2 and wean as tolerated
Increase OOB, IS, PT
ECHO with stable function, proBNP 630
Given that she went into rapid A-fib earlier this morning, change DuoNebs to Xopenex + Atrovent TID
Although the amiodarone has been keeping her in NSR, given her acute hypoxia with possible amiodarone induced toxicity, need to hold amiodarone at this time
Previously was on Tikosyn but had symptomatic A-fib with RVR despite being on max dose of Tikosyn -- transitioned to amiodarone s/p load 02/27/2024
Continue with Eliquis and monitor for recurrence of A-fib as she is currently in NSR
Cardiology on board and recommendations appreciated
- Incentive spirometer q1hr while awake
- Replete electrolytes with K>4, Mg>2
- Maintain euglycemia with goal BG >100 and <180
- transfuse if needed to keep Hb>7, plt>20k
- DVT ppx: Eliquis
Pulmonary service will continue to follow along. We will arrange for outpatient pulmonary office follow-up once discharged.
Data:
CXR 04/18/24- Persistent diffuse bilateral interstitial and heterogeneous patchy and confluent groundglass airspace opacity is again demonstrated. Slight progression, especially in the lung bases. However, no focal dense consolidation.
CT chest with IV contrast 04/16/2024: Extensive diffuse bilateral pulmonary parenchymal groundglass opacity. Associated mild adenopathy, likely reactive. No pleural effusion. There is a broad differential, which may include infection (usually
atypical), interstitial edema, diffuse alveolar damage, hypersensitivity pneumonitis, and acute eosinophilic pneumonia. Other possible considerations may include aspiration or hemorrhage. In the chronic setting, consider nonspecific interstitial
pneumonia, desquamative interstitial pneumonia/respiratory bronchiolitis, sarcoidosis, or alveolar proteinosis.
ECHO 04/16/24- 1. Left ventricle: Normal size and function with an estimated ejection fraction of 55-60%. Normal diastolic function
2. Right ventricle: Normal right ventricular size and function.
3. Atria: Normal
4. Mitral valve: Mild mitral regurgitation
5. Aortic valve: No aortic stenosis or aortic insufficiency
6. Tricuspid valve: Mild tricuspid regurgitation with estimated pulmonary artery systolic pressure of 20-25 mmHg
-----
Total time spent today was 54 minutes for this encounter. Time includes reviewing laboratory test/imaging results, reviewing pertinent medical records, obtaining and reviewing medical history, performing an appropriate exam, ordering medications,
tests and procedures. Time also includes documentation of this encounter, coordinating patient care and communicating with other healthcare professionals. Total time does not include separately billed tests performed on this date of service.
Subjective Data
-
Date of Service:
Date of Service: April 19, 2024
Chief Complaint: Pulmonary Follow Up
Subjective:
Remains on HFNC, sedentary due to SOB
No new complaints
Objective Data
Data Reviewed
Vital Signs / I&O / Oxygen:
Vital Signs
Temp Pulse Resp BP Pulse Ox
97.5 F 121 20 115/68 93
04/19/24 03:10 04/19/24 08:00 04/19/24 08:00 04/19/24 06:00 04/19/24 08:00
Intake and Output
04/18/24 04/19/24 04/20/24
06:59 06:59 06:59
Intake Total 480 / 480 480 / 480
Output Total 500 / 500 500 / 500
Balance -20 / -20 -20 / -20
SaO2 93
Nasal Cannula flow liters per 40
minute
Physical Exam
General: Respiratory Distress (mild), Comfortable, Chills (negative) and Sweats (negative)
HEENT: Normocephalic and Anicteric
Cardiovascular: S1-S2, Rub (negative) and Peripheral Edema (negative)
Respiratory: Clear, Wheeze (negative) and Accessory Resp Muscle Use (mild)
GI: Soft, Non Distended, Non Tender and Normal Bowel Sounds
Neurology: AO x 3 and Tremors (negative)
Skin: Warm, Dry, Cyanosis (negative) and Jaundice (negative)
Labs/Micro/Reports
Lab Data
04/19/24 05:38
04/19/24 05:38
Laboratory Results
04/18/24
08:53
pH 7.49 H
pCO2 36 H
pO2 86
HCO3 27.4
O2 Delivery Level
Microbiology
04/14/24 21:21 Blood/Venous Blood Culture - Preliminary
No Growth in 4 days- Final report to follow
04/14/24 11:59 Sputum Respiratory Culture - Preliminary
Usual Respiratory Opal
04/14/24 11:59 Sputum Gram Stain - Preliminary
04/16/24 08:48 Blood/Venous Blood Culture - Preliminary
No Growth in 48 hours- Final report to follow
04/14/24 11:59 Sputum Respiratory Culture - Final
Usual Respiratory Opal
04/14/24 11:59 Sputum Gram Stain - Final
[2024-04-19] MEDS: TOPROL XL 25 MG PO ×2 (09:20→13:46)
[2024-04-19] MEDS: URE-NA 15 GRAMS PO (09:20)
[2024-04-19] MEDS: OSCAL 500 + D 500 MG PO (09:20)
[2024-04-19] MEDS: THERAGRAN 1 TABLET PO (09:20)
[2024-04-19] MEDS: MIRALAX 17 GRAMS PO (09:20)
[2024-04-19] MEDS: CARDIZEM CD 180 MG PO ×2 (09:20→21:15)
[2024-04-19] MEDS: ELIQUIS 5 MG PO ×2 (09:21→21:17)
[2024-04-19] MEDS: VITAMIN D3 (cholecalciferol) 50 MCG PO (09:21)
--- NOTE | 2024-04-19 10:51 | W.PN.CARDCBS ---
Today's Communication / Plan
-
Attempt to transition over to oral diltiazem
Increase metoprolol
If needed consider digoxin
Impression / Plan
-
Primary Inspector Motor Vehicles: Dr. Dawson
Primary EP: Dr. Llanes
Patient is a 78-year-old female with past medical history of symptomatic paroxysmal atrial fibrillation. She was initially admitted 02/16 - 02/19/2024 and started on Tikosyn 250 mcg every 12 hours. She then recurred shortly thereafter and
presented back to [facility] 02/21 her Tikosyn was uptitrated to 500 mcg every 12 hours however she continued to have breakthrough and Tikosyn was stopped and after washout was started on amiodarone therapy. This has been successful for
patient and maintaining sinus rhythm. She reports she has had no feelings of palpitations. Recently she states she developed cough. She was seen in the ER 04/10/2024 and diagnosed with pneumonia and started on treatment. She reports her symptoms
persisted with worsening cough and shortness of breath and she returned to the ER on 04/14/2024. COVID, flu, Legionella negative. Currently requiring 12 L mid flow oxygen. She underwent chest CT which showed extensive diffuse bilateral pulmonary
parenchymal groundglass opacities and there is concern for Amio pulmonary toxicity therefore her amiodarone has been stopped. Pulmonary to evaluate patient. Cardiology consulted for assistance with A-fib management in the setting of this. She is
in sinus rhythm at this time.
Assessment:
Presentation with cough, SOB
Acute hypoxic respiratory failure
Concern for PNA
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
Hyponatremia
Paroxysmal afib
Hx of SVT/afib/flutter ablation 08/2016
repeat PVI 12/10/22
breakthrough on tikosyn
amiodarone therapy started 02/2024
Chronic OAC with eliquis
Hx Relative hypotension
3 week admission to [place] for inflammatory colitis 01/05-01/27/24 s/p flex sigmoidoscopy with biopsy 01/13/24
Hx urinary retention
GCA
Peripheral neuropathy
Hypothyroidism
GERD
History of pulmonary nodules
Hyponatremia
Vitamin D deficiency
Echo 05/17/2022: EF 60%, mild biatrial enlargement. Mild tricuspid regurgitation
Echo 04/16/2024: EF 55-60% mild MR and mild TR estimated pulmonary artery pressure of 25 mmHg
Plan:
Still tachycardic, with suspected amiodarone pulmonary toxicity, on IV diltiazem, metoprolol, oral diltiazem.
Will attempt to wean IV diltiazem and make oral diltiazem 180 mg every 12 hours. Will make metoprolol ER tartrate 25 every 6 and consider higher dosing if needed. May need to consider digoxin.
Antibiotics have now been stopped.
Eventually we will need an alternative strategy for her atrial fibrillation.
Patient with history of symptomatic paroxysmal atrial fibrillation, maintaining sinus rhythm on amiodarone presented to [facility] with cough and shortness of breath and is being treated for pneumonia. Chest CT obtained today shows
evidence of diffuse groundglass opacities and is currently requiring 12 L mid flow oxygen and there is concern for amiodarone pulmonary toxicity.
Progress Note - Inspector Motor Vehicles
Subjective
Date of Service: April 19, 2024:
78-year-old woman with paroxysmal atrial fibrillation who had QT prolongation on dofetilide at higher dose. She was started on amiodarone and there are concerns regarding amiodarone pulmonary toxicity which has been discontinued. Initially treated
with antibiotics which have now been stopped. Patient now in atrial fibrillation with a rapid ventricular response.
PMH: Giant cell arteritis, peripheral neuropathy, relative hypotension, history of inflammatory colitis
Allergies: Dronedarone, dofetilide, sulfa
Current meds: IV diltiazem, apixaban 5 twice daily, diltiazem ER 180 mg a day, metoprolol ER 25 twice daily, methylprednisolone, Atrovent, Xopenex
Currently on high flow, 70%, somewhat tachypneic but no acute distress
129/71, pulse 128, respiratory 30, sats 92%, afebrile, frail, head neck exam unremarkable, lungs are clear, irregular rate and rhythm, rapid, abdomen benign, extremities without significant edema, JVD okay
Chest x-ray with bilateral infiltrates
White count 17.4, hemoglobin 10.6, platelets are 178, BUN and creatinine are 31 and 0.6 with a potassium of 4.6
Objective
Labs:
04/19/24 05:38
04/19/24 05:38
Labs
Hgb 10.6 g/dL (12.0-16.0) L 04/19/24 05:38
Hct 32.4 % (37.0-47.0) L 04/19/24 05:38
Plt Count 178 10^3/uL (130-400) 04/19/24 05:38
Sodium 136 mmol/L (135-145) 04/19/24 05:38
Potassium 4.6 mmol/L (3.5-5.1) 04/19/24 05:38
BUN 31 mg/dl (7-17) H 04/19/24 05:38
Creatinine 0.6 mg/dL (0.6-1.0) 04/19/24 05:38
Glucose 147 mg/dl (70-99) H 04/19/24 05:38
Vital Signs and I&O:
Vital Signs
Temp Pulse Resp BP Pulse Ox
36.9 C 128 30 129/71 92
04/19/24 07:10 04/19/24 09:20 04/19/24 09:19 04/19/24 09:20 04/19/24 09:19
Vital Signs
Temp Pulse Resp BP Pulse Ox
36.9 C 128 30 129/71 92
04/19/24 07:10 04/19/24 09:20 04/19/24 09:19 04/19/24 09:20 04/19/24 09:19
Intake & Output
04/17/24 04/18/24 04/19/24/21/25
07:59 07:59 07:59 07:59
Intake Total 600 / 600 480 / 480 480 / 480
Output Total 500 / 500 500 / 500 500 / 500
Balance 100 / 100 -20 / -20 -20 / -20
Physical Exam
Physical Exam
See above
--- NOTE | 2024-04-19 10:58 | PTCARENOTE ---
Patient's HR at rest was in 110's in a fib on 15 mL/hr of cardizem gtt. Patient stood and pivoted to bedside commode. Patients HR to 140's-150's in a fib. Patient stood and pivoted back to bed. Dr. Pedro Diaz from cardiology made aware. No new
orders at this time. Approx 30 minites after recovering from ambulation patients HR in 120's-130's. Care ongoing.
--- NOTE | 2024-04-19 14:32 | CM ---
Chart reviewed
Remains on high-flow O2 - wean as javy
Cardizem drip increased
PT/OT - recs HH vs SNF - current with [facility]
CM will follow for d/c needs
Plan - anticipate home with HH vs SNF
[2024-04-19] MEDS: COLACE 100 MG PO (18:07)
[2024-04-19] MEDS: SOLU-MEDROL PF 40 MG IV (18:07)
[2024-04-19] MEDS: TYLENOL 650 MG PO (18:07)
--- NOTE | 2024-04-19 19:46 | PTCARENOTE ---
Patient AOX3. Patient is anxious. Patient on high flow throughout shift and titrated as needed by RT. Patient has MCBRIDE. OOB assist x1 to chair. A fib on monitor with periods of NSR. HR in low 100's-120's. On cardizem gtt at 15/hr. Purewick in place.
Patients at bedside. Call gonzalez within reach, bed in lowest position, and bed of wheels locked.
[2024-04-19] MEDS: TOPROL XL 50 MG PO (21:16)
[2024-04-19] MEDS: REMERON 7.5 MG PO (21:17)
[2024-04-19] MEDS: SENNA SYRUP 8.8 MG PO (21:17)
[2024-04-20] VITALS (13 sets, daily range): BP systolic 101–137; BP diastolic 62–90; PULSE 2–94; BMI 18.8
[2024-04-20] MEDS: MYCOSTATIN ORAL SUSPENSION 5 ML PO ×3 (00:09→15:51)
[2024-04-20] MEDS: SOLU-MEDROL PF 40 MG IV ×3 (00:09→15:51)
[2024-04-20] MEDS: CARDIZEM 125 IV (00:16)
--- NOTE | 2024-04-20 05:14 | PTCARENOTE ---
Assumed care for patient overnight, received report from yuridia RN. Pt AAOx3, anxious at times. Pt on highflow and titrated as needed by RT. Pt has NRB bedside for exertional dyspnea, pt denies SOB and no notable increase in WOB. Pt is diminished
throughout, coarse with rhonchi mainly scattered at the bases. Pt OOB to bedside commode with 1x assist. Moderate BM. A-fib on tele. HR is 101, HR down to 90's while sleeping. Cardizem gtt weaned to 5mg/hr to maintain HR 80-100. Pt is
bedside at change of shift. Gave dose of nystatin and educated on oral care following respiratory treatments. Call gonzalez is within reach.
[2024-04-20] MEDS: SYNTHROID 150 MCG PO (05:54)
[2024-04-20] MEDS: MYCOSTATIN ORAL SUSPENSION PO ×2 (05:55→19:54)
[2024-04-20 07:09] LABS: % Basophils 0.1 % (0-2); % Immature Granulocytes 1.3 % (0-0.5); % Lymphocytes 3.2 % (20.5-51.1); % Monocytes 4.2 % (1.7-9.3); % Neutrophils 91.2 % (42.2-75.2); Absolute Immature Granulocytes 0.2 10^3/uL (0-0.05); Absolute Lymphocytes 0.5 10^3/uL (1.2-3.4); Absolute Monocytes 0.7 10^3/uL (0.1-0.6); Absolute Neutrophils 14.5 10^3/uL (1.4-6.5); Hematocrit 32.7 % (37.0-47.0); Hemoglobin 10.8 g/dL (12.0-16.0); Mean Corpuscular Volume 90.8 fL (81.0-99.0); Mean Platelet Volume 8.3 fL (7.4-10.4); Nucleated Red Blood Cells % 0 %; Platelet Count 163 10^3/uL (130-400); Red Cell Dist. Width 17.6 % (11.5-14.5); White Blood Cell Count 15.9 10^3/uL (4.8-10.8)
[2024-04-20] MEDS: ATROVENT NEBULES 0.5 MG INH ×3 (07:31→19:55)
[2024-04-20] MEDS: XOPENEX 1.25 MG INHALANT SOLUTION INH ×3 (07:31→19:55)
[2024-04-20 07:39] LABS: ALT (SGPT) 25 U/L (0-35); AST (SGOT) 27 U/L (14-36); Albumin 3.1 g/dl (3.5-5.0); Alkaline Phosphatase 106 U/L (38-126); Blood Urea Nitrogen 30 mg/dl (7-17); Carbon Dioxide 31 mmol/L (22-30); Chloride 100 mmol/L (98-107); Estimated Creatinine Clearance 67 ml/min; Glucose 136 mg/dl (70-99); Sodium 136 mmol/L (135-145); Total Bilirubin 0.3 mg/dl (0.2-1.3); eGFR > 60.00
--- NOTE | 2024-04-20 08:07 | PTCARENOTE ---
Attempted to get pt OOB to BSC, desating to 88% with HF and NRB HR 120 rr 38 , Pt back in bed and using bedpan, Pt instructed no OOB today she is to consrve energy.
[2024-04-20] MEDS: CARDIZEM CD 180 MG PO ×2 (08:46→19:58)
[2024-04-20] MEDS: TOPROL XL 50 MG PO ×2 (08:47→11:23)
[2024-04-20] MEDS: ELIQUIS 5 MG PO ×2 (08:47→19:58)
[2024-04-20] MEDS: THERAGRAN 1 TABLET PO (08:48)
[2024-04-20] MEDS: OSCAL 500 + D 500 MG PO (08:48)
[2024-04-20] MEDS: VITAMIN D3 (cholecalciferol) 50 MCG PO (08:48)
[2024-04-20] MEDS: MIRALAX 17 GRAMS PO (08:49)
--- NOTE | 2024-04-20 08:56 | PTCARENOTE ---
Pt eating breakfast , anxious . Hf 60% 50 liters. Using NRB as needed
--- NOTE | 2024-04-20 09:15 | W.PN.PUL3 ---
Today's Communication / Plan
-
Remains on HFNC with slow progress
She remains sedentary with little to no effort on IS
Needs OOB to chair, PT eval
Continue IV steroids, with slow taper
Nebs TID
Afib management per team
Assessment
-
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
low O2 at home (SpO2 in the 80s). She was recently in the ER on 04/10/2024 with a dry cough x 2 weeks/oxygen was 89% at home/CXR showed diffuse opacification concerning for GGO/hazy RLL opacification/biapical scarring. CT chest on 04/16/2024 showed
a 5.7 cm long pneumatosis in the right lung apex with extensive diffuse bilateral patchy and confluent groundglass opacities with bronchial wall thickening and traction bronchiectasis in the posterior upper lobes and mild hilar adenopathy.
Initially in the ER she was afebrile, hemodynamically stable but saturating 84% on room air which increased to 98% with 3 L/min. She was initially started on her home dose of prednisone and given antibiotics due to possible atypical pneumonia.
Infectious workup was negative. She continued to have worsening hypoxia, and amiodarone was stopped and steroids were raised to Solu-Medrol 60 mg IV q6hr, and she was transferred to the IMU for further care. Pulmonary service now consulted for
additional management/recommendations.
Impression:
#Acute respiratory failure with hypoxia due to ILD
#Interstitial lung disease with chronic diffuse subpleural reticular opacities without honeycombing, now with diffuse groundglass opacities suspicious for an acute process overlying chronic ILD
- Differential includes NSIP, hypersensitivity pneumonitis, amiodarone toxicity (less likely given only been off for 6 weeks) acute eosinophilic pneumonia, organizing pneumonia (less likely), & sarcoidosis; less likely infection and less likely PAP
(no crazy paving)
#5.7 cm pneumatosis in the right lung apex seen on CT chest from 04/16/2024
#Leukocytosis likely reactive as well as steroid induced
#Anemia
#Hyponatremia
#Hypoalbuminemia
#History of recurrent A-fib on chronic amiodarone (load started on 02/27/2024) + Eliquis, previously on Tikosyn (last cardioversion on 02/24/2024)
#History of lung nodule (rounded opacity in the superior right lower lobe and 5 mm nodule in the right lower lobe seen on prior CT chest from July 2016)
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
History of giant cell arteritis on chronic prednisone (20 mg daily)
Recurrent A-fib on amiodarone + Eliquis
Chronic hyponatremia
Peripheral neuropathy
GERD
Hypothyroidism
History of SVT/flutter
History of ablation/PVI
Pulmonary nodule
Urinary retention with Shanks catheter
Plan
Currently on HFNC 60%, 40LPM--wean as tolerated
She has poor effort on IS, not getting OOB--reviewed this with her at bedside
I reviewed this again with her and she reports she wants to 'give up'
Imaging reviewed which may be subacute/chronic
Regardless of the etiology of her ILD, there is diffuse groundglass opacification and she should be steroid responsive
Given that she was on amiodarone, would hold this for now given possible toxicity (although less likely given she has only been on it for about 7 weeks)
Ideally would check a broad rheumatological panel but now that she is on systemic steroids this is likely going to be falsely negative
CRP levels were very high (207.2 -04/16/2024), indicating that an inflammatory pneumonitis is happening and not a bacterial pneumonia
Procalcitonin of 0.16 (04/14/2024)
Initially covered empirically with antibiotics (currently on cefepime/Zithromax) but if she remains afebrile with negative cultures by 48 hours then would stop antibiotics at that time
Sputum culture neg 04/14, blood culture neg x 2
Flu neg, MRSA neg, PCT neg
Can stop abx
Empiric steroids -- Solu-Medrol at 60 mg IV q6hr, weaned to 40mg q8
Will wean every other day
Repeat CXR appears similar
She will need repeat imaging in about 6-8 weeks
Consideration for further outpatient w/u including biopsy, likely starting with bronchoscopy for transbronchial biopsy vs surgical biopsy
Maintain SpO2 >90-94% with supplemental O2 and wean as tolerated
Increase OOB, IS, PT
ECHO with stable function, proBNP 630
Given that she went into rapid A-fib earlier this morning, change DuoNebs to Xopenex + Atrovent TID
Although the amiodarone has been keeping her in NSR, given her acute hypoxia with possible amiodarone induced toxicity, need to hold amiodarone at this time
Previously was on Tikosyn but had symptomatic A-fib with RVR despite being on max dose of Tikosyn -- transitioned to amiodarone s/p load 02/27/2024
Continue with Eliquis and monitor for recurrence of A-fib as she is currently in NSR
Cardiology on board and recommendations appreciated
DVT ppx: Eliquis
Pulmonary service will continue to follow along.
We will arrange for outpatient pulmonary office follow-up once discharged.
Data:
CXR 04/18/24- Persistent diffuse bilateral interstitial and heterogeneous patchy and confluent groundglass airspace opacity is again demonstrated. Slight progression, especially in the lung bases. However, no focal dense consolidation.
CT chest with IV contrast 04/16/2024: Extensive diffuse bilateral pulmonary parenchymal groundglass opacity. Associated mild adenopathy, likely reactive. No pleural effusion. There is a broad differential, which may include infection (usually
atypical), interstitial edema, diffuse alveolar damage, hypersensitivity pneumonitis, and acute eosinophilic pneumonia. Other possible considerations may include aspiration or hemorrhage. In the chronic setting, consider nonspecific interstitial
pneumonia, desquamative interstitial pneumonia/respiratory bronchiolitis, sarcoidosis, or alveolar proteinosis.
ECHO 04/16/24- 1. Left ventricle: Normal size and function with an estimated ejection fraction of 55-60%. Normal diastolic function
2. Right ventricle: Normal right ventricular size and function.
3. Atria: Normal
4. Mitral valve: Mild mitral regurgitation
5. Aortic valve: No aortic stenosis or aortic insufficiency
6. Tricuspid valve: Mild tricuspid regurgitation with estimated pulmonary artery systolic pressure of 20-25 mmHg
-----
Total time spent today was 51 minutes for this encounter. Time includes reviewing laboratory test/imaging results, reviewing pertinent medical records, obtaining and reviewing medical history, performing an appropriate exam, ordering medications,
tests and procedures. Time also includes documentation of this encounter, coordinating patient care and communicating with other healthcare professionals. Total time does not include separately billed tests performed on this date of service.
Subjective Data
-
Date of Service:
Date of Service: April 20, 2024
Chief Complaint: Pulmonary Follow Up
Subjective:
remains on hfnc, not using her incentive
not getting OOB
she feels like 'giving up'
Objective Data
Data Reviewed
Vital Signs / I&O / Oxygen:
Vital Signs
Temp Pulse Resp BP Pulse Ox
97.9 F 108 18 137/78 93
04/20/24 07:05 04/20/24 08:47 04/20/24 07:34 04/20/24 08:47 04/20/24 07:34
Intake and Output
04/19/24 04/20/24 04/21/24
06:59 06:59 06:59
Intake Total 480 / 480 480 / 480
Output Total 500 / 500 400 / 400
Balance -20 / -20 80 / 80
SaO2 93
Nasal Cannula flow liters per 50
minute
Physical Exam
General: Respiratory Distress (mild), Comfortable, Chills (negative) and Sweats (negative)
HEENT: Normocephalic and Anicteric
Cardiovascular: S1-S2, Rub (negative) and Peripheral Edema (negative)
Respiratory: Clear, Wheeze (negative) and Accessory Resp Muscle Use (mild)
GI: Soft, Non Distended, Non Tender and Normal Bowel Sounds
Neurology: AO x 3 and Tremors (negative)
Skin: Warm, Dry, Cyanosis (negative) and Jaundice (negative)
Labs/Micro/Reports
Lab Data
04/20/24 06:43
04/20/24 06:43
Microbiology
04/16/24 08:48 Blood/Venous Blood Culture - Preliminary
No Growth in 4 days- Final report to follow
04/14/24 21:21 Blood/Venous Blood Culture - Final
No Growth - Final Report
04/14/24 11:59 Sputum Respiratory Culture - Final
Usual Respiratory Opal
04/14/24 11:59 Sputum Gram Stain - Final
--- NOTE | 2024-04-20 09:35 | W.PN.CARDCBS ---
Today's Communication / Plan
-
Increase metoprolol
Add digoxin
Stop IV diltiazem
Check proBNP and chest x-ray
Impression / Plan
-
Primary Rigging Up Man: Dr. Dawson
Primary EP: Dr. Llanes
Patient is a 78-year-old female with past medical history of symptomatic paroxysmal atrial fibrillation. She was initially admitted 02/16 - 02/19/2024 and started on Tikosyn 250 mcg every 12 hours. She then recurred shortly thereafter and
presented back to [facility] 02/21 her Tikosyn was uptitrated to 500 mcg every 12 hours however she continued to have breakthrough and Tikosyn was stopped and after washout was started on amiodarone therapy. This has been successful for
patient and maintaining sinus rhythm. She reports she has had no feelings of palpitations. Recently she states she developed cough. She was seen in the ER 04/10/2024 and diagnosed with pneumonia and started on treatment. She reports her symptoms
persisted with worsening cough and shortness of breath and she returned to the ER on 04/14/2024. COVID, flu, Legionella negative. Currently requiring 12 L mid flow oxygen. She underwent chest CT which showed extensive diffuse bilateral pulmonary
parenchymal groundglass opacities and there is concern for Amio pulmonary toxicity therefore her amiodarone has been stopped. Pulmonary to evaluate patient. Cardiology consulted for assistance with A-fib management in the setting of this. She is
in sinus rhythm at this time.
Assessment:
Presentation with cough, SOB
Acute hypoxic respiratory failure
Concern for PNA
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
Hyponatremia
Paroxysmal afib
Hx of SVT/afib/flutter ablation 08/2016
repeat PVI 12/10/22
breakthrough on tikosyn
amiodarone therapy started 02/2024
Chronic OAC with eliquis
Hx Relative hypotension
3 week admission to [facility] for inflammatory colitis 01/05-01/27/24 s/p flex sigmoidoscopy with biopsy 01/13/24
Hx urinary retention
GCA
Peripheral neuropathy
Hypothyroidism
GERD
History of pulmonary nodules
Hyponatremia
Vitamin D deficiency
Echo 05/17/2022: EF 60%, mild biatrial enlargement. Mild tricuspid regurgitation
Echo 04/16/2024: EF 55-60% mild MR and mild TR estimated pulmonary artery pressure of 25 mmHg
Plan:
She is more short of breath at present. Now on nonrebreather plus high flow with sats in the low 90s and she desaturates with minimal movement. Some concerns that she may be developing acute HFpEF. Also need to exclude progression of infiltrates.
Check chest x-ray and proBNP, consider diuretic if needed.
Patient had better rate control yesterday, IV diltiazem was stopped and oral diltiazem had been increased, through the night heart rate was controlled but started to rise and now back on IV diltiazem. Will add digoxin and increase metoprolol. Try
to stop IV diltiazem again.
She is off antibiotics.
Presumptive diagnosis remains amiodarone pulmonary toxicity. We need to exclude other diagnoses.
Patient with history of symptomatic paroxysmal atrial fibrillation, maintaining sinus rhythm on amiodarone presented to [facility] with cough and shortness of breath and is being treated for pneumonia. Chest CT obtained today shows
evidence of diffuse groundglass opacities and is currently requiring 12 L mid flow oxygen and there is concern for amiodarone pulmonary toxicity.
Progress Note - Rigging Up Man
Subjective
Date of Service: April 20, 2024:
Medications: IV diltiazem, restarted last night, apixaban 5 mg p.o. twice daily, urea, Colace, MiraLAX, levothyroxine 150 mcg daily, nystatin,, multivitamins, Atrovent, Xopenex, diltiazem 180 mg p.o. twice daily, metoprolol succinate 50 mg p.o.
twice daily, Solu-Medrol
137/78, pulse 108, respiratory rate 18, afebrile, sats 93%, weight is 52.9 kg, essentially changed, more distress, lungs with some rhonchi, JVD hard to assess, tachycardic, no obvious murmurs, not much edema
White count of 15.9, hemoglobin 10.8, platelets 163, BUN and creatinine are 30 and 0.6,, proBNP was 630 on admission
Objective
Labs:
04/20/24 06:43
04/20/24 06:43
Labs
Hgb 10.8 g/dL (12.0-16.0) L 04/20/24 06:43
Hct 32.7 % (37.0-47.0) L 04/20/24 06:43
Plt Count 163 10^3/uL (130-400) 04/20/24 06:43
Sodium 136 mmol/L (135-145) 04/20/24 06:43
Potassium 4.0 mmol/L (3.5-5.1) 04/20/24 06:43
BUN 30 mg/dl (7-17) H 04/20/24 06:43
Creatinine 0.6 mg/dL (0.6-1.0) 04/20/24 06:43
Glucose 136 mg/dl (70-99) H 04/20/24 06:43
Vital Signs and I&O:
Vital Signs
Temp Pulse Resp BP Pulse Ox
36.6 C 108 18 137/78 93
04/20/24 07:05 04/20/24 08:47 04/20/24 07:34 04/20/24 08:47 04/20/24 07:34
Vital Signs
Temp Pulse Resp BP Pulse Ox
36.6 C 108 18 137/78 93
04/20/24 07:05 04/20/24 08:47 04/20/24 07:34 04/20/24 08:47 04/20/24 07:34
Intake & Output
01/19/25 01/20/25 01/21/25 01/22/25
07:59 07:59 07:59 07:59
Intake Total 480 / 480 480 / 480 480 / 480
Output Total 500 / 500 500 / 500 400 / 400
Balance -20 / -20 -20 / -20 80 / 80
Physical Exam
Physical Exam
See above
--- NOTE | 2024-04-20 11:01 | W.PN.HOSP.TC ---
Today's Communication/Plan
-
Wean oxygen as able
Wean Cardizem drip
Continue steroids
Assessment / Plan
Assessment / Plan
Gen-AAOx3, NAD
HEENT-NC, AT, anicteric, clear oral mm
Neck-supple
CV-reg, no M, +S1/S2
Lungs-diminished breath sounds bilaterally
Abd-soft, NT, ND
Ext-no edema
Musculoskeletal-no cyanosis, clubbing
Skin-warm and dry
Neuro-grossly non-focal
Psych-calm, cooperative
Acute hypoxic respiratory failure -still on high flow nasal cannula oxygen, 60 L, 50% FiO2. Oxygen saturation 89%. Etiology suspected to be due to pneumonitis, possible hypersensitivity pneumonitis. Doubt pneumonia. Now off antibiotics.
Received 5 days of empiric antibiotics.
� MRSA, flu, COVID, Legionella, strep pneumo negative. Blood cultures negative.
� Wean O2 as tolerated, goal O2 greater than 92%
� DuoNebs
� IV Solu-Medrol per pulmonary, started 04/16. Dose reduced yesterday.
� Stop amiodarone�even though started in February 2024, with pulmonary pathology and risk of lung toxicity benefits outweigh risks of holding. Cardiology consulted
� ESR, CRP elevated; eosinophils within normal limits. ILSA vitals pending
� Incentive spirometry, Acapella
�Pulmonary following
Sepsis -resolved.
Hyponatremia -sodium improved to 136.
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
� Continue urea
� Has history of chronic hyponatremia
� Free water restriction
Paroxysmal atrial fibrillation -with RVR
� Continue Toprol, Cardizem drip currently at 5 mg an hour. Rates are slowly improving. Toprol-XL dose increased, Cardizem CD 180 mg twice daily per cardiology. Wean Cardizem drip off.
� Continue Eliquis
� Stopped amiodarone, follow cardiology recommendations
5.7 cm focal lung pneumatosis in the right lung apex
� Continue to monitor
Giant cell arteritis
Chronic leukocytosis
� Continue steroid dosing, currently on this dosing for over 1 month
Chronic normocytic anemia
-Monitor hemoglobin
� No obvious acute blood loss anemia
GERD
-famotidine
Hypothyroidism
- Cont home levothyroxine
DVT prophylaxis
-Eliquis
Full code
PT/OT
Anticipated Discharge: > 48 hours
Subjective/Interval History
-
Date of Service: April 20, 2024
Patient seen and examined. Still with significant shortness of breath on exertion.
Objective Data
-
Labs:
Laboratory Results
04/20/24
06:43
WBC 15.9 H
Hgb 10.8 L
Hct 32.7 L
Plt Count 163
Sodium 136
Potassium 4.0
Chloride 100
Carbon Dioxide 31 H
BUN 30 H
Creatinine 0.6
Glucose 136 H
Calcium 9.0
Total Bilirubin 0.3
AST 27
ALT 25
Alkaline Phosphatase 106
Vital Signs:
Vital Signs
Temp Pulse Resp BP Pulse Ox
97.9 F 108 18 137/78 89
04/20/24 07:05 04/20/24 08:47 04/20/24 07:34 04/20/24 08:47 04/20/24 08:00
I&O
04/19/24 04/20/24 04/21/24
06:59 06:59 06:59
Intake Total 480 / 480 480 / 480
Output Total 500 / 500 400 / 400
Balance -20 / -20 80 / 80
Review of Systems
-
History Source: Patient
All other systems: Reviewed and negative
[2024-04-20] MEDS: LANOXIN 250 MCG IV ×2 (11:24→21:46)
[2024-04-20 12:54] LABS: NT-proBNP 2850 pg/ml
[2024-04-20] MEDS: COLACE 100 MG PO (18:16)
[2024-04-20] MEDS: LASIX 20 MG IV (19:57)
[2024-04-20] MEDS: KCL 20 MEQ PO (19:57)
[2024-04-20] MEDS: TOPROL XL 100 MG PO (19:58)
[2024-04-20] MEDS: REMERON 7.5 MG PO (21:47)
[2024-04-21] VITALS (16 sets, daily range): BP systolic 107–152; BP diastolic 55–113; PULSE 103; O2SAT 94; BMI 18.5
[2024-04-21] MEDS: SOLU-MEDROL PF 40 MG IV ×3 (00:08→17:04)
[2024-04-21] MEDS: MYCOSTATIN ORAL SUSPENSION PO ×4 (00:08→17:04)
--- NOTE | 2024-04-21 00:24 | PTCARENOTE ---
Pt AAOx3, anxious at times. Pt on highflow. O2 sat 98% no signs of increase WOB pt denies SOB. Pt back into bed from the chair, became tachypneic, utilized NRB for recovery. Diminished throughout coarse with rhonchi scattered at the bases. A-fib on
tele. HR 84. Administered scheduled digoxin. Pt and son bedside at change of shift. Call gonzalez is within reach.
[2024-04-21] MEDS: SYNTHROID 150 MCG PO (05:48)
[2024-04-21] MEDS: ATROVENT NEBULES 0.5 MG INH ×3 (07:25→19:12)
[2024-04-21] MEDS: XOPENEX 1.25 MG INHALANT SOLUTION INH ×3 (07:25→19:12)
--- NOTE | 2024-04-21 08:39 | W.PN.PUL3 ---
Today's Communication / Plan
-
Remains on HFNC, slow progress
She remains on IV steroids/lasix
Repeat CXRs are similar, can repeat again if she clinically changes
Encouraged further OOB/PT/OT
Assessment
-
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
low O2 at home (SpO2 in the 80s). She was recently in the ER on 04/10/2024 with a dry cough x 2 weeks/oxygen was 89% at home/CXR showed diffuse opacification concerning for GGO/hazy RLL opacification/biapical scarring. CT chest on 04/16/2024 showed
a 5.7 cm long pneumatosis in the right lung apex with extensive diffuse bilateral patchy and confluent groundglass opacities with bronchial wall thickening and traction bronchiectasis in the posterior upper lobes and mild hilar adenopathy.
Initially in the ER she was afebrile, hemodynamically stable but saturating 84% on room air which increased to 98% with 3 L/min. She was initially started on her home dose of prednisone and given antibiotics due to possible atypical pneumonia.
Infectious workup was negative. She continued to have worsening hypoxia, and amiodarone was stopped and steroids were raised to Solu-Medrol 60 mg IV q6hr, and she was transferred to the IMU for further care. Pulmonary service now consulted for
additional management/recommendations.
Impression:
#Acute respiratory failure with hypoxia due to ILD
#Interstitial lung disease with chronic diffuse subpleural reticular opacities without honeycombing, now with diffuse groundglass opacities suspicious for an acute process overlying chronic ILD
- Differential includes NSIP, hypersensitivity pneumonitis, amiodarone toxicity (less likely given only been off for 6 weeks) acute eosinophilic pneumonia, organizing pneumonia (less likely), & sarcoidosis; less likely infection and less likely PAP
(no crazy paving)
#5.7 cm pneumatosis in the right lung apex seen on CT chest from 04/16/2024
#Leukocytosis likely reactive as well as steroid induced
#Anemia
#Hyponatremia
#Hypoalbuminemia
#History of recurrent A-fib on chronic amiodarone (load started on 02/27/2024) + Eliquis, previously on Tikosyn (last cardioversion on 02/24/2024)
#History of lung nodule (rounded opacity in the superior right lower lobe and 5 mm nodule in the right lower lobe seen on prior CT chest from July 2016)
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
History of giant cell arteritis on chronic prednisone (20 mg daily)
Recurrent A-fib on amiodarone + Eliquis
Chronic hyponatremia
Peripheral neuropathy
GERD
Hypothyroidism
History of SVT/flutter
History of ablation/PVI
Pulmonary nodule
Urinary retention with Shanks catheter
Plan
Currently on HFNC 60%, 50LPM--wean as tolerated
She has poor effort on IS, not getting OOB--reviewed this with her at bedside
I reviewed this again with her and she reports she wants to 'give up'
Imaging reviewed which may be subacute/chronic
Regardless of the etiology of her ILD, there is diffuse groundglass opacification and she should be steroid responsive
Given that she was on amiodarone, would hold this for now given possible toxicity (although less likely given she has only been on it for about 7 weeks)
Ideally would check a broad rheumatological panel but now that she is on systemic steroids this is likely going to be falsely negative
CRP levels were very high (207.2 -04/16/2024), indicating that an inflammatory pneumonitis is happening and not a bacterial pneumonia
Procalcitonin of 0.16 (04/14/2024)
Initially covered empirically with antibiotics (currently on cefepime/Zithromax) but if she remains afebrile with negative cultures by 48 hours then would stop antibiotics at that time
Sputum culture neg 04/14, blood culture neg x 2
Flu neg, MRSA neg, PCT neg
Can stop abx
Empiric steroids -- Solu-Medrol at 60 mg IV q6hr, weaned to 40mg q8
Will wean every other day
Repeat CXR appears similar
She will need repeat imaging in about 6-8 weeks
Consideration for further outpatient w/u including biopsy, likely starting with bronchoscopy for transbronchial biopsy vs surgical biopsy
Maintain SpO2 >90-94% with supplemental O2 and wean as tolerated
Increase OOB, IS, PT
ECHO with stable function, proBNP 630
Given that she went into rapid A-fib earlier this morning, change DuoNebs to Xopenex + Atrovent TID
Although the amiodarone has been keeping her in NSR, given her acute hypoxia with possible amiodarone induced toxicity, need to hold amiodarone at this time
Previously was on Tikosyn but had symptomatic A-fib with RVR despite being on max dose of Tikosyn -- transitioned to amiodarone s/p load 02/27/2024
Continue with Eliquis and monitor for recurrence of A-fib as she is currently in NSR
Cardiology on board and recommendations appreciated
DVT ppx: Eliquis
Pulmonary service will continue to follow along.
We will arrange for outpatient pulmonary office follow-up once discharged.
Data:
CXR 04/18/24- Persistent diffuse bilateral interstitial and heterogeneous patchy and confluent groundglass airspace opacity is again demonstrated. Slight progression, especially in the lung bases. However, no focal dense consolidation.
CT chest with IV contrast 04/16/2024: Extensive diffuse bilateral pulmonary parenchymal groundglass opacity. Associated mild adenopathy, likely reactive. No pleural effusion. There is a broad differential, which may include infection (usually
atypical), interstitial edema, diffuse alveolar damage, hypersensitivity pneumonitis, and acute eosinophilic pneumonia. Other possible considerations may include aspiration or hemorrhage. In the chronic setting, consider nonspecific interstitial
pneumonia, desquamative interstitial pneumonia/respiratory bronchiolitis, sarcoidosis, or alveolar proteinosis.
ECHO 04/16/24- 1. Left ventricle: Normal size and function with an estimated ejection fraction of 55-60%. Normal diastolic function
2. Right ventricle: Normal right ventricular size and function.
3. Atria: Normal
4. Mitral valve: Mild mitral regurgitation
5. Aortic valve: No aortic stenosis or aortic insufficiency
6. Tricuspid valve: Mild tricuspid regurgitation with estimated pulmonary artery systolic pressure of 20-25 mmHg
-----
Total time spent today was 51 minutes for this encounter. Time includes reviewing laboratory test/imaging results, reviewing pertinent medical records, obtaining and reviewing medical history, performing an appropriate exam, ordering medications,
tests and procedures. Time also includes documentation of this encounter, coordinating patient care and communicating with other healthcare professionals. Total time does not include separately billed tests performed on this date of service.
Subjective Data
-
Date of Service:
Date of Service: April 21, 2024
Chief Complaint: Pulmonary Follow Up
Subjective:
Remains on HFNC, slow progress
Has not gotten OOB much
Objective Data
Data Reviewed
Vital Signs / I&O / Oxygen:
Vital Signs
Temp Pulse Resp BP Pulse Ox
97.7 F 92 18 127/82 97
04/21/24 07:05 04/21/24 06:00 04/21/24 07:27 04/21/24 06:00 04/21/24 07:27
Intake and Output
04/20/24 04/21/24 04/22/24
06:59 06:59 06:59
Intake Total 480 / 480 180 / 180
Output Total 400 / 400 700 / 700
Balance 80 / 80 -520 / -520
SaO2 97
Nasal Cannula flow liters per 50
minute
Physical Exam
General: Respiratory Distress (mild), Comfortable, Chills (negative) and Sweats (negative)
HEENT: Normocephalic and Anicteric
Cardiovascular: S1-S2, Rub (negative) and Peripheral Edema (negative)
Respiratory: Clear, Wheeze (negative) and Accessory Resp Muscle Use (mild)
GI: Soft, Non Distended, Non Tender and Normal Bowel Sounds
Neurology: AO x 3 and Tremors (negative)
Skin: Warm, Dry, Cyanosis (negative) and Jaundice (negative)
Labs/Micro/Reports
Lab Data
04/20/24 06:43
04/20/24 06:43
Microbiology
04/16/24 08:48 Blood/Venous Blood Culture - Preliminary
No Growth in 4 days- Final report to follow
04/14/24 21:21 Blood/Venous Blood Culture - Final
No Growth - Final Report
04/14/24 11:59 Sputum Respiratory Culture - Final
Usual Respiratory Opal
04/14/24 11:59 Sputum Gram Stain - Final
--- NOTE | 2024-04-21 08:41 | CM ---
CM reviewed chart- ADC >48 hours
Pt remains in the IMU with high flow oxygen needs
PT on hold due to respiratory status
Prior eval recs of VN vs SNF
CM will continue to follow pt for dc planning
Discharge Disposition- TBD, VN vs SNF
[2024-04-21] MEDS: FLUSH (NSS) 1 FLUSH IV ×2 (09:03→11:34)
[2024-04-21] MEDS: MIRALAX 17 GRAMS PO (09:04)
[2024-04-21] MEDS: OSCAL 500 + D 500 MG PO (09:05)
[2024-04-21] MEDS: CARDIZEM CD 180 MG PO ×2 (09:05→20:14)
[2024-04-21] MEDS: ELIQUIS 5 MG PO ×2 (09:05→20:16)
[2024-04-21] MEDS: TOPROL XL 100 MG PO ×2 (09:06→20:16)
[2024-04-21] MEDS: THERAGRAN 1 TABLET PO (09:06)
[2024-04-21] MEDS: VITAMIN D3 (cholecalciferol) 50 MCG PO (09:07)
[2024-04-21] MEDS: URE-NA 15 GRAMS PO (09:29)
--- NOTE | 2024-04-21 09:31 | W.PN.CARDCBS ---
Today's Communication / Plan
-
Continue to treat for amiodarone lung toxicity with steroids
Will treat for acute diastolic CHF with IV Lasix
Heart rate control suboptimal but reasonable on Toprol, dig, Cardizem
Impression / Plan
-
Primary Trust Officer: Dr. Dawson
Primary EP: Dr. Llanes
Patient is a 78-year-old female with past medical history of symptomatic paroxysmal atrial fibrillation. She was initially admitted 02/16 - 02/19/2024 and started on Tikosyn 250 mcg every 12 hours. She then recurred shortly thereafter and
presented back to [facility] 02/21 her Tikosyn was uptitrated to 500 mcg every 12 hours however she continued to have breakthrough and Tikosyn was stopped and after washout was started on amiodarone therapy. This has been successful for
patient and maintaining sinus rhythm. She reports she has had no feelings of palpitations. Recently she states she developed cough. She was seen in the ER 04/10/2024 and diagnosed with pneumonia and started on treatment. She reports her symptoms
persisted with worsening cough and shortness of breath and she returned to the ER on 04/14/2024. COVID, flu, Legionella negative. Currently requiring 12 L mid flow oxygen. She underwent chest CT which showed extensive diffuse bilateral pulmonary
parenchymal groundglass opacities and there is concern for Amio pulmonary toxicity therefore her amiodarone has been stopped. Pulmonary to evaluate patient. Cardiology consulted for assistance with A-fib management in the setting of this. She is
in sinus rhythm at this time.
Assessment:
Presentation with cough, SOB
Acute hypoxic respiratory failure
Concern for PNA
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
Hyponatremia
Paroxysmal afib
Hx of SVT/afib/flutter ablation 08/2016
repeat PVI 12/10/22
breakthrough on tikosyn
amiodarone therapy started 02/2024
Chronic OAC with eliquis
Hx Relative hypotension
3 week admission to [place] for inflammatory colitis 01/05-01/27/24 s/p flex sigmoidoscopy with biopsy 01/13/24
Hx urinary retention
GCA
Peripheral neuropathy
Hypothyroidism
GERD
History of pulmonary nodules
Hyponatremia
Vitamin D deficiency
Echo 05/17/2022: EF 60%, mild biatrial enlargement. Mild tricuspid regurgitation
Echo 04/16/2024: EF 55-60% mild MR and mild TR estimated pulmonary artery pressure of 25 mmHg
Plan:
Remains on high flow oxygen
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
Continue steroids
Will give IV Lasix now and do daily Lasix dosing
Heart rate control in A-fib remains suboptimal but acceptable. Continue diltiazem, Toprol, digoxin
Discussed with nursing at bedside. Change fluid restriction to 1.8 L
Patient with history of symptomatic paroxysmal atrial fibrillation, maintaining sinus rhythm on amiodarone presented to [facility] with cough and shortness of breath and is being treated for pneumonia. Chest CT obtained today shows
evidence of diffuse groundglass opacities and is currently requiring 12 L mid flow oxygen and there is concern for amiodarone pulmonary toxicity.
Progress Note - Trust Officer
Subjective
Date of Service: April 21, 2024
No complaints. Remains on high flow oxygen
Objective
Labs:
04/20/24 06:43
04/20/24 06:43
Labs
Hgb 10.8 g/dL (12.0-16.0) L 04/20/24 06:43
Hct 32.7 % (37.0-47.0) L 04/20/24 06:43
Plt Count 163 10^3/uL (130-400) 04/20/24 06:43
Sodium 136 mmol/L (135-145) 04/20/24 06:43
Potassium 4.0 mmol/L (3.5-5.1) 04/20/24 06:43
BUN 30 mg/dl (7-17) H 04/20/24 06:43
Creatinine 0.6 mg/dL (0.6-1.0) 04/20/24 06:43
Glucose 136 mg/dl (70-99) H 04/20/24 06:43
Vital Signs and I&O:
Vital Signs
Temp Pulse Resp BP Pulse Ox
97.7 F 92 18 127/82 97
04/21/24 07:05 04/21/24 06:00 04/21/24 07:27 04/21/24 06:00 04/21/24 07:27
Vital Signs
Temp Pulse Resp BP Pulse Ox
97.7 F 92 18 127/82 97
04/21/24 07:05 04/21/24 06:00 04/21/24 07:27 04/21/24 06:00 04/21/24 07:27
Intake & Output
04/19/24 04/20/24 04/21/24 04/22/24
06:59 06:59 06:59 06:59
Intake Total 480 / 480 480 / 480 180 / 180
Output Total 500 / 500 400 / 400 700 / 700
Balance -20 / -20 80 / 80 -520 / -520
Physical Exam
Physical Exam
General: Well developed, well nourished in NAD.
Neck: Supple, no JVD, HJR, carotids +2 B/L, no bruits bilaterally.
Heart: Non displaced PMI, irregular, no murmurs, No S3, S4, no rubs.
Lungs: Scattered rhonchi throughout
Abdomen: Normal bowel sounds, soft, non-tender, non-distended.
Extremities: No clubbing, cyanosis or edema bilaterally.
Neuro: Grossly nonfocal, awake, alert and oriented x3.
--- NOTE | 2024-04-21 10:32 | W.PN.HOSP.TC ---
Addendum entered and electronically signed by Jamey Graham DO 04/21/24 10:48:
Updated patient's on the phone. All questions answered.
Original Note:
Today's Communication/Plan
-
Continue current care
Assessment / Plan
Assessment / Plan
Gen-AAOx3, NAD
HEENT-NC, AT, anicteric, clear oral mm
Neck-supple
CV-reg, no M, +S1/S2
Lungs-diminished breath sounds bilaterally
Abd-soft, NT, ND
Ext-no edema
Musculoskeletal-no cyanosis, clubbing
Skin-warm and dry
Neuro-grossly non-focal
Psych-calm, cooperative
Acute hypoxic respiratory failure -still on high flow nasal cannula oxygen, 60 L, 50% FiO2. Oxygen saturation 89%. Etiology suspected to be due to pneumonitis, possible hypersensitivity pneumonitis, ILD. Doubt pneumonia. Now off antibiotics.
Received 5 days of empiric antibiotics. Cardiology has initiated IV Lasix for possibility of pulmonary edema. Note that elevated BNP is nonspecific and can be due to both heart failure as well as lung pathology.
� MRSA, flu, COVID, Legionella, strep pneumo negative. Blood cultures negative.
� Wean O2 as tolerated, goal O2 greater than 92%
� DuoNebs
� IV Solu-Medrol per pulmonary, started 04/16.
� Stop amiodarone�even though started in February 2024, with pulmonary pathology and risk of lung toxicity benefits outweigh risks of holding. Cardiology consulted
� ESR, CRP elevated; eosinophils within normal limits.
� Incentive spirometry, Acapella
�Pulmonary following
Reviewed with patient that her hospital course will likely be prolonged due to slow recovery.
Sepsis -resolved.
Hyponatremia -sodium improved to 136.
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
� Continue urea
� Has history of chronic hyponatremia
� Free water restriction
Paroxysmal atrial fibrillation -with RVR
� Continue Toprol, Cardizem drip currently at 5 mg an hour. Rates are slowly improving. Toprol-XL dose increased, Cardizem CD 180 mg twice daily per cardiology. Wean Cardizem drip off.
� Continue Eliquis
� Stopped amiodarone, follow cardiology recommendations
5.7 cm focal lung pneumatosis in the right lung apex
� Continue to monitor
Giant cell arteritis
Chronic leukocytosis
� Continue steroid dosing, currently on this dosing for over 1 month
Chronic normocytic anemia
-Monitor hemoglobin
� No obvious acute blood loss anemia
GERD
-famotidine
Hypothyroidism
- Cont home levothyroxine
DVT prophylaxis
-Eliquis
Limited DNR -not interested in CPR but is amenable to temporary ventilator if needed.
PT/OT
I left a voicemail for patient's to call me back.
Anticipated Discharge: > 48 hours
Subjective/Interval History
-
Date of Service: April 21, 2024
Patient seen and examined. Feeling slightly better today, but still dyspneic with eating.
Objective Data
-
Vital Signs:
Vital Signs
Temp Pulse Resp BP Pulse Ox
97.7 F 92 18 127/82 97
04/21/24 07:05 04/21/24 06:00 04/21/24 07:27 04/21/24 06:00 04/21/24 07:27
I&O
04/20/24 04/21/24 04/22/24
06:59 06:59 06:59
Intake Total 480 / 480 180 / 180
Output Total 400 / 400 700 / 700
Balance 80 / 80 -520 / -520
Review of Systems
-
History Source: Patient
All other systems: Reviewed and negative
[2024-04-21] MEDS: LASIX 40 MG IV (11:28)
[2024-04-21] MEDS: LANOXIN 125 MCG PO (12:51)
--- NOTE | 2024-04-21 13:58 | PTCARENOTE ---
Patient out of bed to chair. High flow oxygen 50L 60% spo2 88%-93% Patient SOB exertion. Patient using PRN non-rebreather. Lasix 40 mg IV given today as per cardiology. Afib with PVC's on monitor. VS stable. Patient's son in room at bedside.
--- NOTE | 2024-04-21 16:07 | CM ---
CM reviewed chart- ADC>48 hours
Pt remains im IMU with high flow oxygen needs
Therapy following with VN vs SNF needs
CM will continue to follow for dc planning
Discharge Disposition- TBD, VN vs SNF, watch O2 needs
[2024-04-21] MEDS: COLACE 100 MG PO (17:03)
[2024-04-21] MEDS: REMERON 7.5 MG PO (22:03)
[2024-04-22] VITALS (13 sets, daily range): BP systolic 115–138; BP diastolic 70–87; BMI 18.0
[2024-04-22] MEDS: SOLU-MEDROL PF 40 MG IV ×2 (00:10→10:12)
[2024-04-22] MEDS: MYCOSTATIN ORAL SUSPENSION PO ×5 (00:11→23:54)
--- NOTE | 2024-04-22 02:22 | PTCARENOTE ---
Patient back into bed with assist of 1. Utilized NRB for recovery. Pt dyspneic on exertion and tachypneic. O2 sat 95%, RT put highflow at 40L 50%. Replaced purewick and perineal care done. Pt putting out large amounts of clear yellow urine. A-fib on
tele. VSS. Pt son and bedside and change of shift. Call gonzalez within reach.
[2024-04-22] MEDS: SYNTHROID 150 MCG PO (05:37)
[2024-04-22 06:02] LABS: % Basophils 0.1 % (0-2); % Immature Granulocytes 1.4 % (0-0.5); % Lymphocytes 2.3 % (20.5-51.1); % Neutrophils 93.2 % (42.2-75.2); Absolute Immature Granulocytes 0.2 10^3/uL (0-0.05); Absolute Lymphocytes 0.4 10^3/uL (1.2-3.4); Absolute Monocytes 0.5 10^3/uL (0.1-0.6); Absolute Neutrophils 14.4 10^3/uL (1.4-6.5); Hematocrit 33.4 % (37.0-47.0); Hemoglobin 11.2 g/dL (12.0-16.0); Mean Corp Hgb Conc. 33.5 g/dL (33.0-37.0); Mean Corpuscular Hgb 30.6 pg (27.0-31.0); Mean Corpuscular Volume 91.3 fL (81.0-99.0); Mean Platelet Volume 9.4 fL (7.4-10.4); Nucleated Red Blood Cells % 0 %; Platelet Count 171 10^3/uL (130-400); Red Blood Cell Count 3.66 10^6/uL (4.20-5.40); Red Cell Dist. Width 17.3 % (11.5-14.5); White Blood Cell Count 15.4 10^3/uL (4.8-10.8)
[2024-04-22 06:23] LABS: Blood Urea Nitrogen 47 mg/dl (7-17); Carbon Dioxide 38 mmol/L (22-30); Chloride 97 mmol/L (98-107); Estimated Creatinine Clearance 65 ml/min; Glucose 144 mg/dl (70-99); Potassium 4.2 mmol/L (3.5-5.1); Sodium 139 mmol/L (135-145); eGFR > 60.00
[2024-04-22] MEDS: ATROVENT NEBULES 0.5 MG INH ×3 (08:01→19:18)
[2024-04-22] MEDS: XOPENEX 1.25 MG INHALANT SOLUTION INH ×3 (08:01→19:18)
--- NOTE | 2024-04-22 09:02 | W.PN.PUL3 ---
Today's Communication / Plan
-
Remains on HFNC, but this has been weaned to 40LPM/40%
Can likely transition to MF in the next 24 hours
Wean steroids today further, can change to PO course likely by tomorrow
Encouraged further OOB/ambulation/PT/IS
Assessment
-
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
low O2 at home (SpO2 in the 80s). She was recently in the ER on 04/10/2024 with a dry cough x 2 weeks/oxygen was 89% at home/CXR showed diffuse opacification concerning for GGO/hazy RLL opacification/biapical scarring. CT chest on 04/16/2024 showed
a 5.7 cm long pneumatosis in the right lung apex with extensive diffuse bilateral patchy and confluent groundglass opacities with bronchial wall thickening and traction bronchiectasis in the posterior upper lobes and mild hilar adenopathy.
Initially in the ER she was afebrile, hemodynamically stable but saturating 84% on room air which increased to 98% with 3 L/min. She was initially started on her home dose of prednisone and given antibiotics due to possible atypical pneumonia.
Infectious workup was negative. She continued to have worsening hypoxia, and amiodarone was stopped and steroids were raised to Solu-Medrol 60 mg IV q6hr, and she was transferred to the IMU for further care. Pulmonary service now consulted for
additional management/recommendations.
Impression:
#Acute respiratory failure with hypoxia due to ILD
#Interstitial lung disease with chronic diffuse subpleural reticular opacities without honeycombing, now with diffuse groundglass opacities suspicious for an acute process overlying chronic ILD
- Differential includes NSIP, hypersensitivity pneumonitis, amiodarone toxicity (less likely given only been off for 6 weeks) acute eosinophilic pneumonia, organizing pneumonia (less likely), & sarcoidosis; less likely infection and less likely PAP
(no crazy paving)
#5.7 cm pneumatosis in the right lung apex seen on CT chest from 04/16/2024
#Leukocytosis likely reactive as well as steroid induced
#Anemia
#Hyponatremia
#Hypoalbuminemia
#History of recurrent A-fib on chronic amiodarone (load started on 02/27/2024) + Eliquis, previously on Tikosyn (last cardioversion on 02/24/2024)
#History of lung nodule (rounded opacity in the superior right lower lobe and 5 mm nodule in the right lower lobe seen on prior CT chest from July 2016)
Chronic conditions [employer]:
History of giant cell arteritis on chronic prednisone (20 mg daily)
Recurrent A-fib on amiodarone + Eliquis
Chronic hyponatremia
Peripheral neuropathy
GERD
Hypothyroidism
History of SVT/flutter
History of ablation/PVI
Pulmonary nodule
Urinary retention with Shanks catheter
Plan
Currently on HFNC 40%, 40LPM--wean as tolerated--can likely transition to MF if sats maintain
She has poor effort on IS, not getting OOB--reviewed this with her at bedside
I reviewed this again with her 04/20 and she reports she wants to 'give up'
I reviewed this again with her today 04/22 as she states she still does not understand how to use her IS
Imaging reviewed which may be subacute/chronic
Regardless of the etiology of her ILD, there is diffuse groundglass opacification and she should be steroid responsive
Given that she was on amiodarone, would hold this for now given possible toxicity (although less likely given she has only been on it for about 7 weeks)
Ideally would check a broad rheumatological panel but now that she is on systemic steroids this is likely going to be falsely negative
CRP levels were very high (207.2 -04/16/2024), indicating that an inflammatory pneumonitis is happening and not a bacterial pneumonia
Procalcitonin of 0.16 (04/14/2024)
Initially covered empirically with antibiotics (currently on cefepime/Zithromax)
Sputum culture neg 04/14, blood culture neg x 2
Flu neg, MRSA neg, PCT neg
Stop abx, observe off
Empiric steroids -- Solu-Medrol at 60 mg IV q6hr, weaned to 40mg q8--wean further today to daily dosing
Repeat CXR appears similar
She will need repeat imaging in about 6-8 weeks
Consideration for further outpatient w/u including biopsy, likely starting with bronchoscopy for transbronchial biopsy vs surgical biopsy
Maintain SpO2 >90-94% with supplemental O2 and wean as tolerated
Increase OOB, IS, PT
ECHO with stable function, proBNP 630
Given that she went into rapid A-fib earlier this morning, change DuoNebs to Xopenex + Atrovent TID
Although the amiodarone has been keeping her in NSR, given her acute hypoxia with possible amiodarone induced toxicity, need to hold amiodarone at this time
Previously was on Tikosyn but had symptomatic A-fib with RVR despite being on max dose of Tikosyn -- transitioned to amiodarone s/p load 02/27/2024
Continue with Eliquis and monitor for recurrence of A-fib as she is currently in NSR
Cardiology on board and recommendations appreciated
DVT ppx: Eliquis
Encouraged OOB/PT
Pulmonary service will continue to follow along.
We will arrange for outpatient pulmonary office follow-up once discharged.
Data:
CXR 04/18/24- Persistent diffuse bilateral interstitial and heterogeneous patchy and confluent groundglass airspace opacity is again demonstrated. Slight progression, especially in the lung bases. However, no focal dense consolidation.
CT chest with IV contrast 04/16/2024: Extensive diffuse bilateral pulmonary parenchymal groundglass opacity. Associated mild adenopathy, likely reactive. No pleural effusion. There is a broad differential, which may include infection (usually
atypical), interstitial edema, diffuse alveolar damage, hypersensitivity pneumonitis, and acute eosinophilic pneumonia. Other possible considerations may include aspiration or hemorrhage. In the chronic setting, consider nonspecific interstitial
pneumonia, desquamative interstitial pneumonia/respiratory bronchiolitis, sarcoidosis, or alveolar proteinosis.
ECHO 04/16/24- 1. Left ventricle: Normal size and function with an estimated ejection fraction of 55-60%. Normal diastolic function
2. Right ventricle: Normal right ventricular size and function.
3. Atria: Normal
4. Mitral valve: Mild mitral regurgitation
5. Aortic valve: No aortic stenosis or aortic insufficiency
6. Tricuspid valve: Mild tricuspid regurgitation with estimated pulmonary artery systolic pressure of 20-25 mmHg
-----
Total time spent today was 51 minutes for this encounter. Time includes reviewing laboratory test/imaging results, reviewing pertinent medical records, obtaining and reviewing medical history, performing an appropriate exam, ordering medications,
tests and procedures. Time also includes documentation of this encounter, coordinating patient care and communicating with other healthcare professionals. Total time does not include separately billed tests performed on this date of service.
Subjective Data
-
Date of Service:
Date of Service: April 22, 2024
Chief Complaint: Pulmonary Follow Up
Subjective:
Remains on HFNC, weaned to 40/40
Does not feel any differently
Objective Data
Data Reviewed
Vital Signs / I&O / Oxygen:
Vital Signs
Temp Pulse Resp BP Pulse Ox
97.4 F 87 20 135/77 93
04/22/24 07:32 04/22/24 08:04 04/22/24 08:04 04/22/24 08:00 04/22/24 08:25
Intake and Output
04/21/24 04/22/24 04/23/24
06:59 06:59 06:59
Intake Total 180 / 180 1110 / 1110
Output Total 700 / 700 1925 / 1925
Balance -520 / -520 -815 / -815
SaO2 93
Nasal Cannula flow liters per 40
minute
Physical Exam
General: Respiratory Distress (mild), Comfortable, Chills (negative) and Sweats (negative)
HEENT: Normocephalic and Anicteric
Cardiovascular: S1-S2, Rub (negative) and Peripheral Edema (negative)
Respiratory: Clear, Wheeze (negative) and Accessory Resp Muscle Use (mild)
GI: Soft, Non Distended, Non Tender and Normal Bowel Sounds
Neurology: AO x 3 and Tremors (negative)
Skin: Warm, Dry, Cyanosis (negative) and Jaundice (negative)
Labs/Micro/Reports
Lab Data
04/22/24 05:34
04/22/24 05:34
Microbiology
04/16/24 08:48 Blood/Venous Blood Culture - Final
No Growth - Final Report
04/14/24 21:21 Blood/Venous Blood Culture - Final
No Growth - Final Report
04/14/24 11:59 Sputum Respiratory Culture - Final
Usual Respiratory Opal
04/14/24 11:59 Sputum Gram Stain - Final
--- NOTE | 2024-04-22 09:11 | W.PN.CARDCBS ---
Today's Communication / Plan
-
Remains on high flow oxygen, wean as tolerated
Acute on chronic ILD which is felt by pulm to be steroid responsive.
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
Cont pulm toilet including steroids
Elevated CRP levels indicate inflammatory pneumonitis over bacterial PNA as per pulm
Wt is down and appears close to dry wt. Hold IV lasix diuresis.
Consider oral lasix next 24-48 hrs low dose
Cr stable, BUN continues to rise.
Fluid restriction
pBNP was 2850 04/20/2024.
Cont rate control strategy including Diltiazem, Toprol, digoxin
Monitor renal function given Digoxin
HRs overall improved
Impression / Plan
-
.
Primary Derrick Man: Dr. Dawson
Primary EP: Dr. Llanes
Patient is a 78-year-old female with past medical history of symptomatic paroxysmal atrial fibrillation. She was initially admitted 02/16 - 02/19/2024 and started on Tikosyn 250 mcg every 12 hours. She then recurred shortly thereafter and
presented back to [facility] 02/21 her Tikosyn was uptitrated to 500 mcg every 12 hours however she continued to have breakthrough and Tikosyn was stopped and after washout was started on amiodarone therapy. This has been successful for
patient and maintaining sinus rhythm. She reports she has had no feelings of palpitations. Recently she states she developed cough. She was seen in the ER 04/10/2024 and diagnosed with pneumonia and started on treatment. She reports her symptoms
persisted with worsening cough and shortness of breath and she returned to the ER on 04/14/2024. COVID, flu, Legionella negative. Currently requiring 12 L mid flow oxygen. She underwent chest CT which showed extensive diffuse bilateral pulmonary
parenchymal groundglass opacities and there is concern for Amio pulmonary toxicity therefore her amiodarone has been stopped. Pulmonary to evaluate patient. Cardiology consulted for assistance with A-fib management in the setting of this. She is
in sinus rhythm at this time.
Assessment:
Presentation with cough, SOB
Acute hypoxic respiratory failure
Concern for PNA
Acute on chronic ILD
Concern for possible amio pulm toxicity
Hyponatremia
Paroxysmal afib
Hx of SVT/afib/flutter ablation 08/2016
repeat PVI 12/10/22
breakthrough on tikosyn
amiodarone therapy started 02/2024
Chronic OAC with eliquis
Hx Relative hypotension
3 week admission to [place] for inflammatory colitis 01/05-01/27/24 s/p flex sigmoidoscopy with biopsy 01/13/24
Hx urinary retention
GCA
Peripheral neuropathy
Hypothyroidism
GERD
History of pulmonary nodules
Hyponatremia
Vitamin D deficiency
Echo 05/17/2022: EF 60%, mild biatrial enlargement. Mild tricuspid regurgitation
Echo 04/16/2024: EF 55-60% mild MR and mild TR estimated pulmonary artery pressure of 25 mmHg
Plan:
Remains on high flow oxygen, wean as tolerated
Acute on chronic ILD which is felt by pulm to be steroid responsive.
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
Cont pulm toilet including steroids
Elevated CRP levels indicate inflammatory pneumonitis over bacterial PNA as per pulm
Wt is down and appears close to dry wt. Hold IV lasix diuresis.
Consider oral lasix next 24-48 hrs low dose
Cr stable, BUN continues to rise.
Fluid restriction
pBNP was 2850 04/20/2024.
Cont rate control strategy including Diltiazem, Toprol, digoxin
Monitor renal function given Digoxin
HRs overall improved
Encourage PT/OT
Patient with history of symptomatic paroxysmal atrial fibrillation, maintaining sinus rhythm on amiodarone presented to [facility] with cough and shortness of breath and is being treated for pneumonia. Chest CT obtained today shows
evidence of diffuse groundglass opacities and is currently requiring 12 L mid flow oxygen and there is concern for amiodarone pulmonary toxicity.
Progress Note - Derrick Man
Subjective
Date of Service: April 22, 2024
Objective
Labs:
04/22/24 05:34
04/22/24 05:34
Labs
Hgb 11.2 g/dL (12.0-16.0) L 04/22/24 05:34
Hct 33.4 % (37.0-47.0) L 04/22/24 05:34
Plt Count 171 10^3/uL (130-400) 04/22/24 05:34
Sodium 139 mmol/L (135-145) 04/22/24 05:34
Potassium 4.2 mmol/L (3.5-5.1) 04/22/24 05:34
BUN 47 mg/dl (7-17) H 04/22/24 05:34
Creatinine 0.5 mg/dL (0.6-1.0) L 04/22/24 05:34
Glucose 144 mg/dl (70-99) H 04/22/24 05:34
Vital Signs and I&O:
Vital Signs
Temp Pulse Resp BP Pulse Ox
97.4 F 87 20 135/77 93
04/22/24 07:32 04/22/24 08:04 04/22/24 08:04 04/22/24 08:00 04/22/24 08:25
Vital Signs
Temp Pulse Resp BP Pulse Ox
97.4 F 87 20 135/77 93
04/22/24 07:32 04/22/24 08:04 04/22/24 08:04 04/22/24 08:00 04/22/24 08:25
Intake & Output
04/20/24 04/21/24 04/22/24 04/23/24
06:59 06:59 06:59 06:59
Intake Total 480 / 480 180 / 180 1110 / 1110
Output Total 400 / 400 700 / 700 1924 / 1924
Balance 80 / 80 -520 / -520 -815 / -815
Physical Exam
Physical Exam
General: No acute distress, AAOX3, frail appearing
Neck: Negative JVD
Heart: Irregularly irregular, Negative S3 positive S1/S2, Negative S4, No murmur
Lungs: CTA b/l, negative wheezes/rales/rhonchi
Abd: Positive BS, NT/ND, neg rebound/rigidity/guarding
Ext: Negative cyanosis/clubbing/edema
Neuro: nonfocal
[2024-04-22] MEDS: LASIX 40 MG IV (10:09)
[2024-04-22] MEDS: MIRALAX 17 GRAMS PO (10:09)
[2024-04-22] MEDS: TOPROL XL 100 MG PO ×2 (10:11→20:15)
[2024-04-22] MEDS: OSCAL 500 + D 500 MG PO (10:11)
[2024-04-22] MEDS: CARDIZEM CD 180 MG PO ×2 (10:11→20:16)
[2024-04-22] MEDS: VITAMIN D3 (cholecalciferol) 50 MCG PO (10:11)
[2024-04-22] MEDS: ELIQUIS 5 MG PO ×2 (10:12→20:15)
[2024-04-22] MEDS: THERAGRAN 1 TABLET PO (10:12)
[2024-04-22] MEDS: FLUSH (NSS) 1 FLUSH IV (10:12)
--- NOTE | 2024-04-22 11:25 | W.PN.HOSP.TC ---
Today's Communication/Plan
-
Wean oxygen as able
Continue current care
Assessment / Plan
Assessment / Plan
Gen-AAOx3, NAD
HEENT-NC, AT, anicteric, clear oral mm
Neck-supple
CV-reg, no M, +S1/S2
Lungs-diminished breath sounds bilaterally
Abd-soft, NT, ND
Ext-no edema
Musculoskeletal-no cyanosis, clubbing
Skin-warm and dry
Neuro-grossly non-focal
Psych-calm, cooperative
Acute hypoxic respiratory failure -oxygenation slowly improving. Down to 40 L, 40% on high flow nasal cannula. Oxygen saturation 93 %. Etiology suspected to be due to pneumonitis, possible hypersensitivity pneumonitis, ILD. Perhaps she has a
component of pulmonary edema as we are seeing some improvement with diuresis. Doubt pneumonia. Now off antibiotics. Received 5 days of empiric antibiotics. Cardiology has initiated IV Lasix for possibility of pulmonary edema. Note that elevated
BNP is nonspecific and can be due to both heart failure as well as lung pathology.
� MRSA, flu, COVID, Legionella, strep pneumo negative. Blood cultures negative.
� Wean O2 as tolerated, goal O2 greater than 92%
� DuoNebs
� IV Solu-Medrol per pulmonary, started 04/16.
� Stop amiodarone�even though started in February 2024, with pulmonary pathology and risk of lung toxicity benefits outweigh risks of holding. Cardiology following.
� ESR, CRP elevated; eosinophils within normal limits.
� Incentive spirometry, Acapella
�Pulmonary following
Reviewed with patient that her hospital course will likely be prolonged due to slow recovery.
Acute heart failure with preserved EF -presumed diagnosis. I's and O's are negative, weight is coming down on IV Lasix. Oxygenation slowly improving.
Started to develop contraction alkalosis with rising bicarbonate, 38. BUN rising, 47 but this could also be due to steroids.
Sepsis -resolved.
Hyponatremia -resolved.
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
� Continue urea
� Has history of chronic hyponatremia
� Free water restriction
Paroxysmal atrial fibrillation -with RVR
� Continue Toprol, Cardizem drip currently at 5 mg an hour. Rates are slowly improving. Toprol-XL dose increased, Cardizem CD 180 mg twice daily per cardiology. Wean Cardizem drip off.
� Continue Eliquis
� Stopped amiodarone, follow cardiology recommendations
5.7 cm focal lung pneumatosis in the right lung apex
� Continue to monitor
Giant cell arteritis
Chronic leukocytosis
� Continue steroid dosing, currently on this dosing for over 1 month
Chronic normocytic anemia
-Monitor hemoglobin
� No obvious acute blood loss anemia
GERD
-famotidine
Hypothyroidism
- Cont home levothyroxine
DVT prophylaxis
-Eliquis
Limited DNR -not interested in CPR but is amenable to temporary ventilator if needed.
PT/OT -SNF versus home PT.
Updated patient's son at the bedside.
Anticipated Discharge: > 48 hours
Subjective/Interval History
-
Date of Service: April 22, 2024
Patient seen and examined. Still dyspneic on exertion.
Objective Data
-
Labs:
Laboratory Results
04/22/24
05:34
WBC 15.4 H
Hgb 11.2 L
Hct 33.4 L
Plt Count 171
Sodium 139
Potassium 4.2
Chloride 97 L
Carbon Dioxide 38 H
BUN 47 H
Creatinine 0.5 L
Glucose 144 H
Calcium 9.0
Vital Signs:
Vital Signs
Temp Pulse Resp BP Pulse Ox
97.4 F 94 26 138/86 92
04/22/24 07:32 04/22/24 10:26 04/22/24 10:26 04/22/24 10:26 04/22/24 11:19
I&O
04/21/24 04/22/24 04/23/24
06:59 06:59 06:59
Intake Total 180 / 180 1110 / 1110
Output Total 700 / 700 1924 / 1924
Balance -520 / -520 -815 / -815
Review of Systems
-
History Source: Patient
All other systems: Reviewed and negative
[2024-04-22] MEDS: LANOXIN 125 MCG PO (13:05)
[2024-04-22] MEDS: XANAX 0.25 MG PO (13:51)
--- NOTE | 2024-04-22 15:14 | PN.CDI ---
CDI
- -
CDI:
Physician Documentation Request
Admit Date: 04/14/24 12:06
Dear Doctor Santos,
Patient admitted with sepsis.
Please review the following and provide your response in the progress notes.
Clinical Indicators: 04/22/23
Height: 5' 6'
Weight: 111 lb 12 oz
BMI: 18.0
Please provide an associated diagnosis related to the abnormal BMI, such as:
Underweight
Cachectic
Anorexia
BMI is not significant
Other
BMI < or = to 19
Underweight
Weight Loss
Cachectic
Anorexia
Use of terms such as suspected, likely, concern for, or probable (associated with a specific diagnosis that is being evaluated, monitored, or treated as if it exists) are acceptable and can be coded in the inpatient setting, when documented at the
time of discharge.
Thank you,
Brittaney SHULTZ,RN,CCDS
CDI Specialist
Available via tiger text
Please use your independent medical judgment in providing your response.
--- NOTE | 2024-04-22 17:08 | PTCARENOTE ---
Patient out of bed to chair today, assist x2. Weaning from high flow as tolerated. Patient feels tired today. Not as much energy as yesterday. Appetite ok. Family in room at bedside. Afib with HR in 90's.
[2024-04-22] MEDS: COLACE 100 MG PO (17:35)
[2024-04-22] MEDS: TYLENOL 650 MG PO (17:35)
[2024-04-22] MEDS: REMERON 7.5 MG PO (22:04)
[2024-04-23] VITALS (13 sets, daily range): BP systolic 106–142; BP diastolic 67–97; PULSE 88; O2SAT 92; BMI 18.5
[2024-04-23] MEDS: MYCOSTATIN ORAL SUSPENSION PO ×4 (05:01→23:00)
[2024-04-23] MEDS: SYNTHROID 150 MCG PO (06:09)
--- NOTE | 2024-04-23 06:21 | PTCARENOTE ---
Pt maintains stable VS, HR 70s at this time. RT weaning high flow O2 as tolerated, pt currently 40L 40% SaO2 94%. Pt states that her O2 is usually better at night than during the day. Able to swallow pills whole in water without complication. Pw in
place for stress incontinence. Call gonzalez within reach.
[2024-04-23 06:26] LABS: % Basophils 0.2 % (0-2); % Eosinophils 0.4 % (0-6); % Immature Granulocytes 2.1 % (0-0.5); % Lymphocytes 5.6 % (20.5-51.1); % Monocytes 4.3 % (1.7-9.3); % Neutrophils 87.4 % (42.2-75.2); Absolute Eosinophils 0.1 10^3/uL (0-0.7); Absolute Immature Granulocytes 0.4 10^3/uL (0-0.05); Absolute Monocytes 0.8 10^3/uL (0.1-0.6); Absolute Neutrophils 15.6 10^3/uL (1.4-6.5); Hematocrit 35.4 % (37.0-47.0); Hemoglobin 11.9 g/dL (12.0-16.0); Mean Corp Hgb Conc. 33.6 g/dL (33.0-37.0); Mean Corpuscular Hgb 30.5 pg (27.0-31.0); Mean Corpuscular Volume 90.8 fL (81.0-99.0); Mean Platelet Volume 8.8 fL (7.4-10.4); Nucleated Red Blood Cells % 0 %; Platelet Count 188 10^3/uL (130-400); Red Cell Dist. Width 17.2 % (11.5-14.5); White Blood Cell Count 17.9 10^3/uL (4.8-10.8)
[2024-04-23 06:46] LABS: Blood Urea Nitrogen 39 mg/dl (7-17); Calcium 9.3 mg/dl (8.4-10.2); Chloride 95 mmol/L (98-107); Estimated Creatinine Clearance 65 ml/min; Glucose 92 mg/dl (70-99); Potassium 4.4 mmol/L (3.5-5.1); Sodium 137 mmol/L (135-145); eGFR > 60.00
[2024-04-23 06:57] LABS: Carbon Dioxide 33 mmol/L (22-30)
[2024-04-23] MEDS: ATROVENT NEBULES 0.5 MG INH ×2 (08:29→19:23)
[2024-04-23] MEDS: XOPENEX 1.25 MG INHALANT SOLUTION INH ×3 (08:29→19:18)
--- NOTE | 2024-04-23 09:21 | W.PN.PUL3 ---
Today's Communication / Plan
-
Remains on HFNC, transition to midflow today, reviewed with RT
PT/OT ongoing, encouraged daily IS use
Updated son on her progress, aggressive rehab is needed
He notes that she does struggle with anxiety/depression, recommend psych eval
If can get O2 requirements to ~4-6L, can assess for d/c planning to rehab
Assessment
-
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
low O2 at home (SpO2 in the 80s). She was recently in the ER on 04/10/2024 with a dry cough x 2 weeks/oxygen was 89% at home/CXR showed diffuse opacification concerning for GGO/hazy RLL opacification/biapical scarring. CT chest on 04/16/2024 showed
a 5.7 cm long pneumatosis in the right lung apex with extensive diffuse bilateral patchy and confluent groundglass opacities with bronchial wall thickening and traction bronchiectasis in the posterior upper lobes and mild hilar adenopathy.
Initially in the ER she was afebrile, hemodynamically stable but saturating 84% on room air which increased to 98% with 3 L/min. She was initially started on her home dose of prednisone and given antibiotics due to possible atypical pneumonia.
Infectious workup was negative. She continued to have worsening hypoxia, and amiodarone was stopped and steroids were raised to Solu-Medrol 60 mg IV q6hr, and she was transferred to the IMU for further care. Pulmonary service now consulted for
additional management/recommendations.
Impression:
#Acute respiratory failure with hypoxia due to ILD
#Interstitial lung disease with chronic diffuse subpleural reticular opacities without honeycombing, now with diffuse groundglass opacities suspicious for an acute process overlying chronic ILD
- Differential includes NSIP, hypersensitivity pneumonitis, amiodarone toxicity (less likely given only been off for 6 weeks) acute eosinophilic pneumonia, organizing pneumonia (less likely), & sarcoidosis; less likely infection and less likely PAP
(no crazy paving)
#5.7 cm pneumatosis in the right lung apex seen on CT chest from 04/16/2024
#Leukocytosis likely reactive as well as steroid induced
#Anemia
#Hyponatremia
#Hypoalbuminemia
#History of recurrent A-fib on chronic amiodarone (load started on 02/27/2024) + Eliquis, previously on Tikosyn (last cardioversion on 02/24/2024)
#History of lung nodule (rounded opacity in the superior right lower lobe and 5 mm nodule in the right lower lobe seen on prior CT chest from July 2016)
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
History of giant cell arteritis on chronic prednisone (20 mg daily)
Recurrent A-fib on amiodarone + Eliquis
Chronic hyponatremia
Peripheral neuropathy
GERD
Hypothyroidism
History of SVT/flutter
History of ablation/PVI
Pulmonary nodule
Urinary retention with Shanks catheter
Plan
Currently on HFNC 40%, 40LPM--wean as tolerated--can likely transition to MF if sats maintain
She has poor effort on IS, not getting OOB--reviewed this with her at bedside
I reviewed this again with her 04/20 and she reports she wants to 'give up'
I reviewed this again with her today 04/22 as she states she still does not understand how to use her IS
Effort remains poor--I reviewed this with son today at bedside
Her memory also seems to be an issue as well
Son was interested in psych eval, she has struggled with anxiety/depression--I discussed this with care team
Imaging reviewed which may be subacute/chronic
Regardless of the etiology of her ILD, there is diffuse groundglass opacification and she should be steroid responsive
Given that she was on amiodarone, would hold this for now given possible toxicity (although less likely given she has only been on it for about 7 weeks)
Ideally would check a broad rheumatological panel but now that she is on systemic steroids this is likely going to be falsely negative
CRP levels were very high (207.2 -04/16/2024), indicating that an inflammatory pneumonitis is happening and not a bacterial pneumonia
Procalcitonin of 0.16 (04/14/2024)
Initially covered empirically with antibiotics (currently on cefepime/Zithromax)
Sputum culture neg 04/14, blood culture neg x 2
Flu neg, MRSA neg, PCT neg
Stop abx, observe off
Empiric steroids -- Solu-Medrol at 60 mg IV q6hr, weaned to 40mg q8--wean further today to daily dosing
Repeat CXR appears similar
She will need repeat imaging in about 6-8 weeks
Consideration for further outpatient w/u including biopsy, likely starting with bronchoscopy for transbronchial biopsy vs surgical biopsy
Maintain SpO2 >90-94% with supplemental O2 and wean as tolerated
Increase OOB, IS, PT
ECHO with stable function, proBNP 630
Given that she went into rapid A-fib earlier this morning, change DuoNebs to Xopenex + Atrovent TID
Although the amiodarone has been keeping her in NSR, given her acute hypoxia with possible amiodarone induced toxicity, need to hold amiodarone at this time
Previously was on Tikosyn but had symptomatic A-fib with RVR despite being on max dose of Tikosyn -- transitioned to amiodarone s/p load 02/27/2024
Continue with Eliquis and monitor for recurrence of A-fib as she is currently in NSR
Cardiology on board and recommendations appreciated
DVT ppx: Eliquis
Encouraged OOB/PT
Pulmonary service will continue to follow along.
We will arrange for outpatient pulmonary office follow-up once discharged.
Data:
CXR 04/18/24- Persistent diffuse bilateral interstitial and heterogeneous patchy and confluent groundglass airspace opacity is again demonstrated. Slight progression, especially in the lung bases. However, no focal dense consolidation.
CT chest with IV contrast 04/16/2024: Extensive diffuse bilateral pulmonary parenchymal groundglass opacity. Associated mild adenopathy, likely reactive. No pleural effusion. There is a broad differential, which may include infection (usually
atypical), interstitial edema, diffuse alveolar damage, hypersensitivity pneumonitis, and acute eosinophilic pneumonia. Other possible considerations may include aspiration or hemorrhage. In the chronic setting, consider nonspecific interstitial
pneumonia, desquamative interstitial pneumonia/respiratory bronchiolitis, sarcoidosis, or alveolar proteinosis.
ECHO 04/16/24- 1. Left ventricle: Normal size and function with an estimated ejection fraction of 55-60%. Normal diastolic function
2. Right ventricle: Normal right ventricular size and function.
3. Atria: Normal
4. Mitral valve: Mild mitral regurgitation
5. Aortic valve: No aortic stenosis or aortic insufficiency
6. Tricuspid valve: Mild tricuspid regurgitation with estimated pulmonary artery systolic pressure of 20-25 mmHg
-----
Total time spent today was 51 minutes for this encounter. Time includes reviewing laboratory test/imaging results, reviewing pertinent medical records, obtaining and reviewing medical history, performing an appropriate exam, ordering medications,
tests and procedures. Time also includes documentation of this encounter, coordinating patient care and communicating with other healthcare professionals. Total time does not include separately billed tests performed on this date of service.
Subjective Data
-
Date of Service:
Date of Service: April 23, 2024
Chief Complaint: Pulmonary Follow Up
Subjective:
Remains on HFNC, anxious
Does not recall our prior conversations about her condition
Son at bedside
Objective Data
Data Reviewed
Vital Signs / I&O / Oxygen:
Vital Signs
Temp Pulse Resp BP Pulse Ox
97.2 F 85 23 118/81 90
04/23/24 07:05 04/23/24 08:31 04/23/24 08:31 04/23/24 02:00 04/23/24 08:32
Intake and Output
04/22/24 04/23/24 04/24/24
06:59 06:59 06:59
Intake Total 1110 / 1110 780 / 780
Output Total 1924 / 1924 1100 / 1100
Balance -815 / -815 -320 / -320
SaO2 90
Nasal Cannula flow liters per 40
minute
Physical Exam
General: Respiratory Distress (mild), Comfortable, Chills (negative), Sweats (negative) and Other (anxious appearing)
HEENT: Normocephalic, Anicteric and Moist Mucous Membranes
Cardiovascular: S1-S2, Rub (negative) and Peripheral Edema (negative)
Respiratory: Clear, Wheeze (negative), Non-Labored Respirations and Other (rapid/shallow breaths, overall diminished)
GI: Soft, Non Distended, Non Tender and Normal Bowel Sounds
Neurology: AO x 3 and Tremors (negative)
Skin: Warm, Dry, Cyanosis (negative) and Jaundice (negative)
Labs/Micro/Reports
Lab Data
04/23/24 06:10
04/23/24 06:10
Microbiology
04/16/24 08:48 Blood/Venous Blood Culture - Final
No Growth - Final Report
--- NOTE | 2024-04-23 09:56 | W.PN.HOSP.TC ---
Addendum entered and electronically signed by Jamey Graham DO 04/23/24 13:40:
Underweight
Original Note:
Today's Communication/Plan
-
Continue current care
Assessment / Plan
Assessment / Plan
Gen-AAOx3, NAD
HEENT-NC, AT, anicteric, clear oral mm
Neck-supple
CV-reg, no M, +S1/S2
Lungs-diminished breath sounds bilaterally
Abd-soft, NT, ND
Ext-no edema
Musculoskeletal-no cyanosis, clubbing
Skin-warm and dry
Neuro-grossly non-focal
Psych-calm, cooperative
Acute hypoxic respiratory failure -oxygenation slowly improving. Stable on 40 L, 40% on high flow nasal cannula. Oxygen saturation 93 %. Etiology suspected to be due to pneumonitis, possible hypersensitivity pneumonitis, ILD. Perhaps she has a
component of pulmonary edema as we are seeing some improvement with diuresis. Doubt pneumonia. Now off antibiotics. Received 5 days of empiric antibiotics. Cardiology has initiated IV Lasix for possibility of pulmonary edema. Note that elevated
BNP is nonspecific and can be due to both heart failure as well as lung pathology.
� MRSA, flu, COVID, Legionella, strep pneumo negative. Blood cultures negative.
� Wean O2 as tolerated, goal O2 greater than 92%
� DuoNebs
� IV Solu-Medrol per pulmonary, started 04/16. Tapering steroids slowly.
� Stop amiodarone�even though started in February 2024, with pulmonary pathology and risk of lung toxicity benefits outweigh risks of holding. Cardiology following.
� ESR, CRP elevated; eosinophils within normal limits.
� Incentive spirometry, Acapella
�Pulmonary following
Reviewed with patient that her hospital course will likely be prolonged due to slow recovery.
Acute heart failure with preserved EF -presumed diagnosis. I's and O's are negative, weight is coming down on IV Lasix. Oxygenation slowly improving.
Started to develop contraction alkalosis with rising bicarbonate. Bicarbonate improved to 33 today. Diuretic dosing per cardiology.
Sepsis -resolved.
Hyponatremia -resolved.
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
� Continue urea
� Has history of chronic hyponatremia
� Free water restriction
Paroxysmal atrial fibrillation -with RVR
� Rates much improved. Toprol-XL dose increased, Cardizem CD 180 mg twice daily per cardiology. Digoxin.
� Continue Eliquis
� Stopped amiodarone, follow cardiology recommendations
5.7 cm focal lung pneumatosis in the right lung apex
� Continue to monitor
Giant cell arteritis
Chronic leukocytosis
� Continue steroid dosing, currently on this dosing for over 1 month
Chronic normocytic anemia
-Monitor hemoglobin
� No obvious acute blood loss anemia
GERD
-famotidine
Hypothyroidism
- Cont home levothyroxine
DVT prophylaxis
-Eliquis
Limited DNR -not interested in CPR but is amenable to temporary ventilator if needed.
PT/OT -SNF versus home PT.
Anticipated Discharge: > 48 hours
Subjective/Interval History
-
Date of Service: April 23, 2024
Patient seen and examined. Complaining of poor appetite.
Objective Data
-
Labs:
Laboratory Results
04/23/24
06:10
WBC 17.9 H
Hgb 11.9 L
Hct 35.4 L
Plt Count 188
Sodium 137
Potassium 4.4
Chloride 95 L
Carbon Dioxide 33 H
BUN 39 H
Creatinine 0.5 L
Glucose 92
Calcium 9.3
Vital Signs:
Vital Signs
Temp Pulse Resp BP Pulse Ox
97.2 F 85 23 118/81 90
04/23/24 07:05 04/23/24 08:31 04/23/24 08:31 04/23/24 02:00 04/23/24 08:32
I&O
04/22/24 04/23/24 04/24/24
06:59 06:59 06:59
Intake Total 1110 / 1110 780 / 780
Output Total 1924 / 1924 1100 / 1100
Balance -815 / -815 -320 / -320
Review of Systems
-
History Source: Patient
All other systems: Reviewed and negative
[2024-04-23] MEDS: ELIQUIS 5 MG PO ×2 (10:06→20:24)
[2024-04-23] MEDS: SENNA SYRUP 8.8 MG PO (10:06)
[2024-04-23] MEDS: TOPROL XL 100 MG PO ×2 (10:06→20:24)
[2024-04-23] MEDS: CARDIZEM CD 180 MG PO ×2 (10:06→20:24)
[2024-04-23] MEDS: THERAGRAN 1 TABLET PO (10:06)
[2024-04-23] MEDS: VITAMIN D3 (cholecalciferol) 50 MCG PO (10:06)
[2024-04-23] MEDS: SOLU-MEDROL PF 40 MG IV (10:07)
[2024-04-23] MEDS: OSCAL 500 + D 500 MG PO (10:07)
[2024-04-23] MEDS: MIRALAX 17 GRAMS PO (10:07)
--- NOTE | 2024-04-23 10:28 | CM ---
Patient seen at bedside. Patient plan is for SNF vs Home PT per therapy recommendations from 04/21, pending updated recommendations. Patient currently on high flow O2. CM will continue to follow for discharge planning needs.
Plan; SNF vs home with therapy; watch O2 needs and therapy recommendations
[2024-04-23] MEDS: LANOXIN 125 MCG PO (11:19)
[2024-04-23] MEDS: XANAX 0.25 MG PO (11:20)
[2024-04-23] MEDS: URE-NA 15 GRAMS PO (11:20)
--- NOTE | 2024-04-23 11:29 | W.PN.CARDCBS ---
Today's Communication / Plan
-
Rate control of A-fib with beta-bari, calcium channel bari and digoxin
One-time dose of Lasix today
Impression / Plan
-
Primary Fund Accounting Manager: Dr. Dawson
Primary EP: Dr. Llanes
Patient is a 78-year-old female with past medical history of symptomatic paroxysmal atrial fibrillation. She was initially admitted 02/16 - 02/19/2024 and started on Tikosyn 250 mcg every 12 hours. She then recurred shortly thereafter and
presented back to [facility] 02/21 her Tikosyn was uptitrated to 500 mcg every 12 hours however she continued to have breakthrough and Tikosyn was stopped and after washout was started on amiodarone therapy. This has been successful for
patient and maintaining sinus rhythm. She reports she has had no feelings of palpitations. Recently she states she developed cough. She was seen in the ER 04/10/2024 and diagnosed with pneumonia and started on treatment. She reports her symptoms
persisted with worsening cough and shortness of breath and she returned to the ER on 04/14/2024. COVID, flu, Legionella negative. Currently requiring 12 L mid flow oxygen. She underwent chest CT which showed extensive diffuse bilateral pulmonary
parenchymal groundglass opacities and there is concern for Amio pulmonary toxicity therefore her amiodarone has been stopped. Pulmonary to evaluate patient. Cardiology consulted for assistance with A-fib management in the setting of this. She is
in sinus rhythm at this time.
Assessment:
Presentation with cough, SOB
Acute hypoxic respiratory failure
Concern for PNA
Acute on chronic ILD
Concern for possible amio pulm toxicity
Hyponatremia
Paroxysmal afib
Hx of SVT/afib/flutter ablation 08/2016
repeat PVI 12/10/22
breakthrough on tikosyn
amiodarone therapy started 02/2024
Chronic OAC with eliquis
Hx Relative hypotension
3 week admission to [place] for inflammatory colitis 01/05-01/27/24 s/p flex sigmoidoscopy with biopsy 01/13/24
Hx urinary retention
GCA
Peripheral neuropathy
Hypothyroidism
GERD
History of pulmonary nodules
Hyponatremia
Vitamin D deficiency
Echo 05/17/2022: EF 60%, mild biatrial enlargement. Mild tricuspid regurgitation
Echo 04/16/2024: EF 55-60% mild MR and mild TR estimated pulmonary artery pressure of 25 mmHg
Plan:
Remains on high flow oxygen, wean as tolerated
Acute on chronic ILD which is felt by pulm to be steroid responsive.
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
Cont pulm toilet including steroids
Elevated CRP levels indicate inflammatory pneumonitis over bacterial PNA as per pulm
Wt is up 3lbs overnight
Will give 1x dose of IV lasix
Consider oral lasix next 24-48 hrs low dose
Cr stable, BUN continues to rise.
Fluid restriction
pBNP was 2850 04/20/2024.
Cont rate control strategy of AFib including Diltiazem, Toprol, digoxin
Monitor renal function given Digoxin
HRs overall improved
Cont Eliquis for cardioembolic ppx
Patient with history of symptomatic paroxysmal atrial fibrillation, maintaining sinus rhythm on amiodarone presented to [facility] with cough and shortness of breath and is being treated for pneumonia. Chest CT obtained today shows
evidence of diffuse groundglass opacities and is currently requiring 12 L mid flow oxygen and there is concern for amiodarone pulmonary toxicity.
Progress Note - Fund Accounting Manager
Subjective
Date of Service: April 23, 2024
Objective
Labs:
04/23/24 06:10
04/23/24 06:10
Labs
Hgb 11.9 g/dL (12.0-16.0) L 04/23/24 06:10
Hct 35.4 % (37.0-47.0) L 04/23/24 06:10
Plt Count 188 10^3/uL (130-400) 04/23/24 06:10
Sodium 137 mmol/L (135-145) 04/23/24 06:10
Potassium 4.4 mmol/L (3.5-5.1) 04/23/24 06:10
BUN 39 mg/dl (7-17) H 04/23/24 06:10
Creatinine 0.5 mg/dL (0.6-1.0) L 04/23/24 06:10
Glucose 92 mg/dl (70-99) 04/23/24 06:10
Vital Signs and I&O:
Vital Signs
Temp Pulse Resp BP Pulse Ox
97.2 F 87 23 118/81 90
04/23/24 07:05 04/23/24 11:19 04/23/24 08:31 04/23/24 02:00 04/23/24 08:32
Vital Signs
Temp Pulse Resp BP Pulse Ox
97.2 F 87 23 118/81 90
04/23/24 07:05 04/23/24 11:19 04/23/24 08:31 04/23/24 02:00 04/23/24 08:32
Intake & Output
04/21/24 04/22/24 04/23/24 04/24/24
06:59 06:59 06:59 06:59
Intake Total 180 / 180 1110 / 1110 780 / 780
Output Total 700 / 700 1925 / 1925 1100 / 1100
Balance -520 / -520 -815 / -815 -320 / -320
Physical Exam
Physical Exam
Gen: NAD, AAOx3
HEENT: NC/AT, sclera anicteric
Neck: No JVD
CV: Irregularly irregular, NL s1/s2
Lungs: Crackles at the bases on high flow O2
Abd: S/ND
Ext: No LE edema
Skin: Warm, dry
Neuro: Non-focal
[2024-04-23] MEDS: ATROVENT NEBULES INH (13:33)
[2024-04-23] MEDS: LASIX 40 MG IV (13:50)
--- NOTE | 2024-04-23 15:14 | CON.MD ---
Consultation - Medical
-
patient seen chart reviewed. at bedside. spoke with nursing. patient is a 78 year old woman admitted w cough shortness of breath w decreased oxygenation. she was thought to be suffering from pneumonia. she also was found to have pulmonary
fibrosis. this is superimposed on a number of comorbidities see medical hx below. the question has been raised as to whether she is depressed. patient has been besieged by medical issues and has spent much time in hospital or in therapy of one
type of another (eg PT for foot drop) and she is discouraged/dysphoric by the fact that she makes headway on one issue and is then setback by another. at this point some of her medical issues have been resolved (eg sepsis, hyponatremia ) but she
is still on high flow oxygen and it has been suggested that she needs to be more active physically (with PT) but she feels she just does not have the strength. she struggles to sleep and there is a remeron prn 7.5 mg she has been taking.
says remeron was prescribed a few months ago and she was taking it daily for help w sleep appetite and anxiety. she has never been suicidal. there is nothing to suggest psychosis.
past psych hx see above no sx prior to this recent span of time when she was beset by medical issues
medical hx patient being rx for pneumonia ahrf sepsis resolved hyponatremia resolved paf (was on amiodarone which was stopped bc ? of whether it contributed to pulmonary issues ) giant cell arteritis anemia gerd hypothyoid (patient told she
needs brand name synthroid as tsh over 13 in january. she has not been receiving brand name here) hx svt/flutter pulmonary fibrosis neuropathy (this was being worked up. pt has mri spine and it was suggested patient may have lumbar spine issues
and need surgery to relieve foot drop which has caused patient much anxiety ) hx urinary retention w chronic soto bun 39 cr o.5 fbs today 92 118/81 p 87
fh non contributory
substance abuse denied
social resides w one son who lives in [place] and is a bias cutting machine operator emt . 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
mse alert ox3 frail woman speech and thought process normal. no psychosis mood is dysphoric affect ok no si above aver intelligence insight judgment ok
dx adjustment d/o w depression and anxiety vs major depression
recommendations would resume remeron at 15 mg dose for depression anxiety and sleep. it may also garbage pick up man appetite. patient requesting to take xanax more frequently. xanax interacts w dilitiazem and the warning is 'severe'. would switch to ativan
o.25 up to 3/d q 4 h. also had bring her brand name synthroid to pharm for labeling and administration here. would recheck tsh given not checked since january. also spoke with patient about moving as much as she can in the course of the
day even when seated and showed her how to flex and extend all of her joints. encourage incentive spirometry. also asked hus to bring in some books or magazines for her and i will bring her some activity books tomorrow.
[2024-04-23] MEDS: COLACE 100 MG PO (18:05)
--- NOTE | 2024-04-23 19:19 | PTCARENOTE ---
day shift note/ pt weaned off of high flow. currently on 02 at 6 liters with sat in upper 90s. pt uses prn nonrebreather at times but is not desatting but using d/t anxiety about desatting when exerting herself to stand and transfer from bed to
chair or commode. family at bedside throughout day encouraging patient to use incentive spirometer and get oob. she has been sitting out in chair most of day. refusing nystatin swish and swallow.
[2024-04-23] MEDS: REMERON 15 MG PO (22:02)
[2024-04-24] VITALS (12 sets, daily range): BP systolic 105–136; BP diastolic 67–95; BMI 18.5
[2024-04-24] MEDS: MYCOSTATIN ORAL SUSPENSION PO ×3 (05:13→17:10)
[2024-04-24] MEDS: NON-FORMULARY ITEM 1 UNIT PO (05:13)
--- NOTE | 2024-04-24 05:57 | PTCARENOTE ---
Pt continues to refuse nystatin oral rinse. Denies pain/discomfort at this time. O2 weaned throughout shift to 2L, patient tolerating at 99% at this time. Call gonzalez within reach.
[2024-04-24 06:05] LABS: Blood Urea Nitrogen 54 mg/dl (7-17); Calcium 9.3 mg/dl (8.4-10.2); Chloride 93 mmol/L (98-107); Estimated Creatinine Clearance 66 ml/min; Glucose 89 mg/dl (70-99); Potassium 4.3 mmol/L (3.5-5.1); Sodium 136 mmol/L (135-145); eGFR > 60.00
[2024-04-24 06:16] LABS: Carbon Dioxide 35 mmol/L (22-30)
[2024-04-24] MEDS: ATROVENT NEBULES 0.5 MG INH ×3 (07:29→19:26)
[2024-04-24] MEDS: XOPENEX 1.25 MG INHALANT SOLUTION INH ×3 (07:29→19:26)
--- NOTE | 2024-04-24 07:38 | W.PN.HOSP.TC ---
Today's Communication/Plan
-
Transfer out of IMU
Continue current care
Assessment / Plan
Assessment / Plan
Gen-AAOx3, NAD
HEENT-NC, AT, anicteric, clear oral mm
Neck-supple
CV-reg, no M, +S1/S2
Lungs-diminished breath sounds bilaterally
Abd-soft, NT, ND
Ext-no edema
Musculoskeletal-no cyanosis, clubbing
Skin-warm and dry
Neuro-grossly non-focal
Psych-calm, cooperative
Acute hypoxic respiratory failure -oxygenation improved remarkably, now on 2 L nasal cannula and has been so all night. Pulse ox 99%.
Etiology suspected to be due to pneumonitis, possible hypersensitivity pneumonitis, ILD. Perhaps she has a component of pulmonary edema as we are seeing some improvement with diuresis. Doubt pneumonia. Now off antibiotics. Received 5 days of
empiric antibiotics. Lasix dosing per cardiology. Note that elevated BNP is nonspecific and can be due to both heart failure as well as lung pathology.
� MRSA, flu, COVID, Legionella, strep pneumo negative. Blood cultures negative.
� Wean O2 as tolerated, goal O2 greater than 92%
� DuoNebs
� IV Solu-Medrol per pulmonary, started 04/16. Tapering steroids slowly. She was on 20 mg prednisone daily prior to admission for treatment of GCA.
� Stop amiodarone�even though started in February 2024, with pulmonary pathology and risk of lung toxicity benefits outweigh risks of holding. Cardiology following.
� ESR, CRP elevated; eosinophils within normal limits.
� Incentive spirometry, Acapella
�Pulmonary following
Reviewed with patient that her hospital course will likely be prolonged due to slow recovery.
Acute heart failure with preserved EF -presumed diagnosis. I's and O's are negative, weight is coming down on IV Lasix. Oxygenation slowly improving.
Started to develop contraction alkalosis with rising bicarbonate. Bicarbonate improved to 33 today. Diuretic dosing per cardiology.
Sepsis -resolved.
Hyponatremia -resolved.
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
� Continue urea
� Has history of chronic hyponatremia
� Free water restriction
Paroxysmal atrial fibrillation -with RVR
� Rates much improved. Toprol-XL dose increased, Cardizem CD 180 mg twice daily per cardiology. Digoxin.
� Continue Eliquis
� Stopped amiodarone, follow cardiology recommendations
5.7 cm focal lung pneumatosis in the right lung apex
� Continue to monitor
Giant cell arteritis
Chronic leukocytosis
� Continue steroid dosing, currently on this dosing for over 1 month
Chronic normocytic anemia
-Monitor hemoglobin
� No obvious acute blood loss anemia
GERD
-famotidine
Hypothyroidism
- Cont home levothyroxine
DVT prophylaxis
-Eliquis
Limited DNR -not interested in CPR but is amenable to temporary ventilator if needed.
Dispo -anticipate discharge to SNF when medically stable.
Anticipated Discharge: > 48 hours
Subjective/Interval History
-
Date of Service: April 24, 2024
Patient seen and examined. Looks comfortable. Denies shortness of breath. No complaints.
Objective Data
-
Labs:
Laboratory Results
04/24/24
05:20
Sodium 136
Potassium 4.3
Chloride 93 L
Carbon Dioxide 35 H
BUN 54 H
Creatinine 0.5 L
Glucose 89
Calcium 9.3
Vital Signs:
Vital Signs
Temp Pulse Resp BP Pulse Ox
97.6 F 74 14 110/75 98
04/24/24 03:08 04/24/24 07:32 04/24/24 07:32 04/24/24 06:00 04/24/24 07:32
I&O
04/23/24 04/24/24 04/25/24
06:59 06:59 06:59
Intake Total 780 / 780
Output Total 1100 / 1100 1500 / 1500
Balance -320 / -320 -1500 / -1500
Review of Systems
-
History Source: Patient
All other systems: Reviewed and negative
--- NOTE | 2024-04-24 08:33 | PTCARENOTE ---
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 Patient resting comfortably in bed. AAO, VSS. No events noted overnight. No complaints of pain at this time. Currently on 2L N/C, will wean as tolerated. No fluids through IV. No BMs in last 48hrs,
monitoring and will get suppository if needed. No tested scheduled at this time. Call gonzalez in reach.
--- NOTE | 2024-04-24 08:34 | W.PN.CARDCBS ---
Today's Communication / Plan
-
Acute on chronic ILD which is felt by pulm to be steroid responsive.
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
Wean O2 as tolerated
Cont pulm toilet including steroids
Elevated CRP levels indicated inflammatory pneumonitis over bacterial PNA as per pulm
Wt was up slightly and she received IV lasix 40 mg X 04/23 with no change in wt
Will hold lasix and hold off on adding oral lasix for now
Cr stable, BUN continues to rise.
Fluid restriction
pBNP was 2850 04/20/2024.
Cont rate control strategy of AFib including Diltiazem, Toprol, digoxin
Monitor renal function given Digoxin
HRs remains stable.
Cont Eliquis for cardioembolic ppx
Impression / Plan
-
.
Primary Inlayer: Dr. Dawson
Primary EP: Dr. Llanes
Patient is a 78-year-old female with past medical history of symptomatic paroxysmal atrial fibrillation. She was initially admitted 02/16 - 02/19/2024 and started on Tikosyn 250 mcg every 12 hours. She then recurred shortly thereafter and
presented back to [facility] 02/21 her Tikosyn was uptitrated to 500 mcg every 12 hours however she continued to have breakthrough and Tikosyn was stopped and after washout was started on amiodarone therapy. This has been successful for
patient and maintaining sinus rhythm. She reports she has had no feelings of palpitations. Recently she states she developed cough. She was seen in the ER 04/10/2024 and diagnosed with pneumonia and started on treatment. She reports her symptoms
persisted with worsening cough and shortness of breath and she returned to the ER on 04/14/2024. COVID, flu, Legionella negative. Currently requiring 12 L mid flow oxygen. She underwent chest CT which showed extensive diffuse bilateral pulmonary
parenchymal groundglass opacities and there is concern for Amio pulmonary toxicity therefore her amiodarone has been stopped. Pulmonary to evaluate patient. Cardiology consulted for assistance with A-fib management in the setting of this. She is
in sinus rhythm at this time.
Assessment:
Presentation with cough, SOB
Acute hypoxic respiratory failure
Concern for PNA
Acute on chronic ILD
Concern for possible amio pulm toxicity
Hyponatremia
Paroxysmal afib
Hx of SVT/afib/flutter ablation 08/2016
repeat PVI 12/10/22
breakthrough on tikosyn
amiodarone therapy started 02/2024
Chronic OAC with eliquis
Hx Relative hypotension
3 week admission to [place] for inflammatory colitis 01/05-01/27/24 s/p flex sigmoidoscopy with biopsy 01/13/24
Hx urinary retention
GCA
Peripheral neuropathy
Hypothyroidism
GERD
History of pulmonary nodules
Hyponatremia
Vitamin D deficiency
Echo 05/17/2022: EF 60%, mild biatrial enlargement. Mild tricuspid regurgitation
Echo 04/16/2024: EF 55-60% mild MR and mild TR estimated pulmonary artery pressure of 25 mmHg
Plan:
Acute on chronic ILD which is felt by pulm to be steroid responsive.
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
Wean O2 as tolerated
Cont pulm toilet including steroids
Elevated CRP levels indicated inflammatory pneumonitis over bacterial PNA as per pulm
Wt was up slightly and she received IV lasix 40 mg X 04/23 with no change in wt
Will hold lasix and hold off on adding oral lasix for now
Cr stable, BUN continues to rise.
Fluid restriction
pBNP was 2850 04/20/2024.
Cont rate control strategy of AFib including Diltiazem, Toprol, digoxin
Monitor renal function given Digoxin
HRs remains stable.
Cont Eliquis for cardioembolic ppx
Patient with history of symptomatic paroxysmal atrial fibrillation, maintaining sinus rhythm on amiodarone presented to [facility] with cough and shortness of breath and is being treated for pneumonia. Chest CT obtained today shows
evidence of diffuse groundglass opacities and is currently requiring 12 L mid flow oxygen and there is concern for amiodarone pulmonary toxicity.
Progress Note - Inlayer
Subjective
Date of Service: April 24, 2024
Pt seen and examined. No chest pain.
Objective
Labs:
04/23/24 06:10
04/24/24 05:20
Labs
Hgb 11.9 g/dL (12.0-16.0) L 04/23/24 06:10
Hct 35.4 % (37.0-47.0) L 04/23/24 06:10
Plt Count 188 10^3/uL (130-400) 04/23/24 06:10
Sodium 136 mmol/L (135-145) 04/24/24 05:20
Potassium 4.3 mmol/L (3.5-5.1) 04/24/24 05:20
BUN 54 mg/dl (7-17) H 04/24/24 05:20
Creatinine 0.5 mg/dL (0.6-1.0) L 04/24/24 05:20
Glucose 89 mg/dl (70-99) 04/24/24 05:20
Vital Signs and I&O:
Vital Signs
Temp Pulse Resp BP Pulse Ox
97.6 F 74 14 110/75 98
04/24/24 03:08 04/24/24 07:32 04/24/24 07:32 04/24/24 06:00 04/24/24 07:32
Vital Signs
Temp Pulse Resp BP Pulse Ox
97.6 F 74 14 110/75 98
04/24/24 03:08 04/24/24 07:32 04/24/24 07:32 04/24/24 06:00 04/24/24 07:32
Intake & Output
04/22/24 04/23/24 04/24/24 04/25/24
06:59 06:59 06:59 06:59
Intake Total 1110 / 1110 780 / 780
Output Total 1925 / 1925 1100 / 1100 1500 / 1500
Balance -815 / -815 -320 / -320 -1500 / -1500
Physical Exam
Physical Exam
General: No acute distress, AAOX3
Neck: Negative JVD
Heart: Irregularly irregular, Negative S3 positive S1/S2, Negative S4, No murmur
Lungs: CTA b/l, negative wheezes/rales/rhonchi
Abd: Positive BS, NT/ND, neg rebound/rigidity/guarding
Ext: Negative cyanosis/clubbing/edema
Neuro: nonfocal
[2024-04-24] MEDS: CARDIZEM CD 180 MG PO ×2 (08:56→20:55)
[2024-04-24] MEDS: VITAMIN D3 (cholecalciferol) 50 MCG PO (08:56)
[2024-04-24] MEDS: ELIQUIS 5 MG PO ×2 (08:56→22:01)
[2024-04-24] MEDS: OSCAL 500 + D 500 MG PO (08:57)
[2024-04-24] MEDS: SOLU-MEDROL PF 40 MG IV (08:57)
[2024-04-24] MEDS: TOPROL XL 100 MG PO ×2 (08:57→20:55)
[2024-04-24] MEDS: THERAGRAN 1 TABLET PO (08:57)
[2024-04-24] MEDS: MIRALAX 17 GRAMS PO (08:57)
--- NOTE | 2024-04-24 09:30 | W.PN.PUL3 ---
Addendum entered and electronically signed by Angel Gomes MD 04/24/24 17:27:
Regarding her systemic steroids, continue with Solu-Medrol 40 mg IV daily for now until ready for discharge, then transition to prednisone 40 mg daily, reducing by 10 mg every 8th day. Ideally I would like her to still be on systemic steroids of at
least 20 mg daily by the time I see her in the office.
Original Note:
Today's Communication / Plan
-
Oxygen requirements markedly improved, now down to 2 L/min via nasal cannula
Up out of bed as tolerated
Encourage incentive spirometer q1hr while awake
PT/OT
Ambulatory pulse oximetry prior to discharge
Outpatient pulmonary office follow-up will be arranged with full PFTs and repeat imaging
Patient is markedly improving with her oxygen requirements. No additional recommendations at this time. Pulmonary service will now sign off. Please reconsult if there are any additional questions/concerns, or if patient's respiratory status
deteriorates.
Assessment
-
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
low O2 at home (SpO2 in the 80s). She was recently in the ER on 04/10/2024 with a dry cough x 2 weeks/oxygen was 89% at home/CXR showed diffuse opacification concerning for GGO/hazy RLL opacification/biapical scarring. CT chest on 04/16/2024 showed
a 5.7 cm long pneumatosis in the right lung apex with extensive diffuse bilateral patchy and confluent groundglass opacities with bronchial wall thickening and traction bronchiectasis in the posterior upper lobes and mild hilar adenopathy.
Initially in the ER she was afebrile, hemodynamically stable but saturating 84% on room air which increased to 98% with 3 L/min. She was initially started on her home dose of prednisone and given antibiotics due to possible atypical pneumonia.
Infectious workup was negative. She continued to have worsening hypoxia, and amiodarone was stopped and steroids were raised to Solu-Medrol 60 mg IV q6hr, and she was transferred to the IMU for further care. Pulmonary service now consulted for
additional management/recommendations.
Impression:
#Acute respiratory failure with hypoxia due to ILD
#Interstitial lung disease with chronic diffuse subpleural reticular opacities without honeycombing, now with diffuse groundglass opacities suspicious for an acute process overlying chronic ILD
- Differential includes NSIP, hypersensitivity pneumonitis, amiodarone toxicity (less likely given only been off for 6 weeks), acute eosinophilic pneumonia, organizing pneumonia (less likely), & sarcoidosis; less likely infection and less likely
PAP (no crazy paving)
#5.7 cm pneumatosis in the right lung apex seen on CT chest from 04/16/2024
#Leukocytosis likely reactive as well as steroid induced
#Anemia
#Hyponatremia - resolved
#Hypoalbuminemia
#History of recurrent A-fib on chronic amiodarone (load started on 02/27/2024) + Eliquis, previously on Tikosyn (last cardioversion on 02/24/2024)
#History of lung nodule (rounded opacity in the superior right lower lobe and 5 mm nodule in the right lower lobe seen on prior CT chest from July 2016)
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
History of giant cell arteritis on chronic prednisone (20 mg daily)
Recurrent A-fib on amiodarone + Eliquis
Chronic hyponatremia
Peripheral neuropathy
GERD
Hypothyroidism
History of SVT/flutter
History of ablation/PVI
Pulmonary nodule
Urinary retention with Shanks catheter
Plan
She has markedly improved with her hypoxia, now down to 2 L/min nasal cannula from high flow nasal cannula previously
Check ambulatory pulse oximetry prior to discharge
She has poor effort on IS, not getting OOB--reviewed this with her at bedside
She was reinforced on how to use the incentive spirometer and recommended to use q1hr while awake
Effort remains poor-- Dr. Peck reviewed this with son at bedside
Her memory also seems to be an issue as well
Son was interested in psych eval, she has struggled with anxiety/depression-- Dr. Peck discussed this with care team
Imaging reviewed which may be subacute/chronic
Regardless of the etiology of her ILD, there is diffuse groundglass opacification and she should be steroid responsive
Given that she was on amiodarone, would hold this for now given possible toxicity (although less likely given she has only been on it for about 7 weeks)
Ideally would check a broad rheumatological panel but now that she is on systemic steroids this is likely going to be falsely negative
CRP levels were very high (207.2 -04/16/2024), indicating that an inflammatory pneumonitis is happening and not a bacterial pneumonia
Procalcitonin of 0.16 (04/14/2024)
Initially covered empirically with antibiotics (s/p cefepime with last day 04/19; s/p Zithromax with last day 04/18)
Sputum culture neg 04/14, blood culture neg x 2
Flu neg, MRSA neg, PCT neg
Observe off Abx
Empiric steroids -- Solu-Medrol at 60 mg IV q6hr, weaned to 40mg q8--now on solumedrol 40mg IV daily
Repeat CXR on 04/20/2024 appears similar to prior CXR on 04/18/2024
She will need repeat imaging in about 6-8 weeks
Consideration for further outpatient w/u including biopsy, likely starting with bronchoscopy for transbronchial biopsy vs surgical biopsy
Maintain SpO2 >90-94% with supplemental O2 and wean as tolerated
Increase OOB, IS, PT/OT
ECHO with stable function, proBNP 630
Given that she went into rapid A-fib earlier this admission, changed DuoNebs to Xopenex + Atrovent TID
Although the amiodarone has been keeping her in NSR, given her acute hypoxia with possible amiodarone induced toxicity, need to hold amiodarone at this time
Previously was on Tikosyn but had symptomatic A-fib with RVR despite being on max dose of Tikosyn -- transitioned to amiodarone s/p load 02/27/2024
Continue with Eliquis
Cardiology on board and recommendations appreciated
DVT ppx: Eliquis
Encouraged OOB/PT
Patient is markedly improving with her oxygen requirements. No additional recommendations at this time. Pulmonary service will now sign off. Thank you for allowing us to be involved in the care of this patient. Please reconsult if there are any
additional questions/concerns, or if patient's respiratory status deteriorates.
We will arrange for outpatient pulmonary office follow-up once discharged.
Data:
CXR 04/18/24- Persistent diffuse bilateral interstitial and heterogeneous patchy and confluent groundglass airspace opacity is again demonstrated. Slight progression, especially in the lung bases. However, no focal dense consolidation.
CT chest with IV contrast 04/16/2024: Extensive diffuse bilateral pulmonary parenchymal groundglass opacity. Associated mild adenopathy, likely reactive. No pleural effusion. There is a broad differential, which may include infection (usually
atypical), interstitial edema, diffuse alveolar damage, hypersensitivity pneumonitis, and acute eosinophilic pneumonia. Other possible considerations may include aspiration or hemorrhage. In the chronic setting, consider nonspecific interstitial
pneumonia, desquamative interstitial pneumonia/respiratory bronchiolitis, sarcoidosis, or alveolar proteinosis.
ECHO 04/16/24- 1. Left ventricle: Normal size and function with an estimated ejection fraction of 55-60%. Normal diastolic function
2. Right ventricle: Normal right ventricular size and function.
3. Atria: Normal
4. Mitral valve: Mild mitral regurgitation
5. Aortic valve: No aortic stenosis or aortic insufficiency
6. Tricuspid valve: Mild tricuspid regurgitation with estimated pulmonary artery systolic pressure of 20-25 mmHg
-----
Total time spent today was 37 minutes for this encounter. Time includes reviewing laboratory test/imaging results, reviewing pertinent medical records, obtaining and reviewing medical history, performing an appropriate exam, ordering medications,
tests and procedures. Time also includes documentation of this encounter, coordinating patient care and communicating with other healthcare professionals. Total time does not include separately billed tests performed on this date of service.
Subjective Data
-
Date of Service:
Date of Service: April 24, 2024
Chief Complaint: Pulmonary Follow Up
Subjective:
Patient seen today at bedside (late note entry). She says she feels tired today. Currently on 2 L/min saturating 95%. BP 120/65 and heart rate 86. She denies any chest pain, abdominal pain, nausea, fevers or chills.
Review of Systems
General: Other (Negative unless mentioned above)
Objective Data
Data Reviewed
Vital Signs / I&O / Oxygen:
Vital Signs
Temp Pulse Resp BP Pulse Ox
97.6 F 74 14 110/75 98
04/24/24 03:08 04/24/24 07:32 04/24/24 07:32 04/24/24 06:00 04/24/24 07:32
Intake and Output
04/23/24 04/24/24 04/25/24
06:59 06:59 06:59
Intake Total 780 / 780
Output Total 1100 / 1100 1500 / 1500
Balance -320 / -320 -1500 / -1500
SaO2 98
Nasal Cannula flow liters per 2
minute
Physical Exam
General: Respiratory Distress (negative), Comfortable, Chills (negative), Sweats (negative) and Other (anxious appearing)
HEENT: Normocephalic, Anicteric and Moist Mucous Membranes
Cardiovascular: S1-S2, Rub (negative) and Peripheral Edema (negative)
Respiratory: Wheeze (negative), Crackles (bibasilar), Rhonchi (negative), Non-Labored Respirations and Other (overall diminished with shallow breaths)
GI: Soft, Non Distended, Non Tender and Normal Bowel Sounds
Neurology: AO x 3 and Tremors (negative)
Skin: Warm, Dry, Cyanosis (negative) and Jaundice (negative)
Labs/Micro/Reports
Lab Data
04/23/24 06:10
04/24/24 05:20
Microbiology
04/16/24 08:48 Blood/Venous Blood Culture - Final
No Growth - Final Report
[2024-04-24] MEDS: LANOXIN 125 MCG PO (11:52)
[2024-04-24] MEDS: SENNA SYRUP 8.8 MG PO (11:59)
--- NOTE | 2024-04-24 13:11 | W.PN.UPDATE ---
Update Note
Progress Note Update
patient seen chart reviewed. mrs mcelroy was sitting up in a chair. she had been there about half an hour. she reports that she felt wiped out just from the effort of going from bed to chair. she did not use the ativan ordered for her. she really
seems more frail than anxious. she did sleep which was a +. brought her some activity books. encouraged her to try and occupy her mind for a bit to see if that helps. her is coming later on today. patient just began remeron. too soon
to see an effect. she did not feel well enought to do much talking and talking in itself seemed like a big effort. will return in the am
[2024-04-24] MEDS: ATIVAN 0.25 MG PO (14:42)
[2024-04-24] MEDS: DULCOLAX 10 MG RECTAL (14:42)
[2024-04-24] MEDS: COLACE 100 MG PO (17:02)
[2024-04-24] MEDS: ZOFRAN 4 MG IV (17:03)
[2024-04-24 20:58] LABS: Hematocrit 39.8 % (37.0-47.0); Hemoglobin 13.6 g/dL (12.0-16.0)
--- NOTE | 2024-04-24 21:41 | W.PN.UPDATE ---
Update Note
Progress Note Update
RN reported patient had 2 small red/brown color stools. no other complaints. stable VS. Patient is on Eliquis for Afib. H/H stable, Heme test to be collected. Consulted with [employer] Analyst. Advised to give Eliquis and monitor. Labs in AM, hold AM
Eliquis if further blood in stools.
[2024-04-24] MEDS: REMERON 15 MG PO (22:01)
[2024-04-25] VITALS (10 sets, daily range): BP systolic 96–128; BP diastolic 60–83
[2024-04-25] MEDS: MYCOSTATIN ORAL SUSPENSION PO ×4 (00:17→15:48)
[2024-04-25] MEDS: NON-FORMULARY ITEM 1 UNIT PO (05:15)
[2024-04-25 06:28] LABS: Hemoglobin 12.5 g/dL (12.0-16.0); Mean Corp Hgb Conc. 32.9 g/dL (33.0-37.0); Mean Corpuscular Hgb 30.1 pg (27.0-31.0); Mean Corpuscular Volume 91.6 fL (81.0-99.0); Mean Platelet Volume 9.1 fL (7.4-10.4); Platelet Count 250 10^3/uL (130-400); Red Blood Cell Count 4.15 10^6/uL (4.20-5.40); Red Cell Dist. Width 17.1 % (11.5-14.5)
[2024-04-25] MEDS: ATROVENT NEBULES 0.5 MG INH ×3 (07:35→19:58)
[2024-04-25] MEDS: XOPENEX 1.25 MG INHALANT SOLUTION INH ×3 (07:35→19:58)
--- NOTE | 2024-04-25 07:38 | W.PN.CARDCBS ---
Today's Communication / Plan
-
Acute on chronic ILD which is felt by pulm to be steroid responsive.
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
Wean O2 as tolerated
Cont pulm toilet including steroids
Elevated CRP levels indicated inflammatory pneumonitis over bacterial PNA as per pulm
Wt was up slightly and she received IV lasix 40 mg X 04/23 with no change in wt
Cont to hold lasix and hold off on adding oral lasix for now
Cr has been stable, BUN has continued to rise.
Fluid restriction
Monitor weights closely. May consider additional Lasix for weight gain. She was not taking Lasix as an outpatient.
pBNP was 2850 04/20/2024.
Cont rate control strategy of AFib including Diltiazem, Toprol, digoxin
Monitor renal function given Digoxin
HRs remains stable.
Cont Eliquis for cardioembolic ppx
Check digoxin level in AM.
Impression / Plan
-
.
Primary Adult Neuropsychologist: Dr. Dawson
Primary EP: Dr. Llanes
Patient is a 78-year-old female with past medical history of symptomatic paroxysmal atrial fibrillation. She was initially admitted 02/16 - 02/19/2024 and started on Tikosyn 250 mcg every 12 hours. She then recurred shortly thereafter and
presented back to [facility] 02/21 her Tikosyn was uptitrated to 500 mcg every 12 hours however she continued to have breakthrough and Tikosyn was stopped and after washout was started on amiodarone therapy. This has been successful for
patient and maintaining sinus rhythm. She reports she has had no feelings of palpitations. Recently she states she developed cough. She was seen in the ER 04/10/2024 and diagnosed with pneumonia and started on treatment. She reports her symptoms
persisted with worsening cough and shortness of breath and she returned to the ER on 04/14/2024. COVID, flu, Legionella negative. Currently requiring 12 L mid flow oxygen. She underwent chest CT which showed extensive diffuse bilateral pulmonary
parenchymal groundglass opacities and there is concern for Amio pulmonary toxicity therefore her amiodarone has been stopped. Pulmonary to evaluate patient. Cardiology consulted for assistance with A-fib management in the setting of this. She is
in sinus rhythm at this time.
Assessment:
Presentation with cough, SOB
Acute hypoxic respiratory failure
Concern for PNA
Acute on chronic ILD
Concern for possible amio pulm toxicity
Hyponatremia
Paroxysmal afib
Hx of SVT/afib/flutter ablation 08/2016
repeat PVI 12/10/22
breakthrough on tikosyn
amiodarone therapy started 02/2024
Chronic OAC with eliquis
Hx Relative hypotension
3 week admission to [place] for inflammatory colitis 01/05-01/27/24 s/p flex sigmoidoscopy with biopsy 01/13/24
Hx urinary retention
GCA
Peripheral neuropathy
Hypothyroidism
GERD
History of pulmonary nodules
Hyponatremia
Vitamin D deficiency
Echo 05/17/2022: EF 60%, mild biatrial enlargement. Mild tricuspid regurgitation
Echo 04/16/2024: EF 55-60% mild MR and mild TR estimated pulmonary artery pressure of 25 mmHg
Plan:
Acute on chronic ILD which is felt by pulm to be steroid responsive.
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
Wean O2 as tolerated
Cont pulm toilet including steroids
Elevated CRP levels indicated inflammatory pneumonitis over bacterial PNA as per pulm
Wt was up slightly and she received IV lasix 40 mg X 04/23 with no change in wt
Cont to hold lasix and hold off on adding oral lasix for now
Cr has been stable, BUN has continued to rise.
Fluid restriction
Monitor weights closely. May consider additional Lasix for weight gain. She was not taking Lasix as an outpatient.
pBNP was 2850 04/20/2024.
Cont rate control strategy of AFib including Diltiazem, Toprol, digoxin
Monitor renal function given Digoxin
HRs remains stable.
Cont Eliquis for cardioembolic ppx
Check digoxin level in AM.
Patient with history of symptomatic paroxysmal atrial fibrillation, maintaining sinus rhythm on amiodarone presented to [facility] with cough and shortness of breath and is being treated for pneumonia. Chest CT obtained today shows
evidence of diffuse groundglass opacities and is currently requiring 12 L mid flow oxygen and there is concern for amiodarone pulmonary toxicity.
Progress Note - Adult Neuropsychologist
Subjective
Date of Service: April 25, 2024
Patient seen and examined. Denies chest pain.
Objective
Labs:
04/25/24 05:13
04/24/24 05:20
Labs
Hgb 12.5 g/dL (12.0-16.0) 04/25/24 05:13
Hct 38.0 % (37.0-47.0) 04/25/24 05:13
Plt Count 250 10^3/uL (130-400) D 04/25/24 05:13
Sodium 136 mmol/L (135-145) 04/24/24 05:20
Potassium 4.3 mmol/L (3.5-5.1) 04/24/24 05:20
BUN 54 mg/dl (7-17) H 04/24/24 05:20
Creatinine 0.5 mg/dL (0.6-1.0) L 04/24/24 05:20
Glucose 89 mg/dl (70-99) 04/24/24 05:20
Vital Signs and I&O:
Vital Signs
Temp Pulse Resp BP Pulse Ox
97.7 F 66 19 111/72 97
04/25/24 03:09 04/25/24 02:00 04/25/24 02:00 04/25/24 02:00 04/25/24 02:00
Vital Signs
Temp Pulse Resp BP Pulse Ox
97.7 F 66 19 111/72 97
04/25/24 03:09 04/25/24 02:00 04/25/24 02:00 04/25/24 02:00 04/25/24 02:00
Intake & Output
04/23/24 04/24/24 04/25/24 04/26/24
06:59 06:59 06:59 06:59
Intake Total 780 / 780 600 / 600
Output Total 1100 / 1100 1500 / 1500 650 / 650
Balance -320 / -320 -1500 / -1500 -50 / -50
Physical Exam
Physical Exam
General: No acute distress, awake and alert. Frail-appearing
Neck: Negative JVD
Heart: Irregular irregular,, Negative S3 positive S1/S2, Negative S4, No murmur
Lungs: CTA b/l, negative wheezes/rales/rhonchi
Abd: Positive BS, NT/ND, neg rebound/rigidity/guarding
Ext: Negative cyanosis/clubbing/edema
Neuro: nonfocal
--- NOTE | 2024-04-25 07:59 | W.PN.HOSP.TC ---
Today's Communication/Plan
-
Discharge planning
Assessment / Plan
Assessment / Plan
Gen-AAOx3, NAD
HEENT-NC, AT, anicteric, clear oral mm
Neck-supple
CV-reg, no M, +S1/S2
Lungs-diminished breath sounds bilaterally
Abd-soft, NT, ND
Ext-no edema
Musculoskeletal-no cyanosis, clubbing
Skin-warm and dry
Neuro-grossly non-focal
Psych-calm, cooperative
Acute hypoxic respiratory failure -oxygenation improved remarkably, now on 2 L nasal cannula and has been so all night. Pulse ox 99%. Oxygenation remains stable on 2 L nasal cannula.
Etiology suspected to be due to pneumonitis, possible hypersensitivity pneumonitis, ILD. Perhaps she has a component of pulmonary edema as we are seeing some improvement with diuresis. Doubt pneumonia. Now off antibiotics. Received 5 days of
empiric antibiotics. Lasix dosing per cardiology. Note that elevated BNP is nonspecific and can be due to both heart failure as well as lung pathology.
� MRSA, flu, COVID, Legionella, strep pneumo negative. Blood cultures negative.
� Wean O2 as tolerated, goal O2 greater than 92%
� DuoNebs
� IV Solu-Medrol per pulmonary, started 04/16. Tapering steroids slowly. She was on 20 mg prednisone daily prior to admission for treatment of GCA.
� Stop amiodarone�even though started in February 2024, with pulmonary pathology and risk of lung toxicity benefits outweigh risks of holding. Cardiology following.
� ESR, CRP elevated; eosinophils within normal limits.
� Incentive spirometry, Acapella
�Pulmonary following
Acute heart failure with preserved EF -presumed diagnosis. Oxygenation slowly improving.
Started to develop contraction alkalosis with rising bicarbonate. Bicarbonate improved to 33 today. Diuretics now on hold. Cardiology following.
Sepsis -resolved.
Hyponatremia -resolved.
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
� Continue urea
� Has history of chronic hyponatremia
� Free water restriction
Paroxysmal atrial fibrillation -with RVR
� Rates much improved. Toprol-XL dose increased, Cardizem CD 180 mg twice daily per cardiology. Digoxin.
� Continue Eliquis
� Stopped amiodarone, follow cardiology recommendations
5.7 cm focal lung pneumatosis in the right lung apex
� Continue to monitor
Giant cell arteritis
Chronic leukocytosis
� Continue steroid dosing, currently on this dosing for over 1 month
Chronic normocytic anemia
-Monitor hemoglobin
� No obvious acute blood loss anemia
GERD
-famotidine
Constipation -bowel regimen ordered. Had 2 bowel movements yesterday. Had mild blood-tinged stool possibly related to straining or hemorrhoids. Hemoglobin stable.
Hypothyroidism
- Cont home levothyroxine
DVT prophylaxis
-Eliquis
Limited DNR -not interested in CPR but is amenable to temporary ventilator if needed.
Dispo -anticipate discharging to SNF once bed available. Appears medically stable for discharge.
Anticipated Discharge: Within 24 hours
Subjective/Interval History
-
Date of Service: April 25, 2024
Patient seen and examined. Feels weak, mildly short of breath.
Objective Data
-
Labs:
Laboratory Results
04/24/24 04/25/24
20:51 05:13
WBC 16.0 H
Hgb 13.6 12.5
Hct 39.8 38.0
Plt Count 250 D
Vital Signs:
Vital Signs
Temp Pulse Resp BP Pulse Ox
97.7 F 84 13 111/72 98
04/25/24 03:09 04/25/24 07:38 04/25/24 07:38 04/25/24 02:00 04/25/24 07:38
I&O
04/24/24 04/25/24 04/26/24
06:59 06:59 06:59
Intake Total 600 / 600
Output Total 1500 / 1500 650 / 650
Balance -1500 / -1500 -50 / -50
Review of Systems
-
History Source: Patient
All other systems: Reviewed and negative
[2024-04-25] MEDS: MIRALAX 17 GRAMS PO (09:14)
[2024-04-25] MEDS: ELIQUIS 5 MG PO ×2 (09:15→20:48)
[2024-04-25] MEDS: THERAGRAN 1 TABLET PO (09:15)
[2024-04-25] MEDS: VITAMIN D3 (cholecalciferol) 50 MCG PO (09:15)
[2024-04-25] MEDS: CARDIZEM CD 180 MG PO ×2 (09:15→20:48)
[2024-04-25] MEDS: SOLU-MEDROL PF 40 MG IV (09:16)
[2024-04-25] MEDS: TOPROL XL 100 MG PO ×2 (09:18→20:48)
[2024-04-25] MEDS: OSCAL 500 + D 500 MG PO (09:19)
--- NOTE | 2024-04-25 11:33 | TRANSFER ---
Report given to Eliane on 3W. Pt transferred with all belongings. Wheelchair included. Pt holding glasses and phone. other belongings in bags.
[2024-04-25] MEDS: LANOXIN 125 MCG PO (12:21)
--- NOTE | 2024-04-25 15:35 | W.PN.UPDATE ---
Update Note
Progress Note Update
patient seen chart reviewed. discussed with nursing at bedside. patient told me she does not want to live this way. she is not suicidal but she thinks of refusing treatment and considering hospice. gently told her he loves her and
there are many who love her and tried to encourage her to be hopeful. i encouiraged her to give antidepressants some time to work and we discussed considering ritalin which she is afraid to take bc it could contribute to anxiety. i asked her to
think about this and to talk with her hospitalist to get a realistic idea of what preospects for recovery are reasonably speaking. i am note here tomorrow but will have dr donahue see her then and i will come in to see her on friday. i did tell her
that no one can force her to do anything against her will and if she wants comfort care of hospice care that can be arranged. wants her to talk w their son as well. we talked about foods she might try to eat to boost her weight and energy
. clearly willing to do anything that may help her.
[2024-04-25] MEDS: ATIVAN 0.25 MG PO ×2 (15:54→22:31)
[2024-04-25] MEDS: COLACE 100 MG PO (17:04)
[2024-04-25] MEDS: REMERON 15 MG PO (20:48)
[2024-04-26] VITALS (7 sets, daily range): BP systolic 99–120; BP diastolic 58–67; PULSE 79; O2SAT 98
[2024-04-26] MEDS: MYCOSTATIN ORAL SUSPENSION PO ×4 (00:28→17:14)
[2024-04-26] MEDS: NON-FORMULARY ITEM 1 UNIT PO (05:21)
[2024-04-26 06:55] LABS: Blood Urea Nitrogen 30 mg/dl (7-17); Carbon Dioxide 38 mmol/L (22-30); Chloride 94 mmol/L (98-107); Digoxin 0.8 ng/ml (0.8-2.0); Estimated Creatinine Clearance 66 ml/min; Glucose 88 mg/dl (70-99); Potassium 4.6 mmol/L (3.5-5.1); Sodium 133 mmol/L (135-145); eGFR > 60.00
[2024-04-26] MEDS: ATROVENT NEBULES 0.5 MG INH ×3 (07:35→19:53)
[2024-04-26] MEDS: XOPENEX 1.25 MG INHALANT SOLUTION INH ×3 (07:35→19:53)
[2024-04-26] MEDS: ELIQUIS 5 MG PO ×2 (09:06→20:55)
[2024-04-26] MEDS: TOPROL XL 100 MG PO ×2 (09:06→20:55)
[2024-04-26] MEDS: THERAGRAN 1 TABLET PO (09:06)
[2024-04-26] MEDS: VITAMIN D3 (cholecalciferol) 50 MCG PO (09:06)
[2024-04-26] MEDS: OSCAL 500 + D 500 MG PO (09:06)
[2024-04-26] MEDS: CARDIZEM CD 180 MG PO ×2 (09:07→20:55)
[2024-04-26] MEDS: MIRALAX 17 GRAMS PO (09:07)
[2024-04-26] MEDS: SOLU-MEDROL PF 40 MG IV (09:07)
[2024-04-26] MEDS: URE-NA 15 GRAMS PO (10:16)
--- NOTE | 2024-04-26 12:17 | W.PN.CARDCBS ---
Today's Communication / Plan
-
She remains hypoxemic but has improved slowly
Continue steroids
Hold off on Lasix as no significant improvement with Lasix
Heart rate controlled in A-fib at present
Impression / Plan
-
.
Primary Cloth Presser: Dr. Dawson
Primary EP: Dr. Llanes
Patient is a 78-year-old female with past medical history of symptomatic paroxysmal atrial fibrillation. She was initially admitted 02/16 - 02/19/2024 and started on Tikosyn 250 mcg every 12 hours. She then recurred shortly thereafter and
presented back to [facility] 02/21 her Tikosyn was uptitrated to 500 mcg every 12 hours however she continued to have breakthrough and Tikosyn was stopped and after washout was started on amiodarone therapy. This has been successful for
patient and maintaining sinus rhythm. She reports she has had no feelings of palpitations. Recently she states she developed cough. She was seen in the ER 04/10/2024 and diagnosed with pneumonia and started on treatment. She reports her symptoms
persisted with worsening cough and shortness of breath and she returned to the ER on 04/14/2024. COVID, flu, Legionella negative. Currently requiring 12 L mid flow oxygen. She underwent chest CT which showed extensive diffuse bilateral pulmonary
parenchymal groundglass opacities and there is concern for Amio pulmonary toxicity therefore her amiodarone has been stopped. Pulmonary to evaluate patient. Cardiology consulted for assistance with A-fib management in the setting of this. She is
in sinus rhythm at this time.
Assessment:
Presentation with cough, SOB
Acute hypoxic respiratory failure
Concern for PNA
Acute on chronic ILD
Concern for possible amio pulm toxicity
Hyponatremia
Paroxysmal afib
Hx of SVT/afib/flutter ablation 08/2016
repeat PVI 12/10/22
breakthrough on tikosyn
amiodarone therapy started 02/2024
Chronic OAC with eliquis
Hx Relative hypotension
3 week admission to [facility] for inflammatory colitis 01/05-01/27/24 s/p flex sigmoidoscopy with biopsy 01/13/24
Hx urinary retention
GCA
Peripheral neuropathy
Hypothyroidism
GERD
History of pulmonary nodules
Hyponatremia
Vitamin D deficiency
Echo 05/17/2022: EF 60%, mild biatrial enlargement. Mild tricuspid regurgitation
Echo 04/16/2024: EF 55-60% mild MR and mild TR estimated pulmonary artery pressure of 25 mmHg
Plan:
She remains with significant oxygen but has improved slowly. Continue to treat with steroids.
There was no significant improvement with Lasix and have held off on giving more Lasix.
Continue rate control of A-fib with digoxin, Toprol, diltiazem, continue Eliquis. Dig level okay on 04/26
Patient with history of symptomatic paroxysmal atrial fibrillation, maintaining sinus rhythm on amiodarone presented to [facility] with cough and shortness of breath and is being treated for pneumonia. Chest CT obtained today shows
evidence of diffuse groundglass opacities and is currently requiring 12 L mid flow oxygen and there is concern for amiodarone pulmonary toxicity.
Progress Note - Cloth Presser
Subjective
Date of Service: April 26, 2024
No complaints. remains on significant oxygen
Objective
Labs:
04/25/24 05:13
04/26/24 06:05
Labs
Hgb 12.5 g/dL (12.0-16.0) 04/25/24 05:13
Hct 38.0 % (37.0-47.0) 04/25/24 05:13
Plt Count 250 10^3/uL (130-400) D 04/25/24 05:13
Sodium 133 mmol/L (135-145) L 04/26/24 06:05
Potassium 4.6 mmol/L (3.5-5.1) 04/26/24 06:05
BUN 30 mg/dl (7-17) H 04/26/24 06:05
Creatinine 0.5 mg/dL (0.6-1.0) L 04/26/24 06:05
Glucose 88 mg/dl (70-99) 04/26/24 06:05
Digoxin 0.8 ng/ml (0.8-2.0) 04/26/24 06:05
Vital Signs and I&O:
Vital Signs
Temp Pulse Resp BP Pulse Ox
94.6 F L 97 16 101/60 72
04/26/24 11:31 04/26/24 11:31 04/26/24 11:31 04/26/24 11:31 04/26/24 11:31
Vital Signs
Temp Pulse Resp BP Pulse Ox
94.6 F L 97 16 101/60 72
04/26/24 11:31 04/26/24 11:31 04/26/24 11:31 04/26/24 11:31 04/26/24 11:31
Intake & Output
04/24/24 04/25/24 04/26/24 04/27/24
06:59 06:59 06:59 06:59
Intake Total 600 / 600 480 / 480
Output Total 1500 / 1500 650 / 650 200 / 200
Balance -1500 / -1500 -50 / -50 280 / 280
Physical Exam
Physical Exam
General: Well developed, well nourished in NAD.
Neck: Supple, no JVD, HJR, carotids +2 B/L, no bruits bilaterally.
Heart: Non displaced PMI, irregular, no murmurs, No S3, S4, no rubs.
Lungs: Scattered rhonchi throughout
Extremities: No clubbing, cyanosis or edema bilaterally.
Neuro: Grossly nonfocal, awake, alert and oriented x3.
--- NOTE | 2024-04-26 12:30 | PTCARENOTE ---
patient transferred oob with assist x1 to bsc, Purewick off. +sob with exertion, but appears mild, 2l NC maintained, vss, will continue to monitor.
[2024-04-26] MEDS: LANOXIN 125 MCG PO (12:43)
--- NOTE | 2024-04-26 12:47 | CM ---
CM following re: discharge planning.
Reviewed pt's chart, met with pt and pt's friend at bedside. CM spoke to pt's over the phone, updated his on discharge plan progress and pt's stated he loves his very much and he wants the best for her and he is requested to
make a referral to [facility] in [place].
Pt is aware, expressed her agreement going to [facility] for a short term rehab.
A referral to [facility] made, spoke to director of admission Lizzy [phone] and she confirmed she is reviewing a referral.
IMM reviewed placed on chart, pt has a copyt.
D/C plan: [facility] when accepted and based on bed availability.
CM will follow with discharge plan updates as hospitalization progresses
[2024-04-26] MEDS: ATIVAN 0.25 MG PO ×2 (13:44→21:02)
--- NOTE | 2024-04-26 15:04 | W.PN.HOSP.TC ---
Today's Communication/Plan
-
Wean O2 as tolerated
Awaiting placement, pillowcase sewer aware
Assessment / Plan
Assessment / Plan
Gen-AAOx3, NAD
HEENT-NC, AT, anicteric, clear oral mm
Neck-supple
CV-reg, no M, +S1/S2
Lungs-diminished breath sounds bilaterally
Abd-soft, NT, ND
Ext-no edema
Musculoskeletal-no cyanosis, clubbing
Skin-warm and dry
Neuro-grossly non-focal
Psych-calm, cooperative
Acute hypoxic respiratory failure -oxygenation improved remarkably, now on 2 L nasal cannula and has been so all night. Pulse ox 99%. Oxygenation remains stable on 2 L nasal cannula.
Etiology suspected to be due to pneumonitis, possible hypersensitivity pneumonitis, ILD. Perhaps she has a component of pulmonary edema as we are seeing some improvement with diuresis. Doubt pneumonia. Now off antibiotics. Received 5 days of
empiric antibiotics. Lasix dosing per cardiology. Note that elevated BNP is nonspecific and can be due to both heart failure as well as lung pathology.
� MRSA, flu, COVID, Legionella, strep pneumo negative. Blood cultures negative.
� Wean O2 as tolerated, goal O2 greater than 92%
� DuoNebs
� IV Solu-Medrol per pulmonary, started 04/16. Tapering steroids slowly. She was on 20 mg prednisone daily prior to admission for treatment of GCA.
� Stop amiodarone�even though started in February 2024, with pulmonary pathology and risk of lung toxicity benefits outweigh risks of holding. Cardiology following.
� ESR, CRP elevated; eosinophils within normal limits.
� Incentive spirometry, Acapella
�Pulmonary following
Acute heart failure with preserved EF -presumed diagnosis. Oxygenation slowly improving.
Started to develop contraction alkalosis with rising bicarbonate. Bicarbonate improved to 33 today. Diuretics now on hold. Cardiology following.
Sepsis -resolved.
Hyponatremia
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
� Continue urea
� Has history of chronic hyponatremia
� Free water restriction
Paroxysmal atrial fibrillation -with RVR
� Rates much improved. Toprol-XL dose increased, Cardizem CD 180 mg twice daily per cardiology. Digoxin.
� Continue Eliquis
� Stopped amiodarone, follow cardiology recommendations
5.7 cm focal lung pneumatosis in the right lung apex
� Continue to monitor
Giant cell arteritis
Chronic leukocytosis
� Continue steroid dosing, currently on this dosing for over 1 month
Chronic normocytic anemia
-Monitor hemoglobin
� No obvious acute blood loss anemia
GERD
-famotidine
Constipation -bowel regimen ordered. Had 2 bowel movements yesterday. Had mild blood-tinged stool possibly related to straining or hemorrhoids. Hemoglobin stable.
Hypothyroidism
- Cont home levothyroxine
DVT prophylaxis
-Eliquis
Limited DNR -not interested in CPR but is amenable to temporary ventilator if needed.
Dispo -anticipate discharging to SNF once bed available. Appears medically stable for discharge.
Anticipated Discharge: Within 24 hours
Subjective/Interval History
-
Date of Service: April 26, 2024
No acute events, 2 L nasal cannula
Objective Data
-
Labs:
Laboratory Results
04/26/24
06:05
Sodium 133 L
Potassium 4.6
Chloride 94 L
Carbon Dioxide 38 H
BUN 30 H
Creatinine 0.5 L
Glucose 88
Calcium 9.0
Vital Signs:
Vital Signs
Temp Pulse Resp BP Pulse Ox
94.6 F L 85 24 101/60 96
04/26/24 11:31 04/26/24 13:18 04/26/24 13:18 04/26/24 11:31 04/26/24 13:18
I&O
04/25/24 04/26/24 04/27/24
06:59 06:59 06:59
Intake Total 600 / 600 480 / 480
Output Total 650 / 650 200 / 200
Balance -50 / -50 280 / 280
Review of Systems
-
History Source: Patient
All other systems: Not reviewed unless documented
Data Reviewed
-
CT Scan: Report Reviewed by me
Labs: Labs Reviewed by me
[2024-04-26] MEDS: COLACE 100 MG PO (17:14)
[2024-04-26] MEDS: REMERON 15 MG PO (22:07)
[2024-04-27] MEDS: MYCOSTATIN ORAL SUSPENSION PO ×4 (01:10→17:43)
[2024-04-27 03:14] VITALS: BP 102/67
[2024-04-27] MEDS: NON-FORMULARY ITEM 1 UNIT PO (05:13)
[2024-04-27 06:07] LABS: Hematocrit 34.2 % (37.0-47.0); Hemoglobin 11.7 g/dL (12.0-16.0); Mean Corp Hgb Conc. 34.2 g/dL (33.0-37.0); Mean Corpuscular Volume 90.7 fL (81.0-99.0); Mean Platelet Volume 8.6 fL (7.4-10.4); Platelet Count 263 10^3/uL (130-400); Red Blood Cell Count 3.77 10^6/uL (4.20-5.40); White Blood Cell Count 16.4 10^3/uL (4.8-10.8)
[2024-04-27 07:00] LABS: ALT (SGPT) 69 U/L (0-35); AST (SGOT) 28 U/L (14-36); Albumin 2.7 g/dl (3.5-5.0); Alkaline Phosphatase 76 U/L (38-126); Blood Urea Nitrogen 31 mg/dl (7-17); Calcium 8.6 mg/dl (8.4-10.2); Carbon Dioxide 38 mmol/L (22-30); Chloride 94 mmol/L (98-107); Estimated Creatinine Clearance 66 ml/min; Glucose 86 mg/dl (70-99); Potassium 4.4 mmol/L (3.5-5.1); Sodium 133 mmol/L (135-145); Total Bilirubin 0.4 mg/dl (0.2-1.3); Total Protein 5.1 g/dl (6.3-8.2); eGFR > 60.00
[2024-04-27] MEDS: XOPENEX 1.25 MG INHALANT SOLUTION INH ×3 (07:32→19:23)
[2024-04-27] MEDS: ATROVENT NEBULES 0.5 MG INH ×3 (07:32→19:23)
[2024-04-27 07:58] VITALS: BP 106/64
[2024-04-27] MEDS: CARDIZEM CD 180 MG PO ×2 (08:10→20:21)
[2024-04-27] MEDS: THERAGRAN 1 TABLET PO (08:11)
[2024-04-27] MEDS: OSCAL 500 + D 500 MG PO (08:12)
[2024-04-27] MEDS: VITAMIN D3 (cholecalciferol) 50 MCG PO (08:12)
[2024-04-27] MEDS: SOLU-MEDROL PF 40 MG IV (08:12)
[2024-04-27] MEDS: TOPROL XL 100 MG PO ×2 (08:12→20:21)
[2024-04-27] MEDS: ELIQUIS 5 MG PO ×2 (08:13→20:21)
[2024-04-27] MEDS: MIRALAX 17 GRAMS PO (08:13)
[2024-04-27] MEDS: ATIVAN 0.25 MG PO ×3 (11:46→20:29)
[2024-04-27] MEDS: LANOXIN 125 MCG PO (11:46)
--- NOTE | 2024-04-27 14:38 | W.PN.HOSP.TC ---
Today's Communication/Plan
-
Wean O2 as tolerated
Awaiting placement, case management specialist aware
Assessment / Plan
Assessment / Plan
Gen-AAOx3, NAD
HEENT-NC, AT, anicteric, clear oral mm
Neck-supple
CV-reg, no M, +S1/S2
Lungs-diminished breath sounds bilaterally
Abd-soft, NT, ND
Ext-no edema
Musculoskeletal-no cyanosis, clubbing
Skin-warm and dry
Neuro-grossly non-focal
Psych-calm, cooperative
Acute hypoxic respiratory failure -oxygenation improved remarkably, now on 2 L nasal cannula and has been so all night. Pulse ox 99%. Oxygenation remains stable on 2 L nasal cannula.
Etiology suspected to be due to pneumonitis, possible hypersensitivity pneumonitis, ILD. Perhaps she has a component of pulmonary edema as we are seeing some improvement with diuresis. Doubt pneumonia. Now off antibiotics. Received 5 days of
empiric antibiotics. Lasix dosing per cardiology. Note that elevated BNP is nonspecific and can be due to both heart failure as well as lung pathology.
� MRSA, flu, COVID, Legionella, strep pneumo negative. Blood cultures negative.
� Wean O2 as tolerated, goal O2 greater than 92%
� DuoNebs
� IV Solu-Medrol per pulmonary, started 04/16. Tapering steroids slowly. She was on 20 mg prednisone daily prior to admission for treatment of GCA.
� Stop amiodarone�even though started in February 2024, with pulmonary pathology and risk of lung toxicity benefits outweigh risks of holding. Cardiology following.
� ESR, CRP elevated; eosinophils within normal limits.
� Incentive spirometry, Acapella
�Pulmonary following
Acute heart failure with preserved EF -presumed diagnosis. Oxygenation slowly improving.
Started to develop contraction alkalosis with rising bicarbonate. Bicarbonate improved to 33 today. Diuretics now on hold. Cardiology following.
Sepsis -resolved.
Hyponatremia
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
� Continue urea
� Has history of chronic hyponatremia
� Free water restriction
Paroxysmal atrial fibrillation -with RVR
� Rates much improved. Toprol-XL dose increased, Cardizem CD 180 mg twice daily per cardiology. Digoxin.
� Continue Eliquis
� Stopped amiodarone, follow cardiology recommendations
5.7 cm focal lung pneumatosis in the right lung apex
� Continue to monitor
Giant cell arteritis
Chronic leukocytosis
� Continue steroid dosing, currently on this dosing for over 1 month
Chronic normocytic anemia
-Monitor hemoglobin
� No obvious acute blood loss anemia
GERD
-famotidine
Constipation -bowel regimen ordered. Had 2 bowel movements yesterday. Had mild blood-tinged stool possibly related to straining or hemorrhoids. Hemoglobin stable.
Hypothyroidism
- Cont home levothyroxine
DVT prophylaxis
-Eliquis
Limited DNR -not interested in CPR but is amenable to temporary ventilator if needed.
Dispo -anticipate discharging to SNF once bed available. medically stable for discharge.
Anticipated Discharge: Within 24 hours
Subjective/Interval History
-
Date of Service: April 27, 2024
No acute events overnight
Objective Data
-
Labs:
Laboratory Results
04/27/24
05:54
WBC 16.4 H
Hgb 11.7 L
Hct 34.2 L
Plt Count 263
Sodium 133 L
Potassium 4.4
Chloride 94 L
Carbon Dioxide 38 H
BUN 31 H
Creatinine 0.5 L
Glucose 86
Calcium 8.6
Total Bilirubin 0.4
AST 28
ALT 69 H
Alkaline Phosphatase 76
Vital Signs:
Vital Signs
Temp Pulse Resp BP Pulse Ox
96.6 F L 69 20 106/64 97
04/27/24 07:58 04/27/24 13:28 04/27/24 13:28 04/27/24 08:10 04/27/24 13:28
I&O
04/26/24 04/27/24 04/28/24
06:59 06:59 06:59
Intake Total 480 / 480 1320 / 1320
Output Total 200 / 200
Balance 280 / 280 1320 / 1320
Review of Systems
-
History Source: Patient
All other systems: Not reviewed unless documented
Physical Exam
-
General: Well Developed and No Apparent Distress
HEENT: Normocephalic, Moist Mucous Membranes and Anicteric
Respiratory: Rhonchi (expiratory; high flow in place)
Cardiac: Irregular Rhythm, Murmur (2/6 systolic murmur) and Tachycardic
GI: Soft, Nontender, Nondistended and Normal Bowel Sounds
Musculoskeletal: No Clubbing and No Cyanosis
Skin: Warm and Dry
Neuro: Awake, Alert, Oriented and AO x 3
Psych: Calm
Data Reviewed
-
CT Scan: Report Reviewed by me
Labs: Labs Reviewed by me
--- NOTE | 2024-04-27 15:46 | W.PN.CARDCBS ---
Today's Communication / Plan
-
Stable cardiology status with rate control of A-fib
Continues to improve but remains on oxygen. Continue steroids per pulmonary
Sign off
Impression / Plan
-
.
Primary Fruit Culler: Dr. Dawson
Primary EP: Dr. Llanes
Patient is a 78-year-old female with past medical history of symptomatic paroxysmal atrial fibrillation. She was initially admitted 02/16 - 02/19/2024 and started on Tikosyn 250 mcg every 12 hours. She then recurred shortly thereafter and
presented back to [facility] 02/21 her Tikosyn was uptitrated to 500 mcg every 12 hours however she continued to have breakthrough and Tikosyn was stopped and after washout was started on amiodarone therapy. This has been successful for
patient and maintaining sinus rhythm. She reports she has had no feelings of palpitations. Recently she states she developed cough. She was seen in the ER 04/10/2024 and diagnosed with pneumonia and started on treatment. She reports her symptoms
persisted with worsening cough and shortness of breath and she returned to the ER on 04/14/2024. COVID, flu, Legionella negative. Currently requiring 12 L mid flow oxygen. She underwent chest CT which showed extensive diffuse bilateral pulmonary
parenchymal groundglass opacities and there is concern for Amio pulmonary toxicity therefore her amiodarone has been stopped. Pulmonary to evaluate patient. Cardiology consulted for assistance with A-fib management in the setting of this. She is
in sinus rhythm at this time.
Assessment:
Presentation with cough, SOB
Acute hypoxic respiratory failure
Concern for PNA
Acute on chronic ILD
Concern for possible amio pulm toxicity
Hyponatremia
Paroxysmal afib
Hx of SVT/afib/flutter ablation 08/2016
repeat PVI 12/10/22
breakthrough on tikosyn
amiodarone therapy started 02/2024
Chronic OAC with eliquis
Hx Relative hypotension
3 week admission to [place] for inflammatory colitis 01/05-01/27/24 s/p flex sigmoidoscopy with biopsy 01/13/24
Hx urinary retention
GCA
Peripheral neuropathy
Hypothyroidism
GERD
History of pulmonary nodules
Hyponatremia
Vitamin D deficiency
Echo 05/17/2022: EF 60%, mild biatrial enlargement. Mild tricuspid regurgitation
Echo 04/16/2024: EF 55-60% mild MR and mild TR estimated pulmonary artery pressure of 25 mmHg
Plan:
She remains on oxygen but is slowly improving on steroids
Continue rate control of A-fib with digoxin, Toprol, diltiazem, continue Eliquis. Dig level okay on 04/26
Discussed with son at bedside
Will sign off, call with questions
Patient with history of symptomatic paroxysmal atrial fibrillation, maintaining sinus rhythm on amiodarone presented to [facility] with cough and shortness of breath and is being treated for pneumonia. Chest CT obtained today shows
evidence of diffuse groundglass opacities and is currently requiring 12 L mid flow oxygen and there is concern for amiodarone pulmonary toxicity.
Progress Note - Fruit Culler
Subjective
Date of Service: April 27, 2024
No complaints
Objective
Labs:
04/27/24 05:54
04/27/24 05:54
Labs
Hgb 11.7 g/dL (12.0-16.0) L 04/27/24 05:54
Hct 34.2 % (37.0-47.0) L 04/27/24 05:54
Plt Count 263 10^3/uL (130-400) 04/27/24 05:54
Sodium 133 mmol/L (135-145) L 04/27/24 05:54
Potassium 4.4 mmol/L (3.5-5.1) 04/27/24 05:54
BUN 31 mg/dl (7-17) H 04/27/24 05:54
Creatinine 0.5 mg/dL (0.6-1.0) L 04/27/24 05:54
Glucose 86 mg/dl (70-99) 04/27/24 05:54
Digoxin 0.8 ng/ml (0.8-2.0) 04/26/24 06:05
Vital Signs and I&O:
Vital Signs
Temp Pulse Resp BP Pulse Ox
96.6 F L 69 20 106/64 97
04/27/24 07:58 04/27/24 13:28 04/27/24 13:28 04/27/24 08:10 04/27/24 13:28
Vital Signs
Temp Pulse Resp BP Pulse Ox
96.6 F L 69 20 106/64 97
04/27/24 07:58 04/27/24 13:28 04/27/24 13:28 04/27/24 08:10 04/27/24 13:28
Intake & Output
04/25/24 04/26/24 04/27/24 04/28/24
06:59 06:59 06:59 06:59
Intake Total 600 / 600 480 / 480 1320 / 1320
Output Total 650 / 650 200 / 200
Balance -50 / -50 280 / 280 1320 / 1320
Physical Exam
Physical Exam
General: Well developed, well nourished in NAD.
Neck: Supple, no JVD, HJR, carotids +2 B/L, no bruits bilaterally.
Heart: Non displaced PMI, irregular, no murmurs, No S3, S4, no rubs.
Lungs: scattered rhonchi
Extremities: No clubbing, cyanosis or edema bilaterally.
Neuro: Grossly nonfocal, awake, alert and oriented x3.
[2024-04-27 16:11] VITALS: BP 100/65
--- NOTE | 2024-04-27 17:29 | CM ---
Spoke with Lizzy at [facility] [phone] there are no beds available for SNF.
Will need additional SNF picks to enter .
PLAN To SNF after located
[2024-04-27] MEDS: COLACE 100 MG PO (17:43)
[2024-04-27] MEDS: MYCOSTATIN ORAL SUSPENSION 5 ML PO ×2 (17:46→23:09)
--- NOTE | 2024-04-27 18:25 | PTCARENOTE ---
pt feeling anxious when needing to get up to commode/chair for toileting and meals. PRN ativan given twice during shift with some improvement of pt's anxiety. She feels very SOB on exertion and and the thought of exerting. Pt sating 97% on 2L O2.
Family at bedside encouraging pt to deep breath. At times this seems to overwhelm the pt. Pt requesting use of [place] after stating she knows when she needs to use the bathroom. After explaining the risk of infection, the pt agreed to use the
commode until nighttime. Call gonzalez within reach, will continue to monitor
[2024-04-27 19:45] VITALS: BP 132/85
[2024-04-27] MEDS: REMERON 15 MG PO (23:08)
[2024-04-27 23:55] VITALS: BP 102/65
[2024-04-28] VITALS (7 sets, daily range): BP systolic 98–125; BP diastolic 59–75; O2SAT 94
[2024-04-28] MEDS: NON-FORMULARY ITEM 1 UNIT PO (05:08)
[2024-04-28] MEDS: MYCOSTATIN ORAL SUSPENSION PO (05:11)
[2024-04-28 06:30] LABS: Hemoglobin 11.8 g/dL (12.0-16.0); Mean Corp Hgb Conc. 33.7 g/dL (33.0-37.0); Mean Corpuscular Hgb 30.6 pg (27.0-31.0); Mean Corpuscular Volume 90.9 fL (81.0-99.0); Mean Platelet Volume 8.8 fL (7.4-10.4); Platelet Count 289 10^3/uL (130-400); Red Blood Cell Count 3.85 10^6/uL (4.20-5.40); White Blood Cell Count 17.7 10^3/uL (4.8-10.8)
[2024-04-28 06:46] LABS: ALT (SGPT) 56 U/L (0-35); AST (SGOT) 23 U/L (14-36); Albumin 2.8 g/dl (3.5-5.0); Alkaline Phosphatase 77 U/L (38-126); Blood Urea Nitrogen 29 mg/dl (7-17); Carbon Dioxide 37 mmol/L (22-30); Chloride 94 mmol/L (98-107); Estimated Creatinine Clearance 66 ml/min; Glucose 87 mg/dl (70-99); Potassium 4.5 mmol/L (3.5-5.1); Sodium 133 mmol/L (135-145); Total Bilirubin 0.3 mg/dl (0.2-1.3); Total Protein 5.4 g/dl (6.3-8.2); eGFR > 60.00
[2024-04-28] MEDS: ATROVENT NEBULES 0.5 MG INH ×3 (07:14→19:24)
[2024-04-28] MEDS: XOPENEX 1.25 MG INHALANT SOLUTION INH ×3 (07:14→19:24)
[2024-04-28] MEDS: SOLU-MEDROL PF 40 MG IV (09:04)
[2024-04-28] MEDS: CARDIZEM CD 180 MG PO ×2 (09:06→20:46)
[2024-04-28] MEDS: VITAMIN D3 (cholecalciferol) 50 MCG PO (09:07)
[2024-04-28] MEDS: TOPROL XL 100 MG PO ×2 (09:08→20:46)
[2024-04-28] MEDS: THERAGRAN 1 TABLET PO (09:08)
[2024-04-28] MEDS: ELIQUIS 5 MG PO ×2 (09:08→20:46)
[2024-04-28] MEDS: OSCAL 500 + D 500 MG PO (09:08)
[2024-04-28] MEDS: MIRALAX 17 GRAMS PO (09:09)
[2024-04-28] MEDS: URE-NA 15 GRAMS PO (09:11)
[2024-04-28] MEDS: ATIVAN 0.25 MG PO ×3 (09:26→22:24)
--- NOTE | 2024-04-28 12:01 | CM ---
Chart reviewed and wrapper caser met with patient and spoke with patient's spouse by phone this morning and no beds at [facility], [facility], referrals sent to facilities, spouse to
review/tour facilities.
Plan; Skilled placement.
[2024-04-28] MEDS: MYCOSTATIN ORAL SUSPENSION 5 ML PO ×3 (12:12→22:22)
[2024-04-28] MEDS: LANOXIN 125 MCG PO (12:12)
--- NOTE | 2024-04-28 13:30 | W.PN.HOSP.TC ---
Today's Communication/Plan
-
dc ready, await bed/auth/placement
steroids
Assessment / Plan
Assessment / Plan
Gen-AAOx3, NAD
HEENT-NC, AT, anicteric, clear oral mm
Neck-supple
CV-reg, no M, +S1/S2
Lungs-diminished breath sounds bilaterally
Abd-soft, NT, ND
Ext-no edema
Musculoskeletal-no cyanosis, clubbing
Skin-warm and dry
Neuro-grossly non-focal
Psych-calm, cooperative
Acute hypoxic respiratory failure -oxygenation improved remarkably, now on 2 L nasal cannula and has been so all night. Pulse ox 99%. Oxygenation remains stable on 2 L nasal cannula.
Etiology suspected to be due to pneumonitis, possible hypersensitivity pneumonitis, ILD. Perhaps she has a component of pulmonary edema as we are seeing some improvement with diuresis. Doubt pneumonia. Now off antibiotics. Received 5 days of
empiric antibiotics. Lasix dosing per cardiology. Note that elevated BNP is nonspecific and can be due to both heart failure as well as lung pathology.
� MRSA, flu, COVID, Legionella, strep pneumo negative. Blood cultures negative.
� Wean O2 as tolerated, goal O2 greater than 92%
� DuoNebs
� IV Solu-Medrol per pulmonary, started 04/16. Tapering steroids slowly. She was on 20 mg prednisone daily prior to admission for treatment of GCA.
-Solu-Medrol 40 mg IV daily for now until ready for discharge, then transition to prednisone 40 mg daily, reducing by 10 mg every 8th day. Ideally would like to be on systemic steroids of at least 20 mg daily by the time seen in pulmonary office.
� Stop amiodarone�even though started in February 2024, with pulmonary pathology and risk of lung toxicity benefits outweigh risks of holding. Cardiology following.
� ESR, CRP elevated; eosinophils within normal limits.
� Incentive spirometry, Acapella
�Pulmonary following
Acute heart failure with preserved EF -presumed diagnosis. Oxygenation slowly improving.
Started to develop contraction alkalosis with rising bicarbonate. Diuretics now on hold. Cardiology following.
Sepsis -resolved.
Hyponatremia
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
� Continue urea
� Has history of chronic hyponatremia
� Free water restriction
Paroxysmal atrial fibrillation -with RVR
� Rates much improved. Toprol-XL dose increased, Cardizem CD 180 mg twice daily per cardiology. Digoxin.
� Continue Eliquis
� Stopped amiodarone, follow cardiology recommendations
5.7 cm focal lung pneumatosis in the right lung apex
� Continue to monitor
Giant cell arteritis
Chronic leukocytosis
� Continue steroid dosing, currently on this dosing for over 1 month
Chronic normocytic anemia
-Monitor hemoglobin
� No obvious acute blood loss anemia
GERD
-famotidine
Constipation -bowel regimen ordered. Had 2 bowel movements yesterday. Had mild blood-tinged stool possibly related to straining or hemorrhoids. Hemoglobin stable.
Hypothyroidism
- Cont home levothyroxine
DVT prophylaxis
-Eliquis
Limited DNR -not interested in CPR but is amenable to temporary ventilator if needed.
Dispo -anticipate discharging to SNF once bed available. medically stable for discharge.
Anticipated Discharge: Within 24 hours
Subjective/Interval History
-
Date of Service: April 28, 2024
No acute events overnight
Objective Data
-
Labs:
Laboratory Results
04/28/24
05:41
WBC 17.7 H
Hgb 11.8 L
Hct 35.0 L
Plt Count 289
Sodium 133 L
Potassium 4.5
Chloride 94 L
Carbon Dioxide 37 H
BUN 29 H
Creatinine 0.4 L
Glucose 87
Calcium 9.0
Total Bilirubin 0.3
AST 23
ALT 56 H
Alkaline Phosphatase 77
Vital Signs:
Vital Signs
Temp Pulse Resp BP Pulse Ox
97.7 F 78 16 110/71 99
04/28/24 11:01 04/28/24 12:12 04/28/24 11:01 04/28/24 11:01 04/28/24 11:01
I&O
04/27/24 04/28/24 04/29/24
06:59 06:59 06:59
Intake Total 1320 / 1320
Output Total 100 / 100
Balance 1320 / 1320 -100 / -100
Review of Systems
-
History Source: Patient
All other systems: Not reviewed unless documented
Physical Exam
-
General: Well Developed and No Apparent Distress
HEENT: Normocephalic, Moist Mucous Membranes and Anicteric
Respiratory: Rhonchi (expiratory; NC)
Cardiac: Irregular Rhythm, Murmur (2/6 systolic murmur) and Tachycardic
GI: Soft, Nontender, Nondistended and Normal Bowel Sounds
Musculoskeletal: No Clubbing and No Cyanosis
Skin: Warm and Dry
Neuro: Awake, Alert, Oriented and AO x 3
Psych: Calm
Data Reviewed
-
CT Scan: Report Reviewed by me
Labs: Labs Reviewed by me
--- NOTE | 2024-04-28 15:40 | W.PN.UPDATE ---
Update Note
Progress Note Update
patient seen chart reviewed. discussed w nursing and with PT. son and came in and joined for some minutes . a number of issues with discussed with mrs mcelroy. sometimes she feels a lot of pressure is put on her to do things she does not feel
capable of doing yet. she becomes overwhelmed. we talked about how she might let them know how she feels and that they should lighten up. that said she does seem to be getting more committed to working on getting stronger rather than at this point
considering comfort care or hospice which she had told me she was thinking about on this past friday. we also talked about her taking each MOMENT as it comes and not anticipating how hard the 'afternoon' will be. she wakes feeling fairly strong but
very quickly as she starts ruminating on the tasks ahead she starts to feel worse. we spent a lot of time just bantering and talking about what she might watch on [employer]. explained to her my perspective that even banter can benefit her helping her to
remain engaged with the world (there are actually studies to show that people who have 'microconversations' with those they encounter through the day are happier than others who do not) would continue with current meds as they are . will
continue to offer support.
[2024-04-28] MEDS: COLACE 100 MG PO (17:46)
[2024-04-28] MEDS: REMERON 15 MG PO (22:24)
[2024-04-29 03:00] VITALS: BP 102/60
[2024-04-29] MEDS: NON-FORMULARY ITEM 1 UNIT PO (05:36)
[2024-04-29 06:14] LABS: Hematocrit 33.9 % (37.0-47.0); Hemoglobin 11.7 g/dL (12.0-16.0); Mean Corp Hgb Conc. 34.5 g/dL (33.0-37.0); Mean Corpuscular Hgb 31.1 pg (27.0-31.0); Mean Corpuscular Volume 90.2 fL (81.0-99.0); Platelet Count 311 10^3/uL (130-400); Red Blood Cell Count 3.76 10^6/uL (4.20-5.40); Red Cell Dist. Width 16.9 % (11.5-14.5); White Blood Cell Count 18.2 10^3/uL (4.8-10.8)
[2024-04-29 06:35] LABS: ALT (SGPT) 51 U/L (0-35); AST (SGOT) 25 U/L (14-36); Albumin 2.7 g/dl (3.5-5.0); Alkaline Phosphatase 72 U/L (38-126); Blood Urea Nitrogen 31 mg/dl (7-17); Calcium 8.6 mg/dl (8.4-10.2); Carbon Dioxide 36 mmol/L (22-30); Chloride 96 mmol/L (98-107); Estimated Creatinine Clearance 66 ml/min; Glucose 83 mg/dl (70-99); Potassium 4.5 mmol/L (3.5-5.1); Sodium 134 mmol/L (135-145); Total Bilirubin 0.5 mg/dl (0.2-1.3); Total Protein 5.1 g/dl (6.3-8.2); eGFR > 60.00
[2024-04-29] MEDS: XOPENEX 1.25 MG INHALANT SOLUTION INH ×3 (07:10→19:56)
[2024-04-29] MEDS: ATROVENT NEBULES 0.5 MG INH ×3 (07:10→19:55)
[2024-04-29 07:20] VITALS: BP 105/67
[2024-04-29] MEDS: MYCOSTATIN ORAL SUSPENSION PO (09:42)
[2024-04-29] MEDS: OSCAL 500 + D 500 MG PO (09:46)
[2024-04-29] MEDS: TOPROL XL 100 MG PO ×2 (09:46→20:27)
[2024-04-29] MEDS: VITAMIN D3 (cholecalciferol) 50 MCG PO (09:46)
[2024-04-29] MEDS: CARDIZEM CD 180 MG PO ×2 (09:46→20:28)
[2024-04-29] MEDS: ELIQUIS 5 MG PO ×2 (09:46→20:28)
[2024-04-29] MEDS: THERAGRAN 1 TABLET PO (09:46)
[2024-04-29] MEDS: MIRALAX 17 GRAMS PO (09:47)
[2024-04-29] MEDS: SOLU-MEDROL PF 40 MG IV (09:47)
[2024-04-29] MEDS: ATIVAN 0.25 MG PO ×3 (10:00→22:24)
[2024-04-29 10:43] VITALS: BP 99/57
[2024-04-29] MEDS: MYCOSTATIN ORAL SUSPENSION 5 ML PO ×3 (12:17→22:24)
[2024-04-29] MEDS: LANOXIN 125 MCG PO (12:17)
--- NOTE | 2024-04-29 13:43 | W.PN.HOSP.TC ---
Today's Communication/Plan
-
dc ready, await bed/auth/placement
steroids
Assessment / Plan
Assessment / Plan
Gen-AAOx3, NAD
HEENT-NC, AT, anicteric, clear oral mm
Neck-supple
CV-reg, no M, +S1/S2
Lungs-diminished breath sounds bilaterally
Abd-soft, NT, ND
Ext-no edema
Musculoskeletal-no cyanosis, clubbing
Skin-warm and dry
Neuro-grossly non-focal
Psych-calm, cooperative
Acute hypoxic respiratory failure -oxygenation improved remarkably, now on 2 L nasal cannula and has been so all night. Pulse ox 99%. Oxygenation remains stable on 2 L nasal cannula.
Etiology suspected to be due to pneumonitis, possible hypersensitivity pneumonitis, ILD. Perhaps she has a component of pulmonary edema as we are seeing some improvement with diuresis. Doubt pneumonia. Now off antibiotics. Received 5 days of
empiric antibiotics. Lasix dosing per cardiology. Note that elevated BNP is nonspecific and can be due to both heart failure as well as lung pathology.
� MRSA, flu, COVID, Legionella, strep pneumo negative. Blood cultures negative.
� Wean O2 as tolerated, goal O2 greater than 92%
� DuoNebs
� IV Solu-Medrol per pulmonary, started 04/16. Tapering steroids slowly. She was on 20 mg prednisone daily prior to admission for treatment of GCA.
-Solu-Medrol 40 mg IV daily for now until ready for discharge, then transition to prednisone 40 mg daily, reducing by 10 mg every 8th day. Ideally would like to be on systemic steroids of at least 20 mg daily by the time seen in pulmonary office.
� Stop amiodarone�even though started in February 2024, with pulmonary pathology and risk of lung toxicity benefits outweigh risks of holding. Cardiology following.
� ESR, CRP elevated; eosinophils within normal limits.
� Incentive spirometry, Acapella
�Pulmonary following
Acute heart failure with preserved EF -presumed diagnosis. Oxygenation slowly improving.
Started to develop contraction alkalosis with rising bicarbonate. Diuretics now on hold. Cardiology following.
Sepsis -resolved.
Hyponatremia
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
� Continue urea
� Has history of chronic hyponatremia
� Free water restriction
Paroxysmal atrial fibrillation -with RVR
� Rates much improved. Toprol-XL dose increased, Cardizem CD 180 mg twice daily per cardiology. Digoxin.
� Continue Eliquis
� Stopped amiodarone, follow cardiology recommendations
5.7 cm focal lung pneumatosis in the right lung apex
� Continue to monitor
Giant cell arteritis
Chronic leukocytosis
� Continue steroid dosing, currently on this dosing for over 1 month
Chronic normocytic anemia
-Monitor hemoglobin
� No obvious acute blood loss anemia
GERD
-famotidine
Constipation -bowel regimen ordered. Had 2 bowel movements yesterday. Had mild blood-tinged stool possibly related to straining or hemorrhoids. Hemoglobin stable.
Hypothyroidism
- Cont home levothyroxine
DVT prophylaxis
-Eliquis
Limited DNR -not interested in CPR but is amenable to temporary ventilator if needed.
Dispo -anticipate discharging to SNF once bed available. medically stable for discharge.
Anticipated Discharge: Within 24 hours
Subjective/Interval History
-
Date of Service: April 29, 2024
no acute events
Objective Data
-
Labs:
Laboratory Results
04/29/24
05:41
WBC 18.2 H
Hgb 11.7 L
Hct 33.9 L
Plt Count 311
Sodium 134 L
Potassium 4.5
Chloride 96 L
Carbon Dioxide 36 H
BUN 31 H
Creatinine 0.5 L
Glucose 83
Calcium 8.6
Total Bilirubin 0.5
AST 25
ALT 51 H
Alkaline Phosphatase 72
Vital Signs:
Vital Signs
Temp Pulse Resp BP Pulse Ox
97.9 F 72 16 99/57 98
04/29/24 07:20 04/29/24 12:17 04/29/24 10:43 04/29/24 10:43 04/29/24 10:43
I&O
04/28/24 04/29/24 04/30/24
06:59 06:59 06:59
Intake Total 540 / 540 120 / 120
Output Total 100 / 100
Balance -100 / -100 540 / 540 120 / 120
Review of Systems
-
History Source: Patient
All other systems: Not reviewed unless documented
Data Reviewed
-
CT Scan: Report Reviewed by me
Labs: Labs Reviewed by me
--- NOTE | 2024-04-29 14:38 | W.PN.UPDATE ---
Update Note
Progress Note Update
patient seen chart reviewed. discussed with nursing and with aide. son at bedside. mrs mcelroy was very discouraged today. she is thinking again of hospice consult. she does not believe that her physical condition will improve and this uphill lopez
has made her emotionally tired. i do feel she is depressed but it is hard to say how much of this is related to her serious debility. we talked about how hard it is for her to engage in adl's. swallowing food she feels is a major effort. she
asked for a hospice consult and i have ordered it. we did talk with her son about the reality that patient experiences the family 's interaction with her re encouraging her to engage in PT border on blaming her for her current condition bc she has
not been more motivated. will increase remeron to 22.5 mg and will continue to offer support.
[2024-04-29 15:26] VITALS: BP 103/59
[2024-04-29] MEDS: COLACE 100 MG PO (18:00)
[2024-04-29 19:45] VITALS: BP 113/65
[2024-04-29] MEDS: REMERON 22.5 MG PO (22:24)
[2024-04-29 23:50] VITALS: BP 102/56
[2024-04-30] VITALS (7 sets, daily range): BP systolic 102–118; BP diastolic 57–99; PULSE 68; O2SAT 98
[2024-04-30] MEDS: NON-FORMULARY ITEM 1 UNIT PO (05:54)
[2024-04-30] MEDS: MYCOSTATIN ORAL SUSPENSION PO (05:55)
[2024-04-30 06:19] LABS: Hematocrit 33.6 % (37.0-47.0); Hemoglobin 11.5 g/dL (12.0-16.0); Mean Corp Hgb Conc. 34.2 g/dL (33.0-37.0); Mean Corpuscular Hgb 30.9 pg (27.0-31.0); Mean Corpuscular Volume 90.3 fL (81.0-99.0); Mean Platelet Volume 9.1 fL (7.4-10.4); Platelet Count 319 10^3/uL (130-400); Red Blood Cell Count 3.72 10^6/uL (4.20-5.40); Red Cell Dist. Width 17.2 % (11.5-14.5); White Blood Cell Count 17.8 10^3/uL (4.8-10.8)
[2024-04-30 06:57] LABS: ALT (SGPT) 57 U/L (0-35); AST (SGOT) 38 U/L (14-36); Albumin 2.7 g/dl (3.5-5.0); Alkaline Phosphatase 71 U/L (38-126); Blood Urea Nitrogen 29 mg/dl (7-17); Calcium 8.3 mg/dl (8.4-10.2); Carbon Dioxide 34 mmol/L (22-30); Chloride 97 mmol/L (98-107); Estimated Creatinine Clearance 66 ml/min; Glucose 85 mg/dl (70-99); Potassium 4.4 mmol/L (3.5-5.1); Sodium 136 mmol/L (135-145); Total Bilirubin 0.7 mg/dl (0.2-1.3); Total Protein 5.2 g/dl (6.3-8.2); eGFR > 60.00
[2024-04-30] MEDS: ATROVENT NEBULES 0.5 MG INH ×3 (07:18→21:21)
[2024-04-30] MEDS: XOPENEX 1.25 MG INHALANT SOLUTION INH ×3 (07:18→21:21)
--- NOTE | 2024-04-30 09:32 | CM ---
Addendum entered by Arnulfo Adams 04/30/24 14:40:
hospice educatorKathryn, informed CM that pt would like to cont to d/c plan to SNF
SNF referrals prev completed in [facility], will review for determinations
Plan: SNF; pending accepting facility
Original Note:
Chart reviewed. CM received hospice consult. Per chart, pt is requesting this.
CM spoke w/ spouse who is agreeable as well to explore hospice and get some information before deciding. Pt stated his son goes back to [place] today and is leaving around 1pm, spouse asking if hospice educator can meet w/ them before then.
CM placed hospice referral in [facility]. CM TT hospice educatorKathryn, making aware of referral and family requesting to meet before 1 pm.
Plan: CM will cont d/c planning. forest fire management officer to meet w/ family
[2024-04-30] MEDS: ELIQUIS 5 MG PO ×2 (09:42→21:41)
[2024-04-30] MEDS: VITAMIN D3 (cholecalciferol) 50 MCG PO (09:42)
[2024-04-30] MEDS: CARDIZEM CD 180 MG PO ×2 (09:42→21:40)
[2024-04-30] MEDS: TOPROL XL 100 MG PO ×2 (09:42→21:40)
[2024-04-30] MEDS: OSCAL 500 + D 500 MG PO (09:42)
[2024-04-30] MEDS: SOLU-MEDROL PF 40 MG IV (09:43)
[2024-04-30] MEDS: MIRALAX 17 GRAMS PO (09:43)
[2024-04-30] MEDS: THERAGRAN 1 TABLET PO (09:43)
[2024-04-30] MEDS: ATIVAN 0.25 MG PO ×2 (10:55→19:00)
[2024-04-30] MEDS: URE-NA 15 GRAMS PO (10:55)
[2024-04-30] MEDS: MYCOSTATIN ORAL SUSPENSION 5 ML PO ×3 (12:11→22:20)
[2024-04-30] MEDS: LANOXIN 125 MCG PO (12:11)
--- NOTE | 2024-04-30 12:23 | W.PN.UPDATE ---
Update Note
Progress Note Update
patient seen chart reviewed. family at bedside. spoke to nursing, hospitalist and to hospice nurse ms juarez. patient looked a little bit better today. she seemed less anxious although when i said this to her she more or less grimaced. proposed to
patient who remains depressed and very frail that she just try a stimulant to see if it could help her more with energy enabling more activity. if she has side effects eg anxiety appetite depression would not continue. explained that the effect
should be evident fairly quickly as would side effects . we would only continue if it seemed to be a clear benefit. hospice nurse will come to see patient shortly i will stop by to see her again later today.
--- NOTE | 2024-04-30 14:12 | W.PN.HOSP.TC ---
Today's Communication/Plan
-
hospice was consulted although does not appear to be candidate; still would benefit from conversation, appreciate both psychiatry and hospice
Wean o2
DC ready
Assessment / Plan
Assessment / Plan
Gen-AAOx3, NAD
HEENT-NC, AT, anicteric, clear oral mm
Neck-supple
CV-reg, no M, +S1/S2
Lungs-diminished breath sounds bilaterally
Abd-soft, NT, ND
Ext-no edema
Musculoskeletal-no cyanosis, clubbing
Skin-warm and dry
Neuro-grossly non-focal
Psych-calm, cooperative
Acute hypoxic respiratory failure -oxygenation improved remarkably, now on 2 L nasal cannula and has been so all night. Pulse ox 99%. Oxygenation remains stable on 2 L nasal cannula.
Etiology suspected to be due to pneumonitis, possible hypersensitivity pneumonitis, ILD. Perhaps she has a component of pulmonary edema as we are seeing some improvement with diuresis. Doubt pneumonia. Now off antibiotics. Received 5 days of
empiric antibiotics. Lasix dosing per cardiology. Note that elevated BNP is nonspecific and can be due to both heart failure as well as lung pathology.
� MRSA, flu, COVID, Legionella, strep pneumo negative. Blood cultures negative.
� Wean O2 as tolerated, goal O2 greater than 92%
� DuoNebs
� IV Solu-Medrol per pulmonary, started 04/16. Tapering steroids slowly. She was on 20 mg prednisone daily prior to admission for treatment of GCA.
-Solu-Medrol 40 mg IV daily for now until ready for discharge, then transition to prednisone 40 mg daily, reducing by 10 mg every 8th day. Ideally would like to be on systemic steroids of at least 20 mg daily by the time seen in pulmonary office.
� Stop amiodarone�even though started in February 2024, with pulmonary pathology and risk of lung toxicity benefits outweigh risks of holding. Cardiology following.
� ESR, CRP elevated; eosinophils within normal limits.
� Incentive spirometry, Acapella
�Pulmonary following
Acute heart failure with preserved EF -presumed diagnosis. Oxygenation slowly improving.
Started to develop contraction alkalosis with rising bicarbonate. Diuretics now on hold. Cardiology following.
Sepsis -resolved.
Hyponatremia
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
� Continue urea
� Has history of chronic hyponatremia
� Free water restriction
Paroxysmal atrial fibrillation -with RVR
� Rates much improved. Toprol-XL dose increased, Cardizem CD 180 mg twice daily per cardiology. Digoxin.
� Continue Eliquis
� Stopped amiodarone, follow cardiology recommendations
5.7 cm focal lung pneumatosis in the right lung apex
� Continue to monitor
Giant cell arteritis
Chronic leukocytosis
� Continue steroid dosing, currently on this dosing for over 1 month
Chronic normocytic anemia
-Monitor hemoglobin
� No obvious acute blood loss anemia
GERD
-famotidine
Constipation -bowel regimen ordered. Had 2 bowel movements yesterday. Had mild blood-tinged stool possibly related to straining or hemorrhoids. Hemoglobin stable.
Hypothyroidism
- Cont home levothyroxine
DVT prophylaxis
-Eliquis
Limited DNR -not interested in CPR but is amenable to temporary ventilator if needed.
Dispo -anticipate discharging to SNF once bed available. medically stable for discharge.
Depression: Pscy on board. adjusting meds; Requesting hospice consultation
Anticipated Discharge: Within 24 hours
Subjective/Interval History
-
Date of Service: April 30, 2024
no acute events
Objective Data
-
Labs:
Laboratory Results
04/30/24
05:27
WBC 17.8 H
Hgb 11.5 L
Hct 33.6 L
Plt Count 319
Sodium 136
Potassium 4.4
Chloride 97 L
Carbon Dioxide 34 H
BUN 29 H
Creatinine 0.4 L
Glucose 85
Calcium 8.3 L
Total Bilirubin 0.7
AST 38 H
ALT 57 H
Alkaline Phosphatase 71
Vital Signs:
Vital Signs
Temp Pulse Resp BP Pulse Ox
97.6 F 83 17 110/62 96
04/30/24 11:30 04/30/24 11:30 04/30/24 11:30 04/30/24 11:30 04/30/24 11:30
I&O
04/29/24 04/30/24 05/01/24
06:59 06:59 06:59
Intake Total 540 / 540 1080 / 1080
Balance 540 / 540 1080 / 1080
Review of Systems
-
History Source: Patient
All other systems: Not reviewed unless documented
Physical Exam
-
General: Well Developed and No Apparent Distress
HEENT: Normocephalic, Moist Mucous Membranes and Anicteric
Respiratory: Rhonchi (expiratory; NC)
Cardiac: Irregular Rhythm, Murmur (2/6 systolic murmur) and Tachycardic
GI: Soft, Nontender, Nondistended and Normal Bowel Sounds
Musculoskeletal: No Clubbing and No Cyanosis
Skin: Warm and Dry
Neuro: Awake, Alert, Oriented and AO x 3
Psych: Calm
Data Reviewed
-
CT Scan: Report Reviewed by me
Labs: Labs Reviewed by me
--- NOTE | 2024-04-30 14:13 | HOSPNOTE ---
Long family meeting and patient is choosing to go to rehab. Spouse stated that he gave CM names of rehabs that he would like patient to go. The plan is for patient to go to rehab and then transition home with VN and therapy and then hospice in the
near future. All in agreement and CM updated.
[2024-04-30] MEDS: RITALIN 2.5 MG PO (14:30)
--- NOTE | 2024-04-30 17:04 | W.PN.UPDATE ---
Update Note
Progress Note Update
conferred w hospice nurse who offered support to patient and family today. ms juarez does not feel patient should be a hospice patient at this moment in time. patient is willing to continue to work towards snf . she got ritalin this afternoon.
she did not feel more anxious. she is not convinced it did much for her but to me she appeared better this afternoon (5 pm) she seemed a little stronger with less labored breathing (she had removed oxygen at dr smith's suggestion at rest and
was comfortable. left ritalin as is for tomorrow but would inc to 5 mg if she has no ill effects tomorrow.
[2024-04-30] MEDS: COLACE 100 MG PO (17:52)
[2024-04-30] MEDS: REMERON 22.5 MG PO (22:19)
[2024-05-01 03:00] VITALS: BP 126/67
[2024-05-01] MEDS: MYCOSTATIN ORAL SUSPENSION PO ×2 (05:13→17:10)
[2024-05-01] MEDS: NON-FORMULARY ITEM 1 UNIT PO (05:13)
[2024-05-01] MEDS: ATIVAN 0.25 MG PO ×3 (05:26→15:29)
[2024-05-01 07:49] LABS: Hematocrit 33.1 % (37.0-47.0); Hemoglobin 11.5 g/dL (12.0-16.0); Mean Corp Hgb Conc. 34.7 g/dL (33.0-37.0); Mean Corpuscular Hgb 31.3 pg (27.0-31.0); Mean Corpuscular Volume 90.2 fL (81.0-99.0); Mean Platelet Volume 9.1 fL (7.4-10.4); Platelet Count 281 10^3/uL (130-400); Red Blood Cell Count 3.67 10^6/uL (4.20-5.40); Red Cell Dist. Width 17.1 % (11.5-14.5); White Blood Cell Count 15.9 10^3/uL (4.8-10.8)
[2024-05-01] MEDS: VITAMIN D3 (cholecalciferol) 50 MCG PO (07:55)
[2024-05-01] MEDS: THERAGRAN 1 TABLET PO (07:55)
[2024-05-01] MEDS: OSCAL 500 + D 500 MG PO (07:55)
[2024-05-01] MEDS: MIRALAX 17 GRAMS PO (07:55)
[2024-05-01] MEDS: CARDIZEM CD 180 MG PO ×2 (07:55→20:43)
[2024-05-01] MEDS: RITALIN 2.5 MG PO (07:56)
[2024-05-01] MEDS: ELIQUIS 5 MG PO ×2 (07:56→20:43)
[2024-05-01] MEDS: TOPROL XL 100 MG PO ×2 (07:58→20:42)
[2024-05-01] MEDS: SOLU-MEDROL PF 40 MG IV (07:58)
[2024-05-01 08:19] VITALS: BP 122/68
[2024-05-01] MEDS: ATROVENT NEBULES 0.5 MG INH ×3 (08:26→18:24)
[2024-05-01] MEDS: XOPENEX 1.25 MG INHALANT SOLUTION INH ×3 (08:26→18:24)
[2024-05-01 08:29] LABS: ALT (SGPT) 54 U/L (0-35); AST (SGOT) 27 U/L (14-36); Albumin 2.7 g/dl (3.5-5.0); Alkaline Phosphatase 73 U/L (38-126); Blood Urea Nitrogen 30 mg/dl (7-17); Carbon Dioxide 34 mmol/L (22-30); Chloride 98 mmol/L (98-107); Estimated Creatinine Clearance 66 ml/min; Glucose 70 mg/dl (70-99); Potassium 4.2 mmol/L (3.5-5.1); Sodium 134 mmol/L (135-145); Total Bilirubin 0.7 mg/dl (0.2-1.3); eGFR > 60.00
[2024-05-01] MEDS: MYCOSTATIN ORAL SUSPENSION 5 ML PO ×2 (11:25→22:42)
[2024-05-01] MEDS: LANOXIN 125 MCG PO (11:26)
[2024-05-01 12:04] VITALS: BP 105/65
[2024-05-01 12:39] LABS: Glucose - Point of Care 159 mg/dl (70-99)
--- NOTE | 2024-05-01 13:36 | W.PN.UPDATE ---
Update Note
Progress Note Update
78 y/o woman admitted in respiratory decompensation and has inflammatory lung disease and likely some degree of heart failure. She is being treated by psychiatry for anxiety and depression. Had been evaluated by Hospice (not candidate) and is
contemplating returning home with paliative care and PT vs. admission to rehab. Psych meds are now Remeron 22.5 mg.HS (was 7.5 mg.PRN for appetite and sleep at home); Ritalin 2.5 mg. (started [address] Gregory) and Ativan 0.25 mg. Q4PRN
which she takes three times a day. Had been on Xanax in the past. She gets anxious when she has to go to the bathroom and takes some time to calm down afterwards.
Today Na 134, ALT 54, BP 105/65 at 12:04. BMI is 18.5.
Reclining in chair, in room and particpiated in discussion. She is dyspneic. Appears weak and tired. Mood is depressed. Difficulty with decision making.
She is tolerating the increased dose of Remeron without being overly sedated in the morning. Unclear if very low dose Ritalin has had any effect (mixed reports).
After extensive discussion, agreed to raising Remeron to 30 mg. (will allow easier administration) and raising Ritalin to 5 mg. AM. I will see her again tomorrow. Likely not leaving until early next week.
--- NOTE | 2024-05-01 14:31 | W.PN.HOSP.TC ---
Today's Communication/Plan
-
switch to pred 40mg daily
Assessment / Plan
Assessment / Plan
Gen-AAOx3, NAD
HEENT-NC, AT, anicteric, clear oral mm
Neck-supple
CV-reg, no M, +S1/S2
Lungs-diminished breath sounds bilaterally
Abd-soft, NT, ND
Ext-no edema
Musculoskeletal-no cyanosis, clubbing
Skin-warm and dry
Neuro-grossly non-focal
Psych-calm, cooperative
Acute hypoxic respiratory failure -oxygenation improved remarkably, now on 2 L nasal cannula and has been so all night. Pulse ox 99%. Oxygenation remains stable on 2 L nasal cannula.
Etiology suspected to be due to pneumonitis, possible hypersensitivity pneumonitis, ILD. Perhaps she has a component of pulmonary edema as we are seeing some improvement with diuresis. Doubt pneumonia. Now off antibiotics. Received 5 days of
empiric antibiotics. Lasix dosing per cardiology. Note that elevated BNP is nonspecific and can be due to both heart failure as well as lung pathology.
� MRSA, flu, COVID, Legionella, strep pneumo negative. Blood cultures negative.
� Wean O2 as tolerated, goal O2 greater than 92%
� DuoNebs
� IV Solu-Medrol per pulmonary, started 04/16. Tapering steroids slowly. She was on 20 mg prednisone daily prior to admission for treatment of GCA.
-Solu-Medrol 40 mg IV daily for transition to prednisone 40 mg daily due to anxiety, Goal reducing by 10 mg every 8th day. Ideally would like to be on systemic steroids of at least 20 mg daily by the time seen in pulmonary office.
� Stop amiodarone�even though started in February 2024, with pulmonary pathology and risk of lung toxicity benefits outweigh risks of holding. Cardiology following.
� ESR, CRP elevated; eosinophils within normal limits.
� Incentive spirometry, Acapella
�Pulmonary following
Acute heart failure with preserved EF -presumed diagnosis. Oxygenation slowly improving.
Started to develop contraction alkalosis with rising bicarbonate. Diuretics now on hold. Cardiology following.
Sepsis -resolved.
Hyponatremia
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
� Continue urea
� Has history of chronic hyponatremia
� Free water restriction
Paroxysmal atrial fibrillation -with RVR
� Rates much improved. Toprol-XL dose increased, Cardizem CD 180 mg twice daily per cardiology. Digoxin.
� Continue Eliquis
� Stopped amiodarone, follow cardiology recommendations
5.7 cm focal lung pneumatosis in the right lung apex
� Continue to monitor
Giant cell arteritis
Chronic leukocytosis
� Continue steroid dosing, currently on this dosing for over 1 month
Chronic normocytic anemia
-Monitor hemoglobin
� No obvious acute blood loss anemia
GERD
-famotidine
Constipation -bowel regimen ordered. Had 2 bowel movements yesterday. Had mild blood-tinged stool possibly related to straining or hemorrhoids. Hemoglobin stable.
Hypothyroidism
- Cont home levothyroxine
DVT prophylaxis
-Eliquis
Limited DNR -not interested in CPR but is amenable to temporary ventilator if needed.
Dispo -anticipate discharging to SNF once bed available. medically stable for discharge.
Depression: Pscyh on board. adjusting meds; Requesting hospice consultation
Anticipated Discharge: Within 24 hours
Subjective/Interval History
-
Date of Service: May 01, 2024
No acute events overnight
Objective Data
-
Labs:
Laboratory Results
05/01/24
07:12
WBC 15.9 H
Hgb 11.5 L
Hct 33.1 L
Plt Count 281
Sodium 134 L
Potassium 4.2
Chloride 98
Carbon Dioxide 34 H
BUN 30 H
Creatinine 0.5 L
Glucose 70
Calcium 9.0
Total Bilirubin 0.7
AST 27
ALT 54 H
Alkaline Phosphatase 73
Vital Signs:
Vital Signs
Temp Pulse Resp BP Pulse Ox
98.1 F 92 20 105/65 99
05/01/24 12:04 05/01/24 12:04 05/01/24 12:04 05/01/24 12:04 05/01/24 12:04
I&O
04/30/24 05/01/24 05/02/24
06:59 06:59 06:59
Intake Total 1080 / 1080 240 / 240 240 / 240
Balance 1080 / 1080 240 / 240 240 / 240
Review of Systems
-
History Source: Patient
All other systems: Not reviewed unless documented
Data Reviewed
-
CT Scan: Report Reviewed by me
Labs: Labs Reviewed by me
--- NOTE | 2024-05-01 15:12 | CM ---
cm sent update in [facility]scripts asking [facility] to confirm bed for friday as attending is ready to d/c.
[2024-05-01] MEDS: COLACE 100 MG PO (17:10)
[2024-05-01 17:32] VITALS: BP 111/65
--- NOTE | 2024-05-01 18:50 | PTCARENOTE ---
Pt. previous HD cath site on right chest dressing changed. Site had dried blood and white/yellow purulent drainage. As previous dressing was removed dried drainage came off, site underneath appears to be raised pink exposed tissue with small pin
point incisional site visible. The site has no surrounding redness and is not tender. Area cleansed with saline and silicone border foam applied for protective covering. Pt. also has new small skin tear on the left side of her abdomen under her
lower abdominal skin fold. The new skin tear had some minimal bleeding that is now resolved and site covered with silicone border foam. Wound care consult ordered and house provider notified.
[2024-05-01 19:35] VITALS: BP 118/73
[2024-05-01] MEDS: REMERON 30 MG PO (20:42)
[2024-05-01 23:00] VITALS: BP 115/66
[2024-05-02] VITALS (7 sets, daily range): BP systolic 104–144; BP diastolic 52–84
[2024-05-02] MEDS: ATIVAN 0.25 MG PO ×3 (04:45→19:56)
[2024-05-02] MEDS: NON-FORMULARY ITEM 1 UNIT PO (04:47)
[2024-05-02] MEDS: MYCOSTATIN ORAL SUSPENSION PO ×2 (06:40→18:06)
[2024-05-02 07:41] LABS: Hematocrit 32.2 % (37.0-47.0); Hemoglobin 11.1 g/dL (12.0-16.0); Mean Corp Hgb Conc. 34.5 g/dL (33.0-37.0); Mean Corpuscular Volume 89.9 fL (81.0-99.0); Mean Platelet Volume 9.1 fL (7.4-10.4); Platelet Count 270 10^3/uL (130-400); Red Blood Cell Count 3.58 10^6/uL (4.20-5.40); Red Cell Dist. Width 17.1 % (11.5-14.5); White Blood Cell Count 14.5 10^3/uL (4.8-10.8)
[2024-05-02 08:00] LABS: ALT (SGPT) 57 U/L (0-35); AST (SGOT) 30 U/L (14-36); Albumin 2.9 g/dl (3.5-5.0); Alkaline Phosphatase 70 U/L (38-126); Blood Urea Nitrogen 31 mg/dl (7-17); Calcium 8.7 mg/dl (8.4-10.2); Carbon Dioxide 34 mmol/L (22-30); Chloride 98 mmol/L (98-107); Estimated Creatinine Clearance 66 ml/min; Glucose 81 mg/dl (70-99); Potassium 4.3 mmol/L (3.5-5.1); Sodium 136 mmol/L (135-145); Total Bilirubin 0.6 mg/dl (0.2-1.3); Total Protein 5.4 g/dl (6.3-8.2); eGFR > 60.00
[2024-05-02] MEDS: ATROVENT NEBULES 0.5 MG INH ×3 (08:10→19:24)
[2024-05-02] MEDS: XOPENEX 1.25 MG INHALANT SOLUTION INH ×3 (08:10→19:24)
[2024-05-02] MEDS: ELIQUIS 5 MG PO ×2 (08:32→19:56)
[2024-05-02] MEDS: OSCAL 500 + D 500 MG PO (08:32)
[2024-05-02] MEDS: TOPROL XL 100 MG PO ×2 (08:32→19:55)
[2024-05-02] MEDS: VITAMIN D3 (cholecalciferol) 50 MCG PO (08:32)
[2024-05-02] MEDS: CARDIZEM CD 180 MG PO ×2 (08:32→19:57)
[2024-05-02] MEDS: DELTASONE 40 MG PO (08:32)
[2024-05-02] MEDS: THERAGRAN 1 TABLET PO (08:32)
[2024-05-02] MEDS: MIRALAX 17 GRAMS PO (08:33)
[2024-05-02] MEDS: RITALIN 5 MG PO (08:57)
--- NOTE | 2024-05-02 10:37 | CM ---
CM following re: d/c planning.
D/c plan is for SNF.
Many referrals sent, at this time - only 3 responses.
[facility] states yes - CM messaged today requesting bed hi, awaiting response.
[facility] declined.
Awaiting [facility] re: bed availability, or other SNFs to respond.
Ongoing dispo efforts.
--- NOTE | 2024-05-02 11:42 | W.PN.UPDATE ---
Update Note
Progress Note Update
78 y/o woman who is recovering from acute respiratory failure and has an inflammatory/fibrotic (?) lung condition possibly drug-induced who has had panic attacks, anxiety and thoughts she no longer wants to live. Improving medically -- is
on 2L O2 by NC resting in bed with much less dyspnea than when I saw her yesterday (was off O2 and had returned from toilet). Yesterday Iincresed Remeron to 30 mg.HS and this morning she received a higher dose of Ritalin of 5 mg.
Reports she slept from 11 PM until 12:30 AM, then fell back asleep until 4 AM when nurse was in the room and then slept again until 6 PM. Appetite is fair. She continues to have thoughts of giving up, but denies any suicidal thoughts and has no
history of serious depression or suicide attempts.
Corticosteroid switch to oral today.
She is pleasant, oriented and speech is slightly slow but fluent and appropriate. Has good range of affect including appropriate smiling. No signs of psychosis or confusion.
Has one child, a son who is a chief marketing officer in [place]; no grandchildren.
I told her that the full benefits of Remeron for anxiety and depression will likely take weeks to materialize. Still unclear if Ritalin is of any benefit. In any case, both medications seem to be well tolerated. Aware that steroids and steroid
withdrawal can affect mood, have physical adverse effects.
Psychiatry will follow.
[2024-05-02] MEDS: MYCOSTATIN ORAL SUSPENSION 5 ML PO ×2 (11:48→23:02)
[2024-05-02] MEDS: LANOXIN PO (11:48)
--- NOTE | 2024-05-02 13:18 | W.PN.HOSP.TC ---
Today's Communication/Plan
-
await dc
continue prednisone
Assessment / Plan
Assessment / Plan
Gen-AAOx3, NAD
HEENT-NC, AT, anicteric, clear oral mm
Neck-supple
CV-reg, no M, +S1/S2
Lungs-diminished breath sounds bilaterally
Abd-soft, NT, ND
Ext-no edema
Musculoskeletal-no cyanosis, clubbing
Skin-warm and dry
Neuro-grossly non-focal
Psych-calm, cooperative
Acute hypoxic respiratory failure -oxygenation improved remarkably, now on 2 L nasal cannula and has been so all night. Pulse ox 99%. Oxygenation remains stable on 2 L nasal cannula.
Etiology suspected to be due to pneumonitis, possible hypersensitivity pneumonitis, ILD. Perhaps she has a component of pulmonary edema as we are seeing some improvement with diuresis. Doubt pneumonia. Now off antibiotics. Received 5 days of
empiric antibiotics. Lasix dosing per cardiology. Note that elevated BNP is nonspecific and can be due to both heart failure as well as lung pathology.
� MRSA, flu, COVID, Legionella, strep pneumo negative. Blood cultures negative.
� Wean O2 as tolerated, goal O2 greater than 92%
� DuoNebs
� IV Solu-Medrol per pulmonary, started 04/16. Tapering steroids slowly. She was on 20 mg prednisone daily prior to admission for treatment of GCA.
-Solu-Medrol 40 mg IV daily for transition to prednisone 40 mg daily due to anxiety, Goal upon dc: reducing by 10 mg every 8th day. Ideally would like to be on systemic steroids of at least 20 mg daily by the time seen in pulmonary office.
� Stop amiodarone�even though started in February 2024, with pulmonary pathology and risk of lung toxicity benefits outweigh risks of holding. Cardiology following.
� ESR, CRP elevated; eosinophils within normal limits.
� Incentive spirometry, Acapella
�Pulmonary following
Acute heart failure with preserved EF -presumed diagnosis. Oxygenation slowly improving.
Started to develop contraction alkalosis with rising bicarbonate. Diuretics now on hold. Cardiology following.
Sepsis -resolved.
Hyponatremia
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
� Continue urea
� Has history of chronic hyponatremia
� Free water restriction
Paroxysmal atrial fibrillation -with RVR
� Rates much improved. Toprol-XL dose increased, Cardizem CD 180 mg twice daily per cardiology. Digoxin.
� Continue Eliquis
� Stopped amiodarone, follow cardiology recommendations
5.7 cm focal lung pneumatosis in the right lung apex
� Continue to monitor
Giant cell arteritis
Chronic leukocytosis
� Continue steroid dosing, currently on this dosing for over 1 month
Chronic normocytic anemia
-Monitor hemoglobin
� No obvious acute blood loss anemia
GERD
-famotidine
Constipation -bowel regimen ordered. Had 2 bowel movements yesterday. Had mild blood-tinged stool possibly related to straining or hemorrhoids. Hemoglobin stable.
Hypothyroidism
- Cont home levothyroxine
DVT prophylaxis
-Eliquis
Limited DNR -not interested in CPR but is amenable to temporary ventilator if needed.
Dispo -anticipate discharging to SNF once bed available. medically stable for discharge.
Depression: [facility] on board. adjusting meds; Requesting hospice consultation - not candidate
Anticipated Discharge: Within 24 hours
Subjective/Interval History
-
Date of Service: May 02, 2024
No acute events
Objective Data
-
Labs:
Laboratory Results
05/02/24
07:06
WBC 14.5 H
Hgb 11.1 L
Hct 32.2 L
Plt Count 270
Sodium 136
Potassium 4.3
Chloride 98
Carbon Dioxide 34 H
BUN 31 H
Creatinine 0.6
Glucose 81
Calcium 8.7
Total Bilirubin 0.6
AST 30
ALT 57 H
Alkaline Phosphatase 70
Vital Signs:
Vital Signs
Temp Pulse Resp BP Pulse Ox
98.1 F 62 20 116/60 100
05/02/24 11:49 05/02/24 11:49 05/02/24 11:49 05/02/24 11:49 05/02/24 11:49
I&O
05/01/24 05/02/24 05/03/24
06:59 06:59 06:59
Intake Total 240 / 240 1140 / 1140 120 / 120
Balance 240 / 240 1140 / 1140 120 / 120
Review of Systems
-
History Source: Patient
All other systems: Not reviewed unless documented
Physical Exam
-
General: Well Developed and No Apparent Distress
HEENT: Normocephalic, Moist Mucous Membranes and Anicteric
Respiratory: Rhonchi (expiratory; NC)
Cardiac: Irregular Rhythm, Murmur (2/6 systolic murmur) and Tachycardic
GI: Soft, Nontender, Nondistended and Normal Bowel Sounds
Musculoskeletal: No Clubbing and No Cyanosis
Skin: Warm and Dry
Neuro: Awake, Alert, Oriented and AO x 3
Psych: Calm
Data Reviewed
-
CT Scan: Report Reviewed by me
Labs: Labs Reviewed by me
[2024-05-02] MEDS: COLACE 100 MG PO (16:59)
[2024-05-02] MEDS: REMERON 30 MG PO (22:04)
[2024-05-03 03:19] VITALS: BP 121/60
[2024-05-03] MEDS: NON-FORMULARY ITEM 1 UNIT PO (05:05)
[2024-05-03] MEDS: MYCOSTATIN ORAL SUSPENSION PO (05:11)
[2024-05-03 06:27] LABS: Hematocrit 32.3 % (37.0-47.0); Hemoglobin 10.9 g/dL (12.0-16.0); Mean Corp Hgb Conc. 33.7 g/dL (33.0-37.0); Mean Corpuscular Hgb 30.7 pg (27.0-31.0); Platelet Count 260 10^3/uL (130-400); Red Blood Cell Count 3.55 10^6/uL (4.20-5.40); Red Cell Dist. Width 17.2 % (11.5-14.5); White Blood Cell Count 13.5 10^3/uL (4.8-10.8)
[2024-05-03 07:23] LABS: ALT (SGPT) 53 U/L (0-35); AST (SGOT) 27 U/L (14-36); Albumin 2.6 g/dl (3.5-5.0); Alkaline Phosphatase 71 U/L (38-126); Blood Urea Nitrogen 31 mg/dl (7-17); Calcium 8.9 mg/dl (8.4-10.2); Carbon Dioxide 34 mmol/L (22-30); Chloride 99 mmol/L (98-107); Estimated Creatinine Clearance 66 ml/min; Glucose 67 mg/dl (70-99); Sodium 135 mmol/L (135-145); Total Bilirubin 0.6 mg/dl (0.2-1.3); eGFR > 60.00
[2024-05-03 07:30] VITALS: BP 94/70
[2024-05-03] MEDS: ATROVENT NEBULES 0.5 MG INH (07:52)
[2024-05-03] MEDS: XOPENEX 1.25 MG INHALANT SOLUTION INH (07:52)
[2024-05-03] MEDS: THERAGRAN 1 TABLET PO (08:47)
[2024-05-03] MEDS: CARDIZEM CD 180 MG PO (08:47)
[2024-05-03] MEDS: TOPROL XL 100 MG PO (08:47)
[2024-05-03] MEDS: ELIQUIS 5 MG PO (08:47)
[2024-05-03] MEDS: VITAMIN D3 (cholecalciferol) 50 MCG PO (08:48)
[2024-05-03] MEDS: DELTASONE 40 MG PO (08:48)
[2024-05-03] MEDS: OSCAL 500 + D 500 MG PO (08:48)
[2024-05-03] MEDS: MIRALAX 17 GRAMS PO (08:48)
[2024-05-03] MEDS: RITALIN 5 MG PO (08:48)
[2024-05-03] MEDS: URE-NA 15 GRAMS PO (08:52)
[2024-05-03] MEDS: ATIVAN 0.25 MG PO ×2 (09:02→13:02)
--- NOTE | 2024-05-03 09:58 | W.PN.HOSP.TC ---
Addendum entered and electronically signed by Sophie Arias MD 05/03/24 16:14:
total DC time 40 min
Original Note:
Today's Communication/Plan
-
see A/P
Assessment / Plan
Assessment / Plan
A/P:
# Acute hypoxic respiratory failure
Etiology suspected to be due to pneumonitis, possible hypersensitivity pneumonitis, ILD. Perhaps also a component of pulmonary edema with some improvement with diuresis. Doubt pneumonia- off antibiotics (received 5 days of empiric antibiotics).
Stopped amiodarone� even though started in February 2024, with pulmonary pathology and risk of lung toxicity risk outweighs benefits.
Not on diuretic anymore
MRSA, flu, COVID, Legionella, strep pneumo negative. Blood cultures negative.
Requires intermittent use of O2 at 2L NC. Pt not on home O2 [employer]. Cont to wean O2 as tolerated.
DuoNebs
IV Solu-Medrol started 04/16, transitioned to prednisone 40 mg daily due to anxiety. Slow steroid taper (she was on 20 mg prednisone daily [employer] for GCA): pulm recc reducing prednisone by 10 mg every 8th day until 20 mg.
Incentive spirometry, Acapella
Card and Pulmonary have signed off
# Acute heart failure with preserved EF, resolved
Off lasix
# Sepsis- resolved.
# Hyponatremia, resolved
# Paroxysmal atrial fibrillation with RVR
Rates much improved. Toprol-XL dose increased to 100 mg BID ([employer] [employer] 25 mg BID), Cardizem CD 180 mg BID ([employer] 100 mg daily). Digoxin added.
Continue Eliquis 5 mg BID
Stopped amiodarone per cardiology
# 5.7 cm focal lung pneumatosis in the right lung apex
Continue to monitor
# Giant cell arteritis
# Chronic leukocytosis
Continue steroid dosing as above
# Chronic normocytic anemia
Monitor hemoglobin
No obvious acute blood loss anemia
# GERD
famotidine
# Constipation, resolved
bowel regimen
# Hypothyroidism
Cont home levothyroxine
# Depression
Pscyh on board. Adjusted meds
DVT prophylaxis-Eliquis
Limited DNR- not interested in CPR but is amenable to temporary ventilator if needed.
Dispo- SNF
medically stable for discharge.
DW CM
Anticipated Discharge: Today
Subjective/Interval History
-
Date of Service: May 03, 2024
Objective Data
-
Labs:
Laboratory Results
05/03/24
06:16
WBC 13.5 H
Hgb 10.9 L
Hct 32.3 L
Plt Count 260
Sodium 135
Potassium 4.0
Chloride 99
Carbon Dioxide 34 H
BUN 31 H
Creatinine 0.5 L
Glucose 67 L
Calcium 8.9
Total Bilirubin 0.6
AST 27
ALT 53 H
Alkaline Phosphatase 71
Vital Signs:
Vital Signs
Temp Pulse Resp BP Pulse Ox
36.6 C 64 16 94/70 97
05/03/24 07:30 05/03/24 07:54 05/03/24 07:54 05/03/24 08:47 05/03/24 07:54
I&O
05/02/24 05/03/24 05/04/24
06:59 06:59 06:59
Intake Total 1140 / 1140 270 / 270
Balance 1140 / 1140 270 / 270
Review of Systems
-
All other systems: Reviewed and negative
Physical Exam
-
General: Well Developed, Comfortable, Respiratory Distress (mild), Conversant and Appears Chronically Ill
HEENT: Normocephalic, Moist Mucous Membranes and Oxygen (intermittent use of 2L NC)
Respiratory: Non Labored Respirations; Negative Accessory Resp Muscle Use
Cardiac: Regular Rhythm and S1/S2
GI: Soft, Nontender, Nondistended and Normal Bowel Sounds
Musculoskeletal: No Clubbing and No Cyanosis
Skin: Warm and Dry
Neuro: Awake, Alert, Oriented and AO x 3
Psych: Calm and Intact Judgement/Insight
Data Reviewed
-
Labs: Labs Reviewed by me
--- NOTE | 2024-05-03 10:14 | CM ---
Patient for transfer to SNF at [facility] today, per Saima she would like her to be transferred by 1:30pm. CM spoke with Attending and await confirmation. Patient on O2 new and plan is for transfer pending Physician assessment. CM completed the
transfer forms and called to patient . Reassurance offered and Patient email is [email or web address]. CM will continue to follow for discharge planning needs.
Plan; [facility]
please call report to [phone]/fax [phone].
[2024-05-03 11:33] VITALS: BP 102/57
[2024-05-03] MEDS: MYCOSTATIN ORAL SUSPENSION 5 ML PO (12:10)
[2024-05-03] MEDS: LANOXIN 125 MCG PO (12:10)
--- NOTE | 2024-05-03 15:31 | W.PN.UPDATE ---
Update Note
Progress Note Update
Pt seen this morning, prior to planned discharge. Pt alert, calm, cooperative, with no signs of side effects from Ritalin 5 mg day #2. Pt denies feeling a noticeable difference. She is tolerating Remeron, also increased to 30 mg HS on 05/01. Mood
and affect appear stable today.
Imp: Adjustment d/o with depression
Rec: continue current psych medications, will need follow-up to assess response
Outpatient med mgt when medically stabilized
--- NOTE | 2024-05-03 15:53 | W.DCSUMMARY ---
Discharge Summary
Discharge Data
Date of Admission: 04/14/24
Date of Discharge: 05/03/24
-
Pending Results: No
Hospital Course
Principal Diagnosis:
Acute hypoxic respiratory failure, suspect due to hypersensitivity pneumonitis/ILD, with possible component of pulmonary edema.
Acute heart failure with preserved EF, resolved
Chronic Diagnoses:�
Paroxysmal atrial fibrillation
5.7 cm focal lung pneumatosis in the right lung apex
Giant cell arteritis on chronic prednisone
Chronic leukocytosis
Chronic normocytic anemia
GERD on famotidine
Constipation, resolved
Hypothyroidism, on levothyroxine
Depression, mood stable
Consultations:�
Psychiatry
Cardiology
Pulmonary
Procedures:�
None
Clinical course:�
This is a 78-year-old female, with past medical history as stated above, who presented with shortness of breath, dyspnea on exertion, and hypoxia.
Problem 1:
Acute hypoxic respiratory failure, suspect due to hypersensitivity pneumonitis/ILD, with possible component of pulmonary edema.
Although it was felt less likely that the patient's hypoxia was due to pneumonia, he did receive empiric antibiotic for 5 days.
Patient's SOB/hypoxia did slightly improved following IV diuretic with Lasix, which was subsequently discontinued.
Her prior to admission amiodarone was discontinued given risk felt greater than benefit.
At the time of discharge, she was still requiring intermittent use of oxygen at 2 L nasal cannula. She can continue O2 support at SNF, and wean as tolerated.
Of note, she was started with IV Solu-Medrol, and steroid was transitioned to oral prednisone with plan for slow taper (started at 40 mg daily, and decrease 10 mg every week until 20 mg).
She was followed by both pulmonary and cardiology during this admission.
Problem 2:
Acute heart failure with preserved EF, resolved.
Off lasix
Problem 3:
Paroxysmal atrial fibrillation.
Her prior to admission amiodarone was discontinued.
Her prior to admission Toprol was increased from 25 mg twice daily to 100 mg twice daily.
Her prior to admission Cardizem was increased from 100 mg daily to 180 mg twice daily.
Digoxin at 125 mcg was added this admission for better rate control.
She can continue Eliquis 5 mg twice daily.
As for the rest of her medical problems, they were stable during her hospital stay.
Discharge Plan
-
Patient Disposition: Intermediate/SNF
Discharge Diagnosis/Procedures: Acute hypoxic respiratory failure suspected to be due to pneumonitis, possible hypersensitivity pneumonitis, ILD
Condition: Fair
Diet: As tolerated
Activity: As tolerated
Driving Restrictions: Not until seen by your Dr
Referrals:
Angel Gomes MD [Active] - in two to four weeks (full PFTs on day of office visit)
Brady Doyle MD [Family Provider] - in less than 1 week
Additional Discharge Medication Instructions: reduced prednisone by 10 mg every week until 20 mg then continue.
Stopped amiodarone.
We have increased Toprol-XL to 100 mg twice daily (from 25 mg twice daily), Cardizem to 180 mg twice daily (from 100 mg daily).
We have added Digoxin for better heart rate control.
Your Remeron dose was increased to 30 mg daily
Prescriptions:
New
diltiazem HCl 180 mg Capsule,Extended Release 24hr
180 mg PO BID Qty: 60 0RF
Rx Instructions:
hold for SBP < 100
digoxin 125 mcg (0.125 mg) Tablet
125 mcg PO NOON Qty: 30 0RF
metoprolol succinate 100 mg Tablet Extended Release 24 Hr
100 mg PO BID Qty: 60 0RF
Rx Instructions:
hold for SBP < 100
mirtazapine 30 mg Tablet
30 mg PO HS Qty: 30 0RF
prednisone 10 mg Tablet
See Rx Instructions .ROUTE .COMPLEX Qty: 120 0RF
Rx Instructions:
Take By Mouth:
40 mg daily x5 days, 30 mg daily x7 days, 20 mg daily until seen by pulm
Continued
Eliquis 5 MG tablet
5 mg PO BID
calcium carbonate-vitamin D3 [Calcium 600 + D(3)] 600 mg-10 mcg (400 unit) Tablet
1 tab PO DAILY Qty: 0
cholecalciferol (vitamin D3) [Vitamin D3] 50 mcg (2,000 unit) Capsule
50 mcg PO DAILY
Actemra 80 mg/4 mL (20 mg/mL) Solution
240 mg IV Q4W Qty: 0
Prolia 60 mg/mL Syringe
60 mg SC [id number]
urea 15 gram Powder In Packet
1 packet PO MOWEFR
therapeutic multivitamin Tablet
1 tab PO DAILY
docusate sodium 100 mg capsule
100 mg PO QPM
polyethylene glycol 3350 17 gram powder in packet
17 g PO DAILY
nystatin 100,000 unit/mL Suspension
5 ml PO Q6H
albuterol sulfate 90 mcg/actuation HFA aerosol inhaler
2 puff inhalation R Q6HPRN PRN (Reason: shortness of breath or wheezing)
levothyroxine [Synthroid] 150 mcg Tablet
150 mcg PO DAILY@0600
Rx Instructions:
BRAND NAME ONLY
Discontinued
diltiazem HCl 180 mg Capsule,Extended Release 24hr
180 mg PO DAILY Qty: 30 0RF
prednisone 20 mg Tablet
40 mg PO DAILY Qty: 30 0RF
metoprolol succinate 25 mg Tablet Extended Release 24 Hr
25 mg PO BID Qty: 60 0RF
amiodarone 200 mg tablet
200 mg PO DAILY
mirtazapine [Remeron] 15 mg Tablet
7.5 mg PO HS PRN (Reason: insomnia)
cefdinir 300 mg capsule
300 mg PO BID
doxycycline hyclate 100 mg tablet
100 mg PO BID
Discharge Orders:
Discharge Patient (As Directed); Ordered 05/03/24
Ordered By: Sophie Arias
Discharge Date and Time
Discharge Date/Time: 05/03/24 13:10
Print Language: ICELANDIC
== END 2024-05-03 13:10 | DRG 871 ==
LOC: 3 WEST ACU 12:06
PROVIDERS: Hospitalist; Internal Medicine Cardiovascular Disease; Nuclear Medicine Nuclear Cardiology; Nurse Practitioner Family; Nurse Practitioner Gerontology; ADMITTING PHYSICIAN Internal Medicine; ATTENDING PHYSICIAN Internal Medicine; CONSULT PHYSICIAN Internal Medicine Cardiovascular Disease; CONSULT PHYSICIAN Internal Medicine Critical Care Medicine; CONSULT PHYSICIAN Psychiatry & Neurology Psychiatry; EMERGENCY PHYSICIAN Emergency Medicine; FAMILY PHYSICIAN Family Medicine
PROC: 5A0935A Assistance with Respiratory Ventilation, Less than 24 Consecutive Hours, High Flow/Velocity Cannula (ICD-10-PCS; 2024-04-17)
DX: A41.9 Sepsis, unspecified organism (principal); I50.31 Acute diastolic (congestive) heart failure; J18.9 Pneumonia, unspecified organism; J96.01 Acute respiratory failure with hypoxia; E22.2 Syndrome of inappropriate secretion of antidiuretic hormone; Z68.1 Body mass index [BMI] 19.9 or less, adult; D64.9 Anemia, unspecified; E03.9 Hypothyroidism, unspecified; E55.9 Vitamin D deficiency, unspecified; Z11.52 Encounter for screening for COVID-19; G62.9 Polyneuropathy, unspecified; G47.00 Insomnia, unspecified; F32.A Depression, unspecified; I48.0 Paroxysmal atrial fibrillation; F41.9 Anxiety disorder, unspecified; M31.6 Other giant cell arteritis; M81.0 Age-related osteoporosis without current pathological fracture; K59.00 Constipation, unspecified; K21.9 Gastro-esophageal reflux disease without esophagitis; R63.6 Underweight; J00-J99 Diseases of the respiratory system; Z88.2 Allergy status to sulfonamides; Z79.899 Other long term (current) drug therapy; Z79.890 Hormone replacement therapy; Z79.01 Long term (current) use of anticoagulants; Z79.52 Long term (current) use of systemic steroids
CPT/HCPCS: 36600; 71045; 71260; 80048; 80053; 80162; 82164; 82805; 82962; 83605; 83735; 83880; 84100; 84145; 85014; 85018; 85025; 85027; 85652; 86140; 87040; 87070; 87205; 87449; 87502; 87641; 87811; 87899; 93005; 93306; 94640; 96374; 97110; 97116; 97162; 97167; 97530; 99285; J1160; Q9967

== ENCOUNTER → 2024-07-20 10:55 | Outpatient (REF) | payer MEDICARE, OTHER, SELFPAY | LOC: HWRAD 10:55 | PROVIDERS: ATTENDING PHYSICIAN Internal Medicine Critical Care Medicine; FAMILY PHYSICIAN Family Medicine | DX: R06.02 Shortness of breath (principal); J84.9 Interstitial pulmonary disease, unspecified | CPT/HCPCS: 71250 ==

== ENCOUNTER 2024-08-26 09:00 | Outpatient (RCR) | payer MEDICARE, OTHER, SELFPAY | END 2024-08-27 10:50 | disposition home or self-care (01) | LOC: PURB 09:00 | PROVIDERS: ATTENDING PHYSICIAN Internal Medicine Critical Care Medicine; FAMILY PHYSICIAN Family Medicine | DX: J84.9 Interstitial pulmonary disease, unspecified (principal) | CPT/HCPCS: G0237 ==

== ENCOUNTER 2024-09-23 13:15 | Outpatient (RCR) | payer MEDICARE, OTHER, SELFPAY | END 2024-09-27 09:42 | disposition home or self-care (01) | LOC: PURB 13:15 | PROVIDERS: ATTENDING PHYSICIAN Internal Medicine Critical Care Medicine; FAMILY PHYSICIAN Family Medicine | DX: J84.9 Interstitial pulmonary disease, unspecified (principal) | CPT/HCPCS: G0239 ==

== ENCOUNTER 2024-10-28 13:15 | Outpatient (RCR) | payer MEDICARE, OTHER, SELFPAY | END 2024-10-28 23:59 | disposition home or self-care (01) | LOC: PURB 13:15 | PROVIDERS: ATTENDING PHYSICIAN Internal Medicine Critical Care Medicine; FAMILY PHYSICIAN Family Medicine | DX: J84.9 Interstitial pulmonary disease, unspecified (principal); J98.4 Other disorders of lung; R06.02 Shortness of breath; J38.3 Other diseases of vocal cords; R94.2 Abnormal results of pulmonary function studies; J43.9 Emphysema, unspecified | CPT/HCPCS: G0239 ==

== ENCOUNTER 2024-11-25 13:15 | Outpatient (RCR) | payer MEDICARE, OTHER, SELFPAY | END 2024-11-26 11:03 | disposition home or self-care (01) | LOC: PURB 13:15 | PROVIDERS: ATTENDING PHYSICIAN Internal Medicine Critical Care Medicine; FAMILY PHYSICIAN Family Medicine | DX: J84.9 Interstitial pulmonary disease, unspecified (principal); J98.4 Other disorders of lung; J38.3 Other diseases of vocal cords; R94.2 Abnormal results of pulmonary function studies; J43.9 Emphysema, unspecified | CPT/HCPCS: G0239 ==

== ENCOUNTER 2024-12-07 13:15 | Outpatient (RCR) | payer MEDICARE, OTHER, SELFPAY | END 2024-12-08 13:18 | disposition home or self-care (01) | LOC: PURB 13:15 | PROVIDERS: ATTENDING PHYSICIAN Internal Medicine Critical Care Medicine; FAMILY PHYSICIAN Family Medicine | DX: J84.9 Interstitial pulmonary disease, unspecified (principal) | CPT/HCPCS: G0239 ==

== ENCOUNTER → 2025-01-19 10:53 | Outpatient (REF) | payer MEDICARE, OTHER, SELFPAY | LOC: HWRAD 10:53 | PROVIDERS: ATTENDING PHYSICIAN Internal Medicine Critical Care Medicine; FAMILY PHYSICIAN Family Medicine | DX: J84.9 Interstitial pulmonary disease, unspecified (principal) | CPT/HCPCS: 71250 ==